=== PATIENT | female | born 1960 | race Caucasian/White ===

== ENCOUNTER 2024-10-13 09:24 | Outpatient (AMB) | payer MEDICAID, SELFPAY ==
[2024-10-13 09:36] VITALS: BP 125/84; PULSE 71; RESP 18; TEMP 36.4; O2SAT 99; BMI 23.5
--- NOTE | 2024-10-13 09:36 | PD.GSCLVISIT ---
[facility] - [facility] 10/13/24 09:36 Height 1.65 m Height Method Stated Weight 64.013 kg Weight Measurement Method Standing Scale BMI 23.5 BP 125/84 Blood Pressure Source Automatic Cuff Blood Pressure Location Right Upper Arm Position Sitting Respiration 18 Pulse 71 Pulse Source Monitor Temp 97.5 F Temp Source Temporal Artery Scan Pulse Oximetry (%) 99 Oxygen Delivery Method Room Air Med/Allergies Allergies & Medications Allergies Penicillins Allergy (Verified 10/13/24 09:38) Hives Medication Reconciliation polyethylene glycol 3350 17 gram oral powder packet (Miralax) 17 g PO QDAY constipation #30 ea 05/05/24 [Rx Confirmed 10/13/24] anastrozole 1 mg tablet 1 mg PO QDAY 06/16/24 [History Confirmed 10/13/24] trazodone 50 mg tablet 50 mg PO QHS PRN insomnia 30 days #30 tabs 09/19/24 [Rx Confirmed 10/13/24] gabapentin 100 mg capsule 200 mg (2 x 100 mg) PO BID nerve pain #30 caps 10/06/24 [Rx Confirmed 10/13/24] MA Intake Visit Data Collection New Patient or Established: Established [place] [facility] [place] Seen by Clinical Staff ONLY (RN/MA): No Reason for Visit:: REFERRAL CYST ON BACK Pain Present Currently: No Pain scale:: 0 Die Assembler Required: No PCP or OBGYN visit in last 3 months: Yes Hx Now: No Do You Feel Safe at Home: Yes Authorities Contacted: N/A Smoking Status Smoking Status: Former smoker Immunization / Flu Flu Vaccine in the Last 12 Months: Yes Flu Vaccine Exclusion Criteria: Already Received Past Medical History Past Medical History NEUROLOGIC: Negative Neurological Disorders or Seizures CARDIAC: Negative Cardiac Disorders or Congestive Heart Failure RESPIRATORY: Negative Chronic Obstructive Pulmonary Disease (COPD) GASTROINTESTINAL: Negative Gastrointestinal Disorders or Hepatitis GENITOURINARY: Negative Genitourinary Disorders or Renal Disease REPRODUCTIVE: Positive Breast Cancer and Previous Pregnancies ENDOCRINE: Negative Endocrine Disorders, Diabetes Mellitus Type 1 or Diabetes Mellitus Type 2 HEMATOLOGIC: Negative Blood Disorders or Anemia PSYCHO/SOCIAL: Positive Depression and Anxiety OTHER HISTORY: Positive Hospitalization, Anesthesia Reactions, Chicken Pox, Measles, Cancer and Breast Cancer; Negative Shingles, Blood Transfusions or Blood Transfusion Reaction Family History FAMILY HISTORY: Positive Family Cardiac Disorders and Family Surgery; Negative Family Psychiatric Problems, Family Respiratory Disorders, Family Gastrointestinal Problems, Family Cancer or Family Anesthesia Reaction Surgical History SURGICAL: Positive Mastectomy, Lumpectomy and Hysterectomy Social History SMOKING STATUS: Smoking status: Former smoker ALCOHOL: Alcohol Intake: Former ALCOHOL FREQUENCY: Alcohol Intake Frequency: holidays/special occasions only HOUSING: Housing: House LIVES WITH: Lives With: Spouse HPI HPI Narrative 64F with history of breast CA presenting with back lesion. Pt reports she has noticed it for the past year and it is painful, sometimes draining thick output. Denies history of similar lesions PMH: Left breast invasive ductal carcinoma PSHx: Left mastectomy, appendectomy Meds: Anastrazole, gabapentin, abemaciclib. No antiptl or anticoagulation Allergies: PCN ROS Review of Systems Systems Reviewed: All systems reviewed, normal except as documented Objective/Exam General General Appearance: alert, cooperative and well groomed Resp Respiratory exam: Absent respiratory distress Back Back exam: Present other (upper back cyst approx 1x1cm left paraspinal) Assessment & Plan Diagnosis / Problem List (1) Sebaceous cyst: Status: Acute Plan 64F with likely sebaceous cyst preferring excision due to pain. I explained risks of recurrence, bleeding and infection; pt expressed understanding and agrees to proceed Office Procedures GNS Level of Care Nursing/Assessment Patient Status: Established Patient Nursing Assessment/Reassesment: Medication Reconciliation, Update PMH in EMR and Vital Signs Coordination of Care: Complex Care and Chronic Disease 1-5, Education Complex Pt/Fam, Consent,records obtained, informed consent, 1 Ins Authorization, Lab and Imaging orders, Results/Orders obtained and Staff clarify orders Established Patient Charge Established Patient Point Assignment: 125 Established Patient Point Charge: EP Level 4 (120-155) Patient Portal Questionaires Social History Living Situation History Housing: House Tobacco History Smoking Status: Former smoker Alcohol History Alcohol Intake: Former Alcohol Intake Frequency: holidays/special occasions only Domestic Abuse History Do You Feel Safe at Home: Yes Review of Systems Report any current symptoms Only answer those that you have currently: Past Medical History Past Medical History Have you ever been diagnosed with any of the following: Neurological Problems Seizures: No Cardiology Problems Congestive Heart Failure: No Respiratory Problems Chronic Obstructive Pulmonary Disease (COPD): No Stomache/Intestinal Problems Hepatitis: No Genital/Urinary Problems Renal Disease: No Reproductive Problems Breast Cancer: Yes Previous Pregnancies: Yes Endocrine Problems Diabetes Mellitus Type 1: No Diabetes Mellitus Type 2: No Blood Problems Anemia: No Psychologic Problems Depression: Yes Anxiety: Yes Other Problems Hospitalization: Yes Shingles: No Blood Transfusions: No Blood Transfusion Reaction: No Anesthesia Reactions: Yes Chicken Pox: Yes Measles: Yes Cancer: Yes Surgical History Hysterectomy: Yes
== END 2024-10-13 09:44 | disposition home or self-care (01) ==
LOC: HODSRG 09:24
PROVIDERS: PCP Student in an Organized Health Care Education/Training Program; Referring Provider Student in an Organized Health Care Education/Training Program; Supervising Provider Surgery; Visit Provider Surgery
DX: L72.3 Sebaceous cyst (principal); C50.912 Malignant neoplasm of unspecified site of left female breast
CPT/HCPCS: 99214; G0463

== ENCOUNTER 2024-11-09 06:50 | Day surgery (SDC) | payer MEDICAID, SELFPAY ==
[2024-11-08 08:09] VITALS: BMI 23.6
[2024-11-08 08:43] LABS: Basophils # (Auto) 0.1 Thou/mm3 (0.0-0.2); Basophils % (Auto) 2 % (0-2.5); Eosinophils % (Auto) 1 % (0-10); Hematocrit 29.6 % (36.0-46.0); Hemoglobin 9.9 g/dL (12.0-16.0); Immature Granulocytes % (Auto) 0 % (0-0); Immature Granulocytes Auto 0.01 Thou/mm3 (0.00-0.00); Lymphocytes # (Auto) 0.7 Thou/mm3 (1.0-4.8); Lymphocytes % (Auto) 27 % (10-50); Mean Corpuscular HGB Conc 33.4 g/dl (31.0-37.0); Mean Corpuscular Volume 96 fL (80-100); Monocytes # (Auto) 0.2 Thou/mm3 (0.0-0.8); Monocytes % (Auto) 8 % (0-12); Neutrophils # (Auto) 1.7 Thou/mm3 (1.8-7.7); Neutrophils % (Auto) 63 % (37-80); Nucleated Red Blood Cell % 0 /100 WBC (0); Platelet Count 102 Thou/mm3 (140-440); RDW Standard Deviation 57.5 fL (36.4-46.3); Red Blood Count 3.09 Miln/mm3 (4.00-5.20)
[2024-11-08 08:58] LABS: Alanine Aminotransferase 11 U/L (10-49); Albumin, Serum 4.4 gm/dL (3.4-4.8); Albumin/Globulin Ratio 1.8 (1.2-2.2); Alkaline Phosphatase 60 U/L (46-116); Anion Gap 8 (7-16); Aspartate Amino Transferase 17 U/L (0-34); BUN/Creatinine Ratio 21 Ratio (12-20); Bilirubin,Total 0.5 mg/dL (0.3-1.2); Blood Urea Nitrogen 19 mg/dL (9-23); Calcium 10.1 mg/dL (8.3-10.6); Calcium (Corrected) 10.1 mg/dL (8.5-10.1); Carbon Dioxide 26.9 mMol/L (20.0-31.0); Chloride 108 mMol/L (98-107); Creatinine (Component) 0.9 mg/dL (0.6-1.3); Estimated Creatinine Clearance 57.6 mL/min (>60); Globulin 2.4 gm/dL (2.3-3.5); Glucose 89 mg/dL (74-106); Osmolality,Calculated 286 (275-295); Potassium 3.6 mMol/L (3.4-5.1); Sodium 143 mMol/L (136-145); Total Protein 6.8 gm/dL (5.7-8.2); eGFR > 60 See Note
[2024-11-08 09:00] LABS: White Blood Count 2.8 Thou/mm3 (3.6-11.0)
[2024-11-08 09:34] LABS: Partial Thromboplastin Time 22.8 Seconds (22.0-36.0); Prothrombin Time 10.9 Seconds (9.0-12.2)
--- NOTE | 2024-11-08 14:25 | SUR.PREOP ---
CBC reviewed with Dr Karen awad to proceed.
--- NOTE | 2024-11-09 07:18 | CHAP ---
Visited briefly with patient and had prayer.
[2024-11-09 07:26] VITALS: BP 115/66; PULSE 56; RESP 16; TEMP 36.2; O2SAT 100; BMI 23.4
[2024-11-09] MEDS: SCOPOLAMINE 1 MG TDSY TOP (07:39)
[2024-11-09] MEDS: RINGERS LACTATED 1000 ML 1,000 ML 20 ML IV (07:40)
[2024-11-09 10:05] VITALS: BP 134/73; PULSE 54; RESP 17; TEMP 36.7; O2SAT 100
--- NOTE | 2024-11-09 10:05 | SUR.PHASEII ---
1005 Patient arrived to recovery resting comfortably in [facility], awake and talking with staff, breathing unlabored, vital signs stable, denies pain, dressing intact to back; dissolvable sutures, gauze, tegaderm, no bleeding noted, lung sounds clear upon auscultation, bilateral radial pulses present when palpated, report received from Delon HURT and Deandra SOTO
[2024-11-09 10:10] VITALS: BP 135/69; PULSE 63; RESP 14; O2SAT 100
[2024-11-09 10:15] VITALS: BP 118/61; PULSE 53; RESP 18; O2SAT 99
[2024-11-09 10:20] VITALS: BP 118/65; PULSE 51; RESP 16; O2SAT 100
--- NOTE | 2024-11-09 10:20 | PD.SUROPNT ---
Date of Procedure 11/09/24 Pre Op Diagnosis Upper back sebaceous cyst Post Op Diagnosis Same Procedure Excision of sebaceous cyst Findings Small upper back cyst containing sebum Procedure Description After discussion of risk and benefits, patient was brought to the operating room, SCDs were placed and MAC anesthesia was induced. She was placed in a right lateral decubitus position with proper padding and was prepped and draped in the usual sterile fashion. She received preoperative antibiotics. After timeout an elliptical incision was made that was 3 cm transverse dimension and 1 cm in craniocaudal dimension. The skin was anesthetized with half percent Marcaine and anesthesia was confirmed before incision was made with a #15 blade. The tissues were dissected with electrocautery and there was some expression of sebum. Ultimately the cyst was removed and the wound bed was irrigated. Hemostasis was achieved with electrocautery. The skin was approximated with two 2-0 Vicryl interrupted sutures and then closed with interrupted 4-0 Monocryl sutures. The incision was covered with Steri-Strips, gauze and Tegaderm. Patient was returned to supine position and brought to PACU in stable condition Pathology / specimen Other (Upper back cyst) Estimated Blood Loss 5 Surgeon Patrizia Jones MD Surgical Staff Operation Date: 11/09/24 09:15 <No data on this case meets the specified criteria>
--- NOTE | 2024-11-09 10:22 | ESDS_ITS ---
Planned Discharge Date 11/09/24 DS: Providers Provider Primary care physician: Ashley Shane MD Attending Provider on Admission: Patrizia Jones MD Attending Provider on DC: Patrizia Jones MD Discharging Provider: Patrizia Jones MD Diagnosis Discharge Diagnosis (1) Sebaceous cyst: Status: Acute Problem List Completed Was Problem List Reviewed/Reconciled?: Yes Exam Vital Signs Temp Pulse Resp BP Pulse Ox 98.0 F 54 L 17 134/73 H 100 11/09/24 10:05 11/09/24 10:05 11/09/24 10:05 11/09/24 10:05 11/09/24 10:05 Constitutional Constitutional: no acute distress Routine Respiratory Exam Respiratory: Present no resp distress Discharge Plan Plan Patient Disposition: HOME (Self Care) Prescriptions/Referrals Prescriptions/Med Rec: No Action anastrozole 1 mg tablet 1 mg PO QDAY Qty: 30 0RF gabapentin 100 mg capsule 200 mg PO BID Qty: 120 3RF loperamide 2 mg capsule 2 mg PO Q6H PRN (Reason: loose stool) Qty: 30 0RF Verzenio 150 mg Tablet 150 mg PO BID Referrals: Ashley Shane MD [Primary Care Provider] - Patrizia Jones MD [Physician] - (You will receive a phone call to confirm a follow-up appointment with me on Wednesday 11/28) Patient/Caregiver Discharge Instructions Education Materials: Incision Care Print Language: Argentine Stand Alone Forms: Cielo Award Info., Patient Portal Info Letter Discharge Order Discharge Orders: Discharge (Routine); Ordered 11/09/24 Ordered By: Patrizia Jones Results Results: Laboratory Laboratory results: results reviewed Procedures Procedure Date 11/09/24 Procedures Excision of sebaceous cyst
[2024-11-09 10:35] VITALS: BP 118/65; PULSE 60; RESP 16; TEMP 36.8; O2SAT 100
--- NOTE | 2024-11-09 10:45 | SUR.PHASEII ---
1045 Patient meets discharge criteria from recovery, awake and alert, breathing unlabored, vital signs stable, denies pain, dressing intact; no bleeding noted, patient drinking water; tolerating well, denies nausea, patient able to dress herself into her clothing, discharge instructions given to patient and patients , signed discharge instructions. Patient given all her belongings prior to discharge, transported via wheelchair and left in a private vehicle.
== END 2024-11-09 10:45 | disposition home or self-care (01) ==
PROVIDERS: Anesthesiology; PCP Student in an Organized Health Care Education/Training Program; Referring Provider Surgery; Visit Provider Surgery
PROC: (CPT 21930; principal; 2024-11-09 09:00)
DX: L72.3 Sebaceous cyst (principal)
CPT/HCPCS: 21930; 36415; 80053; 85025; 85610; 85730; A4217; A4649; J0690; J0736; J2250; J2704; J3490; J7120; A9270

== ENCOUNTER 2024-11-16 13:24 | Outpatient (RCR) | payer MEDICAID, SELFPAY ==
[2024-11-07 11:11] LABS: Basophils # (Auto) 0.1 Thou/mm3 (0.0-0.2); Basophils % (Auto) 2 % (0-2.5); Eosinophils % (Auto) 1 % (0-10); Hematocrit 27.6 % (36.0-46.0); Hemoglobin 9.3 g/dL (12.0-16.0); Immature Granulocytes % (Auto) 1 % (0-0); Immature Granulocytes Auto 0.02 Thou/mm3 (0.00-0.00); Lymphocytes # (Auto) 0.7 Thou/mm3 (1.0-4.8); Lymphocytes % (Auto) 26 % (10-50); Mean Corpuscular HGB Conc 33.7 g/dl (31.0-37.0); Mean Corpuscular Hemoglobin 32.2 pg (25.0-35.0); Mean Corpuscular Volume 96 fL (80-100); Monocytes # (Auto) 0.2 Thou/mm3 (0.0-0.8); Monocytes % (Auto) 7 % (0-12); Neutrophils # (Auto) 1.7 Thou/mm3 (1.8-7.7); Neutrophils % (Auto) 63 % (37-80); Nucleated Red Blood Cell % 0 /100 WBC (0); Platelet Count 82 Thou/mm3 (140-440); RDW Standard Deviation 57.1 fL (36.4-46.3); Red Blood Count 2.89 Miln/mm3 (4.00-5.20)
[2024-11-07 11:19] LABS: Alanine Aminotransferase 11 U/L (10-49); Albumin, Serum 4.6 gm/dL (3.4-4.8); Albumin/Globulin Ratio 2.3 (1.2-2.2); Alkaline Phosphatase 57 U/L (46-116); Anion Gap 7 (7-16); BUN/Creatinine Ratio 20 Ratio (12-20); Bilirubin,Total 0.4 mg/dL (0.3-1.2); Blood Urea Nitrogen 18 mg/dL (9-23); Calcium 9.8 mg/dL (8.3-10.6); Calcium (Corrected) 9.8 mg/dL (8.5-10.1); Carbon Dioxide 25.9 mMol/L (20.0-31.0); Chloride 105 mMol/L (98-107); Creatinine (Component) 0.9 mg/dL (0.6-1.3); Glucose 88 mg/dL (74-106); Osmolality,Calculated 276 (275-295); Potassium 3.2 mMol/L (3.4-5.1); Sodium 138 mMol/L (136-145); Total Protein 6.6 gm/dL (5.7-8.2); White Blood Count 2.7 Thou/mm3 (3.6-11.0); eGFR > 60 See Note
[2024-11-07 11:28] LABS: Aspartate Amino Transferase 15 U/L (0-34)
--- NOTE | 2024-11-14 05:46 | CTCFLWUP_ITS ---
Patient: IRMA BRYAN : 1960 Page 2 of 2 FOLLOW UP NOTE DATE OF SERVICE: 11/08/2024 NAME: IRMA BRYAN ACCOUNT: [id number] : 1960 AGE: 64 REASON FOR VISIT: Follow-up on breast cancer Patient is on adjuvant abemaciclib along with anastrozole INTERVAL HISTORY: Irma Bryan is a 64-year-old ENG speaking female with history of anxiety had the followin g oncology history. Cannot have extensive history of cancer in her family as about 4 in her family i ncluding her maternal aunts and sisters. She was diagnosed with high risk stage III breast cancer an d and here for follow-up. At the time of diagnosis, she does not remember as to when she exactly had the previous mammograms. Ms. Bryan has strong family history of breast cancer. Her mother as wel l as 4 of her maternal aunts had breast cancers. Sister had multiple lumps in the breast. Patient with a strong history of breast cancer Ms. Bryan had bilateral diagnostic digital mammogram s and bilateral breast ultrasounds done to evaluate palpable breast lumps. 07/13/2023: Ms. Bryan had ultrasound-guided biopsy of the left breast 9:00 nodule and a left axillar y lymph node. 09/03/2023: Ms. Bryan had left breast lumpectomy and sentinel lymph node biopsy 10/27/2023: Ms. Bryan had modified radical left mastectomy 11/12/2023: Jame hereditary cancer test? 11/12/2023: BRCA1 and BRCA2 analysis 01/11/2024 - 04/19/2020: Ms. Bryan had 4 cycles of dose dense AC and 4 cycles of Taxol in the adjuvan t setting 05/10/2024: Ms. Bryan started adjuvant radiation therapy to the left chest. 05/17/2024. Ms. Bryan received first dose of adjuvant Zometa. 05/30/2024: Ms. Bryan started adjuvant anastrozole. 07/21/2024: Ms. Bryan also started abemaciclib. ONCOLOGY HISTORY: DIAGNOSIS: Stage IIIa (pT2, snN2A), ER positive, ND negative, HER2/sarai negative, poorly differentiated invasive ductal carcinoma of the left breast. A total of 5 lymph nodes positive for metastatic disease. Left breast modified radical mastectomy (10/27/2023) Left breast lumpectomy and sentinel lymph node biopsy (09/03/2023) Left breast ultrasound-guided biopsy as well as left axillary lymph node biopsy (07/13/2023) SUE heterozygous mutation positive, high risk for breast and pancreatic cancers. PET/CT scan (05/31/2024) negative study. S/p 4 cycle of dose dense AC chemotherapy and 4 cycles of dose dense Taxol chemotherapy in the adjuva nt setting (01/11/2024 - 04/19/2024). First dose of adjuvant Zometa received on 05/17/2020 Adjuvant anastrozole started on 05/30/2024. Abemaciclib started around July 21, 2024. Currently on adjuvant abemaciclib 150 mg p.o. twice daily. Unable to tolerate full dose of abemacicl ib which was causing significant diarrhea S/p adjuvant radiation therapy to the left chest (05/10/2024?07/08/2024). DATE OF DIAGNOSIS: 10/19/2023 STAGE/TNM: T2 N2 ER positive/ND negative HER2 negative SUE mutation positive TREATMENT HISTORY: Care?Plan Start?Date Cycle Day Intent AC-Taxol?Dose?Dense?q?2wks 12/21/2023 1 14 Curative?(adjuvant) Zoledronic?Acid?4?mg?adjuvant 05/17/2024 1 180 Curative?(adjuvant) OTHER MEDICAL HISTORY/CONDITIONS: ANXIETY/?DEPRESSION LEFT?BREAST?CANCER LEFT BREAST BIOPSY 08/2023 LEFT BREAST AND LYMPH NODES REMOVED 10/27/23 HYSTERECTOMY AT AGE 41 APPENDECTOMY AT AGE 18 RIGHT BREAST LUMP REMOVED 1982 BENIGN FAMILY HISTORY: Father:?DENIES Mother: MOTHER AND MATERNAL AUNTS BREAST CANCER Sibling:?SISTER?HX?BREAST?CANCER Children:?DENIES Cancer History:?LEFT BREAST CANCER DX 08/2023 SOCIAL HISTORY: Occupational?History:?DISABLED Education?Level:?6-Attended?Vocational?School,?did?not?graduate Marital?Status:? 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 abemaciclib - 150 mg 1 tab Twice a Day 2. anastrozole - 1 mg 1 tab Daily 3. docusate sodium - 100 mg 1 Capsule As needed 4. gabapentin - 100 mg 2 tab Twice a Day 5. traZODone - 50 mg 1 tab As needed Medications Last Reconciled by Deidre Hernandez MA on 11/08/2024 ALLERGIES: Penicillin V REVIEW OF SYSTEMS: A complete 14-point review of systems was performed and is negative except as noted in interval histo ry. PHYSICAL EXAMINATION: VITAL SIGNS: Temperature?65, B/P?113/75, Oxygen?Saturation?100% Weight?142.8?lbs (Change?since? 4:?0.2?lbs) PAIN: 5 - Between moderate and severe pain ECOG Performance Status: 0 - Asymptomatic and fully active EYE: Conjunctivae is white MOUTH: Oral cavity is dry. CHEST: Clear to auscultation. Clear to auscultation. No wheezes or rales audible. CARDIAC: Rhythm regular, no murmurs or gallops present. ABDOMEN: Soft. No hepatomegaly. No splenomegaly. EXTREMITIES: No pedal edema or cyanosis. LABORATORY DATA: I have personally reviewed and interpreted each of the patient?s relevant lab tests, abnormal finding s are below: Date 11/08/24 ??GLUCOSE,RANDOM?(mg/dL) 89 ??BLOOD?UREA?NITROGEN?(mg/dL) 19 ??CREATININE?(mg/dL) 0.90 ??SODIUM?(mmol/L) 143 ??POTASSIUM?(mmol/L) 3.6 ??CHLORIDE?(mmol/L) 108?H ??CrCl?(CandG)?(ml/min) 65.33 ??AST/SGOT?(Unit/L) 17 ??ALT/SGPT?(Unit/L) 11 ??ALKALINE?PHOSPHATASE?(Unit/L) 60 ??BILIRUBIN,?TOTAL?(mg/dL) 0.5 ??PROTEIN?TOTAL?(gm/dl) 6.8 ??ALBUMIN,?SERUM?(gm/dl) 4.4 ??GLOBULIN?(gm/dl) 2.4 ??ALBUMIN/GLOBULIN?RATIO 1.8 ??CALCIUM,?SERUM?(mg/dL) 10.1 ??CALCIUM?SERUM?(CORRECTED)?(mg/dL) 10.1 IMPRESSION/PLAN: #1 stage Illa (pTZ, snNZA), ER positive, ND negative, KARIN/sarai negative, Ki-67 20-30%, poorly differe ntiated invasive ductal carcinoma of the left breast. Left breast leticia?ed radical mastectomy (10/27/2023) Left breast lumpectomy and sentinel lymph node biopsy (09/03/2023) Left breast ultrasound-guided biops y as well as left axillary lymph node biopsy (07/13/2023) Status quo 4 cycles of AC and 4 cycles of Taxol chemotherapy in the adjuvant setting Status post adjuvant radiation therapy to the left chest wall completed on 07/08/2024. Patient is on anastrozole and abemaciclib Plan is to continue for 2 years Patient tolerating it well Advised to repeat labs every month Continue abemaciclib 150 mg p.o. twice daily Last PET scan in May 2024 was negative for any metastatic disease #2 osteopenia bone density test showed osteopenia. Currently Ms. Bryan is taking Citracal 2 tablets in the morning 2 in the evening. Started on adjuvant Zometa on 05/17/2024 #3 SUE mutation Strong family history of breast cancers. Mother as well as for maternal aunts had breast cancers. Ms. Bryan is positive for SUE heterozygous mutation, high risk for breast and pancreatic cancers. BRCA 1and2 negative. 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 Continue Neurontin 100 mg p.o. twice daily CBC CMP CA 15-3 RETURN TO CLINIC: I will see her back in the clinic in 2 months. BILLING AND COMPLIANCE: I reviewed external records from providers outside my specialty as summarized above. I spent a total of 50 minutes on this patient?s care on the day of their visit excluding time spent related to any bi lled procedures. This time includes time spent with the patient as well as time spent documenting in the medical record, reviewing patients records and tests, obtaining history, placing orders, communi cating with other healthcare professionals, counseling the patient, family or caregiver, and/or care coordination for the diagnoses above. Electronically Signed by: Sascha Nichole MD T: 5:44 AM CC: PCP: Ashley Shane Referring: Ashley Shane This document was completed utilizing speech recognition software. Grammatical errors, random word in sertions, pronoun errors, and incomplete sentences are an occasional consequence of this system due t o software limitations, ambient noise, and hardware issues. Any formal questions or concerns about th e content, text or information contained within the body of this dictation should be directly address ed to the provider for clarification.
[2024-11-15 16:21] LABS: Basophils % (Auto) 1 % (0-2.5); Eosinophils % (Auto) 1 % (0-10); Hematocrit 27.8 % (36.0-46.0); Hemoglobin 9.4 g/dL (12.0-16.0); Immature Granulocytes % (Auto) 1 % (0-0); Immature Granulocytes Auto 0.02 Thou/mm3 (0.00-0.00); Lymphocytes % (Auto) 30 % (10-50); Mean Corpuscular HGB Conc 33.8 g/dl (31.0-37.0); Mean Corpuscular Hemoglobin 32.4 pg (25.0-35.0); Mean Corpuscular Volume 96 fL (80-100); Monocytes # (Auto) 0.2 Thou/mm3 (0.0-0.8); Monocytes % (Auto) 5 % (0-12); Neutrophils # (Auto) 2.1 Thou/mm3 (1.8-7.7); Neutrophils % (Auto) 63 % (37-80); Nucleated Red Blood Cell % 0 /100 WBC (0); Platelet Count 94 Thou/mm3 (140-440); RDW Standard Deviation 52.8 fL (36.4-46.3); White Blood Count 3.3 Thou/mm3 (3.6-11.0)
[2024-11-15 16:55] LABS: Alanine Aminotransferase 8 U/L (10-49); Albumin, Serum 4.4 gm/dL (3.4-4.8); Albumin/Globulin Ratio 2.1 (1.2-2.2); Alkaline Phosphatase 62 U/L (46-116); Anion Gap 9 (7-16); Aspartate Amino Transferase 13 U/L (0-34); BUN/Creatinine Ratio 19 Ratio (12-20); Bilirubin,Total 0.3 mg/dL (0.3-1.2); Blood Urea Nitrogen 15 mg/dL (9-23); Calcium 9.8 mg/dL (8.3-10.6); Calcium (Corrected) 9.8 mg/dL (8.5-10.1); Carbon Dioxide 27.1 mMol/L (20.0-31.0); Chloride 106 mMol/L (98-107); Creatinine (Component) 0.8 mg/dL (0.6-1.3); Globulin 2.1 gm/dL (2.3-3.5); Glucose 107 mg/dL (74-106); Osmolality,Calculated 283 (275-295); Potassium 2.9 mMol/L (3.4-5.1); Sodium 142 mMol/L (136-145); Total Protein 6.5 gm/dL (5.7-8.2); eGFR > 60 See Note
[2024-11-15 17:32] LABS: CA 15-3 25.3 U/mL (<32.4)
== END 2024-11-29 23:59 | disposition home or self-care (01) ==
LOC: SCTC 13:24
PROVIDERS: PCP Student in an Organized Health Care Education/Training Program; Referring Provider Student in an Organized Health Care Education/Training Program; Visit Provider Internal Medicine Hematology & Oncology
DX: C50.812 Malignant neoplasm of overlapping sites of left female breast (principal); Z17.0 Estrogen receptor positive status [ER+]; Z17.22 Progesterone receptor negative status; Z17.32 Human epidermal growth factor receptor 2 negative status; Z90.12 Acquired absence of left breast and nipple; Z92.3 Personal history of irradiation; Z79.811 Long term (current) use of aromatase inhibitors; M85.80 Other specified disorders of bone density and structure, unspecified site; Z80.3 Family history of malignant neoplasm of breast; G62.9 Polyneuropathy, unspecified; Z15.01 Genetic susceptibility to malignant neoplasm of breast; Z15.09 Genetic susceptibility to other malignant neoplasm
CPT/HCPCS: 36591; 80053; 85025; 86300; 96365; 99212; A4216; J1642; J3489; G0463

== ENCOUNTER 2024-11-28 13:02 | Outpatient (AMB) | payer MEDICAID, SELFPAY ==
[2024-11-28 13:13] VITALS: BP 124/79; PULSE 65; RESP 18; TEMP 36.2; O2SAT 100; BMI 23.5
--- NOTE | 2024-11-28 13:13 | PD.GSCLVISIT ---
Vital Signs - [facility] 11/28/24 13:13 Height 1.65 m Height Method Stated Weight 64.07 kg Weight Measurement Method Standing Scale BMI 23.5 BP 124/79 Blood Pressure Source Automatic Cuff Blood Pressure Location Right Upper Arm Position Sitting Respiration 18 Pulse 65 Pulse Source Monitor Temp 97.1 F Temp Source Temporal Artery Scan Pulse Oximetry (%) 100 Oxygen Delivery Method Room Air Med/Allergies Allergies & Medications Allergies Penicillins Allergy (Verified 11/28/24 13:44) Hives Medication Reconciliation anastrozole 1 mg tablet 1 mg PO QDAY #30 tabs 10/13/24 [Rx Confirmed 11/28/24] gabapentin 100 mg capsule 200 mg (2 x 100 mg) PO BID nerve pain #120 caps 10/13/24 [Rx Confirmed 11/28/24] loperamide 2 mg capsule 2 mg PO Q6H PRN loose stool #30 caps 10/13/24 [Rx Confirmed 11/28/24] abemaciclib 150 mg tablet (Verzenio) 150 mg PO BID 11/08/24 [History Confirmed 11/28/24] MA Intake Visit Data Collection New Patient or Established: Established Patient (seen at [facility] within 3 years) Seen by Clinical Staff ONLY (RN/MA): No Reason for Visit:: F/U BACK INCISION Pain Present Currently: No Product Safety Technical Assistant Required: No PCP or OBGYN visit in last 3 months: Yes Smoking Status Smoking Status: Former smoker Immunization / Flu Flu Vaccine in the Last 12 Months: Yes Flu Vaccine Exclusion Criteria: Already Received Past Medical History Past Medical History NEUROLOGIC: Negative Neurological Disorders or Seizures CARDIAC: Negative Cardiac Disorders or Congestive Heart Failure RESPIRATORY: Negative Chronic Obstructive Pulmonary Disease (COPD) GASTROINTESTINAL: Positive Gastrointestinal Disorders and Hemorrhoids; Negative Hepatitis GENITOURINARY: Negative Genitourinary Disorders or Renal Disease REPRODUCTIVE: Positive Breast Cancer (Left) and Previous Pregnancies MUSCULOSKELETAL: Positive Degenerative Disk Disease ENDOCRINE: Negative Endocrine Disorders, Diabetes Mellitus Type 1 or Diabetes Mellitus Type 2 HEMATOLOGIC: Negative Blood Disorders or Anemia PSYCHO/SOCIAL: Negative Depression or Anxiety OTHER HISTORY: Positive Hospitalization (surgery), Chemotherapy (2022), Radiation Therapy (2022), Chicken Pox, Measles, Cancer and Breast Cancer (Left); Negative Shingles, Blood Transfusions, Blood Transfusion Reaction or Anesthesia Reactions Family History FAMILY HISTORY: Positive Family Cardiac Disorders and Family Surgery; Negative Family Psychiatric Problems, Family Respiratory Disorders, Family Gastrointestinal Problems, Family Cancer or Family Anesthesia Reaction Surgical History SURGICAL: Positive Abdominal Surgery, Mastectomy (left), Lumpectomy (right breast non cancerous) and Hysterectomy Social History SMOKING STATUS: Smoking status: Former smoker ALCOHOL: Alcohol Intake: Current ALCOHOL FREQUENCY: Alcohol Intake Frequency: holidays/special occasions only HOUSING: Housing: House LIVES WITH: Lives With: Spouse HPI HPI Narrative 64F s/p excision of sebaceous cyst of upper back 11/09 here for planned follow up. Pt reports feeling well overall with no pain to the area, no drainage or any other complaint ROS Review of Systems Systems Reviewed: All systems reviewed, normal except as documented Objective/Exam General General Appearance: alert, cooperative and well groomed Resp Respiratory exam: Absent respiratory distress Back Back exam: Present other (upper back incision with no erythema, no fluctuance or tenderness) Results Pathology: epidermal cyst Assessment & Plan Diagnosis / Problem List (1) Sebaceous cyst: Status: Acute Assessment & Plan: 64F s/p excision of upper back sebaceous cyst, recovering well Plan: Follow up as needed Office Procedures GNS Level of Care Nursing/Assessment Patient Status: Established Patient Nursing Assessment/Reassesment: Medication Reconciliation, Update PMH in EMR and Vital Signs Coordination of Care: Complex Care and Chronic Disease 1-5, Education Complex Pt/Fam, 1 Ins Authorization and Staff clarify orders Established Patient Charge Established Patient Point Assignment: 100 Established Patient Point Charge: EP Level 3 (80-115) Patient Portal Questionaires Social History Living Situation History Housing: House Tobacco History Smoking Status: Former smoker Alcohol History Alcohol Intake: Current Alcohol Intake Frequency: holidays/special occasions only Review of Systems Report any current symptoms Only answer those that you have currently: Past Medical History Past Medical History Have you ever been diagnosed with any of the following: Neurological Problems Seizures: No Cardiology Problems Congestive Heart Failure: No Respiratory Problems Chronic Obstructive Pulmonary Disease (COPD): No Stomache/Intestinal Problems Hepatitis: No Hemorrhoids: Yes Genital/Urinary Problems Renal Disease: No Reproductive Problems Breast Cancer: Yes (Left) Previous Pregnancies: Yes Musculoskeletal Problems Degenerative Disk Disease: Yes Endocrine Problems Diabetes Mellitus Type 1: No Diabetes Mellitus Type 2: No Blood Problems Anemia: No Psychologic Problems Depression: No Anxiety: No Other Problems Hospitalization: Yes (surgery) Shingles: No Blood Transfusions: No Blood Transfusion Reaction: No Anesthesia Reactions: No Chemotherapy: Yes (2022) Radiation Therapy: Yes (2022) Chicken Pox: Yes Measles: Yes Cancer: Yes Surgical History Hysterectomy: Yes
== END 2024-11-28 13:41 | disposition home or self-care (01) ==
LOC: HODSRG 13:02
PROVIDERS: PCP Student in an Organized Health Care Education/Training Program; Referring Provider Student in an Organized Health Care Education/Training Program; Supervising Provider Surgery; Visit Provider Surgery
DX: Z48.817 Encounter for surgical aftercare following surgery on the skin and subcutaneous tissue (principal)
CPT/HCPCS: 99213; G0463

== ENCOUNTER 2024-11-28 13:32 | Outpatient (AMB) | payer MEDICAID, SELFPAY ==
[2024-11-28 13:43] VITALS: BP 115/70; PULSE 63; RESP 18; TEMP 36.8; O2SAT 99; BMI 23.3
--- NOTE | 2024-11-28 13:43 | PD.RESCLINIC ---
Vital Signs 11/28/24 13:43 Height 1.65 m Height Method Stated Weight 63.616 kg Weight Measurement Method Standing Scale BMI 23.3 BP 115/70 Blood Pressure Source Automatic Cuff Blood Pressure Location Right Upper Arm Position Sitting Respiration 18 Pulse 63 Pulse Source Monitor Temp 98.3 F Temp Source Oral Pulse Oximetry (%) 99 Oxygen Delivery Method Room Air Allergies/Meds Allergies & Medications Allergies Penicillins Allergy (Verified 11/28/24 13:44) Hives Medication Reconciliation anastrozole 1 mg tablet 1 mg PO QDAY #30 tabs 10/13/24 [Rx Confirmed 11/28/24] gabapentin 100 mg capsule 200 mg (2 x 100 mg) PO BID nerve pain #120 caps 10/13/24 [Rx Confirmed 11/28/24] loperamide 2 mg capsule 2 mg PO Q6H PRN loose stool #30 caps 10/13/24 [Rx Confirmed 11/28/24] abemaciclib 150 mg tablet (Verzenio) 150 mg PO BID 11/08/24 [History Confirmed 11/28/24] albuterol sulfate 90 mcg/actuation breath activated powder inhaler 1 inh inhalation QID PRN shortness of breath or wheezing #1 ea 11/28/24 [Rx] loratadine 5 mg-pseudoephedrine ER 120 mg tablet,extended release,12hr (Loratadine-D) 1 tab PO Q12H 2 weeks #28 tabs 11/28/24 [Rx] MA Intake Visit Data Collection New Patient or Established: Established Patient (seen at [facility] within 3 years) Seen by Clinical Staff ONLY (RN/MA): No Pain Present Currently: No Pain scale:: 0 Pain Scale Used: Avina-Epps/Numerical Flagstone Layer Required: No PCP or OBGYN visit in last 3 months: Yes Do You Feel Safe at Home: Yes Authorities Contacted: N/A Smoking Status Smoking Status: Former smoker Immunization / Flu Flu Vaccine in the Last 12 Months: No Flu Vaccine Exclusion Criteria: No Exclusion Criteria Past Medical History Past Medical History NEUROLOGIC: Negative Neurological Disorders or Seizures CARDIAC: Negative Cardiac Disorders or Congestive Heart Failure RESPIRATORY: Negative Chronic Obstructive Pulmonary Disease (COPD) GASTROINTESTINAL: Positive Gastrointestinal Disorders and Hemorrhoids; Negative Hepatitis GENITOURINARY: Negative Genitourinary Disorders or Renal Disease REPRODUCTIVE: Positive Breast Cancer (Left) and Previous Pregnancies MUSCULOSKELETAL: Positive Degenerative Disk Disease ENDOCRINE: Negative Endocrine Disorders, Diabetes Mellitus Type 1 or Diabetes Mellitus Type 2 HEMATOLOGIC: Negative Blood Disorders or Anemia PSYCHO/SOCIAL: Negative Depression or Anxiety OTHER HISTORY: Positive Hospitalization (surgery), Chemotherapy (2022), Radiation Therapy (2022), Chicken Pox, Measles, Cancer and Breast Cancer (Left); Negative Shingles, Blood Transfusions, Blood Transfusion Reaction or Anesthesia Reactions Family History FAMILY HISTORY: Positive Family Cardiac Disorders and Family Surgery; Negative Family Psychiatric Problems, Family Respiratory Disorders, Family Gastrointestinal Problems, Family Cancer or Family Anesthesia Reaction Surgical History SURGICAL: Positive Abdominal Surgery, Mastectomy (left), Lumpectomy (right breast non cancerous) and Hysterectomy Social History SMOKING STATUS: Smoking status: Former smoker ALCOHOL: Alcohol Intake: Current ALCOHOL FREQUENCY: Alcohol Intake Frequency: holidays/special occasions only HOUSING: Housing: House LIVES WITH: Lives With: Spouse Patient Portal Questiondarline Social History Living Situation History Housing: House Tobacco History Smoking Status: Former smoker Alcohol History Alcohol Intake: Current Alcohol Intake Frequency: holidays/special occasions only Domestic Abuse History Do You Feel Safe at Home: Yes Review of Systems Report any current symptoms Only answer those that you have currently: Past Medical History Past Medical History Have you ever been diagnosed with any of the following: Neurological Problems Seizures: No Cardiology Problems Congestive Heart Failure: No Respiratory Problems Chronic Obstructive Pulmonary Disease (COPD): No Stomache/Intestinal Problems Hepatitis: No Hemorrhoids: Yes Genital/Urinary Problems Renal Disease: No Reproductive Problems Breast Cancer: Yes (Left) Previous Pregnancies: Yes Musculoskeletal Problems Degenerative Disk Disease: Yes Endocrine Problems Diabetes Mellitus Type 1: No Diabetes Mellitus Type 2: No Blood Problems Anemia: No Psychologic Problems Depression: No Anxiety: No Other Problems Hospitalization: Yes (surgery) Shingles: No Blood Transfusions: No Blood Transfusion Reaction: No Anesthesia Reactions: No Chemotherapy: Yes (2022) Radiation Therapy: Yes (2022) Chicken Pox: Yes Measles: Yes Cancer: Yes Surgical History Hysterectomy: Yes History of Present Illness HPI Narrative Ms. 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 with complaints of dizziness and ear crackling that has been going on for a few weeks, although the dizziness is new. Patient reports possible subjective fever but did not check her temperature. Patient is worried about passing out. Patient denies any chest pain, SOB, nausea, vomiting, abdominal pain, change in appetite, or symptoms. Patient states that she had her gabapentin decreased last visit and would like to decrease it again. Patient following at [facility] for new biopsy of right breast pending results. Next appointment with oncology in December. Objective/Exam Narrative Physical exam: General: Awake and in no acute distress. Conversational and non-toxic appearing. Heart: Regular rate and rhythm, no murmurs. Lungs: Clear to auscultation with no wheezing or crackles. Abdomen: Soft, nondistended, nontender, positive bowel sounds. ?No guarding or rebound tenderness. Neurologic: Alert and oriented x3, no gross neurological deficit, and patient able to move all 4 extremities. Musculoskeletal: Left shoulder pain on palpation. Extremities: No edema. Assessment & Plan Diagnosis / Problem List (1) Dizziness, nonspecific: Status: Acute Assessment & Plan: Patient complains of dizziness at times, denies any palpitations or association with sudden standing or movements. Plan: Will order carotid US and follow up on results. Advised patient to take a few seconds before ambulating after standing. (2) Congestion of right ear: Status: Acute Assessment & Plan: Patient complaining of right ear fullness and crackling, No eryhtema noted on exam, but patient does complain or recent cold. Plan: Will start patient on loratidine with pseudophed for 2 weeks with follow up. (3) Other forms of dyspnea: Status: Acute Assessment & Plan: Patient complaining of trouble breathing during dizzy spells. CCTB on auscultation, No neck mass appreciated on palpation. Plan: As needed albuterol for SOB. (4) Breast cancer: Status: Chronic Qualifiers: Breast location: unspecified site of breast Estrogen receptor status: positive Laterality: left Patient sex: female Qualified Code(s): C50.912 - Malignant neoplasm of unspecified site of left female breast; Z17.0 - Estrogen receptor positive status [ER+] Assessment & Plan: Followed at [facility] cancer center. Has follow up appointment in December regarding biopsy right breast. Plan: Follow up with oncology. Continue Verzenio and anastrozole. (5) Neuropathy: Status: Acute Assessment & Plan: Patient complaining of neuropathy after chemo and currently on gabapentin. Plan: will decrease gabapentin to 1 dose in the morning and 2 at night. Plan @ week follow up to assess fullness and dizziness. F/U carotid US. Decrease gabapentin to 1 capsule twice daily next visit. Patient will see if she has taken Shingles vaccine and pneumoccoccal vaccine. will remind to get vaccine at pharmacy at next visit. Orders: Orders US carotid duplex 11/28/24 R42 - Dizziness and giddiness Additional Assessment Attending note: I, Trevon Wilkes MD, attest that I was physically present for the lewis portions of the service and evaluated the patient with the resident and I reviewed and discussed the case with the resident and agree with the resident's findings and plans of care as documented above. Intermittent ear crackling along with intermittent dizziness. Symptom has been more lightheadedness. Ear exam fairly benign. May have some degree of eustachian tube dysfunction though no effusion today. We will try antihistamine along with decongestant to see if helps with symptoms. Given nonspecific dizziness/lightheadedness, we will check a carotid ultrasound to ensure no circulatory issue there. Weaning gabapentin. Trevon Wilkes MD Physician Billing Established Patient Established Patient: E/M Level 3-CPT 86950 Office Procedures [facility] Level of Care Nursing/Assessment Patient Status: Established Patient Nursing Assessment/Reassessment: Medication Reconciliation, Update PMH in EMR and Vital Signs Coordination of Care: Complex Care and Chronic Disease 1-5, Consent,records obtained, informed consent, Education Simp Pt/Fam, 1 Ins Authorization, Lab and Imaging orders and Staff clarify orders Established Patient Charge Established Patient Point Assignment: 115 Established Patient Point Charge: EP Level 3 (80-115)
== END 2024-11-28 14:35 | disposition home or self-care (01) ==
LOC: HODAHC 13:32
PROVIDERS: PCP Student in an Organized Health Care Education/Training Program; Referring Provider Student in an Organized Health Care Education/Training Program; Supervising Provider Internal Medicine; Visit Provider Student in an Organized Health Care Education/Training Program
DX: R42 Dizziness and giddiness (principal); H83.8X1 Other specified diseases of right inner ear; R06.09 Other forms of dyspnea; C50.912 Malignant neoplasm of unspecified site of left female breast; Z17.0 Estrogen receptor positive status [ER+]; Z17.22 Progesterone receptor negative status; Z17.32 Human epidermal growth factor receptor 2 negative status; Z90.12 Acquired absence of left breast and nipple; Z92.21 Personal history of antineoplastic chemotherapy; G62.9 Polyneuropathy, unspecified
CPT/HCPCS: 99213; G0463

== ENCOUNTER 2024-12-02 11:38 | Inpatient (IN) | payer SELFPAY ==
[2024-12-02 11:59] VITALS: BP 115/78; PULSE 107; RESP 15; TEMP 36.4; O2SAT 100; BMI 23.3
--- NOTE | 2024-12-02 12:03 | XR_ITS ---
Examination: CT brain head without contrast. 2-D sagittal coronal reconstructions Date and time of exam:December 02, 2024 1427 hours Comparison April 23, 2024 INDICATIONS: Patient fell last night, hit head followed by headache and dizziness lightheadedness CTDI: vol (mGy):50.4 DLP: (mGycm):1083 Technique: Multiple CT axial sections of the brain have been obtained, 5 mm slice thickness. Contrast has not been administered. 2-D sagittal, coronal reconstructions have been obtained Low dose protocols were performed. One or more of the following dose reduction techniques were used; automated exposure control, adjustment of the mA and/or KV according to patient size, use of iterative reconstruction technique. Findings: No significant ventricular enlargement. Axial image 33 demonstrates 12 mm low-density area in the left brainstem pontine level Intra-axial or extra-axial hemorrhage density is not seen. No mass effect or midline shift Basal cisterns are not remarkable. Fourth ventricle is midline. Cranial vault intact. Impression: Negative for acute hemorrhage, mass effect or midline shift 12 mm low density area in the left brainstem, pontine level, suspicious for age indeterminate infarct, clinical correlation advised Suggest follow-up brain MRI as clinically warranted
--- NOTE | 2024-12-02 12:03 | EKG_ITS ---
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
--- NOTE | 2024-12-02 12:03 | PD.EDRME ---
Rapid Medical Screening Exam RME Arrival date/time: 12/02/24 11:38 64-year-old female with a history of breast cancer presents to the emergency room with a chief complaint of generalized weakness, and a syncopal episode that occurred last night. I have greeted and performed a focused initial assessment of this patient. A comprehensive ED assessment and evaluation of the patient, analysis of all test results, and completion of the medical decision making process will be conducted by additional ED providers. Chief Complaint: Dizziness Vital signs: Vital Signs Temperature 97.5 F 12/02/24 11:59 Pulse Rate 107 H 12/02/24 11:59 Respiratory Rate 15 12/02/24 11:59 Blood Pressure 115/78 12/02/24 11:59 Pulse Oximetry (%) 100 12/02/24 11:59 Oxygen Delivery Method Room Air 12/02/24 11:59 Vital signs reviewed by provider: Yes
[2024-12-02 12:45] LABS: Collection Type, Urine Clean Catch
[2024-12-02 12:52] LABS: Basophils # (Auto) 0.1 Thou/mm3 (0.0-0.2); Basophils % (Auto) 2 % (0-2.5); Eosinophils % (Auto) 1 % (0-10); Hematocrit 31.8 % (36.0-46.0); Hemoglobin 10.8 g/dL (12.0-16.0); Immature Granulocytes % (Auto) 1 % (0-0); Immature Granulocytes Auto 0.02 Thou/mm3 (0.00-0.00); Lymphocytes # (Auto) 0.7 Thou/mm3 (1.0-4.8); Lymphocytes % (Auto) 24 % (10-50); Mean Corpuscular Hemoglobin 32.8 pg (25.0-35.0); Mean Corpuscular Volume 97 fL (80-100); Monocytes # (Auto) 0.2 Thou/mm3 (0.0-0.8); Monocytes % (Auto) 7 % (0-12); Neutrophils % (Auto) 66 % (37-80); Nucleated Red Blood Cell % 0 /100 WBC (0); Platelet Count 96 Thou/mm3 (140-440); Red Blood Count 3.29 Miln/mm3 (4.00-5.20)
[2024-12-02 12:55] LABS: Bilirubin,Urine Negative (Negative); Blood,Urine Negative (Negative); Clarity,Urine Clear (Clear/Hazy); Color,Urine Lt-Yellow (Lt Yel-Yel); Glucose, Urine Negative (Negative); Hyaline Casts,Urine < 1 /hpf (0-1); Ketones,Urine Negative (Negative); Leukocyte Esterase,Urine Negative (Negative); Nitrite,Urine Negative (Negative); Protein,Urine Trace (Neg - Trace); RBC,Urine 2 /hpf (0-3); Specific Gravity,Urine 1.012 (1.001-1.035); Squamous Epithelial Cell,Urine 1 /hpf (0-5); Urobilinogen,Urine Negative mg/dL (0.0-1.0); WBC,Urine 8 /hpf (0-5)
[2024-12-02 13:26] LABS: Alanine Aminotransferase 8 U/L (10-49); Albumin, Serum 4.9 gm/dL (3.4-4.8); Albumin/Globulin Ratio 2.1 (1.2-2.2); Alkaline Phosphatase 73 U/L (46-116); Anion Gap 9 (7-16); Aspartate Amino Transferase 13 U/L (0-34); BUN/Creatinine Ratio 13 Ratio (12-20); Bilirubin,Total 0.5 mg/dL (0.3-1.2); Blood Urea Nitrogen 14 mg/dL (9-23); Carbon Dioxide 26.2 mMol/L (20.0-31.0); Chloride 104 mMol/L (98-107); Creatinine (Component) 1.1 mg/dL (0.6-1.3); Estimated Creatinine Clearance 47.1 mL/min (>60); Globulin 2.3 gm/dL (2.3-3.5); Glucose 89 mg/dL (74-106); Osmolality,Calculated 277 (275-295); Sodium 139 mMol/L (136-145); Total Protein 7.2 gm/dL (5.7-8.2); Troponin I < 0.020 ng/mL (0.0-0.045); eGFR 56 See Note
[2024-12-02 16:51] VITALS: BP 128/85; PULSE 100; RESP 15; TEMP 36.5; O2SAT 100
[2024-12-02 20:12] VITALS: BP 133/70; PULSE 122; RESP 18; TEMP 36.2; O2SAT 100
--- NOTE | 2024-12-02 20:47 | PD.EDADULT ---
ED General RME/HPI General Chief complaint: Dizziness Stated complaint: DIZZINESS FOR 1 WEEK, FALL LAST NIGHT Time Seen by Provider: 12/02/24 20:38 Arrival date/time: 12/02/24 11:38 CC: Syncope HPI onset this afternoon patient states she had very minimal advanced sensation that this was going to happen, the patient states he got off the bed was going to go reach for a doorknob and then woke up on the floor. When asked in detail with no prior history of similar events. The patient states she has had 1 week of intermittent episodes of dizziness with mild blurred vision that was random, but no nighttime issues. Patient has a history of breast cancer is still getting chemotherapy denies fever chills shortness of breath difficulty breathing currently has no focal deficits. RME / HPI RME / HPI narrative: 12/02/24 11:38 64-year-old female with a history of breast cancer presents to the emergency room with a chief complaint of generalized weakness, and a syncopal episode that occurred last night. I have greeted and performed a focused initial assessment of this patient. A comprehensive ED assessment and evaluation of the patient, analysis of all test results, and completion of the medical decision making process will be conducted by additional ED providers. Related Data Home Medications ?Medication ?Instructions ?Recorded ?Confirmed abemaciclib 150 mg tablet 150 mg PO BID 11/08/24 11/28/24 (Verzenio) Previous Rx's ?Medication ?Instructions ?Recorded anastrozole 1 mg tablet 1 mg PO QDAY #30 tabs 10/13/24 gabapentin 100 mg capsule 200 mg (2 x 100 mg) PO BID nerve 10/13/24 pain #120 caps loperamide 2 mg capsule 2 mg PO Q6H PRN loose stool #30 10/13/24 caps albuterol sulfate 90 mcg/actuation 1 inh inhalation QID PRN shortness 11/28/24 breath activated powder inhaler of breath or wheezing #1 ea loratadine 5 mg-pseudoephedrine ER 1 tab PO Q12H 2 weeks #28 tabs 11/28/24 120 mg tablet,extended release,12hr (Loratadine-D) Allergies Allergy/AdvReac Type Severity Reaction Status Date / Time Penicillins Allergy Hives Verified 12/02/24 11:41 Review of Systems Review of Systems Narrative Review of Systems: GEN: No fever, no chills, no weight loss EYES: No discharge, no visual changes, no pain HEENT: No ear pain, no congestion, no sore throat PULM: No shortness of breath, no cough, no congestion CV: No chest pain, no dyspnea on exertion, no palpitations GI: No nausea, no vomiting, no diarrhea, no pain, no constipation : No frequency, no urgency, no dysuria MUSC/SKEL: No joint pain, no back pain SKIN: No rash PSYCH: No hallucinations, no depression HEME/LYMPH: No easy bleeding or bruising tendencies NEURO: No weakness, no headache Past Medical History Past Medical History NEUROLOGIC: Negative Neurological Disorders or Seizures CARDIAC: Negative Cardiac Disorders or Congestive Heart Failure RESPIRATORY: Negative Chronic Obstructive Pulmonary Disease (COPD) GASTROINTESTINAL: Positive Gastrointestinal Disorders and Hemorrhoids; Negative Hepatitis GENITOURINARY: Negative Genitourinary Disorders or Renal Disease REPRODUCTIVE: Positive Breast Cancer (Left) and Previous Pregnancies MUSCULOSKELETAL: Positive Musculoskeletal Disorders and Degenerative Disk Disease ENDOCRINE: Negative Endocrine Disorders, Diabetes Mellitus Type 1 or Diabetes Mellitus Type 2 HEMATOLOGIC: Negative Blood Disorders or Anemia PSYCHO/SOCIAL: Negative Depression or Anxiety OTHER HISTORY: Positive Hospitalization (surgery), Chemotherapy (2023), Radiation Therapy (2023), Chicken Pox, Measles, Cancer and Breast Cancer (Left); Negative Autoimmune Disease, Shingles, Blood Transfusions, Blood Transfusion Reaction or Anesthesia Reactions Family History FAMILY HISTORY: Positive Family Cardiac Disorders and Family Surgery; Negative Family Psychiatric Problems, Family Respiratory Disorders, Family Gastrointestinal Problems, Family Cancer or Family Anesthesia Reaction Surgical History SURGICAL: Positive Abdominal Surgery, Mastectomy, Lumpectomy and Hysterectomy Social History SMOKING STATUS: Never smoker ED Exam Narrative Physical exam: [General: Not in any acute distress Head normocephalic HEENT: Within acceptable limits Neck is supple nontender Chest equal chest rise nontender to palpation Respiratory: Clear to auscultation no wheezes crackles or rubs CV: Rate rhythm is regular no murmurs rubs or clicks Abdomen is soft nontender no masses positive bowel sounds all 4 quadrants Back: No CVA tenderness no spinous process tenderness from cervical spine thoracic and lumbar spine Skin: Intact no petechiae rash induration ulceration or crepitus Extremities: Moving all extremities against resistance cap refill less than 2 seconds neurosensory intact Neuro: Awake alert oriented x3 Glascow coma 15 no focal deficits] cranial nerves II through XII are grossly intact. Course Quality Measures none Orders Category Date Time Status EKG (ED ONLY) *Do not use* NOW Care 12/02/24 12:[address] head/brain wo con Stat Exams 12/02/24 12:03 Completed EKG (ED Only) Stat Exams 12/02/24 12:03 Draft CBC Stat Lab 12/02/24 12:37 Completed Comprehensive Metabolic Panel Stat Lab 12/02/24 12:37 Completed Troponin I Stat Lab 12/02/24 12:37 Completed Urinalysis Stat Lab 12/02/24 12:30 Completed Urine Culture Stat Lab 12/02/24 12:30 Received Aspirin [Ecotrin] Med 12/02/24 21:26 Once 81 mg PO X1 ONE Vital Signs Vital signs: Vital Signs Temperature 97.5 F 12/02/24 11:59 Pulse Rate 107 H 12/02/24 11:59 Respiratory Rate 15 12/02/24 11:59 Blood Pressure 115/78 12/02/24 11:59 Pulse Oximetry (%) 100 12/02/24 11:59 Oxygen Delivery Method Room Air 12/02/24 11:59 [facility] Patient data External records reviewed:: [facility] previous records Clinical information provided by:: patient Social determinants that could affect healthcare access:: none Patient has the following chronic illnesses:: Breast cancer How is presenting disease/condition affected by chronic disease/condition?: uneffected by Evaluation data The following diagnostics were reviewed and interpreted by me:: lab results, radiology exam(s) and EKG tracing(s) Lab and/or radiology exams considered but not ordered:: 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 EKG performed at 1209 shows a ventricular rate of 111 [place] interval of 138 QRS of 95 QTc is 398 this is sinus tachycardia nonspecific ST segment changes. Interpretation Summary: Patient's case and clinical presentation discussed with teleneurology, who feels that patient's symptoms in the prior week may be autonomic and not necessarily related however patient warrants a complete workup for stroke and needs to be admitted for MRI in the morning. Patient's case discussed with the resident for Dr. Gallegos agrees to accept the patient for admission Medications Medications considered but not ordered:: None Medication administrations:: None Consultations Consultation(s) initiated? (list below): Yes Diagnosis Differential Diagnosis ED Complaint MDM: Syncope CVA TIA Most likely diagnosis given after review of the tests above:: Syncope CVA Admission Indicated Admission indicated?: indicated Explain why admission is indicated or not indicated:: Quires further medical management Admission Request Was there a request for admission?: No Disposition Plan Disposition Plan: Admit Medical Decision Making Differential Diagnosis Differential Diagnosis: Syncope CVA TIA Lab Data 12/02/24 12:37 12/02/24 12:37 Labs: Lab Results 12/02/24 12/02/24 Range/Units 12:30 12:37 WBC 3.0 L (3.6-11.0) Thou/mm3 RBC 3.29 L (4.00-5.20) Miln/mm3 Hgb 10.8 L (12.0-16.0) g/dL Hct 31.8 L (36.0-46.0) % MCV 97 (80-100) fL MCH 32.8 (25.0-35.0) pg MCHC 34.0 (31.0-37.0) g/dl RDW Std Deviation 47.0 H (36.4-46.3) fL Plt Count 96 L (140-440) Thou/mm3 Neut % (Auto) 66 (37-80) % Lymph % (Auto) 24 (10-50) % Wilcox % (Auto) 7 (0-12) % Eos % (Auto) 1 (0-10) % Baso % (Auto) 2 (0-2.5) % Neut # (Auto) 2.0 (1.8-7.7) Thou/mm3 Lymph # (Auto) 0.7 L (1.0-4.8) Thou/mm3 Wilcox # (Auto) 0.2 (0.0-0.8) Thou/mm3 Eos # (Auto) 0.0 (0.0-0.5) Thou/mm3 Baso # (Auto) 0.1 (0.0-0.2) Thou/mm3 Immature Gran # (Auto) 0.02 H (0.00-0.00) Thou/mm3 Absolute Nucleated RBC 0.00 (0.00-0.00) Thou/mm3 Immature Gran % 1 H (0-0) % Nucleated RBC % 0 (0) /100 WBC Sodium 139 (136-145) mMol/L Potassium 4.0 (3.4-5.1) mMol/L Chloride 104 (98-107) mMol/L Carbon Dioxide 26.2 (20.0-31.0) mMol/L Anion Gap 9 (7-16) BUN 14 (9-23) mg/dL Creatinine 1.1 (0.6-1.3) mg/dL Estim Creat Clear Calc 47.1 L (>60) mL/min eGFR 56 L (60 - ) See Note BUN/Creatinine Ratio 13 (12-20) Ratio Glucose 89 (74-106) mg/dL Calculated Osmolality 277 (275-295) Calcium 10.0 (8.3-10.6) mg/dL Corrected Calcium 10.0 (8.5-10.1) mg/dL Total Bilirubin 0.5 (0.3-1.2) mg/dL AST 13 (0-34) U/L ALT 8 L (10-49) U/L Alkaline Phosphatase 73 (46-116) U/L Troponin I < 0.020 (0.0-0.045) ng/mL Total Protein 7.2 (5.7-8.2) gm/dL Albumin 4.9 H (3.4-4.8) gm/dL Globulin 2.3 (2.3-3.5) gm/dL Albumin/Globulin Ratio 2.1 (1.2-2.2) Ur Collection Type Clean Catch Urine Color Lt-Yellow (Lt Yel-Yel) Urine Clarity Clear (Clear/Hazy) Urine pH 6.0 (5.0-7.0) Ur Specific Adams 1.012 (1.001-1.035) Urine Protein Trace (Neg - Trace) Urine Glucose (UA) Negative (Negative) Urine Ketones Negative (Negative) Urine Blood Negative (Negative) Urine Nitrite Negative (Negative) Urine Bilirubin Negative (Negative) Urine Urobilinogen (Auto) Negative (0.0-1.0) mg/dL Ur Leukocyte Esterase Negative (Negative) Urine RBC 2 (0-3) /hpf Urine WBC 8 H (0-5) /hpf Ur Squamous Epith Cells 1 (0-5) /hpf Urine Bacteria None (None) Hyaline Casts < 1 (0-1) /hpf Discharge Plan Plan Patient Disposition: HOME (Self Care) Patient condition on transfer: Stable Prescriptions/Referrals Prescriptions/Med Rec: No Action Loratadine-D 5-120 mg tablet extended release 12 hr 1 tab PO Q12H 14 Days Qty: 28 0RF albuterol sulfate 90 mcg/actuation aerosol powdr breath activated 1 inh inhalation QID PRN (Reason: shortness of breath or wheezing) Qty: 1 0RF anastrozole 1 mg tablet 1 mg PO QDAY Qty: 30 0RF gabapentin 100 mg capsule 200 mg PO BID Qty: 120 3RF loperamide 2 mg capsule 2 mg PO Q6H PRN (Reason: loose stool) Qty: 30 0RF Verzenio 150 mg Tablet 150 mg PO BID Referrals: Jennifer Patricio MD [Primary Care Provider] - In 1 week Problem List Clinical Impression: Syncope, CVA (cerebral vascular accident) Patient/Caregiver Discharge Instructions Print Language: Afghan Stand Alone Forms: Cielo Award Info., Patient Portal Info Letter PA/SECURITY THREAT ANALYST Supervising Physician PA/SECURITY THREAT ANALYST Supervising Physician: Satish Boston ENP
--- NOTE | 2024-12-02 21:31 | ESCONSULT_ITS ---
Tele Neuro Consultation Consultation Date 12/02/24 Most Recent Vital Signs Last Vital Signs Temp 97.2 F 12/02/24 20:12 Pulse 122 H 12/02/24 20:12 Resp 18 12/02/24 20:12 BP 133/70 H 12/02/24 20:12 Pulse Ox 100 12/02/24 20:12 O2 Del Method Room Air 12/02/24 20:12 Consultation Narrative [facility] TeleNeurology Consult Services Stat Consult Patient Name:???collins herrera Date of :???1960 Identification Number:??? Date of Service:???12/02/2024 21:02:36 Diagnosis:?R42 - Dizziness/ Vertigo/ Giddiness ?I63.30 - Cerebrovascular accident (CVA) due to thrombosis of cerebral artery ([facility]) Impression 64F with PMHx breast cancer, neuropathy, presents with syncope. Patient tells me she passed out last night, and hit her head. She was sitting watching TV, then got up and passed out with little to no premonition. She has been feeling dizzy off and on for the past week. By dizzy she means lightheaded, vision goes dark, any time she stands up. She completed chemotherapy last April. She has been feeling generally weak for the last 2 weeks, especially when she stands up. No unilateral weakness or numbness. She has been having trouble swallowing the last 2 weeks, and her voice is more hoarse. She can walk independently. No diplopia. No headache. She feels pressure around her neck, and then extends up over her face, a heavy sensation. On exam I do not see any ptosis or ataxia. She is mildly dysphonic. CT scan concerning for L pontine infarct, wedge-shaped. I suspect her dysphagia may be 2/2 pontine infarct, and dizziness sounds consistent with likely autonomic dysfunction/orthostasis which likely due at least in part to her prior chemotherapy. ? Recommendations: Our recommendations are outlined below. Diagnostic Studies :MRI head with and without contrast CTA head and neck with contrast TTE; lipid panel, HA1c, TSH Orthostatic vital signs; consider using an abdominal binder while upright/awake and stress importance of hydration. Laboratory Studies :Lipid panelI orderedHemoglobin A1c Antithrombotic Medication :Aspirin 81 mg PO daily Statins for LDL goal less than 70 Nursing Recommendations :IV Fluids, avoid dextrose containing fluids, Maintain euglycemia Neuro checks q4 hrs x 24 hrs and then per shift Head of bed 30 degrees Continue with Telemetry NPO until passes bedside swallow Consultations :Physical therapy/Occupational therapy ST consultation DVT Prophylaxis :Lovenox or LMW Heparin Disposition :Neurology will follow Outpatient Neurology follow up in 3-6 weeks Metrics: Dispatch Time: 12/02/2024 21:02:36 Callback Response Time: 12/02/2024 21:03:21 Primary Provider Notified of Diagnostic Impression and Management Plan on: 12/02/2024 21:23:58 CT HEAD: CT head as per radiology: 12 mm low density in L brainstem, suspicious for age indeterminate infarct Chief Complaint: Pt had a fall after dizziness and hit her head, shoulder and leg. lkwt: 24 hrs History of Present Illness:Patient is a 64 year old Female. 64F with PMHx breast cancer, neuropathy, presents with syncope. Patient tells me she passed out last night, and hit her head. She was sitting watching TV, then got up and passed out with little to no premonition. She has been feeling dizzy off and on for the past week. By dizzy she means lightheaded, vision goes dark, any time she stands up. She completed chemotherapy last April. She has been feeling generally weak for the last 2 weeks, especially when she stands up. No unilateral weakness or numbness. She has been having trouble swallowing the last 2 weeks, and her voice is more hoarse. She can walk independently. No diplopia. No headache. She feels pressure around her neck, and then extends up over her face, a heavy sensation. ? Past Medical History: ?There is no history of Stroke ?There is no history of Seizures Medications: No Anticoagulant use? Antiplatelet use:?Yes?aspirin Reviewed EMR for current medications Allergies:? Reviewed Social History: Smoking: Former Family History: There is no family history of premature cerebrovascular disease pertinent to this consultation ROS : 14 Points Review of Systems was performed and was negative except mentioned in HPI. Past Surgical History: There Is No Surgical History Contributory To Today?s Visit ? Examination: BP(133/70),?Pulse(122), 1A: Level of Consciousness - Alert; keenly responsive?+ 0 1B: Ask Month and Age - Both Questions Right?+ 0 1C: Blink Eyes & Squeeze Hands - Performs Both Tasks?+ 0 2: Test Horizontal Extraocular Movements - Normal?+ 0 3: Test Visual [place] - No Visual Loss?+ 0 4: Test Facial Palsy (Use Grimace if Obtunded) - Normal symmetry?+ 0 5A: Test Left Arm Motor Drift - No Drift for 10 Seconds?+ 0 5B: Test Right Arm Motor Drift - No Drift for 10 Seconds?+ 0 6A: Test Left Leg Motor Drift - No Drift for 5 Seconds?+ 0 6B: Test Right Leg Motor Drift - No Drift for 5 Seconds?+ 0 7: Test Limb Ataxia (FNF/Heel-Moreira) - No Ataxia?+ 0 8: Test Sensation - Normal; No sensory loss?+ 0 9: Test Language/Aphasia - Normal; No aphasia?+ 0 10: Test Dysarthria - Normal?+ 0 11: Test Extinction/Inattention - No abnormality?+ 0 NIHSS Score:?0 Spoke with :?ED physician This consult was conducted in real time using interactive audio and video technology. Patient was informed of the technology being used for this visit and agreed to proceed. Patient located in hospital and provider located at home/office setting. Patient is being evaluated for possible acute neurologic impairment and high probability of imminent or life - threatening deterioration.I spent total of 35 minutes providing care to this patient, including time for face to face visit via telemedicine, review of medical records, imaging studies and discussion of findings with providers, the patient and / or family. Dr Neha Lou [facility] For Inpatient follow-up with [facility] physician please call [facility] at . As we are not an outpatient service for any post hospital discharge needs please contact the hospital for assistance. If you have any questions for the [facility] physicians or need to reconsult for clinical or diagnostic changes please contact us via [facility] at .
[2024-12-02 21:42] VITALS: BP 102/69; BP 115/76; BP 121/75; PULSE 101; PULSE 115; PULSE 84
[2024-12-02] MEDS: ASPIRIN EC 81 MG TABEC PO (22:10)
[2024-12-02 22:50] VITALS: BMI 23.3
--- NOTE | 2024-12-02 23:00 | ECHO_ITS ---
Transthoracic Echo Report Ht (in): 65 Wt (lb): 140 Exam Location: Portable Status: Emergency Tube Station Attendant: Raven Real Indications: Procedure Performed: BP: 118 / 74 HR: 67 Rhythm: Sinus Technical Quality: Fair Contrast: Agitated Saline Total Dose (mL): MEASUREMENTS (Male / Female) Normal Values 2D ECHO LV Diastolic Diameter PLAX 4.3 cm 4.2 - 5.9 / 3.9 - 5.3 cm LV Systolic Diameter PLAX 2.8 cm IVS Diastolic Thickness 0.7 cm 0.6 - 1.0 / 0.6 - 0.9 cm LVPW Diastolic Thickness 1.0 cm 0.6 - 1.0 / 0.6 - 0.9 cm LV Relative Wall Thickness 0.4 LVOT Diameter 1.7 cm LA Volume Index 22.7 cm?/m? 16 - 28 cm?/m? Ascending Aorta Diameter 3.1 cm M-MODE Aortic Root Diameter MM 3.2 cm LA Systolic Diameter MM 3.1 cm LA Ao Ratio MM 1.0 AV Cusp Separation MM 1.9 cm DOPPLER AV Peak Velocity 132.0 cm/s AV Peak Gradient 7.0 mmHg AV Mean Gradient 3.0 mmHg AV Velocity Time Integral 22.4 cm LVOT Peak Velocity 110.0 cm/s LVOT Peak Gradient 4.8 mmHg LVOT Velocity Time Integral 22.0 cm LVOT Cardiac Index 1953.7 cm?/min?m? AV Area Cont Eq vti 2.2 cm? AV Area Cont Eq pk 1.9 cm? MV Peak Velocity 84.1 cm/s MV Peak Gradient 2.8 mmHg MV Mean Velocity 48.3 cm/s MV Mean Gradient 1.0 mmHg MV Area PHT 3.1 cm? Mitral E Point Velocity 66.0 cm/s Mitral A Point Velocity 65.0 cm/s Mitral E to A Ratio 1.0 LV E' Lateral Velocity 11.7 cm/s Mitral E to LV E' Lateral Ratio 5.6 LV E' Septal Velocity 10.0 cm/s Mitral E to LV E' Septal Ratio 6.6 TR Peak Velocity 217.7 cm/s TR Peak Gradient 19.0 mmHg FINDINGS Left Ventricle Normal left ventricular size, wall thickness, systolic function with no obvious regional wall motion abnormalities. The ejection fraction is visually estimated at 60-65%. Right Ventricle The right ventricle is normal in size and systolic function. The estimated right ventricular systoli c pressure, 26 mmHg. RAP 5. Left Atrium The left atrium is normal by two-dimensional, color flow and Doppler imaging with no structural abnormalities, no thrombus formation present. Right Atrium The right atrium is normal by two-dimensional imaging, color flow and Doppler imaging with no struct ural abnormalities, no thrombus formation present. Atrial Septum An intravenous agitated saline injection indicated no evidenc of PFO Aorta The aorta is normal by two-dimensional, color flow and Doppler interrogation. Mitral Valve The mitral valve is normal by two-dimensional, color flow and Doppler interrogation. There is trace mitral valve regurgitation. Aortic Valve The aortic valve is trileaflet and normal by two-dimensional, color flow and Doppler interrogation. There is no significant aortic valve regurgitation. Tricuspid Valve The tricuspid valve is normal by two-dimensional, color flow and Doppler interrogation. There is mil d tricuspid valve regurgitation. Pulmonic Valve There is no significant pulmonic valve regurgitation. Vessels The pulmonary artery appears normal. The inferior vena cava pulmonary and hepatic veins appear eagle l. Pericardium The pericardium is normal by two-dimensional imaging. There is small anterior pericardial effusion. No evidence of cardiac tamponade. CONCLUSIONS Positive bubble study. An intravenous agitated saline injection indicated no evidence of PFO Normal LV size and function. Estimated EF 60-65% Normal RV size and function Trace mitral and trace tricuspid regurgitation Patricia Han (Electronically Signed) Final Date: 05 December 2024 13:38
--- NOTE | 2024-12-02 23:13 | ESHP_ITS ---
Documentation for date of: 12/02/24 HPI History of Present Illness History of present illness: Irma is a 64 y/o female with PMHx of Breast cancer (s/p L partial mastectomy, currently undergoing chemo and radiation), and neuropathy who arrives to [facility] on 12/02/2024 for an evaluation of unwitnessed syncopal episode that had occurred yesterday without remembrance, landing on patient's head and elbow, with prodromal symptoms of dizziness and weakness. Patient reports that he has been feeling weak, fatigued, and has had some blurry vision that has been progressively worsening. Patient reports that she was at her house with her , but was alone and just remembers waking up on the floor. She reports that she has never had symptoms like this before or had a syncopal episode before. She notices that she begins to feel more dizzy upon getting up, but says that she gets up slowly. Says that she has been feeling weaker and weaker as she has been undergoing chemotherapy and radiation. She was diagnosed with breast cancer in September 2023, and has been seeing Dr. Mcdaniel. Denies having any headache, trouble speaking, chest pain, shortness of breath, nausea, vomiting, diarrhea, tingling. Says that she has trouble swallowing at times when she takes her pills. States that she has lost over 50 pounds since being diagnosed with breast cancer. Says that her breast cancer is genetic but is not BRCA positive. She wears glasses for sight and for reading. ED course: Patient arrived to the ED with unremarkable vitals. She was worked up was found to have BUN/creatinine of 14 and 1.1 respectively, sodium of 139, white cell count of 3, hemoglobin of 11, platelets of 96. Head CT was done which showed a 12 mm low-density area in the left brainstem, pontine level suspicious for age- indeterminate infarct. Teleneuro was consulted for patient in which evaluated with NIHSS score of 0. Patient was recommended to be admitted to floors for further evaluation of possible infarct that was age-indeterminate. Patient was given ASA 81 x 1. Medicine was consulted and patient was admitted to the floors Past medical history: As above Surgeries: Left partial mastectomy, hysterectomy, appendectomy Allergies: Penicillin Meds: Gabapentin 100 mg twice daily, Verzenio 150 mg BID, anastrozole 1 mg qday, albuterol as needed, calcium vitamin D3 Family history: Significant for breast cancer and diabetes Social history: Born and raised in [place], does not drink, smoke or use drugs. Review of Systems Review of Systems Narrative Review of Systems: Constitutional: No fever, chills, fatigue, weakness, + weight loss HEENT: No eye pain, vision loss, ear pain, hearing loss, + dysphagia, Cardiovascular: No chest pain, palpitations, edema, pain with walking Respiratory: No cough, shortness of breath, wheezing GI: No NVD, abdominal pain, constipation, blood in stool, loss of appetite, heartburn Extremities: No presence of pitting edema MSK: No back pain, joint pain, joint swelling Neuro: + dizziness, + numbness, +weakness, no headaches, seizures, tremors Psych: No anxiety, depression Exam Vital Signs Temp Pulse Resp BP Pulse Ox O2 Del Method 97.2 F 84 18 121/75 100 Room Air 12/02/24 20:12 12/02/24 21:42 12/02/24 20:12 12/02/24 21:42 12/02/24 20:12 12/02/24 20:12 Narrative Exam General: AAOx3, NAD, pleasant woman HEENT: Moist mucous membranes, conjunctiva clear, EOMI, PERRLA, Cardiovascular: S1, S2, radial pulses +2 bilat, RRR, R sided cath port Pulmonary: CTAB bilat no cough, no wheezing GI: No tenderness to light or deep palpitation, no guarding, rigidity, rebound tenderness or distension Extremities: No presence of trace or pitting edema in lower extremities bilaterally, dorsalis pedis pulses +2 bilaterally Neuro: AAOx3, no focal motor or sensory deficits in the UE or LE bilat, no nystagmus, Psych: Good judgement, thought and behavior. Cooperative Results: Labs 12/02/24 12:37 12/02/24 12:37 Labs: Short CBC 12/02/24 Range/Units 12:37 WBC 3.0 L (3.6-11.0) Thou/mm3 Hgb 10.8 L (12.0-16.0) g/dL Hct 31.8 L (36.0-46.0) % Plt Count 96 L (140-440) Thou/mm3 BMP 12/02/24 12:37 Sodium 139 Potassium 4.0 Chloride 104 Carbon Dioxide 26.2 BUN 14 Creatinine 1.1 Glucose 89 Calcium 10.0 Cardiac Enzymes 12/02/24 Range/Units 12:37 Troponin I < 0.020 (0.0-0.045) ng/mL Liver Function 12/02/24 Range/Units 12:37 Total Bilirubin 0.5 (0.3-1.2) mg/dL AST 13 (0-34) U/L ALT 8 L (10-49) U/L Alkaline Phosphatase 73 (46-116) U/L Albumin 4.9 H (3.4-4.8) gm/dL Urine 12/02/24 Range/Units 12:30 Urine Color Lt-Yellow (Lt Yel-Yel) Urine Clarity Clear (Clear/Hazy) Urine pH 6.0 (5.0-7.0) Ur Specific [place] 1.012 (1.001-1.035) Urine Protein Trace (Neg - Trace) Urine Glucose (UA) Negative (Negative) Quality Measures Quality Measures none Medications Home Medications and Allergies Home Medications ?Medication ?Instructions ?Recorded ?Confirmed ?Type abemaciclib 150 mg tablet 150 mg PO BID 11/08/24 11/28/24 History (Verzenio) Allergies Allergy/AdvReac Type Severity Reaction Status Date / Time Penicillins Allergy Hives Verified 12/02/24 11:41 Visit Medications Discontinued Medications Aspirin (Aspirin Ec 81 Mg Tabec) 81 mg PO X1 ONE Stop: 12/02/24 21:27 Last Admin: 12/02/24 22:10 Dose: 81 mg Assessment & Plan Plan Assessment Irma is a 61-year-old female with past medical of breast cancer (status post left-sided partial mastectomy, currently undergoing chemo and radiation), neuropathy who is currently admitted for evaluation of syncope and stroke rule out. #Syncope #Stroke rule out #? 12 mm age indeterminant infarct, L brainstem pontine level NIHSS score in ER evaluated to be 0 Teleneuro recommends for further workup of possible infarct that is age- indeterminate 12 mm Patient clinically does not look like she is having active stroke Patient could have possibly had TIA Patient could have also had syncope secondary to orthostatic hypotension or autonomic cause, will further workup EKG shows sinus tach Plan: ? MR stroke protocol ? CTA head neck ? Head of bed 30 degrees ? ASA 81 every day ? Neuro checks every 4 hours ? Speech referral ? PT referral ? Ortho vitals ? Echo ? Seizure precautions ? N.p.o., until passes swallow eval ? TSH, lipid panel, A1c #History of breast cancer, status post left mastectomy, currently undergoing chemo and radiation #Failure to thrive Sees Dr. Mendoza and Dr. Duarte Reports over 50 pound weight loss Plan: ? Resumed home meds of anastrozole and Verzenio ?Speech referral ?Consider dietary referral #Dysphagia #Neuropathy May be related to radiation treatment Plan: ? Speech eval ? Resumed home gabapentin 100 twice daily #Health Maintenance Disposition: Telemetry DVT prophylaxis: Lovenox GI prophylaxis: None at this time Diet: N.p.o. CODE STATUS: Full Patient seen and care discussed with my attending physician, Dr. El Ponce, PGY-1 Attending Provider Attestation/Addendum I have examined the patient, reviewed labs and imaging findings, discussed the case with the resident(s), and reviewed entered orders. I agree with the plan of care as outlined in this note, with these additional summaries/recommendations: 64-year-old female with past medical history of breast cancer s/p radiation and currently on chemotherapy presented to the ED with chief complaint of syncopal episode that occurred yesterday prior to admission. She has no recollection of the issue and syncope was unwitnessed. She reports feeling worsening fatigue, dizziness, unsteadiness and dysphagia for the last 2 weeks, unclear etiology. Teleneurology was consulted and CT head was completed which showed left pontine infarct. Patient did have CT scan of the head done March 2024 which did not show any signs of acute infarct. NIHSS score was 0 at the time of my evaluation. Patient will be admitted for further stroke workup and management per neurology recommendations. Miguel Gallegos MD
--- NOTE | 2024-12-02 23:32 | XR_ITS ---
Examination: CTA carotids with intravenous contrast CTA brain, head with intravenous contrast. 2-D sagittal, coronal reconstructions. 3-D reconstructions. Exam date and time: December 03, 2024 0322 hrs. Indications: Stroke alert, onset dizziness beginning one week ago, patient fell last night CTDI: vol (mGy) 10.4 DLP: (mGycm) 407 Technique: Multiple CTA axial brain, head carotid images post intravenous contrast injection 75 cc, [id number]. 2-D sagittal, coronal reconstructions. 3-D reconstructions, 3-D post processing including vascular maximum intensity projection images. Low dose protocols were performed. One or more of the following dose reduction techniques were used; automated exposure control, adjustment of the mA and/or KV according to patient size, use of iterative reconstruction technique. Findings: No significant stenoses common carotid arteries carotid bifurcations or internal carotid arteries Codominant vertebral arteries with no critical stenoses No cerebral large vessel arterial occlusions, thrombus, dissection or cerebral aneurysm Impression: No significant neck arterial stenoses No cerebral large vessel arterial occlusions, thrombus, dissection or cerebral aneurysm
[2024-12-03] VITALS (14 sets, daily range): BP systolic 99–121; BP diastolic 61–76; PULSE 65–93; RESP 13–100; TEMP 36.3–36.7; O2SAT 97–100; BMI 24.0
--- NOTE | 2024-12-03 | XR_ITS ---
Examinations: MRI Brain without intravenous contrast. MRA brain without intravenous contrast. MRA carotids without intravenous contrast 3-D vascular reconstructions Date and time of exam: December 03, 2024 0827 hrs. Indications: Stroke alert yesterday, onset focal neurologic deficit dizziness headaches weakness Technique: Multiple axial and sagittal images of the brain have been obtained MRA brain carotid images without contrast obtained, including 3-D postprocessing, vascular maximum intensity projection images Findings: [place]ell[place] is not enlarged. The optic chiasm and infundibular stalk are not remarkable. Prepontine and interpeduncular cisterns are not enlarged. No localized enlargement of the medulla or klarissa. Fourth ventricle and cerebellar tonsils normal in position. Subacute hemorrhage is not seen. Fourth ventricle is midline. Mass in the cerebellopontine angle region is not evident. 7th and 8th nerve complexes exhibits symmetry. Globes are symmetrical with no retro-orbital mass. Increased white matter signal mild Diffusion-weighted images demonstrate small linear foci restricted diffusion right temporal lobe, diffusion image 8 Mass-effect upon the ventricular system is not identified. MRA carotid images no significant carotid stenoses. MRA brain images no large vessel occlusions Impression: Diffusion-weighted images demonstrate small linear areas of restricted diffusion in the right temporal lobe, which may be artifactual, recommend neurology consultation and correlation with clinical findings as to small infarcts in the right temporal lobe
[2024-12-03] MEDS: SODIUM CHLORIDE RT SOL 0.9% 3 ML NEBU INH ×3 (00:19→13:23)
[2024-12-03] MEDS: ALBUTEROL RT 2.5 MG/0.5 ML NEBU INH ×3 (00:19→13:23)
[2024-12-03 00:27] LABS: Cardiac Risk Estimate 2.5 RATIO (3.7-5.6); Cholesterol 249 mg/dL (132-200); HDL Cholesterol 98 mg/dL (40-60); LDL Cholesterol,Calculated 127 mg/dL (0-130); Triglycerides 121 mg/dL (30-150)
[2024-12-03] MEDS: SODIUM CHLORIDE 0.9% 1000 ML 1,000 ML 100 ML IV (02:35)
--- NOTE | 2024-12-03 04:23 | PRELIM_ITS ---
CT angiogram of the head and neck with intravenous contrast (axial sections with sagittal and coronal reformats) December 03, 2024 at 0322 hours Clinical History: Stroke rule out.Comparison: No prior herrera dy is available for comparison. Findings:Head: The internal carotid, middle and anterior cerebral art eries are patent bilaterally. The intracranial vertebral arteries are patent. The vertebrobasilar jhonny ction, basilar and posterior cerebral arteries are patent. No evidence of large vessel occlusion, cri tical stenosis or aneurysm.Neck: The aortic arch to the extent visualized as well as the origins of t he right brachiocephalic, left common carotid, and left subclavian arteries are patent. The common ca rotid arteries, carotid bulbs, and internal and external carotid arteries are patent. The origins of the vertebral arteries are unremarkable. The vertebral artery is codominant. No evidence of vascular occlusion, critical stenosis, dissection or aneurysm. The soft tissues of the neck are unremarkable. Mild degenerative changes are identified in the spine. Impression: Head: No evidence of large vessel occlusion, critical stenosis or aneurysm.Neck: No evidence of vascular occlusion, critical stenosis, dissection or aneurysm. Report Electronically Signed By: Iva Peña 12/03/2024 4:22:27 AM [EST]
[2024-12-03 05:21] LABS: Basophils # (Auto) 0.1 Thou/mm3 (0.0-0.2); Basophils % (Auto) 1 % (0-2.5); Eosinophils % (Auto) 1 % (0-10); Hematocrit 28.5 % (36.0-46.0); Hemoglobin 9.6 g/dL (12.0-16.0); Immature Granulocytes % (Auto) 1 % (0-0); Immature Granulocytes Auto 0.02 Thou/mm3 (0.00-0.00); Lymphocytes # (Auto) 0.9 Thou/mm3 (1.0-4.8); Lymphocytes % (Auto) 24 % (10-50); Mean Corpuscular HGB Conc 33.7 g/dl (31.0-37.0); Mean Corpuscular Hemoglobin 32.7 pg (25.0-35.0); Mean Corpuscular Volume 97 fL (80-100); Monocytes # (Auto) 0.2 Thou/mm3 (0.0-0.8); Monocytes % (Auto) 5 % (0-12); Neutrophils # (Auto) 2.5 Thou/mm3 (1.8-7.7); Neutrophils % (Auto) 69 % (37-80); Nucleated Red Blood Cell % 0 /100 WBC (0); Platelet Count 89 Thou/mm3 (140-440); RDW Standard Deviation 47.2 fL (36.4-46.3); Red Blood Count 2.94 Miln/mm3 (4.00-5.20); White Blood Count 3.6 Thou/mm3 (3.6-11.0)
[2024-12-03 05:43] LABS: Partial Thromboplastin Time 23.2 Seconds (22.0-36.0)
[2024-12-03 05:55] LABS: Glucose Estimated Average 88 mg/dL (80-131); Hemoglobin A1C 4.7 % Hgb (4.8-6.0)
[2024-12-03 06:13] LABS: Alanine Aminotransferase < 7 U/L (10-49); Albumin, Serum 4.4 gm/dL (3.4-4.8); Alkaline Phosphatase 66 U/L (46-116); Anion Gap 12 (7-16); Aspartate Amino Transferase 12 U/L (0-34); BUN/Creatinine Ratio 17 Ratio (12-20); Bilirubin,Total 0.4 mg/dL (0.3-1.2); Blood Urea Nitrogen 17 mg/dL (9-23); Calcium 9.4 mg/dL (8.3-10.6); Calcium (Corrected) 9.4 mg/dL (8.5-10.1); Carbon Dioxide 24.4 mMol/L (20.0-31.0); Chloride 104 mMol/L (98-107); Estimated Creatinine Clearance 51.8 mL/min (>60); Globulin 2.2 gm/dL (2.3-3.5); Glucose 82 mg/dL (74-106); Magnesium 1.9 mg/dL (1.6-2.6); Osmolality,Calculated 279 (275-295); Phosphorous 3.7 mg/dL (2.4-5.1); Potassium 3.3 mMol/L (3.4-5.1); Sodium 140 mMol/L (136-145); Thyroid Stimulating Hormone 8.49 uIU/mL (0.55-4.78); Total Protein 6.6 gm/dL (5.7-8.2); eGFR > 60 See Note
--- NOTE | 2024-12-03 06:32 | PC.NURSE ---
surveillance monitor notified that patient HR up to 140s not sustaining, patient was up on bedside commode with SALVAGE GRINDER, no respiratory distress, no complaints of pain, once pt laying down HR decreased to 90s.
[2024-12-03] MEDS: GABAPENTIN 100 MG CAPSULE PO ×2 (09:41→20:07)
[2024-12-03] MEDS: POTASSIUM CHLORIDE 20 mEq TABCR 40 MEQ PO (09:41)
[2024-12-03] MEDS: ASPIRIN EC 81 MG TABEC PO (09:41)
[2024-12-03] MEDS: Magnesium Sulfate 2 GM Ivpb 2 GM/50 ML BAG IV (10:14)
[2024-12-03] MEDS: SODIUM CHLORIDE 0.9% 1000 ML 1,000 ML 70 ML IV ×2 (10:29→19:31)
--- NOTE | 2024-12-03 12:20 | ESPR_ITS ---
<Statement entered by Dheeraj Olmedo MD - 12/03/24 16:59> Patient was seen and examined at the bedside. Patient is admitted overnight for stroke workup.MR Brain showed small infarcts in right temporal lobe. Head and neck CTA was negative. EKG showed sinus tachycardia. Head CT was significant for 12 mm low-density area in the left brainstem pontine level indeterminate EF. Echocardiogram from 08/31/2024 showed EF 60% with trace MR and TR. NIHS score was 0. Vitals were stable. Patient does have a history of breast cancer and currently being managed on chemotherapy. Labs revealed pancytopenia most likely due to chemotherapy with WBC 3.6 hemoglobin 9.6 and platelets 89. Chemistry panel showed mild hypokalemia with potassium 3.3. Blood glucose 82. LDL 127. Orthostatic vitals were significant. Currently we are continuing IV fluids at 70 cc/h, continuing aspirin and follow-up on echocardiogram and neurology was consulted for tomorrow morning. TSH 8.49. FT4 pending. Will likely resume patient's home medication and follow-up with neurology further recommendations. All labs and orders were reviewed. I saw and examined the patient, and I agree with current management stated by Dr Rich MD ,PGY1. Plan of care was discussed with the attending physician and resident physician. Disclaimer: Despite multiple revisions, due to the dictation software being used, the document bellow may not be free of grammatical errors including phonetic/typographic errors. However, this does not deter from our commitment to providing health care in the patient's best interest in mind. Dr. Shara MD, PGY 2 Documentation for date of: 12/03/24 Subjective Subjective Interval history: Patient is a 64-year-old female with a past medical history of breast cancer diagnosed August 2023 status post left-sided mastectomy Stage IIIa (pT2, snN2A), ER positive, [place] negative, HER2/sarai negative who follows Dr. Mendoza and Dr. Nichole and recently noted to have a breast lump on right side w/ scheduled ultrasound and biopsy as outpatient. 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 Next oncology appoitment in December. Patient follows with [facility] as their primary care, Dr. Duran-was penidng US carotid. Patinet on Verzenio and anastrozole. No overnight events reported for patient. Patient examined at bedside this morning. Patient stated that she has been having increasing episodes of blacking out . Patient describes these episodes as loss of consciousness. Patient denied seizure-like activity, negative urinary incontinence, negative for tinnitus. Patient describes having a pretty prolonged sensation of loss of consciousness usually accompanied with feeling of heaviness around her neck and swelling with right ear fullness. Patient states these episodes happen regardless of when she is sitting up or standing. She usually feels her heart racing. And since 2022 when breast cancer initially diagnosed she has lost a total of 54 pounds. Patient stated she follows Dr. Mendoza and Dr. Nichole. Denied tinnitus. Patient stated she is still receiving chemotherapy every 6 months, cannot recall medication. Per chart review, Status quo 4 cycles of AC and 4 cycles of Taxol chemotherapy in the adjuvant setting 04/19/2024. Last PET scan in May 2024 was negative for any metastatic disease. Patient is currently being worked up for stroke. Pending Neuro recommendations, will return 12/04/2024. Currently on Aspirin and Atorvastatin, pending MRI. Exam Vital Signs Temp Pulse Resp BP Pulse Ox O2 Del Method 97.7 F 85 17 107/61 97 Room Air 12/03/24 08:00 12/03/24 08:00 12/03/24 08:00 12/03/24 08:00 12/03/24 08:00 12/03/24 08:00 Narrative Exam General Appearance: Alert & Oriented X3, well-nourished female who is lying in bed in no acute distress HEENT: Skull symmetrical and atraumatic. Conjunctivae pale pink and moist. Pupils equal, round, reactive to light and accommodation (PERRL). External ear without lesion or discharge. Straight, nares patient, mucosa pink, no discharge. Cardio: Normal Rate and Rhythm with S1 and S2 heart sounds. No murmurs or extra heart sounds auscultated. No bruits on carotid auscultation. No peripheral edema or cyanosis. Lungs: Symmetric with good expansion. Chest and back non-tender. Breath sounds vesicular without crackles, wheezing or rhonchi Abdomen: Non-tender, Non-distended, Normal Reactive Bowel Sounds Neuro: Alert, cooperative, oriented to person, place, and time. Speech clear. CN grossly intact. Upper motor strength 5/5 and Lower motor strength 5/5. Sensation intact. Objective Labs 12/03/24 04:45 12/03/24 04:45 Labs: Laboratory Results - last 24 hr 12/02/24 12/02/24 12/03/24 12:30 12:37 04:45 WBC 3.0 L 3.6 RBC 3.29 L 2.94 L Hgb 10.8 L 9.6 L Hct 31.8 L 28.5 L MCV 97 97 MCH 32.8 32.7 MCHC 34.0 33.7 RDW Std Deviation 47.0 H 47.2 H Plt Count 96 L 89 L Neut % (Auto) 66 69 Lymph % (Auto) 24 24 [place] % (Auto) 7 5 Eos % (Auto) 1 1 Baso % (Auto) 2 1 Neut # (Auto) 2.0 2.5 Lymph # (Auto) 0.7 L 0.9 L [place] # (Auto) 0.2 0.2 Eos # (Auto) 0.0 0.0 Baso # (Auto) 0.1 0.1 Immature Gran # (Auto) 0.02 H 0.02 H Absolute Nucleated RBC 0.00 0.00 Immature Gran % 1 H 1 H Nucleated RBC % 0 0 PT 11.0 INR 1.0 APTT 23.2 Sodium 139 140 Potassium 4.0 3.3 L D Chloride 104 104 Carbon Dioxide 26.2 24.4 Anion Gap 9 12 BUN 14 17 Creatinine 1.1 1.0 Estim Creat Clear Calc 47.1 L 51.8 L eGFR 56 L > 60 BUN/Creatinine Ratio 13 17 Glucose [address] Glu mg/dL 88 Hemoglobin A1c 4.7 L Calculated Osmolality 277 279 Calcium 10.0 9.4 Corrected Calcium 10.0 9.4 Phosphorus 3.7 Magnesium 1.9 Total Bilirubin 0.5 0.4 AST 13 12 ALT 8 L < 7 L Alkaline Phosphatase 73 66 Troponin I < 0.020 Total Protein 7.2 6.6 Albumin 4.9 H 4.4 D Globulin 2.3 2.2 L Albumin/Globulin Ratio 2.1 2.0 Triglycerides 121 Cholesterol 249 H LDL Cholesterol, Calc 127 HDL Cholesterol 98 H Cholesterol/HDL Ratio 2.5 L TSH 8.49 H Ur Collection Type Clean Catch Urine Color Lt-Yellow Urine Clarity Clear Urine pH 6.0 Ur Specific [place] 1.012 Urine Protein Trace Urine Glucose (UA) Negative Urine Ketones Negative Urine Blood Negative Urine Nitrite Negative Urine Bilirubin Negative Urine Urobilinogen (Auto) Negative Ur Leukocyte Esterase Negative Urine RBC 2 Urine WBC 8 H Ur Squamous Epith Cells 1 Urine Bacteria None Hyaline Casts < 1 Quality Measures Quality Measures none Assessment & Plan Assessment Current Active Medications: Generic Name Dose Route Start Last Admin Trade Name Freq PRN Reason Stop Dose Admin Acetaminophen 650 mg 12/02/24 22:50 Acetaminophen 325 Mg Tablet PO 01/01/25 22:49 Q6H PRN Fever >101.5 or pain 1-3 Albuterol 2.5 mg 12/03/24 01:00 12/03/24 06:03 Albuterol Rt 2.5 Mg/0.5 Ml Nebu INH 01/02/25 00:59 2.5 mg Q6HRRT LENIN Administration Anastrozole 1 mg 12/03/24 09:00 Anastrozole 1 Mg Tablet PO 01/02/25 08:59 QDAY LENIN Aspirin 81 mg 12/03/24 09:00 12/03/24 09:41 Aspirin Ec 81 Mg Tabec PO 01/02/25 08:59 81 mg QDAY LENIN Administration Atorvastatin Calcium 40 mg 12/03/24 21:00 Atorvastatin Calcium 20 Mg Tablet PO 01/02/25 20:59 HS LENIN Verzenio Tablet 150 0 ea 12/03/24 10:00 Mg Tablet PO 01/02/25 09:59 BID LENIN Dextrose 25 ml 12/03/24 08:02 Dextrose 50%-Water Inj 50 Ml Syringe IV 01/02/25 08:01 Q15MIN PRN BG 50-70 responsive npo pt Dextrose 50 ml 12/03/24 08:02 Dextrose 50%-Water Inj 50 Ml Syringe IV 01/02/25 08:01 Q15MIN PRN BG <50 OR BG <70 & pt unresponsive Gabapentin 100 mg 12/03/24 09:00 12/03/24 09:41 Gabapentin 100 Mg Capsule PO 01/02/25 08:59 100 mg BID LENIN Administration Glucagon 1 mg 12/03/24 08:02 Glucagon Inj 1 Mg Vial IM Q15MIN PRN BG <70, and no IV access Sodium Chloride 1,000 mls @ 70 mls/hr 12/03/24 10:13 12/03/24 10:29 Ns IV 01/02/25 10:12 70 mls/hr .[id number] LENIN Administration Ondansetron HCl 4 mg 12/02/24 22:50 Ondansetron Inj 2 Mg/Ml Inj 2 Ml IV 01/01/25 22:49 Q6H PRN NAUSEA OR VOMITING Protocol Sennosides 1 tab 12/02/24 22:50 Senna Tablet PO 01/01/25 22:49 QDAY PRN constipation Protocol Sodium Chloride 3 ml 12/02/24 23:05 12/03/24 06:03 Sodium Chloride Rt Eileen 0.9% 3 Ml Nebu INH 01/01/25 23:04 3 ml PRN PRN Administration SOLN Plan Patient is a 64-year-old female with a past medical history of breast cancer diagnosed August 2023 status post left-sided mastectomy Stage IIIa (pT2, snN2A), ER positive, NJ negative, HER2/sarai negative, osteopenia, SUE mutation, and new lump on right breast who was admitted for CVA work up. #CVA #Ischemic Stroke (indeterminate infarct) Etiology: Likely patient experience a syncopal event and was found to have an old left brainstem stroke, likely ischemic. NIHSS score during AM 0. Likely TIA. Pending neuro recommendation for possible plavix, will follow up. Diagnostics: MRI brain (12/03/2023): Diffusion-weighted images demonstrate small linear areas of restricted diffusion in the right temporal lobe, which may be artifactual, recommend neurology consultation and correlation with clinical findings as to small infarcts in the right temporal lobe Head Neck CTA: Negative Head CT; Negative for acute hemorrhage, mass effect or midline shift 12 mm low density area in the left brainstem, pontine level, suspicious for age indeterminate infarct, clinical correlation advised Suggest follow-up brain MRI as clinically warranted Lipid Panel: Triglycerides 121, Cholesterol 248 LDL 127, HDL 98 10 year risk: 3.3% No statin recommended Plan: -Atorvastatin 40 mg HS and Aspirin 81 mg -Neuro Checks -Aspiration Precautions, Head of bed 30 degrees -Euglycemia and avoid Hyperthermia -Acetaminophen PRN -Pending free T4 -pending echo -Allow for permissive HTN, NO TPA given, Systolic <220 or Diastolic <110 or suspected end organ failure -Labetalol PRN, give if SBP >220 or DBP >110 -Pending Neuro recommendations #Syncope #Orthostatic Hypotension Patient described several syncopal event events occurring over the past couple of days where patient experienced blackout. Family at bedside stated patient has been having decreased oral intake. Patient denied seizure-like activity. Given history of stroke as noted on CT, this cannot be ruled out as a possible source. DDx: Patient had a positive orthostatic vitals on admission likely secodnary to medication as patient is on Gabpatentin and Taxol is also known to cause syncope vs Stroke Plan -We will start patient on gentle IV hydration and encourage increased oral intake #Dysphagia Patinet stated dysphagia worse occurs prior to sycopal event. Evaluation showed functional swallow mechanism, recommended Dysphagia 3 diet. Likely secondary to stroke. DDx: Obstruction less likely given no evidence on CT vs Mobility dysfucntion from medication. Plan -D3 Diet -Consider outpatinet w/ GI for EGD #Neuropathy A past medical history of neuropathy likely secodndary to Taxol which patient completed 4 courses on 04/18/2024. Patient was started on gabapentin as a home medication and recently decreased by primary care provider because of history of syncopal episodes and dizziness. Plan -Home medication, gabapentin 200 twice daily -Further reduced gabapentin to 100 mg BID #History of breast cancer of left breast s/p mastesctomy Please continue h ome medication of anastrozole and Verzenio Plan -No acute intervention, continue Anastrozole and Verzenio. #Pancytopenia Likely secondary to immunosuppresent medication such as Taxol versus Verzenio as it can also cause neutropneia. Less likely to malignancy Plan -Contiue to follow oncology and radiation oncology Health Maintenance: Disp: Pt is currently admitted to floors for further management of stroke , awaiting echo and neuro recommendations FEN: Dysphagia 3 DVT: Enoxaparin Code: Full code - The patient's plan was discussed with attending Dr Perera and senior residents Dr. Shara Villanueva MD PGY1 Internal Medicine Attending Provider Attestation/Addendum Patient is a 64 years old female with past medical history of breast cancer status post left mastectomy on chemotherapy, neuropathy who was admitted overnight for management of syncope and CVA workup. She was found to have orthostatic hypotension, we will encourage patient to have increased fluid intake and we will start her on gentle IV hydration. MRI brain showed small linear areas of restricted diffusion in the right temporal lobe, which may be artifactual, recommend neurology consultation and correlation with clinical findings as to small infarcts in the right temporal lobe. We will wait for in- house neurology consultation available tomorrow. I attest that I was physically present for the evaluation, physical examination, lab and imaging review of the patient with the residents. I discussed the case with the residents and agree with the findings and plans of care as documented above. Remigio Perera MD
--- NOTE | 2024-12-03 12:48 | PC.CC ---
Pt Irma Fine is a 64 yr old female admitted to hospitalist services for SNCOPE, Stroke r/o. ASW met with pt at bedside to complete initial assessment. At time of encounter pt note to have several family members at bedside, ASW attained verbal consent to proceed with assessment at this time. At time of encounter pt noted to be alert and oriented to person, place and situation. Pt able to confirm all demographic information. Pt is from home [facility]. Pt lives in the home with her . Pt identifies her son Ramo Fine [phone] and daughter Adriane Stephen [phone] as surrogate DMs. Pt reports at baseline she is independent with ambulation and with most of her ADLs, requiring minimal assist. Pt reports she does have and utilizes a shower chair. Pt is not diabetic and is not on dialysis. At baseline pt does not require supplemental O2 in the home. Pt will D/c home with family providing transport. ASW noted that pts face sheet reflects self pay under health coverage. With information in pts chart ASW ran [employer] eligibility, that reflected non-existent account. ASW confirmed pts demographic with SS number noted to be incorrect. ASW provided correct SS number to pt registration to update. Pt instructed to follow up with her [employer] worker to confirm if health plan is active.
--- NOTE | 2024-12-03 13:35 | PC.PT ---
PT eval only. Patient is I with transfers and ambulation without AD x short distance only due to dizziness.
[2024-12-03] MEDS: VERZENIO 150 MG PO ×2 (13:50→20:08)
[2024-12-03] MEDS: ANASTROZOLE 1 MG TABLET PO (13:50)
[2024-12-03] MEDS: ATORVASTATIN CALCIUM 20 MG TABLET 40 MG PO (20:08)
[2024-12-04] VITALS (8 sets, daily range): BP systolic 103–125; BP diastolic 55–81; PULSE 58–104; RESP 6–100; TEMP 36.1–36.6; O2SAT 97–100; BMI 24.0
--- NOTE | 2024-12-04 05:19 | PC.NURSE ---
ASSESSMENT NURSE NOTIFED THAT PT HEART RATE DOWN TO 49, UPON ENTERING ROOM PATIENT WAS ASLEEP AND IN NO RESPIRATORY DISTRESS, ASYMPTOMATIC, WHEN WOKEN UP PATIENT HEART RATE UP TO 80'S. PROVIDER CHRISTINE NOTIFIED.
[2024-12-04 06:34] LABS: Basophils % (Auto) 1 % (0-2.5); Eosinophils % (Auto) 1 % (0-10); Hematocrit 28.1 % (36.0-46.0); Hemoglobin 9.3 g/dL (12.0-16.0); Immature Granulocytes % (Auto) 0 % (0-0); Immature Granulocytes Auto 0.01 Thou/mm3 (0.00-0.00); Lymphocytes # (Auto) 0.8 Thou/mm3 (1.0-4.8); Lymphocytes % (Auto) 25 % (10-50); Mean Corpuscular HGB Conc 33.1 g/dl (31.0-37.0); Mean Corpuscular Hemoglobin 32.7 pg (25.0-35.0); Mean Corpuscular Volume 99 fL (80-100); Monocytes # (Auto) 0.2 Thou/mm3 (0.0-0.8); Monocytes % (Auto) 6 % (0-12); Neutrophils % (Auto) 66 % (37-80); Nucleated Red Blood Cell % 0 /100 WBC (0); Platelet Count 85 Thou/mm3 (140-440); RDW Standard Deviation 47.5 fL (36.4-46.3); Red Blood Count 2.84 Miln/mm3 (4.00-5.20)
[2024-12-04 07:00] LABS: Alanine Aminotransferase < 7 U/L (10-49); Albumin, Serum 4.2 gm/dL (3.4-4.8); Alkaline Phosphatase 66 U/L (46-116); Anion Gap 9 (7-16); Aspartate Amino Transferase 14 U/L (0-34); BUN/Creatinine Ratio 11 Ratio (12-20); Bilirubin,Total 0.7 mg/dL (0.3-1.2); Blood Urea Nitrogen 9 mg/dL (9-23); Calcium 8.6 mg/dL (8.3-10.6); Calcium (Corrected) 8.6 mg/dL (8.5-10.1); Carbon Dioxide 24.4 mMol/L (20.0-31.0); Chloride 106 mMol/L (98-107); Creatinine (Component) 0.8 mg/dL (0.6-1.3); Estimated Creatinine Clearance 62.2 mL/min (>60); Free T4 (Free Thyroxine) 0.98 ng/dL (0.89-1.76); Globulin 2.1 gm/dL (2.3-3.5); Glucose 86 mg/dL (74-106); Magnesium 2.3 mg/dL (1.6-2.6); Osmolality,Calculated 275 (275-295); Phosphorous 2.2 mg/dL (2.4-5.1); Potassium 4.2 mMol/L (3.4-5.1); Sodium 139 mMol/L (136-145); Total Protein 6.3 gm/dL (5.7-8.2); eGFR > 60 See Note
--- NOTE | 2024-12-04 07:25 | PC.CC ---
Late Entry 12/03/24: Rounding note: Stroke work up, pt will remain.
[2024-12-04] MEDS: ANASTROZOLE 1 MG TABLET PO (08:10)
[2024-12-04] MEDS: VERZENIO 150 MG PO ×2 (08:10→20:16)
[2024-12-04] MEDS: ASPIRIN EC 81 MG TABEC PO (08:10)
[2024-12-04] MEDS: GABAPENTIN 100 MG CAPSULE PO ×2 (08:10→20:15)
[2024-12-04] MEDS: NAPH,KPH MBDB 1 PACKET (1.5 GM) PO (08:10)
--- NOTE | 2024-12-04 09:02 | XR_ITS ---
Examination: Venous duplex upper extremity sonogram, bilateral. Date and time of exam: December 04, 2024 1045 hrs. Indications: Bilateral arm swelling this week worse today Technique: Multiple sonographic images of the deep venous system have been obtained. B-mode/2-D grayscale imaging of vascular structures and Doppler spectral analysis (waveforms) and color performed Both legs are examined. Findings: Positive for acute occlusive thrombus left axillary vein Right arm deep venous system unremarkable Impression: Positive for acute occlusive thrombus left axillary vein
[2024-12-04] MEDS: SODIUM CHLORIDE 0.9% 1000 ML 1,000 ML 70 ML IV (10:15)
--- NOTE | 2024-12-04 13:17 | PD.VPROG1 ---
Telemedicine visit statement This visit was conducted with the use of phone was obtained on 12/04/24 at 1317. Documentation for date of: 12/04/24 Subjective Subjective Interval history: Patient was seen in Telemetry with virtual visit, no complaints today, reported frequent episodes of fainting. No witnessed convulsions or post episodic confusion. Virtual exam Vital Signs Temp Pulse Resp BP Pulse Ox O2 Del Method 97.9 F 88 6 L 118/81 97 Room Air 12/04/24 08:00 12/04/24 11:21 12/04/24 11:21 12/04/24 08:00 12/04/24 11:21 12/04/24 08:00 Objective Labs 12/04/24 05:20 12/04/24 05:20 Labs: Laboratory Results - last 24 hr 12/04/24 05:20 WBC 3.0 L RBC 2.84 L Hgb 9.3 L Hct 28.1 L MCV 99 MCH 32.7 MCHC 33.1 RDW Std Deviation 47.5 H Plt Count 85 L Neut % (Auto) 66 Lymph % (Auto) 25 [place] % (Auto) 6 Eos % (Auto) 1 Baso % (Auto) 1 Neut # (Auto) 2.0 Lymph # (Auto) 0.8 L [place] # (Auto) 0.2 Eos # (Auto) 0.0 Baso # (Auto) 0.0 Immature Gran # (Auto) 0.01 H Absolute Nucleated RBC 0.00 Immature Gran % 0 Nucleated RBC % 0 PT 11.0 INR 1.0 Sodium 139 Potassium 4.2 D Chloride 106 Carbon Dioxide 24.4 Anion Gap 9 BUN 9 Creatinine 0.8 Estim Creat Clear Calc 62.2 eGFR > 60 BUN/Creatinine Ratio 11 L Glucose 86 Calculated Osmolality 275 Calcium 8.6 Corrected Calcium 8.6 Phosphorus 2.2 L Magnesium 2.3 Total Bilirubin 0.7 AST 14 ALT < 7 L Alkaline Phosphatase 66 Total Protein 6.3 Albumin 4.2 Globulin 2.1 L Albumin/Globulin Ratio 2.0 Free T4 0.98 Assessment & Plan Problem List (1) Syncope: Status: Acute Assessment and plan: reassured the patient that the MRI brain showed artifact in the right temporal lobe, nothing consistent with infarction. FU with EEG to r/o sz. 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
[2024-12-04] MEDS: ENOXAPARIN SOD INJ 60 MG/0.6 ML SYRINGE SC ×2 (13:38→20:15)
--- NOTE | 2024-12-04 13:42 | PD.RESPRO ---
Documentation for date of: 12/04/24 Subjective Subjective Interval history: Patient is a 64-year-old female with a past medical history of breast cancer diagnosed August 2023 status post left-sided mastectomy Stage IIIa (pT2, snN2A), ER positive, CO negative, HER2/sarai negative who follows Dr. Mendoza and Dr. Nichole and recently noted to have a breast lump on right side w/ scheduled ultrasound and biopsy as outpatient. 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 Next oncology appoitment in December. Patient follows with [facility] as their primary care, Dr. Duran-was penidng US carotid. Patinet on Verzenio and anastrozole. No overnight events reported per patient. Patient examined at bedside. Today patient was worried about increasing facial swelling and left upper extremity swelling, same side as breast mastectomy. Patient denied any tenderness. Patient stated this was the same side as lymph node removal and and during her syncopal event she fell on that side as well. Venous ultrasound obtained to rule out DVT. Pending Dr. Turner's final recommendations, will likely DC aspirin and Plavix as MRI findings are likely artificial for stroke. Exam Vital Signs Temp Pulse Resp BP Pulse Ox O2 Del Method 97.9 F 88 6 L 118/81 97 Room Air 12/04/24 08:00 12/04/24 11:21 12/04/24 11:21 12/04/24 08:00 12/04/24 11:21 12/04/24 08:00 Narrative Exam General Appearance: Alert & Oriented X3, well-nourished female who is lying in bed in no acute distress. Mild swelling of left upper extremity. Mild facial swelling. HEENT: Skull symmetrical and atraumatic. Conjunctivae pin and moist. Pupils equal, round, reactive to light and accommodation (PERRL). External ear without lesion or discharge. Straight, nares patient, mucosa pink, no discharge. Cardio: Normal Rate and Rhythm with S1 and S2 heart sounds. No murmurs or extra heart sounds auscultated. No bruits on carotid auscultation. No peripheral edema. Lungs: Symmetric with good expansion. Chest and back non-tender. Breath sounds vesicular without crackles, wheezing or rhonchi Abdomen: Non-tender, Non-distended, Normal Reactive Bowel Sounds Neuro: Alert, cooperative, oriented to person, place, and time. Speech clear. CN grossly intact. Upper motor strength 5/5 and Lower motor strength 5/5. Sensation intact. Objective Labs 12/04/24 05:20 12/04/24 05:20 Labs: Laboratory Results - last 24 hr 12/04/24 05:20 WBC 3.0 L RBC 2.84 L Hgb 9.3 L Hct 28.1 L MCV 99 MCH 32.7 MCHC 33.1 RDW Std Deviation 47.5 H Plt Count 85 L Neut % (Auto) 66 Lymph % (Auto) 25 [place] % (Auto) 6 Eos % (Auto) 1 Baso % (Auto) 1 Neut # (Auto) 2.0 Lymph # (Auto) 0.8 L [place] # (Auto) 0.2 Eos # (Auto) 0.0 Baso # (Auto) 0.0 Immature Gran # (Auto) 0.01 H Absolute Nucleated RBC 0.00 Immature Gran % 0 Nucleated RBC % 0 PT 11.0 INR 1.0 Sodium 139 Potassium 4.2 D Chloride 106 Carbon Dioxide 24.4 Anion Gap 9 BUN 9 Creatinine 0.8 Estim Creat Clear Calc 62.2 eGFR > 60 BUN/Creatinine Ratio 11 L Glucose 86 Calculated Osmolality 275 Calcium 8.6 Corrected Calcium 8.6 Phosphorus 2.2 L Magnesium 2.3 Total Bilirubin 0.7 AST 14 ALT < 7 L Alkaline Phosphatase 66 Total Protein 6.3 Albumin 4.2 Globulin 2.1 L Albumin/Globulin Ratio 2.0 Free T4 0.98 Quality Measures Quality Measures none Assessment & Plan Assessment Current Active Medications: Generic Name Dose Route Start Last Admin Trade Name Bel PRN Reason Stop Dose Admin Acetaminophen 650 mg 12/02/24 22:50 Acetaminophen 325 Mg Tablet PO 01/01/25 22:49 Q6H PRN Fever >101.5 or pain 1-3 Albuterol 2.5 mg 12/03/24 13:38 Albuterol Rt 2.5 Mg/0.5 Ml Nebu INH 01/02/25 00:59 Q6HRRT PRN SHORTNESS OF BREATH OR WHEEZE Anastrozole 1 mg 12/03/24 09:00 12/04/24 08:10 Anastrozole 1 Mg Tablet PO 01/02/25 08:59 1 mg QDAY LENIN Administration Atorvastatin Calcium 40 mg 12/03/24 21:00 12/03/24 20:08 Atorvastatin Calcium 20 Mg Tablet PO 01/02/25 20:59 40 mg HS LENIN Administration Verzenio Tablet 150 0 ea 12/03/24 10:00 12/04/24 08:10 Mg Tablet PO 01/02/25 09:59 1 tablet BID LENIN Administration Dextrose 25 ml 12/03/24 08:02 Dextrose 50%-Water Inj 50 Ml Syringe IV 01/02/25 08:01 Q15MIN PRN BG 50-70 responsive npo pt Dextrose 50 ml 12/03/24 08:02 Dextrose 50%-Water Inj 50 Ml Syringe IV 01/02/25 08:01 Q15MIN PRN BG <50 OR BG <70 & pt unresponsive Enoxaparin Sodium 60 mg 12/04/24 13:30 12/04/24 13:38 Enoxaparin Sod Inj 60 Mg/0.6 Ml Syringe SC 12/18/24 13:29 60 mg BID LENIN Administration Gabapentin 100 mg 12/03/24 09:00 12/04/24 08:10 Gabapentin 100 Mg Capsule PO 01/02/25 08:59 100 mg BID LENIN Administration Glucagon 1 mg 12/03/24 08:02 Glucagon Inj 1 Mg Vial IM Q15MIN PRN BG <70, and no IV access Sodium Chloride 1,000 mls @ 70 mls/hr 12/03/24 10:13 12/04/24 10:15 Ns IV 01/02/25 10:12 70 mls/hr .[id number] LENIN Administration Ondansetron HCl 4 mg 12/02/24 22:50 Ondansetron Inj 2 Mg/Ml Inj 2 Ml IV 01/01/25 22:49 Q6H PRN NAUSEA OR VOMITING Protocol Sennosides 1 tab 12/02/24 22:50 Senna Tablet PO 01/01/25 22:49 QDAY PRN constipation Protocol Sodium Chloride 3 ml 12/02/24 23:05 12/03/24 13:23 Sodium Chloride Rt Eileen 0.9% 3 Ml Nebu INH 01/01/25 23:04 3 ml PRN PRN Administration SOLN Plan Patient is a 64-year-old female with a past medical history of breast cancer diagnosed August 2023 status post left-sided mastectomy Stage IIIa (pT2, snN2A), ER positive, CO negative, HER2/sarai negative, osteopenia, SUE mutation, and new lump on right breast who was admitted for CVA work up. #Provoked DVT Patient examined at bedside this morning and noted to have increasing swelling the left side of her upper extremities and face. Ultrasound ordered and showed to have edema occlusive left axillary vein thrombus. Patient has several risk factors including past medical history of's axillary nodule removal secondary to malignancy and recent fall on same side of arm. Patient's deep vein thrombosis likely combination of provoked and underlying malignancy. Enoxaparin started on patient given pancytopenia. Wells Score: 1.0 low risk Diagnostics: Venous Doppler Study (12/04/2023): Positive for acute occlusive thrombus left axillary vein Plan: -Enoxaparin 60 mg SC BID #Syncope #Orthostatic Hypotension Patient described several syncopal event events occurring over the past couple of days where patient experienced blackout. Family at bedside stated patient has been having decreased oral intake. Given stroke less likely syncope likely a combination of orthostatic vitals and history of Gabpatentin and Taxol use. EEG placed to rule out Seizure likely activity. Counseled patient on getting up slowly from a sitting to standing position and importance of staying hydrated. Plan -EEG -We will start patient on gentle IV hydration and encourage increased oral intake #CVA, ruled out. Etiology: CVA stroke ruled out. Neurology consulted, Dr. Turner, and determined stroke likley ruled given brain MRI noted artifacts. NIHSS 0. EEG ordered to rule out seizures. Pending echo, followed up with residential appliance repair technician and left a message. Diagnostics: MRI brain (12/03/2023): Diffusion-weighted images demonstrate small linear areas of restricted diffusion in the right temporal lobe, which may be artifactual, recommend neurology consultation and correlation with clinical findings as to small infarcts in the right temporal lobe Head Neck CTA: Negative Head CT; Negative for acute hemorrhage, mass effect or midline shift 12 mm low density area in the left brainstem, pontine level, suspicious for age indeterminate infarct, clinical correlation advised Suggest follow-up brain MRI as clinically warranted Lipid Panel: Triglycerides 121, Cholesterol 248 LDL 127, HDL 98 10 year risk: 3.3% No statin recommended Plan: -Atorvastatin 40 mg HS -Aspirin 81 mg D/C'd on 12/04/2023 based on neurology recommendations. -Aspiration Precautions, Head of bed 30 degrees -Euglycemia and avoid Hyperthermia -Acetaminophen PRN -pending echo -Pending EEG -Neurology Consulted, appreciate recommendations, Dr. Turner #Dysphagia Patinet stated dysphagia worse occurs prior to sycopal event. Evaluation showed functional swallow mechanism, recommended Dysphagia 3 diet. Likely secondary to stroke. DDx: Obstruction less likely given no evidence on CT vs Mobility dysfucntion from medication. Plan -D3 Diet -Consider outpatinet w/ GI for EGD #Neuropathy A past medical history of neuropathy likely secodndary to Taxol which patient completed 4 courses on 04/18/2024. Patient was started on gabapentin as a home medication and recently decreased by primary care provider because of history of syncopal episodes and dizziness. Plan -Home medication, gabapentin 200 twice daily -Further reduced gabapentin to 100 mg BID #History of breast cancer of left breast s/p mastesctomy Please continue h ome medication of anastrozole and Verzenio Plan -No acute intervention, continue Anastrozole and Verzenio. #Pancytopenia Likely secondary to immunosuppresent medication such as Taxol versus Verzenio as it can also cause neutropneia. Less likely to malignancy Plan -Continue to follow oncology and radiation oncology Health Maintenance: Disp: Pt is currently admitted to floors for further management of stroke , awaiting echo and EEG FEN: Dysphagia 3 DVT: Enoxaparin DVT dose Code: Full code - The patient's plan was discussed with attending Dr Perera and senior residents Dr. Mary Villanueva MD PGY1 Internal Medicine I discussed with and supervised the customer marketing intern physician involved in the care of this patient. I personally saw and examined the patient and discussed the assessment and plan with the entire medicine team, including my attending. I agree with the assessment and plan as documented above. At bedside, patient is AOx3. Complains of L arm swelling and discomfort. Venous doppler was ordered. Results showed DVT in the L axillary vein. We will start theraputic lovenox. Per neuro, on MR brain it is likely artifact rather than a true stroke. No ASA or plavix. - Patient's care was discussed with my attending physician. Nino Hernandez MD Internal Medicine PGY-3 Attending Provider Attestation/Addendum I attest that I was physically present for the evaluation, physical examination, lab and imaging review of the patient with the residents. I discussed the case with the residents and agree with the findings and plans of care as documented above. At bedside today, patient was complaining of swelling on her left arm but denied any pain. Ultrasound of the left arm was obtained which showed axillary vein DVT, we will start her on Lovenox 1 mg/kg twice daily. Discussed with neurology, suggested less likely to be CVA, recommended EEG. Awaiting EEG and echocardiography to complete syncope workup. We will continue with gentle IV hydration and encourage patient to have increased oral intake for orthostatic hypotension. Remigio Perera MD
--- NOTE | 2024-12-04 15:06 | PC.CC ---
Rounding note: DVT in upper arm, pending neuro consult. Possible D/c on 12/05/23.
[2024-12-04] MEDS: ATORVASTATIN CALCIUM 20 MG TABLET 40 MG PO (20:15)
[2024-12-05] VITALS (10 sets, daily range): BP systolic 114–127; BP diastolic 64–76; PULSE 55–86; RESP 12–99; TEMP 36.1–36.6; O2SAT 96–100
[2024-12-05] MEDS: SODIUM CHLORIDE 0.9% 1000 ML 1,000 ML 70 ML IV ×2 (04:08→19:28)
[2024-12-05 06:39] LABS: Basophils # (Auto) 0.1 Thou/mm3 (0.0-0.2); Basophils % (Auto) 2 % (0-2.5); Eosinophils % (Auto) 1 % (0-10); Hematocrit 26.3 % (36.0-46.0); Immature Granulocytes % (Auto) 0 % (0-0); Immature Granulocytes Auto 0.01 Thou/mm3 (0.00-0.00); Lymphocytes # (Auto) 0.6 Thou/mm3 (1.0-4.8); Lymphocytes % (Auto) 22 % (10-50); Mean Corpuscular HGB Conc 34.2 g/dl (31.0-37.0); Mean Corpuscular Hemoglobin 33.2 pg (25.0-35.0); Mean Corpuscular Volume 97 fL (80-100); Monocytes # (Auto) 0.2 Thou/mm3 (0.0-0.8); Monocytes % (Auto) 8 % (0-12); Neutrophils # (Auto) 1.8 Thou/mm3 (1.8-7.7); Neutrophils % (Auto) 67 % (37-80); Nucleated Red Blood Cell % 0 /100 WBC (0); Platelet Count 84 Thou/mm3 (140-440); RDW Standard Deviation 45.8 fL (36.4-46.3); Red Blood Count 2.71 Miln/mm3 (4.00-5.20)
[2024-12-05 06:44] LABS: White Blood Count 2.6 Thou/mm3 (3.6-11.0)
[2024-12-05 06:56] LABS: Prothrombin Time 11.4 Seconds (9.0-12.2)
[2024-12-05 07:17] LABS: Alanine Aminotransferase 7 U/L (10-49); Albumin, Serum 3.9 gm/dL (3.4-4.8); Albumin/Globulin Ratio 2.1 (1.2-2.2); Alkaline Phosphatase 66 U/L (46-116); Anion Gap 9 (7-16); Aspartate Amino Transferase 13 U/L (0-34); BUN/Creatinine Ratio 14 Ratio (12-20); Bilirubin,Total 0.6 mg/dL (0.3-1.2); Blood Urea Nitrogen 11 mg/dL (9-23); Calcium 8.6 mg/dL (8.3-10.6); Calcium (Corrected) 8.7 mg/dL (8.5-10.1); Carbon Dioxide 22.1 mMol/L (20.0-31.0); Chloride 108 mMol/L (98-107); Creatinine (Component) 0.8 mg/dL (0.6-1.3); Estimated Creatinine Clearance 68.3 mL/min (>60); Globulin 1.9 gm/dL (2.3-3.5); Glucose 86 mg/dL (74-106); Osmolality,Calculated 275 (275-295); Phosphorous 2.3 mg/dL (2.4-5.1); Potassium 3.7 mMol/L (3.4-5.1); Sodium 139 mMol/L (136-145); Total Protein 5.8 gm/dL (5.7-8.2); eGFR > 60 See Note
[2024-12-05] MEDS: ENOXAPARIN SOD INJ 60 MG/0.6 ML SYRINGE SC ×2 (09:41→20:35)
[2024-12-05] MEDS: GABAPENTIN 100 MG CAPSULE PO ×2 (09:42→20:35)
[2024-12-05] MEDS: ANASTROZOLE 1 MG TABLET PO (09:42)
[2024-12-05] MEDS: NAPH,KPH MBDB 1 PACKET (1.5 GM) PO (09:42)
--- NOTE | 2024-12-05 10:00 | PC.SS ---
Rounding: Penidng EEG and ECHO
--- NOTE | 2024-12-05 14:33 | ESPR_ITS ---
<Statement entered by Dheeraj Olmedo MD - 12/05/24 16:24> Patient was seen and examined at the bedside. Patient reportedly had mild soreness in her left upper extremity. Patient was found to have a DVT of left upper extremity and was started on Lovenox therapeutic dose. Stroke has been ruled out. Vitals showed stable blood pressure. Labs revealed WBC 2.6 and hemoglobin stable at 9. Chemistry panel was unremarkable. Phosphorus 2.3 which was repleted. Currently we are waiting on EEG and echocardiogram and neurology recommendation. Will likely discharge the patient on Xarelto given the patient history of breast cancer she might need continuation of anticoagulation for more than 6 months. No acute overnight events were reported. All labs and orders were reviewed. I saw and examined the patient, and I agree with current management stated by Dr Anibal DO,PGY1. Plan of care was discussed with the attending physician and resident physician. Disclaimer: Despite multiple revisions, due to the dictation software being used, the document bellow may not be free of grammatical errors including phonetic/typographic errors. However, this does not deter from our commitment to providing health care in the patient's best interest in mind. Dr. Shara MD, PGY 2 Documentation for date of: 12/05/24 Subjective Subjective Interval history: Patient is a 64-year-old female with a past medical history of breast cancer diagnosed August 2023 status post left-sided mastectomy Stage IIIa (pT2, snN2A), ER positive, KS negative, HER2/sarai negative who follows Dr. Mendoza and Dr. Nichole and recently noted to have a breast lump on right side w/ scheduled ultrasound and biopsy as outpatient. 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 Next oncology appoitment in December. Patient follows with [facility] as their primary care, Dr. Duran-was penidng US cem. Patinet on Verzenio and anastrozole. 12/04: No overnight events reported per patient. Patient examined at bedside. Today patient was worried about increasing facial swelling and left upper extremity swelling, same side as breast mastectomy. Patient denied any tenderness. Patient stated this was the same side as lymph node removal and and during her syncopal event she fell on that side as well. Venous ultrasound obtained to rule out DVT. Pending Dr. Turner's final recommendations, will likely DC aspirin and Plavix as MRI findings are likely artificial for stroke. 12/05: No acute overnight events. Vital signs stable this a.m., CBC stable, CMP normal. Patient currently getting ECHO in the room upon exam. Patient states that she feels much better, denies any weakness or focal neurological deficits. Currently pending echocardiogram read and EEG interpretation for seizure rule out. Exam Vital Signs Temp Pulse Resp BP Pulse Ox O2 Del Method 97.6 F 85 14 118/64 98 Room Air 12/05/24 12:00 12/05/24 12:00 12/05/24 12:12/05/24 12:12/05/24 12:12/05/24 12:00 Narrative Exam General Appearance: Alert & Oriented X3, well-nourished female who is lying in bed in no acute distress. Mild swelling of left upper extremity. Mild facial swelling. HEENT: Skull symmetrical and atraumatic. Conjunctivae pin and moist. Pupils equal, round, reactive to light and accommodation (PERRL). External ear without lesion or discharge. Straight, nares patient, mucosa pink, no discharge. Cardio: Normal Rate and Rhythm with S1 and S2 heart sounds. No murmurs or extra heart sounds auscultated. No bruits on carotid auscultation. No peripheral edema. Lungs: Symmetric with good expansion. Chest and back non-tender. Breath sounds vesicular without crackles, wheezing or rhonchi Abdomen: Non-tender, Non-distended, Normal Reactive Bowel Sounds Neuro: Alert, cooperative, oriented to person, place, and time. Speech clear. CN grossly intact. Upper motor strength 5/5 and Lower motor strength 5/5. Sensation intact. Objective Labs 12/05/24 06:18 12/05/24 06:18 Labs: Laboratory Results - last 24 hr 12/05/24 06:18 WBC 2.6 L RBC 2.71 L Hgb 9.0 L Hct 26.3 L MCV 97 MCH 33.2 MCHC 34.2 RDW Std Deviation 45.8 Plt Count 84 L Neut % (Auto) 67 Lymph % (Auto) 22 [place] % (Auto) 8 Eos % (Auto) 1 Baso % (Auto) 2 Neut # (Auto) 1.8 Lymph # (Auto) 0.6 L [place] # (Auto) 0.2 Eos # (Auto) 0.0 Baso # (Auto) 0.1 Immature Gran # (Auto) 0.01 H Absolute Nucleated RBC 0.00 Immature Gran % 0 Nucleated RBC % 0 PT 11.4 INR 1.0 Sodium 139 Potassium 3.7 D Chloride 108 H Carbon Dioxide 22.1 Anion Gap 9 BUN 11 Creatinine 0.8 Estim Creat Clear Calc 68.3 eGFR > 60 BUN/Creatinine Ratio 14 Glucose 86 Calculated Osmolality 275 Calcium 8.6 Corrected Calcium 8.7 Phosphorus 2.3 L Magnesium 2.0 Total Bilirubin 0.6 AST 13 ALT 7 L Alkaline Phosphatase 66 Total Protein 5.8 Albumin 3.9 Globulin 1.9 L Albumin/Globulin Ratio 2.1 Quality Measures Quality Measures none Assessment & Plan Assessment Current Active Medications: Generic Name Dose Route Start Last Admin Trade Name Freq PRN Reason Stop Dose Admin Acetaminophen 650 mg 12/02/24 22:50 Acetaminophen 325 Mg Tablet PO 01/01/25 22:49 Q6H PRN Fever >101.5 or pain 1-3 Albuterol 2.5 mg 12/03/24 13:38 Albuterol Rt 2.5 Mg/0.5 Ml Nebu INH 01/02/25 00:59 Q6HRRT PRN SHORTNESS OF BREATH OR WHEEZE Anastrozole 1 mg 12/03/24 09:00 12/05/24 09:42 Anastrozole 1 Mg Tablet PO 01/02/25 08:59 1 mg QDAY LENIN Administration Atorvastatin Calcium 40 mg 12/03/24 21:00 12/04/24 20:15 Atorvastatin Calcium 20 Mg Tablet PO 01/02/25 20:59 40 mg HS LENIN Administration Verzenio Tablet 150 0 ea 12/03/24 10:00 12/05/24 10:10 Mg Tablet PO 01/02/25 09:59 Not Given BID LENIN Dextrose 25 ml 12/03/24 08:02 Dextrose 50%-Water Inj 50 Ml Syringe IV 01/02/25 08:01 Q15MIN PRN BG 50-70 responsive npo pt Dextrose 50 ml 12/03/24 08:02 Dextrose 50%-Water Inj 50 Ml Syringe IV 01/02/25 08:01 Q15MIN PRN BG <50 OR BG <70 & pt unresponsive Enoxaparin Sodium 60 mg 12/04/24 13:30 12/05/24 09:41 Enoxaparin Sod Inj 60 Mg/0.6 Ml Syringe SC 12/18/24 13:29 60 mg BID LENIN Administration Gabapentin 100 mg 12/03/24 09:00 12/05/24 09:42 Gabapentin 100 Mg Capsule PO 01/02/25 08:59 100 mg BID LENIN Administration Glucagon 1 mg 12/03/24 08:02 Glucagon Inj 1 Mg Vial IM Q15MIN PRN BG <70, and no IV access Sodium Chloride 1,000 mls @ 70 mls/hr 12/03/24 10:13 12/05/24 04:08 Ns IV 01/02/25 10:12 70 mls/hr .[id number] LENIN Administration Ondansetron HCl 4 mg 12/02/24 22:50 Ondansetron Inj 2 Mg/Ml Inj 2 Ml IV 01/01/25 22:49 Q6H PRN NAUSEA OR VOMITING Protocol Sennosides 1 tab 12/02/24 22:50 Senna Tablet PO 01/01/25 22:49 QDAY PRN constipation Protocol Sodium Chloride 3 ml 12/02/24 23:05 12/03/24 13:23 Sodium Chloride Rt Eileen 0.9% 3 Ml Nebu INH 01/01/25 23:04 3 ml PRN PRN Administration SOLN Plan Patient is a 64-year-old female with a past medical history of breast cancer diagnosed August 2023 status post left-sided mastectomy Stage IIIa (pT2, snN2A), ER positive, KS negative, HER2/sarai negative, osteopenia, SUE mutation, and new lump on right breast who was admitted for CVA work up. #Provoked DVT Patient examined at bedside this morning and noted to have increasing swelling the left side of her upper extremities and face. Ultrasound ordered and showed to have edema occlusive left axillary vein thrombus. Patient has several risk factors including past medical history of's axillary nodule removal secondary to malignancy and recent fall on same side of arm. Patient's deep vein thrombosis likely combination of provoked and underlying malignancy. Enoxaparin started on patient given pancytopenia. Wells Score: 1.0 low risk Diagnostics: Venous Doppler Study (12/04/2023): Positive for acute occlusive thrombus left axillary vein Plan: -Enoxaparin 60 mg SC BID. #Syncope #Orthostatic Hypotension Patient described several syncopal event events occurring over the past couple of days where patient experienced blackout. Family at bedside stated patient has been having decreased oral intake. Given stroke less likely syncope likely a combination of orthostatic vitals and history of Gabpatentin and Taxol use. EEG placed to rule out Seizure likely activity. Counseled patient on getting up slowly from a sitting to standing position and importance of staying hydrated. Plan -EEG -We will start patient on gentle IV hydration and encourage increased oral intake #CVA, ruled out. Etiology: CVA stroke ruled out. Neurology consulted, Dr. Turner, and determined stroke likley ruled given brain MRI noted artifacts. NIHSS 0. EEG ordered to rule out seizures. Pending echo, followed up with coding technician and left a message. Diagnostics: MRI brain (12/03/2023): Diffusion-weighted images demonstrate small linear areas of restricted diffusion in the right temporal lobe, which may be artifactual, recommend neurology consultation and correlation with clinical findings as to small infarcts in the right temporal lobe Head Neck CTA: Negative Head CT; Negative for acute hemorrhage, mass effect or midline shift 12 mm low density area in the left brainstem, pontine level, suspicious for age indeterminate infarct, clinical correlation advised Suggest follow-up brain MRI as clinically warranted Lipid Panel: Triglycerides 121, Cholesterol 248 LDL 127, HDL 98 10 year risk: 3.3% No statin recommended Plan: -Atorvastatin 40 mg HS -Aspirin 81 mg D/C'd on 12/04/2023 based on neurology recommendations. -Aspiration Precautions, Head of bed 30 degrees -Euglycemia and avoid Hyperthermia -Acetaminophen PRN -pending ECHO read -Pending EEG interpretation -Neurology Consulted, appreciate recommendations, Dr. Turner #Dysphagia Patinet stated dysphagia worse occurs prior to sycopal event. Evaluation showed functional swallow mechanism, recommended Dysphagia 3 diet. Likely secondary to stroke. DDx: Obstruction less likely given no evidence on CT vs Mobility dysfucntion from medication. Plan -D3 Diet -Consider outpatinet w/ GI for EGD #Neuropathy A past medical history of neuropathy likely secodndary to Taxol which patient completed 4 courses on 04/18/2024. Patient was started on gabapentin as a home medication and recently decreased by primary care provider because of history of syncopal episodes and dizziness. Plan -Home medication, gabapentin 200 twice daily -Further reduced gabapentin to 100 mg BID #History of breast cancer of left breast s/p mastesctomy Please continue h ome medication of anastrozole and Verzenio Plan -No acute intervention, continue Anastrozole and Verzenio. #Pancytopenia Likely secondary to immunosuppresent medication such as Taxol versus Verzenio as it can also cause neutropneia. Less likely to malignancy Plan -Continue to follow oncology and radiation oncology Health Maintenance: Disp: Pt is currently admitted to floors for further management of stroke , awaiting echo and EEG reads FEN: Dysphagia 3 DVT: Enoxaparin DVT dose Code: Full code - The patient's plan was reviewed and discussed with my attending, Dr. Dilma Valentino D.O. PGY1 Anesthesiology Attending Provider Attestation/Addendum I attest that I was physically present for the evaluation, physical examination, lab and imaging review of the patient with the residents. I discussed the case with the residents and agree with the findings and plans of care as documented above. At bedside, patient states she is feeling well and does not have any complaints. Continues to be on Lovenox, aspirin, statin. Neurology following, CVA ruled out, imaging finding thought to be artifacts. Awaiting echocardiography and EEG reading. Remigio Perera MD
[2024-12-05] MEDS: ATORVASTATIN CALCIUM 20 MG TABLET 40 MG PO (20:35)
[2024-12-05] MEDS: VERZENIO 150 MG PO (20:36)
--- NOTE | 2024-12-05 21:55 | PC.NURSE ---
CALLED REPORT TO [facility] FOR TRANSFER TO [phone]
--- NOTE | 2024-12-05 23:23 | PD.NEUROCONS ---
History of Present Illness Data of Consult Requesting Physician: Miguel Gallegos MD Primary Care Provider: Jennifer Patricio MD Consult Narrative cc:: cc: Miguel Gallegos MD Meds Home Medications and Allergies Home Medications ?Medication ?Instructions ?Recorded ?Confirmed ?Type abemaciclib 150 mg tablet 150 mg PO BID 11/08/24 12/03/24 History (Verzenio) Allergies Allergy/AdvReac Type Severity Reaction Status Date / Time Penicillins Allergy Hives Verified 12/02/24 11:41 Exam - Neurology Vital Signs Temp Pulse Resp BP Pulse Ox O2 Del Method 97.9 F 73 18 122/65 100 Room Air 12/05/24 19:52 12/05/24 21:28 12/05/24 21:28 12/05/24 19:52 12/05/24 21:28 12/05/24 19:52 Results Labs 12/05/24 06:18 12/05/24 06:18 Labs: Short CBC 12/05/24 Range/Units 06:18 WBC 2.6 L (3.6-11.0) Thou/mm3 Hgb 9.0 L (12.0-16.0) g/dL Hct 26.3 L (36.0-46.0) % Plt Count 84 L (140-440) Thou/mm3 BMP 12/05/24 06:18 Sodium 139 Potassium 3.7 D Chloride 108 H Carbon Dioxide 22.1 BUN 11 Creatinine 0.8 Glucose 86 Calcium 8.6 Liver Function 12/05/24 Range/Units 06:18 Total Bilirubin 0.6 (0.3-1.2) mg/dL AST 13 (0-34) U/L ALT 7 L (10-49) U/L Alkaline Phosphatase 66 (46-116) U/L Albumin 3.9 (3.4-4.8) gm/dL Assessment & Plan Assessment and plan (1) Syncope: Status: Acute (2) 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
[2024-12-06] VITALS (7 sets, daily range): BP systolic 117–134; BP diastolic 55–63; PULSE 59–90; RESP 17–98; TEMP 36.2–36.8; O2SAT 94–98
[2024-12-06 06:31] LABS: Basophils # (Auto) 0.1 Thou/mm3 (0.0-0.2); Basophils % (Auto) 2 % (0-2.5); Eosinophils % (Auto) 1 % (0-10); Hematocrit 24.7 % (36.0-46.0); Immature Granulocytes % (Auto) 0 % (0-0); Immature Granulocytes Auto 0.01 Thou/mm3 (0.00-0.00); Lymphocytes # (Auto) 0.6 Thou/mm3 (1.0-4.8); Lymphocytes % (Auto) 24 % (10-50); Mean Corpuscular HGB Conc 33.6 g/dl (31.0-37.0); Mean Corpuscular Hemoglobin 32.7 pg (25.0-35.0); Mean Corpuscular Volume 97 fL (80-100); Monocytes # (Auto) 0.2 Thou/mm3 (0.0-0.8); Monocytes % (Auto) 8 % (0-12); Neutrophils # (Auto) 1.6 Thou/mm3 (1.8-7.7); Neutrophils % (Auto) 64 % (37-80); Nucleated Red Blood Cell % 0 /100 WBC (0); Platelet Count 109 Thou/mm3 (140-440); RDW Standard Deviation 45.9 fL (36.4-46.3); Red Blood Count 2.54 Miln/mm3 (4.00-5.20)
--- NOTE | 2024-12-06 06:37 | PD.NEUROPROG ---
Documentation for date of: 12/06/24 Subjective Subjective Interval history: Patient was seen in telemetry today. No new symptoms reported. She has not felt any dizziness or fainting spells after admission. Exam - Neurology Vital Signs Temp Pulse Resp BP Pulse Ox O2 Del Method 97.5 F 59 L 17 117/60 98 Room Air 12/06/24 04:00 12/06/24 05:00 12/06/24 04:00 12/06/24 04:00 12/06/24 04:00 12/06/24 04:00 Narrative Exam GENERAL APPEARANCE: Well hydrated, well-nourished in no acute distress. HEENT: Normocephalic, atraumatic, extraocular movements intact. Pupils: Equal reacting to light and accommodation NECK: Supple, no JVD or bruits. CARDIOVASULAR: Heart: S1, S2 heard, regular without S3-S4 or murmur no rubs or gallops. LUNGS/CHEST: Clear to auscultation bilaterally. No rails, rhonchi, or wheezing. Normal inspection. ABDOMEN: Soft, nontender, with normal bowel sounds. No pulsatile masses. No rebound, rigidity, or guarding. Normal inspection and palpation. EXTREMITIES: Normal inspection and palpation. No edema, clubbing or cyanosis. SKIN: Warm and dry without rashes. Normal inspection. MUSCULOSKELETAL: No cervical, thoracic, lumbar or midline bony tenderness. Normal inspection. NEURO: Alert, awake and oriented x3. Cranial nerves: II through XII grossly intact. Speech and language: Normal with no dysarthria or dysphasia. Motor system: Tone and bulk: Normal: Strength: 5 out of 5 in all 4 extremities; No pronator drift noted. Deep tendon reflexes: 2+ bilaterally symmetrical. Plantar reflex: Downgoing bilaterally. Sensory system: Intact to all modalities of sensation bilaterally. Coordination: Intact to [id number] and pvup-vfva-ptyx test bilaterally. No ataxia, no dysmetria, or dysdiadochokinesia noted. No intention tremors noted. Gait: Normal. Toe, heel, tandem walk all are normal. Romberg: Negative. No signs of meningeal irritation noted. PSYCHIATRIC: Normal mood and affect. Objective Labs 12/05/24 06:18 12/05/24 06:18 Labs: Laboratory Results - last 24 hr 12/05/24 06:18 WBC 2.6 L RBC 2.71 L Hgb 9.0 L Hct 26.3 L MCV 97 MCH 33.2 MCHC 34.2 RDW Std Deviation 45.8 Plt Count 84 L Neut % (Auto) 67 Lymph % (Auto) 22 Andrew % (Auto) 8 Eos % (Auto) 1 Baso % (Auto) 2 Neut # (Auto) 1.8 Lymph # (Auto) 0.6 L Andrew # (Auto) 0.2 Eos # (Auto) 0.0 Baso # (Auto) 0.1 Immature Gran # (Auto) 0.01 H Absolute Nucleated RBC 0.00 Immature Gran % 0 Nucleated RBC % 0 PT 11.4 INR 1.0 Sodium 139 Potassium 3.7 D Chloride 108 H Carbon Dioxide 22.1 Anion Gap 9 BUN 11 Creatinine 0.8 Estim Creat Clear Calc 68.3 eGFR > 60 BUN/Creatinine Ratio 14 Glucose 86 Calculated Osmolality 275 Calcium 8.6 Corrected Calcium 8.7 Phosphorus 2.3 L Magnesium 2.0 Total Bilirubin 0.6 AST 13 ALT 7 L Alkaline Phosphatase 66 Total Protein 5.8 Albumin 3.9 Globulin 1.9 L Albumin/Globulin Ratio 2.1 Assessment & Plan Assessment and plan (1) Syncope: Status: Acute Assessment and plan: No recurrence reported after admission. MRI brain showed artifact in the right temporal area, not infarction Given reassurance EEG showed normal study with the exception of artifact in the T4 area, would to repeat EEG in my office as an outpatient to evaluate further. No driving advised, stable for discharge home. 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
[2024-12-06 06:44] LABS: Hemoglobin 8.3 g/dL (12.0-16.0); White Blood Count 2.5 Thou/mm3 (3.6-11.0)
[2024-12-06 07:26] LABS: Alanine Aminotransferase < 7 U/L (10-49); Albumin, Serum 3.8 gm/dL (3.4-4.8); Alkaline Phosphatase 63 U/L (46-116); Anion Gap 10 (7-16); Aspartate Amino Transferase 11 U/L (0-34); BUN/Creatinine Ratio 13 Ratio (12-20); Bilirubin,Total 0.5 mg/dL (0.3-1.2); Blood Urea Nitrogen 10 mg/dL (9-23); Calcium 8.6 mg/dL (8.3-10.6); Calcium (Corrected) 8.8 mg/dL (8.5-10.1); Chloride 109 mMol/L (98-107); Creatinine (Component) 0.8 mg/dL (0.6-1.3); Estimated Creatinine Clearance 68.1 mL/min (>60); Globulin 1.9 gm/dL (2.3-3.5); Glucose 84 mg/dL (74-106); Magnesium 1.8 mg/dL (1.6-2.6); Osmolality,Calculated 277 (275-295); Phosphorous 2.4 mg/dL (2.4-5.1); Potassium 3.4 mMol/L (3.4-5.1); Sodium 140 mMol/L (136-145); Total Protein 5.7 gm/dL (5.7-8.2); eGFR > 60 See Note
[2024-12-06] MEDS: GABAPENTIN 100 MG CAPSULE PO (08:27)
[2024-12-06] MEDS: ENOXAPARIN SOD INJ 60 MG/0.6 ML SYRINGE SC (08:27)
[2024-12-06] MEDS: VERZENIO 150 MG PO (08:27)
[2024-12-06] MEDS: ANASTROZOLE 1 MG TABLET PO (08:27)
[2024-12-06] MEDS: POTASSIUM CHLORIDE 10% 20 MEQ/15 ML UDC 40 MEQ PO (08:44)
[2024-12-06] MEDS: SODIUM CHLORIDE 0.9% 1000 ML 1,000 ML 70 ML IV (08:48)
[2024-12-06] MEDS: Magnesium Sulfate 2 GM Ivpb 2 GM/50 ML BAG IV (09:50)
--- NOTE | 2024-12-06 13:26 | PC.CC ---
S/W patient at bedside. She has not yet resolved her eligibility with [employer]. Provided Xarelto free trial card to cover the cost of her Rx.
--- NOTE | 2024-12-06 13:31 | PC.NURSE ---
spoke to manager social work patient wondering if she qualifies for a shower chair or walker. Patient has no insurance wondering if any programs are available.
--- NOTE | 2024-12-06 13:36 | PC.NURSE ---
[facility] social media content manager will come talk to patient. Will continue to monitor patient.
--- NOTE | 2024-12-06 14:20 | ESDS_ITS ---
<Statement entered by Remigio Perera MD - 12/06/24 17:51> I attest that I was physically present for the evaluation, physical examination, lab and imaging review of the patient with the residents. I discussed the case with the residents and agree with the findings and plans of care as documented above. At bedside today, patient states he is feeling well and does not have any new complaints. Has been able to tolerate diet. EEG was positive for possible artifact versus seizure episode. Cleared with cardiology about echocardiography, bubble study was negative. Patient deemed stable for discharge on anticoagulation for at least 3 months for DVT. Stated that her mother also had DVT and is receiving anticoagulation, advised her to discuss with her radiologic therapist regarding hypercoagulable study. Patient is to follow-up with Dr. Turner for repeat EEG. Patient advised not to drive until she is cleared by neurology. Remigio Perera MD <Statement entered by Dheeraj Olmedo MD - 12/06/24 15:57> I saw and examined the patient, and I agree with current management stated by Dr Rich MD,PGY1. Plan of care was discussed with the attending physician and resident physician. Disclaimer: Despite multiple revisions, due to the dictation software being used, the document bellow may not be free of grammatical errors including phonetic/typographic errors. However, this does not deter from our commitment to providing health care in the patient's best interest in mind. Dr. Shara MD, PGY 2 Planned Discharge Date 12/06/24 DS: Providers Provider Date of admission: 12/02/24 22:50 Primary care physician: Jennifer Patricio MD Admitting Provider: Miguel Gallegos MD Attending Provider on Admission: Remigio Perera MD Consults: 12/02/24 23:02 Referral Physical Therapy Routine Comment: Physician Instructions: 12/02/24 23:10 Referral Speech Therapy Routine Comment: 12/03/24 01:03 Consult to Neurology / Tele-Neurology Stat Comment: Consulting Provider: Magdaleno Turner 12/03/24 05:37 Referral Registered Dietitian Routine Comment: 12/04/24 09:40 Referral Physical Therapy Routine Comment: Physician Instructions: Attending Provider on DC: Remigio Perera MD Discharging Provider: Reimgio Perera MD DS: Diagnosis Problem List Completed Was Problem List Reviewed/Reconciled?: Yes Hospital Course Hospital Course Hospital course: Summary: Patient is a 64-year-old female with a past medical history of breast cancer diagnosed August 2023 status post left-sided mastectomy Stage IIIa (pT2, snN2A), ER positive, VT negative, HER2/sarai negative who follows Dr. Mendoza and Dr. Nichole and recently noted to have a breast lump on right side w/ scheduled ultrasound and biopsy as outpatient. 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 Tested positive for othrostatic hypotension likely multifactorial given history of chemo therapy and gabapentin use. Found to have a DVT. ER Course: Patient arrived to the ED with unremarkable vitals. She was worked up was found to have BUN/creatinine of 14 and 1.1 respectively, sodium of 139, white cell count of 3, hemoglobin of 11, platelets of 96. Head CT was done which showed a 12 mm low-density area in the left brainstem, pontine level suspicious for age- indeterminate infarct. Teleneuro was consulted for patient in which evaluated with NIHSS score of 0. Patient was recommended to be admitted to floors for further evaluation of possible infarct that was age-indeterminate. Patient was given ASA 81 x 1. Medicine was consulted and patient was admitted to the floors Hospital Course: On hospitalist floors, patient's MRI found to diffuse weighted images demonstrating small linear areas of restricted diffusion in the right temporal lobe which may be artifacts. Followed up with neurology, Dr. Turner, who also confirmed findings likely artifacts and less likely a stroke. No Plavix or aspirin recommended at this time for patient. EEG obtained to rule out seizures, noted to have some artifacts but overall negative. Recommended to follow-up outpatient with Dr. Turner for repeat EEG as outpatient. Stressed importance of this to patient, patient agreeable to follow up. Patient was found to have a DVT of the left axillary vein, given patient's pancytopenia was started on Lovenox in hospital and transition to Xarelto. Recommended patient to take Xarelto dose 2 hours before 9 PM. Patient tested positive for orthostatic vitals, given patient's past medical history of Taxol and gabapentin use likely local type factorial given patient's age and polypharmacy. Discussed at length recommendations for orthostatic vitals, recommended patient get a facility from a sitting to standing position and continue to drink plenty of fluids. Patient aware of stopping Xarelto if bleeding develops and follow-up with PCP or nearest emergency room. Advised not to drive until follow-up with Dr. Turner. Instructions: -Xarelto 15 mg PO twice a day for 21 days for DVT (blood clot) then 20 mg tablet once daily for 3 months. If you notice bleeding please stop medication and follow up with primary care provider. Please follow up with primary care provider if you need to continue medication. -Please do NOT DRIVE until you see Dr. Turner, to officialy rule out Seizures activity. -Please wear compression sock for orthostatic hypotension. -Encouraged on oral hydration and patient needs compression socks as she had significant drop of blood pressure on standing and sitting position [orthostatic vitals significant on admission] -Continue Atorvastatin 40 mg PO HS for stroke prevention -Gabapentin 100 mg tiwce a day for neuropathy (decreased because of orthostatic vitals) -Continue your home medication of Verzenio & Anastrozole -Continue home medication as prescribed -Follow up with Dr. Turner, neurology, as outpatient within 1 week of discharge. Repeat EEG as outpatient IN 6 WEEKS as outpt with Dr. Turner -Please follow up with your primary care provider within one week of discharge. --If your symptoms worsen,please seek immediate medical attention and return to your nearest emergency room -If you do not have a primary care provider, you may follow up at the [facility] at [address] [place] [address] [address], [place] [address] Disposition: home #Provoked DVT #Syncope #Orthostatic Hypotension #CVA, ruled out. #Dysphagia #Neuropathy #History of breast cancer of left breast s/p mastesctomy #Pancytopenia - The patient's plan was discussed with attending Dr. Perera and senior residents Dr Shara Villanueva MD PGY1 Internal Medicine Time Spent with Patient Time attestation: Total time spent providing and/or coordinating discharge services: at least 35 minutes of care/corrdination Exam Vital Signs Temp Pulse Resp BP Pulse Ox O2 Del Method 98.3 F 64 17 117/55 L 97 Room Air 12/06/24 12:12/06/24 12:12/06/24 12:12/06/24 12:12/06/24 12:12/06/24 12:00 Narrative Exam General Appearance: Alert & Oriented X3, well-nourished [sex] who is lying in bed in no acute distress HEENT: Skull symmetrical and atraumatic. Conjunctivae pale pink and moist. Pupils equal, round, reactive to light and accommodation (PERRL). External ear without lesion or discharge. Straight, nares patient, mucosa pink, no discharge. No thyroid nodule appreciated. No cervical lymphadenopathy. Cardio: Normal Rate and Rhythm with S1 and S2 heart sounds. No murmurs or extra heart sounds auscultated. No bruits on carotid auscultation. No peripheral edema or cyanosis. Lungs: Symmetric with good expansion. Chest and back non-tender. Breath sounds vesicular without crackles, wheezing or rhonchi Abdomen: Non-tender, Non-distended, Normal Reactive Bowel Sounds Neuro: Alert, cooperative, oriented to person, place, and time. Speech clear. CN grossly intact. Upper motor strength 5/5 and Lower motor strength 5/5. Sensation intact. Discharge Plan Plan Patient Disposition: HOME (Self Care) Patient condition on transfer: Stable Care Plan Goals: Instructions: -Xarelto 15 mg PO twice a day for 21 days for DVT (blood clot) then 20 mg tablet once daily for 3 months. If you notice bleeding please stop medication and follow up with primary care provider. Please follow up with primary care provider if you need to continue medication. -Please do NOT DRIVE until you see Dr. Turner, to officialy rule out Seizures activity. -Please wear compression sock for orthostatic hypotension. -Encouraged on oral hydration and patient needs compression socks as she had significant drop of blood pressure on standing and sitting position [orthostatic vitals significant on admission] -Continue Atorvastatin 40 mg PO HS for stroke prevention -Gabapentin 100 mg tiwce a day for neuropathy (decreased because of orthostatic vitals) -Continue your home medication of Verzenio & Anastrozole -Continue home medication as prescribed -Follow up with Dr. Turner, neurology, as outpatient within 1 week of discharge. Repeat EEG as outpatient IN 6 WEEKS as outpt with Dr. Turner -Please follow up with your primary care provider within one week of discharge. --If your symptoms worsen,please seek immediate medical attention and return to your nearest emergency room -If you do not have a primary care provider, you may follow up at the [facility] at [facility] [address], [place] [address] Prescriptions/Referrals Prescriptions/Med Rec: New atorvastatin 40 mg tablet 40 mg PO HS Qty: 30 0RF Xarelto DVT-PE Treat 30d Start 15 mg (42)- 20 mg (9) tablets,dose pack See Rx Instructions .ROUTE .COMPLEX Qty: 51 0RF Rx Instructions: take one-15 mg tablet twice daily for 21 days, then one-20 mg tablet once daily; must take with meal/food (DME) compression socks, medium Misc See Rx Instructions .Route Qty: 1 0RF Rx Instructions: As directed Continued Loratadine-D 5-120 mg tablet extended release 12 hr 1 tab PO Q12H 14 Days Qty: 28 0RF albuterol sulfate 90 mcg/actuation aerosol powdr breath activated 1 inh inhalation QID PRN (Reason: shortness of breath or wheezing) Qty: 1 0RF anastrozole 1 mg tablet 1 mg PO QDAY Qty: 30 0RF loperamide 2 mg capsule 2 mg PO Q6H PRN (Reason: loose stool) Qty: 30 0RF Verzenio 150 mg Tablet 150 mg PO BID Changed gabapentin 100 mg capsule 100 mg PO BID Qty: 120 3RF Referrals: Jennifer Patricio MD [Primary Care Provider] - Magdaleno Turner MD [Physician] - Patient/Caregiver Discharge Instructions Education Materials: DVT Complications, Putting on Compression Stockings, Preventing Deep Vein Thrombosis, Compression Stockings Steps Print Language: Grenadian Stand Alone Forms: [facility] Award Info., Patient Portal Info Letter Discharge Order Discharge Orders: Discharge (Routine); Ordered 12/06/24 Ordered By: Queta Villanueva Quality Discharge Quality Measures VTE prophylaxis
--- NOTE | 2024-12-06 14:28 | PC.SS ---
SS follow up note; SS was contacted by patient's nurseSindhu that patient was needing DME. SS contacted Registration in regards to patient's SP and not having Insurance. Carleen from Registration informed SS that financial counselor notified her that patient did not qualify for medical due to income. SS me with patient at bedside and informed her she was not able to get any DME due to not having Insurance. Patient verbalized understanding.
--- NOTE | 2024-12-06 15:20 | PC.NURSE ---
I found patients home medication in pharmacy and gave medications from [facility]
--- NOTE | 2024-12-06 22:25 | PD.VPROG1 ---
Telemedicine visit statement This visit was conducted with the use of phone visit was obtained on 12/06/24. Documentation for date of: 12/06/24 Subjective Subjective Interval history: Patient is in Telemetry, no complaints today. No witnessed convulsions or post episodic confusion. Virtual exam Vital Signs Temp Pulse Resp BP Pulse Ox O2 Del Method 98.3 F 64 17 117/55 L 97 Room Air 12/06/24 12:00 12/06/24 12:00 12/06/24 12:00 12/06/24 12:00 12/06/24 12:00 12/06/24 12:00 Objective Labs 12/06/24 05:00 12/06/24 05:20 Labs: Laboratory Results - last 24 hr 12/06/24 12/06/24 05:00 05:20 WBC 2.5 L RBC 2.54 L Hgb 8.3 L Hct 24.7 L MCV 97 MCH 32.7 MCHC 33.6 RDW Std Deviation 45.9 Plt Count 109 L D Neut % (Auto) 64 Lymph % (Auto) 24 [place] % (Auto) 8 Eos % (Auto) 1 Baso % (Auto) 2 Neut # (Auto) 1.6 L Lymph # (Auto) 0.6 L [place] # (Auto) 0.2 Eos # (Auto) 0.0 Baso # (Auto) 0.1 Immature Gran # (Auto) 0.01 H Absolute Nucleated RBC 0.00 Immature Gran % 0 Nucleated RBC % 0 Sodium 140 Potassium 3.4 Chloride 109 H Carbon Dioxide 21.0 Anion Gap 10 BUN 10 Creatinine 0.8 Estim Creat Clear Calc 68.1 eGFR > 60 BUN/Creatinine Ratio 13 Glucose 84 Calculated Osmolality 277 Calcium 8.6 Corrected Calcium 8.8 Phosphorus 2.4 Magnesium 1.8 Total Bilirubin 0.5 AST 11 ALT < 7 L Alkaline Phosphatase 63 Total Protein 5.7 Albumin 3.8 Globulin 1.9 L Albumin/Globulin Ratio 2.0 Assessment & Plan Problem List (1) Syncope: Status: Acute Assessment and plan: reassured the patient that the MRI brain showed artifact in the right temporal lobe, nothing consistent with infarction. EEG showed artifact in T4 , will do repeat study as an outpatient, stable for dc home. 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
== END 2024-12-06 15:21 | disposition home or self-care (01) | DRG 312 ==
LOC: SERX 21:35 → SERHOLD 23:59 → S2NX 12-03 05:22 → S3NX 12-05 22:47
PROVIDERS: Nurse Practitioner Family; Admitting Provider Student in an Organized Health Care Education/Training Program; Emergency Provider Emergency Medicine; PCP Pediatrics Pediatric Nephrology; Visit Provider Student in an Organized Health Care Education/Training Program
DX: I95.1 Orthostatic hypotension (principal); D61.810 Antineoplastic chemotherapy induced pancytopenia; I82.A12 Acute embolism and thrombosis of left axillary vein; R13.10 Dysphagia, unspecified; T45.1X5A Adverse effect of antineoplastic and immunosuppressive drugs, initial encounter; R00.0 Tachycardia, unspecified; Z92.3 Personal history of irradiation; Z90.12 Acquired absence of left breast and nipple; Z85.3 Personal history of malignant neoplasm of breast; R62.7 Adult failure to thrive; G62.0 Drug-induced polyneuropathy
CPT/HCPCS: 36415; 70450; 70496; 70498; 70544; 80053; 80061; 81001; 83036; 83735; 84100; 84439; 84443; 84484; 85025; 85610; 85730; 87086; 92610; 93005; 93306; 93970; 94640; 95816; 97162; 99285; A4649; J1650; J3475; J7030; Q9967; A9270

== ENCOUNTER 2024-12-12 09:47 | Outpatient (AMB) | payer SELFPAY ==
[2024-12-12 09:35] VITALS: BP 125/71; PULSE 82; RESP 18; TEMP 36.3; O2SAT 99
--- NOTE | 2024-12-12 09:35 | PD.RESCLINIC ---
Vital Signs 12/12/24 09:35 Weight 64.864 kg Weight Measurement Method Standing Scale BP 125/71 Blood Pressure Source Automatic Cuff Blood Pressure Location Right Upper Arm Position Sitting Respiration 18 Pulse 82 Pulse Source Monitor Temp 97.3 F Temp Source Oral Pulse Oximetry (%) 99 Oxygen Delivery Method Room Air Allergies/Meds Allergies & Medications Allergies Penicillins Allergy (Verified 12/12/24 09:36) Hives Medication Reconciliation anastrozole 1 mg tablet 1 mg PO QDAY #30 tabs 10/13/24 [Rx Confirmed 12/12/24] abemaciclib 150 mg tablet (Verzenio) 150 mg PO BID 11/08/24 [History Confirmed 12/12/24] albuterol sulfate 90 mcg/actuation breath activated powder inhaler 1 inh inhalation QID PRN shortness of breath or wheezing #1 ea 11/28/24 [Rx Confirmed 12/12/24] rivaroxaban 15 mg (42)-20 mg (9) tablets in a starter pack (Xarelto DVT-PE Treatment 30-Day Starter) See Rx Instructions PO .COMPLEX #51 tabs 12/05/24 [Rx Confirmed 12/12/24] compression socks, medium #1 ea 12/06/24 [Rx Confirmed 12/12/24] gabapentin 100 mg capsule 100 mg PO BID nerve pain #120 caps 12/06/24 [Rx Confirmed 12/12/24] atorvastatin 40 mg tablet 40 mg PO HS #30 tabs 12/12/24 [Rx] loperamide 2 mg capsule 2 mg PO Q6H PRN loose stool #30 caps 12/12/24 [Rx] rivaroxaban 20 mg tablet 20 mg PO QPM 2 months #60 tabs 12/12/24 [Rx] MA Intake Visit Data Collection New Patient or Established: Established Patient (seen at [facility] within 3 years) Seen by Clinical Staff ONLY (RN/MA): No Pain Present Currently: No Pain Scale Used: Avina-Epps/Numerical [employer] Tester Required: No PCP or OBGYN visit in last 3 months: Yes Hx Now: No Do You Feel Safe at Home: Yes Authorities Contacted: N/A Smoking Status Smoking Status: Former smoker Immunization / Flu Flu Vaccine in the Last 12 Months: No Flu Vaccine Exclusion Criteria: No Exclusion Criteria Past Medical History Past Medical History NEUROLOGIC: Negative Neurological Disorders or Seizures CARDIAC: Negative Cardiac Disorders or Congestive Heart Failure RESPIRATORY: Negative Chronic Obstructive Pulmonary Disease (COPD) or Asthma GASTROINTESTINAL: Positive Gastrointestinal Disorders and Hemorrhoids; Negative Hepatitis GENITOURINARY: Negative Genitourinary Disorders or Renal Disease REPRODUCTIVE: Positive Breast Cancer and Previous Pregnancies MUSCULOSKELETAL: Positive Degenerative Disk Disease ENDOCRINE: Negative Endocrine Disorders, Diabetes Mellitus Type 1 or Diabetes Mellitus Type 2 HEMATOLOGIC: Negative Blood Disorders, Anemia or Sickle Cell Disease PSYCHO/SOCIAL: Negative Depression or Anxiety OTHER HISTORY: Positive Hospitalization, Chemotherapy, Radiation Therapy, Chicken Pox, Measles, Cancer and Breast Cancer; Negative Shingles, Blood Transfusions, Blood Transfusion Reaction or Anesthesia Reactions Family History FAMILY HISTORY: Positive Family Cardiac Disorders and Family Surgery; Negative Family Psychiatric Problems, Family Respiratory Disorders, Family Gastrointestinal Problems, Family Cancer or Family Anesthesia Reaction Surgical History SURGICAL: Positive Abdominal Surgery, Mastectomy, Lumpectomy and Hysterectomy Social History SMOKING STATUS: Smoking status: Former smoker ALCOHOL: Alcohol Intake: Former ALCOHOL FREQUENCY: Alcohol Intake Frequency: holidays/special occasions only HOUSING: Housing: House LIVES WITH: Lives With: Spouse Patient Portal Questiondarline Social History Living Situation History Housing: House Housing Other:: Pt from home Tobacco History Smoking Status: Former smoker Alcohol History Alcohol Intake: Former Alcohol Intake Frequency: holidays/special occasions only Domestic Abuse History Do You Feel Safe at Home: Yes Review of Systems Report any current symptoms Only answer those that you have currently: Past Medical History Past Medical History Have you ever been diagnosed with any of the following: Neurological Problems Seizures: No Cardiology Problems Congestive Heart Failure: No Respiratory Problems Chronic Obstructive Pulmonary Disease (COPD): No Asthma: No Stomache/Intestinal Problems Hepatitis: No Hemorrhoids: Yes Genital/Urinary Problems Renal Disease: No Reproductive Problems Breast Cancer: Yes Previous Pregnancies: Yes Musculoskeletal Problems Degenerative Disk Disease: Yes Endocrine Problems Diabetes Mellitus Type 1: No Diabetes Mellitus Type 2: No Blood Problems Anemia: No Sickle Cell Disease: No Psychologic Problems Depression: No Anxiety: No Other Problems Hospitalization: Yes Shingles: No Blood Transfusions: No Blood Transfusion Reaction: No Anesthesia Reactions: No Chemotherapy: Yes Radiation Therapy: Yes Chicken Pox: Yes Measles: Yes Cancer: Yes Surgical History Hysterectomy: Yes History of Present Illness HPI Narrative Ms. 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 Patient reports possible subjective fever but did not check her temperature. Patient is worried about passing out. Patient denies any chest pain, SOB, nausea, vomiting, abdominal pain, change in appetite, or symptoms. Patient states that she had her gabapentin decreased last visit and would like to decrease it again. Patient following at [facility] for new biopsy of right breast pending results. Next appointment with oncology in December. 12/12/2024: 62-year-old female with past medical history of left breast poorly differentiated invasive ductal carcinoma diagnosed in August 2023, ER positive, DC negative, HER2/sarai negative, s/p left-sided modified mastectomy and chemotherapy for Stage IIIa (pT2, snN2A) for follow-up after being discharged from the hospital for CVA workup. During hospital stay patient was seen by neurologist and CVA was rule out, patient's MRI found to diffuse weighted images demonstrating small linear areas of restricted diffusion in the right temporal lobe which may be artifacts, neurology confirmed findings likely artifacts and less likely a stroke, No Plavix or aspirin was recommended, EEG obtained to rule out seizures, noted to have some artifacts but overall negative no seizure activity was found for which neurology recommended to repeat EEG in 6 weeks as an outpatient, also Mrs. Fine orthostatic vitals were positive for othrostatic hypotension likely multifactorial given history of chemo therapy and gabapentin. During hospital stay patient was found to have a left axillary DVT and was started on Xarelto starter pack for 1 month and to continue for 2 more months for total of 3 months treatment for DVT. Today patient stated that she is feeling well denied any acute complaints at the moment only endorsed that continued to present swelling on the left upper extremity but denied any pain, tingling sensation, paresthesias or dysesthesias. She stated that the pain has been well-controlled and she is tolerating well that decreased out of gabapentin. Patient stated that she will have follow-up appointment with oncology in December otherwise she is confused about her right breast ultrasound-guided biopsy for which we recommended to call to the cancer center for clarification regarding the order and in case patient needed we can give the order again. All questions were answered recommendation were given if patient present gum bleeding, epistaxis, hematuria, hematochezia or melena to stop immediately the Xarelto and go to the ER, Xarelto for 2 months months was prescribed and patient will need to continue atorvastatin, decrease dose of gabapentin 100 bid prn and continue compresion stockings for orthostatic hypotension. pending follow up with neurology as well for EEG in 6 weeks. Review of Systems Review of Systems Systems Reviewed: All systems reviewed, normal except as documented Objective/Exam Narrative Physical exam: General: No acute distress, well appearing, alert, interactive in company of her son HEENT: NC/AT, PERRL, EOMI, Good conjugate gaze, moist mucous membranes, oropharynx clear. Neck: Supple, No masses, No adenopathy, carotid pulse 2+ bilaterally without bruits, No JVD, normal range of motion. Chest: Symmetrical, atraumatic, and with equal expansion , Nontender on palpation no deformity and no crepitus. CVS: S1 and S2 present, Regular rate and rhythm, No murmurs, rubs or gallops perceived during auscultation. Lungs: Normal respiratory effort, CTAB, no wheezing, rhonchi or rales perceived during auscultation, No intercostal or subcostal retraction. Abdomen : Soft, no tenderness to palpation, no guarding ,no rebound, +BS Extremities: Left upper extremity swelling, warm well perfused, normal tone and ROM, strength and sensation intact, cap refill less than 2, +2 dp equal bilaterally, able to move all 4 extremities spontaneously. Skin: Multiple bilateral upper extremities excoriations and bruises, no erythema or jaundice noted Neuro: AOx3, no focal neurologic deficits noted, GCS 15 Psych: Appropriate mood and affect. Assessment & Plan Diagnosis / Problem List (1) TIA (transient ischemic attack): Status: Acute Assessment & Plan: Patient was recently admitted on 12/02/2024 for CVA workup during hospital stay patient was seen by neurologist and CVA was rule out, MRI found to diffuse weighted images demonstrating small linear areas of restricted diffusion in the right temporal lobe which may be artifacts, neurology confirmed findings likely artifacts and less likely a stroke, No Plavix or aspirin was recommended, EEG obtained to rule out seizures, noted to have some artifacts but overall negative no seizure activity was found for which neurology recommended to repeat EEG in 6 weeks as an outpatient. Plan: Continue atorvastatin 40 mg every every night Follow-up with neurology to repeat EEG (2) DVT of left axillary vein, acute: Status: Acute Assessment & Plan: During hospital stay patient was found to have a left axillary DVT and was started lovenox and upon discharge on Xarelto starter pack for 1 month and to continue for 2 more months for total of 3 months treatment for DVT. Plan: Continue Xarelto 1 month starter pack 15 mg po BID for 21 days and then 20 mg daily for a total of 3 months Xarelto 20 mg for 2 months was prescribed Continue Xarelto for total of 3 months (since the medication was started on 12/07/2024 until 03/07/2025) Monitor for signs of bleeding, epistaxis, dark tarry stools or red bright blood per rectum or any urine in case that might happen stop Xarelto and go to ER immediately. (3) Orthostatic hypotension: Status: Acute Assessment & Plan: during hospital stay orthostatic vitals were positive for othrostatic hypotension likely multifactorial given history of chemo therapy and gabapentin. Plan: Continue gabapentin 100 mg p.o. twice daily as needed Continue compression stockings and good fluid hydration (4) Neuropathy: Status: Acute Assessment & Plan: Patient complaining of neuropathy after chemo and currently on gabapentin. Plan: Continue gabapentin 100 mg p.o. twice daily as needed (5) Breast cancer: Status: Chronic Qualifiers: Breast location: unspecified site of breast Estrogen receptor status: positive Patient sex: female Laterality: left Qualified Code(s): C50.912 - Malignant neoplasm of unspecified site of left female breast; Z17.0 - Estrogen receptor positive status [ER+] Assessment & Plan: Followed at [facility] cancer center. Has follow up appointment in December regarding biopsy right breast. Plan: Follow up with oncology. Continue Verzenio and anastrozole Additional Assessment Patient discussed with my attending Dr Chung Hogan MD PGY-[address] [facility] Level of Care Nursing/Assessment Patient Status: Established Patient Nursing Assessment/Reassessment: Medication Reconciliation, Update PMH in EMR and Vital Signs Coordination of Care: Complex Care and Chronic Disease 1-5, Consent,records obtained, informed consent, Education Simp Pt/Fam and Staff clarify orders Established Patient Charge Established Patient Point Assignment: 85 Established Patient Point Charge: Level 3 (80-115)
== END 2024-12-12 10:10 | disposition home or self-care (01) ==
LOC: HODAHC 09:47
PROVIDERS: PCP Student in an Organized Health Care Education/Training Program; Referring Provider Student in an Organized Health Care Education/Training Program; Supervising Provider Internal Medicine; Visit Provider Student in an Organized Health Care Education/Training Program
DX: G45.9 Transient cerebral ischemic attack, unspecified (principal); I82.A12 Acute embolism and thrombosis of left axillary vein; I95.1 Orthostatic hypotension; G62.9 Polyneuropathy, unspecified; C50.912 Malignant neoplasm of unspecified site of left female breast; Z17.0 Estrogen receptor positive status [ER+]; Z17.22 Progesterone receptor negative status; Z17.32 Human epidermal growth factor receptor 2 negative status; Z79.811 Long term (current) use of aromatase inhibitors
CPT/HCPCS: 99213; G0463

== ENCOUNTER 2025-01-02 08:58 | Outpatient (AMB) | payer SELFPAY ==
[2025-01-02 09:08] VITALS: BP 104/70; PULSE 80; RESP 18; TEMP 36.5; O2SAT 99; BMI 24.5
--- NOTE | 2025-01-02 09:08 | PD.RESCLINIC ---
Vital Signs 01/02/25 09:08 Height 1.57 m Height Method Stated Weight 61.008 kg Weight Measurement Method Standing Scale BMI 24.5 BP 104/70 Blood Pressure Source Automatic Cuff Blood Pressure Location Right Upper Arm Position Sitting Respiration 18 Pulse 80 Pulse Source Monitor Temp 97.7 F Temp Source Oral Pulse Oximetry (%) 99 Oxygen Delivery Method Room Air Allergies/Meds Allergies & Medications Allergies Penicillins Allergy (Verified 01/02/25 09:31) Hives Medication Reconciliation abemaciclib 150 mg tablet (Verzenio) 150 mg PO BID 11/08/24 [History Confirmed 01/02/25] albuterol sulfate 90 mcg/actuation breath activated powder inhaler 1 inh inhalation QID PRN shortness of breath or wheezing #1 ea 11/28/24 [Rx Confirmed 01/02/25] rivaroxaban 15 mg (42)-20 mg (9) tablets in a starter pack (Xarelto DVT-PE Treatment 30-Day Starter) See Rx Instructions PO .COMPLEX #51 tabs 12/05/24 [Rx Confirmed 01/02/25] compression socks, medium #1 ea 12/06/24 [Rx Confirmed 01/02/25] gabapentin 100 mg capsule 100 mg PO BID nerve pain #120 caps 12/06/24 [Rx Confirmed 01/02/25] atorvastatin 40 mg tablet 40 mg PO HS #30 tabs 12/12/24 [Rx Confirmed 01/02/25] loperamide 2 mg capsule 2 mg PO Q6H PRN loose stool #30 caps 12/12/24 [Rx Confirmed 01/02/25] rivaroxaban 20 mg tablet 20 mg PO QPM 2 months #60 tabs 12/12/24 [Rx Confirmed 01/02/25] anastrozole 1 mg tablet 1 mg PO QDAY #30 tabs 01/02/25 [Rx] docusate calcium 240 mg capsule 240 mg PO QDAY PRN constipation #30 caps 01/02/25 [Rx] trazodone 50 mg tablet 50 mg PO QHS PRN insomnia 1 month #30 tabs 01/02/25 [Rx] ELDA Intake Visit Data Collection New Patient or Established: Established Patient (seen at [facility] within 3 years) Seen by Clinical Staff ONLY (RN/MA): No Pain Present Currently: No Pain Scale Used: Avina-Epps/Numerical Director Of Human Resources Required: No PCP or OBGYN visit in last 3 months: Yes Hx Now: No Do You Feel Safe at Home: Yes Authorities Contacted: N/A Smoking Status Smoking Status: Former smoker Immunization / Flu Flu Vaccine in the Last 12 Months: No Flu Vaccine Exclusion Criteria: No Exclusion Criteria Past Medical History Past Medical History NEUROLOGIC: Negative Neurological Disorders or Seizures CARDIAC: Negative Cardiac Disorders or Congestive Heart Failure RESPIRATORY: Negative Chronic Obstructive Pulmonary Disease (COPD) or Asthma GASTROINTESTINAL: Positive Gastrointestinal Disorders and Hemorrhoids; Negative Hepatitis GENITOURINARY: Negative Genitourinary Disorders or Renal Disease REPRODUCTIVE: Positive Breast Cancer and Previous Pregnancies MUSCULOSKELETAL: Positive Degenerative Disk Disease ENDOCRINE: Negative Endocrine Disorders, Diabetes Mellitus Type 1 or Diabetes Mellitus Type 2 HEMATOLOGIC: Negative Blood Disorders, Anemia or Sickle Cell Disease PSYCHO/SOCIAL: Negative Depression or Anxiety OTHER HISTORY: Positive Hospitalization, Chemotherapy, Radiation Therapy, Chicken Pox, Measles, Cancer and Breast Cancer; Negative Shingles, Blood Transfusions, Blood Transfusion Reaction or Anesthesia Reactions Family History FAMILY HISTORY: Positive Family Cardiac Disorders and Family Surgery; Negative Family Psychiatric Problems, Family Respiratory Disorders, Family Gastrointestinal Problems, Family Cancer or Family Anesthesia Reaction Surgical History SURGICAL: Positive Abdominal Surgery, Mastectomy, Lumpectomy and Hysterectomy Social History SMOKING STATUS: Smoking status: Former smoker ALCOHOL: Alcohol Intake: Former ALCOHOL FREQUENCY: Alcohol Intake Frequency: holidays/special occasions only HOUSING: Housing: House LIVES WITH: Lives With: Spouse Patient Portal Questionaires Social History Living Situation History Housing: House Housing Other:: Pt from home Tobacco History Smoking Status: Former smoker Alcohol History Alcohol Intake: Former Alcohol Intake Frequency: holidays/special occasions only Domestic Abuse History Do You Feel Safe at Home: Yes Review of Systems Report any current symptoms Only answer those that you have currently: Past Medical History Past Medical History Have you ever been diagnosed with any of the following: Neurological Problems Seizures: No Cardiology Problems Congestive Heart Failure: No Respiratory Problems Chronic Obstructive Pulmonary Disease (COPD): No Asthma: No Stomache/Intestinal Problems Hepatitis: No Hemorrhoids: Yes Genital/Urinary Problems Renal Disease: No Reproductive Problems Breast Cancer: Yes Previous Pregnancies: Yes Musculoskeletal Problems Degenerative Disk Disease: Yes Endocrine Problems Diabetes Mellitus Type 1: No Diabetes Mellitus Type 2: No Blood Problems Anemia: No Sickle Cell Disease: No Psychologic Problems Depression: No Anxiety: No Other Problems Hospitalization: Yes Shingles: No Blood Transfusions: No Blood Transfusion Reaction: No Anesthesia Reactions: No Chemotherapy: Yes Radiation Therapy: Yes Chicken Pox: Yes Measles: Yes Cancer: Yes Surgical History Hysterectomy: Yes History of Present Illness HPI Narrative Irma Fine is 64 yr female with PMH of left breast poorly differentiated invasive ductal carcinoma diagnosed in August 2023, ER positive, [place] negative, HER2/sarai negative, s/p left-sided modified mastectomy and chemotherapy for Stage IIIa (pT2, snN2A) is presenting to clinic today for follow up. Patient has almost completed Xarelto starter pack for treatment of LUE DVT. Today there is still mild swelling in L arm > right with some pain to squeezing. Skin Temperature changes are equal on both sides. Patient states that the swelling has not worsened. She denies any SOB, chest pain, or fever. She was reminded of high bleeding risks and should check for any blood in stool. She also complains of pressure in neck when leaning forward. It resolves when returns to sitting/laying down. Maybe due to underlying lymph/venous drainage in setting of breast cancer s/p mastectomy. MRA head neck done during admission was negative for any pathology. Patient has apt to see oncologist Dr. Nichole in ~1week. Repeat imaging will be done then. Posterior cyst in mid back was drained few weeks ago and healing properly. New refills were sent for docusate, loperamide and trazodone. Xarelto, anastrozole, atorvastatin, and gabapentin have refills ordered. Patient was instructed to return if any worsening sypmtoms. Patient will follow up with neurology Dr. Turner for another EEG. Referall was sent at [facility] appt. Review of Systems Constitutional Constitutional: Reports system reviewed and no additional complaints, except as documented Objective/Exam Narrative Physical exam: General: Alert and oriented x3. No acute distress, cooperative, slow responses Eyes: Pupils are equal and reactive to light bilaterally HENT: Atraumatic, normocephalic. No JVD noted. Mucosa moist. Cardiovascular: Normal S1 and S2. Regular rate and rhythm. Respiratory: Lungs are clear to auscultation bilaterally. No wheezing or crackles heard. Abdomen: Soft, nontender, not distended, normal bowel sounds. Skin: Warm to touch, dry, no rashes noted, scar on left chest from mastectomy, well healing scar in midback s/p cyst drain Musculoskeletal: No gross injuries. Able to move all 4 extremities. No pitting edema. Neuro: Alert and oriented x3. No focal neuro deficits. Psych: Normal affect and mood, slow to respond Assessment & Plan Diagnosis / Problem List (1) DVT of left axillary vein, acute: Status: Acute Assessment & Plan: Patient has no new symptoms of SOB, chest pain, or fever. No LE edema or leg pain. Monitor for any worse swelling of pain of LUE. Repeat imaging not indicated at this time. She has almost completed start pack of Xarelto. Plan: -continue Xarelto 20 mg daily x2 more months -continue atorvastatin 40 mg daily -patient was reminded to watch for any acute bleeding, cautious of falls -return to clinic if worsened symptoms -continue wearing compression socks (2) Neuropathy: Status: Acute Assessment & Plan: Patient has LE pain wich is well controlled with gabapentin. No new complaints. Plan: -continue gabapentin 100 mg BID (3) Difficulty sleeping: Status: Chronic Assessment & Plan: Insomina resolved with trazodone. However, it was held in hospital due to orthostatic hypotension. Vitals are now stable. Plan: -re start trazodone 50 mg at night for insomnia -stop taking if feeling weak or dizzy -encouraged to check BP daily (4) Constipation: Status: Acute Assessment & Plan: Occasionally has episodes of constipation. Has been having normal BM recently, but requesting medication for PRN. Plan: -docuscate 250 mg daily PRN (5) Breast cancer: Status: Chronic Qualifiers: Breast location: unspecified site of breast Estrogen receptor status: positive Laterality: left Patient sex: female Qualified Code(s): C50.912 - Malignant neoplasm of unspecified site of left female breast; Z17.0 - Estrogen receptor positive status [ER+] Assessment & Plan: Left mastectomy done in 2023. Patient has not been able to follw up with oncologist Dr. Nichole since Oct 2024 due to insurance issues. Stated she will now be able to see her ~1week. Right breast nodule has now resolved. Plan: -follow up with Dr. Nichole -maybe need to undergo ultrasound/mamogram per oncology recs. -continue anastrozole 1 mg daily Orders: Referrals Neurology Bea Santizo MD Additional Assessment Internal Medicine Attending Note: Case discussed with and agree with note and management plan of Resident Physician as per Resident's Note above. Issues of concern for present visit are as follows: Follow-up visit. Patient remains on Xarelto for left upper extremity DVT (history of left modified mastectomy and chemotherapy for stage IIIa (pT2, snN2A) poorly differentiated invasive ductal carcinoma). No worsening of swelling. No indication at this time for repeat ultrasound. Needs follow-up with neurology, recommendation in hospital was follow-up EEG at 6 weeks. We will make a new referral today. Patient has not noted any orthostasis or orthostatic symptoms, though blood pressure is lower today at 104/70. Previously was taking trazodone for insomnia, we will restart this but advised patient to discontinue if feels weak or dizzy. Remains on gabapentin for lower extremity neuropathy symptoms. Patient to follow-up with oncology. Apparently, follow-up ultrasound/mammogram versus ultrasound guided biopsy of right breast was to be ordered. Patient reports resolution of right breast nodule. We will defer on repeat imaging to oncology to ensure that what they want is ordered. Patient does have insurance authorization for oncology appointment. Trevon Wilkes MD Physician Billing Established Patient Established Patient: E/M Level 3-CPT 77726 Office Procedures [facility] Level of Care Nursing/Assessment Patient Status: Established Patient Nursing Assessment/Reassessment: Medication Reconciliation, Update PMH in EMR and Vital Signs Coordination of Care: Complex Care and Chronic Disease 1-5, Consent,records obtained, informed consent, Education Simp Pt/Fam and Staff clarify orders Established Patient Charge Established Patient Point Assignment: 85 Established Patient Point Charge: EP Level 3 (80-115)
== END 2025-01-02 09:55 | disposition home or self-care (01) ==
LOC: HODAHC 08:58
PROVIDERS: PCP Internal Medicine; Referring Provider Internal Medicine; Supervising Provider Internal Medicine
DX: I82.A12 Acute embolism and thrombosis of left axillary vein (principal); C50.912 Malignant neoplasm of unspecified site of left female breast; Z17.0 Estrogen receptor positive status [ER+]; Z17.22 Progesterone receptor negative status; Z17.32 Human epidermal growth factor receptor 2 negative status; G62.9 Polyneuropathy, unspecified; K59.00 Constipation, unspecified; Z79.811 Long term (current) use of aromatase inhibitors; Z90.12 Acquired absence of left breast and nipple
CPT/HCPCS: 99213; G0463

== ENCOUNTER 2025-01-10 18:24 | Inpatient (IN) | payer BC, SELFPAY ==
--- NOTE | 2025-01-10 18:57 | PD.EDRECHK ---
ED Recheck Abnl Lab Rx-RME/HPI General Chief Complaint: Recheck/Abnormal Lab/Rx Stated Complaint: [facility] SENT FOR LOW POTASSIUM; NEUTROPENIC Time Seen by Provider: 01/10/25 18:40 Arrival date/time: 01/10/25 18:24 RME / HPI RME / HPI narrative: This section includes all my notes and documentations, including HPI, PE, and ED course. Michael Mendoza MD HPI: 64yo female with a history of breast cancer (in remission) accompanied by her son presents to the ED for a chief complaint of abnormal labs. Patient states she had routine labs done yesterday and today, reporting she received a call today stating her Potassium was low and was told to come in for evaluation. She also complains of mid-back pain. Denies any fever, chills, dysuria or any other associated symptoms. No other complaints reported. ROS: All negative except as documented in HPI. Physical Exam: General: Alert and oriented. No acute distress when remaining still. Eyes: Conjunctivae and lids clear. ENT: No nasal congestion. Neck: Supple. Heart: RRR. Lungs: No respiratory distress. Good air movement. No rhonchi, wheezing, rales. Chest: No tenderness with palpation anteriorly. Abdomen: Soft and nontender. Back: Can't reproduce her pain with palpation or movements. Legs: No clubbing, cyanosis, edema. Skin: Warm and dry. Neuro: Alert and oriented X 3. I reviewed all diagnostic test results. My interpretation of the EKG is sinus rhythm with no acute ST?T changes. Blood tests and urine tests remarkable for elevated troponin and UTI. At this point, diagnoses include elevated troponin, hypokalemia, UTI, and back pain. Treatment here included oral KCl and Rocephin 1 g IV. She remained stable. I discussed the case with our hospitalist. About the presentation and exam and diagnostics and treatments here. And need of further care in the hospital. Will accept the patient. Michael Mendoza MD Related Data Home Medications ?Medication ?Instructions ?Recorded ?Confirmed abemaciclib 150 mg tablet 150 mg PO BID 11/08/24 01/02/25 (Verzenio) Previous Rx's ?Medication ?Instructions ?Recorded albuterol sulfate 90 mcg/actuation 1 inh inhalation QID PRN shortness 11/28/24 breath activated powder inhaler of breath or wheezing #1 ea rivaroxaban 15 mg (42)-20 mg (9) See Rx Instructions PO .COMPLEX 12/05/24 tablets in a starter pack (Xarelto #51 tabs DVT-PE Treatment 30-Day Starter) compression socks, medium #1 ea 12/06/24 gabapentin 100 mg capsule 100 mg PO BID nerve pain #120 caps 12/06/24 atorvastatin 40 mg tablet 40 mg PO HS #30 tabs 12/12/24 loperamide 2 mg capsule 2 mg PO Q6H PRN loose stool #30 12/12/24 caps rivaroxaban 20 mg tablet 20 mg PO QPM 2 months #60 tabs 12/12/24 anastrozole 1 mg tablet 1 mg PO QDAY #30 tabs 01/02/25 docusate calcium 240 mg capsule 240 mg PO QDAY PRN constipation 01/02/25 #30 caps trazodone 50 mg tablet 50 mg PO QHS PRN insomnia 1 month 01/02/25 #30 tabs Allergies Allergy/AdvReac Type Severity Reaction Status Date / Time Penicillins Allergy Hives Verified 01/10/25 18:28 Review of Systems Review of Systems Systems Reviewed: All systems reviewed, normal except as documented Past Medical History Past Medical History NEUROLOGIC: Negative Neurological Disorders or Seizures CARDIAC: Negative Cardiac Disorders or Congestive Heart Failure RESPIRATORY: Negative Chronic Obstructive Pulmonary Disease (COPD) or Asthma GASTROINTESTINAL: Positive Gastrointestinal Disorders and Hemorrhoids; Negative Hepatitis GENITOURINARY: Negative Genitourinary Disorders or Renal Disease REPRODUCTIVE: Positive Breast Cancer and Previous Pregnancies MUSCULOSKELETAL: Positive Musculoskeletal Disorders and Degenerative Disk Disease ENDOCRINE: Negative Endocrine Disorders, Diabetes Mellitus Type 1 or Diabetes Mellitus Type 2 HEMATOLOGIC: Negative Blood Disorders, Anemia or Sickle Cell Disease PSYCHO/SOCIAL: Negative Depression or Anxiety OTHER HISTORY: Positive Hospitalization, Chemotherapy, Radiation Therapy, Chicken Pox, Measles, Cancer and Breast Cancer; Negative Autoimmune Disease, Shingles, Blood Transfusions, Blood Transfusion Reaction or Anesthesia Reactions Family History FAMILY HISTORY: Positive Family Cardiac Disorders and Family Surgery; Negative Family Psychiatric Problems, Family Respiratory Disorders, Family Gastrointestinal Problems, Family Cancer or Family Anesthesia Reaction Surgical History SURGICAL: Positive Abdominal Surgery, Mastectomy, Lumpectomy and Hysterectomy Social History SMOKING STATUS: Never smoker ED Exam Narrative Physical exam: As noted in HPI. Course Quality Measures none Orders Category Date Time Status COVID-19 Screening Questionnaire NOW Care 01/10/25 22:[address] Screening NOW Care 01/10/25 19:[address] Screening NOW Care 01/10/25 21:44 Active Decision to Admit X1 Care 01/10/25 22:08 Active EKG (ED ONLY) *Do not use* NOW Care 01/10/25 19:05 Completed Saline [Insert IV] NOW Care 01/10/25 19:05 Active Straight [In and Out Catheter] X1 Care 01/10/25 19:05 Active Consult to Cardiology Stat Cons 01/10/25 22:08 Ordered EKG (ED Only) Stat Exams 01/10/25 19:05 Draft BNP [B-Type Natriuretic Peptide] Stat Lab 01/10/25 20:27 Completed CBC Stat Lab 01/10/25 20:27 Completed CMP [Comprehensive Metabolic Panel] Stat Lab 01/10/25 20:27 Completed D-Dimer Stat Lab 01/10/25 20:27 Completed Magnesium Stat Lab 01/10/25 20:27 Completed TSH [Thyroid Stimulating Hormone] Stat Lab 01/10/25 20:27 Completed Troponin I Stat Lab 01/10/25 20:27 Completed UA, C/S IF [Urinalysis, C/S if Indicated] Stat Lab 01/10/25 19:51 Completed Urine Culture Stat Lab 01/10/25 19:51 Received 1 gm IV x1 (mini bag) ED Med 01/10/25 22:13 Ordered cefTRIAXone [Rocephin] 1,000 mg Sodium Chloride 0.9% (P) [Ns 0.9% (P)] 50 ml IV X1 KCL 10% Liq UDC 15 ML Med 01/10/25 21:31 Discontinued 40 meq PO X1 ONE Vital Signs Vital signs: Vital Signs Temperature 97.8 F 01/10/25 18:59 Pulse Rate 76 01/10/25 18:59 Respiratory Rate 16 01/10/25 18:59 Blood Pressure 116/76 01/10/25 18:59 Pulse Oximetry (%) 99 01/10/25 18:59 Oxygen Delivery Method Room Air 01/10/25 18:59 Recheck / Abnormal Lab / Rx MDM Narrative MDM Narrative:: Scribe Attestation: 01/10/25 - Lisa Castillo am scribing for and in the presence of Dr. Mendoza. Patient data External records reviewed:: [facility] previous records (Per chart review, patient was admitted here on 12/02/24 for CVA.) Clinical information provided by:: patient Social determinants that could affect healthcare access:: none Patient has the following chronic illnesses:: breast cancer s/p left mastectomy, in remission How is presenting disease/condition affected by chronic disease/condition?: uneffected by Evaluation data The following diagnostics were reviewed and interpreted by me:: lab results, radiology exam(s) and EKG tracing(s) (My interpretation of the EKG is: Sinus rhythm (70 bpm) with nonspecific ST-T changes. Michael Mendoza MD) Lab and/or radiology exams considered but not ordered:: none Interpretation Summary: Hypokalemia and elevated troponin and UTI Medications / Prescriptions Medications or Prescriptions considered but not ordered:: none Medication administrations:: Medication Administration History Discontinued Medications Potassium Chloride (Potassium Chloride 10% 20 Meq/15 Ml Udc) 40 meq PO X1 ONE Stop: 01/10/25 21:32 Last Admin: 01/10/25 21:47 Dose: 40 meq Documented By: Potassium and Rocephin Consultations Consultation(s) initiated? (list below): No Diagnosis Recheck Differential Diagnosis: other (Electrolyte abnormalities, GA, UTI) Most likely diagnosis given after review of the tests above:: Elevated troponin, Hypokalemia, Back pain, UTI Admission Indicated Admission indicated?: indicated Explain why admission is indicated or not indicated:: Elevated troponin, Hypokalemia, Back pain, UTI Admission Request Was there a request for admission?: Yes Admission Attestation Admission request attestation: Discussed case with Hospitalist service regarding admission. Discussed patients ED course, exam findings, labs, and radiology results. The Hospitalist [agrees] to accept the patient for admission. Disposition Plan Disposition Plan: Admit Discharge Plan Plan Patient Disposition: Admit Acute Care w/in Hospital Prescriptions/Referrals Prescriptions/Med Rec: No Action atorvastatin 40 mg tablet 40 mg PO HS Qty: 30 3RF rivaroxaban 20 mg tablet 20 mg PO QPM 60 Days Qty: 60 0RF Rx Instructions: must administer with evening meal loperamide 2 mg capsule 2 mg PO Q6H PRN (Reason: loose stool) Qty: 30 3RF anastrozole 1 mg tablet 1 mg PO QDAY Qty: 30 0RF docusate calcium 240 mg capsule 240 mg PO QDAY PRN (Reason: constipation) Qty: 30 1RF trazodone 50 mg tablet 50 mg PO QHS PRN (Reason: insomnia) 30 Days Qty: 30 0RF albuterol sulfate 90 mcg/actuation aerosol powdr breath activated 1 inh inhalation QID PRN (Reason: shortness of breath or wheezing) Qty: 1 0RF Xarelto DVT-PE Treat 30d Start 15 mg (42)- 20 mg (9) tablets,dose pack See Rx Instructions .ROUTE .COMPLEX Qty: 51 0RF Rx Instructions: take one-15 mg tablet twice daily for 21 days, then one-20 mg tablet once daily; must take with meal/food (DME) compression socks, medium Misc See Rx Instructions .Route Qty: 1 0RF Rx Instructions: As directed gabapentin 100 mg capsule 100 mg PO BID Qty: 120 3RF Verzenio 150 mg Tablet 150 mg PO BID Referrals: No Primary/Family,Physician [Primary Care Provider] - In 1 week Problem List Clinical Impression: Elevated troponin, Hypokalemia, Back pain, UTI (urinary tract infection) Patient/Caregiver Discharge Instructions Print Language: Indian Stand Alone Forms: [employer] Award Info., Patient Portal Info Letter
[2025-01-10 18:59] VITALS: BP 116/76; PULSE 76; RESP 16; TEMP 36.6; O2SAT 99; BMI 21.9
--- NOTE | 2025-01-10 19:05 | EKG_ITS ---
[facility] Test Date: 2025-01-10 Pat Name: ANTWON BRYAN Department: Room: - Gender: Female Compliance Monitor: : 1960 Requested By: Michael Bui Order Number: [id number] Reading MD: Michael Bui Measurements Intervals [place] Rate: 70 P: 52 CT: 100 QRS: 62 QRSD: 126 T: 55 QT: 415 QTc: 448 Interpretive Statements SINUS RHYTHM WITH SHORT CT INTERVAL MODERATE INTRAVENTRICULAR CONDUCTION DELAY [110+ ms QRS DURATION] Compared to ECG 12/02/2024 12:09:[address] interval now present Intraventricular conduction delay now present Sinus tachycardia no longer present T-wave abnormality no longer present /store/S0/[id number]/[id number].pdf
[2025-01-10 19:56] LABS: Collection Type, Urine Clean Catch
[2025-01-10 20:21] LABS: Bacteria,Urine Rare; Bilirubin,Urine Negative (Negative); Blood,Urine 2+ (Negative); Clarity,Urine Turbid (Clear/Hazy); Color,Urine Yellow (Lt Yel-Yel); Glucose, Urine Negative (Negative); Ketones,Urine Negative (Negative); Leukocyte Esterase,Urine Positive (Negative); Nitrite,Urine Negative (Negative); Protein,Urine 1+ (Neg - Trace); RBC,Urine 23 /hpf (0-3); Specific Gravity,Urine 1.021 (1.001-1.035); Squamous Epithelial Cell,Urine 1 /hpf (0-5); Urobilinogen,Urine Negative mg/dL (0.0-1.0); WBC,Urine 137 /hpf (0-5)
[2025-01-10 20:25] LABS: Culture Indicated,Urine Yes
[2025-01-10 20:59] LABS: Basophils % (Auto) 2 % (0-2.5); Eosinophils % (Auto) 1 % (0-10); Hematocrit 25.9 % (36.0-46.0); Immature Granulocytes % (Auto) 0 % (0-0); Immature Granulocytes Auto 0.01 Thou/mm3 (0.00-0.00); Lymphocytes # (Auto) 0.8 Thou/mm3 (1.0-4.8); Lymphocytes % (Auto) 29 % (10-50); Mean Corpuscular HGB Conc 33.2 g/dl (31.0-37.0); Mean Corpuscular Hemoglobin 32.7 pg (25.0-35.0); Mean Corpuscular Volume 99 fL (80-100); Monocytes # (Auto) 0.1 Thou/mm3 (0.0-0.8); Monocytes % (Auto) 5 % (0-12); Neutrophils # (Auto) 1.8 Thou/mm3 (1.8-7.7); Neutrophils % (Auto) 64 % (37-80); Nucleated Red Blood Cell % 0 /100 WBC (0); Platelet Count 108 Thou/mm3 (140-440); RDW Standard Deviation 50.7 fL (36.4-46.3); Red Blood Count 2.63 Miln/mm3 (4.00-5.20)
[2025-01-10 21:00] LABS: Hemoglobin 8.6 g/dL (12.0-16.0); White Blood Count 2.7 Thou/mm3 (3.6-11.0)
[2025-01-10 21:12] VITALS: BP 130/64; PULSE 65; RESP 15; TEMP 36.6; O2SAT 100
[2025-01-10 21:13] LABS: D-Dimer < 250 ng/mL (<600)
[2025-01-10 21:18] LABS: B-Type Natriuretic Peptide 47 pg/mL (0-100)
[2025-01-10 21:26] LABS: Alanine Aminotransferase 8 U/L (10-49); Albumin, Serum 4.2 gm/dL (3.4-4.8); Albumin/Globulin Ratio 1.8 (1.2-2.2); Alkaline Phosphatase 63 U/L (46-116); Anion Gap 8 (7-16); Aspartate Amino Transferase 20 U/L (0-34); BUN/Creatinine Ratio 12 Ratio (12-20); Bilirubin,Total 0.9 mg/dL (0.3-1.2); Blood Urea Nitrogen 11 mg/dL (9-23); Calcium 9.6 mg/dL (8.3-10.6); Calcium (Corrected) 9.6 mg/dL (8.5-10.1); Carbon Dioxide 29.1 mMol/L (20.0-31.0); Chloride 110 mMol/L (98-107); Creatinine (Component) 0.9 mg/dL (0.6-1.3); Estimated Creatinine Clearance 57.6 mL/min (>60); Globulin 2.3 gm/dL (2.3-3.5); Glucose 90 mg/dL (74-106); Magnesium 1.8 mg/dL (1.6-2.6); Osmolality,Calculated 291 (275-295); Potassium 3.1 mMol/L (3.4-5.1); Sodium 147 mMol/L (136-145); Total Protein 6.5 gm/dL (5.7-8.2); eGFR > 60 See Note
[2025-01-10 21:27] LABS: Thyroid Stimulating Hormone 4.64 uIU/mL (0.55-4.78)
[2025-01-10 21:28] LABS: Troponin I 0.046 ng/mL (0.0-0.045)
[2025-01-10] MEDS: POTASSIUM CHLORIDE 10% 20 MEQ/15 ML UDC 40 MEQ PO ×2 (21:47→23:53)
[2025-01-10 23:14] VITALS: PULSE 58; RESP 100
[2025-01-10] MEDS: cefTRIAXone 1,000 MG in SODIUM CHLORIDE 0.9% (P) 50 ML 100 MG IV (23:23)
--- NOTE | 2025-01-10 23:25 | PC.NURSE ---
Per ED provider, Penicillin allergy reviewed and proceed with ceftriaxone
--- NOTE | 2025-01-10 23:27 | ESHP_ITS ---
Documentation for date of: 01/10/25 HPI History of Present Illness Chief complaint: Low potassium History of present illness: Ms. 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 Patient reported that she had blood work done for her cancer treatment center labs on Thursday and she received a call earlier today that her potassium was low and she decided to come to the ED, otherwise patient complains of chest pain, substernal, aching on and off not relieved with rest. Patient denies any chest pain on examination currently, did endorse chest pain earlier in the ED. ED labs potassium 2.3 on presentation, was given 40 mEq in ED, troponin elevation of 0.046 noted, EKG changes negative for any ST elevation or depression. Patient complains of generalized weakness and tiredness and heaviness in the lower jaw. Patient reported that her chest pain and the other symptoms have gotten worse since her surgery. ED Course: ED Vitals: On presentation in ED BP 1 [birth year]/1975, P76, respiratory rate 16, temp 97.8, O2 sat 99 on room air ED Labs:ED labs on presentation significant for WBC 3.0, RBC 2.73, hemoglobin 8.9, hematocrit 26.6, platelet count 213. PT 21.6, INR 2.1, APTT 61.7, potassium 2.3. UA significant for protein 1+, blood 2+, positive for leukocyte Estrace, RBC 23, WBC 137, rare bacteria ED Imaging: EKG in ED significant for sinus rhythm, no ST elevation or depression noted ED Treatment:Patient was given 40 mEq of potassium and ceftriaxone in ED Review of Systems Review of Systems Narrative Review of Systems: ROS: -CONSTITUTIONAL: Denies weight loss, fever and chills. Positive for generalized weakness. -HEENT: Denies changes in vision and hearing. -RESPIRATORY: Denies SOB and cough. -CV: Denies palpitations and positive for Chest Pain. -GI: Denies abdominal pain, nausea, vomiting,constipation and diarrhea. -: Denies dysuria and urinary frequency. -MSK: Denies myalgia and joint pain. -SKIN: Denies rash and pruritus. -NEUROLOGICAL: Denies headache and syncope. -PSYCHIATRIC: Denies recent changes in mood. Denies anxiety and depression. Past Medical History Past Medical History Comments PMH COMMENT: PMH: Positive for left breast poorly differentiated invasive ductal carcinoma diagnosed in August 2023, ER positive, WI negative, HER2/sarai negative, s/p left-sided modified mastectomy and chemotherapy for Stage IIIa (pT2, snN2A) and DVT PSHx: Left-sided modified mastectomy Allergies: Penicillin Social history: -Smoking: Denies -Alcohol Use: Denies -Illicit Drug Use: Denies -Occupation: Retired Family History: Positive for BRCA2 gene positive daughter, breast cancer in first-degree relatives. Exam Vital Signs Temp Pulse Resp BP Pulse Ox O2 Del Method 97.9 F 65 15 130/64 100 Room Air 01/10/25 21:12 01/10/25 21:12 01/10/25 21:12 01/10/25 21:12 01/10/25 21:12 01/10/25 21:12 Narrative Exam Physical Exam General: Awake and in no acute distress. Conversational and non-toxic appearing. HEENT: Normocephalic, atraumatic, mucous membranes moist. Heart: Regular rate and rhythm, no murmurs. Lungs: Clear to auscultation with no wheezing or crackles. Abdomen: Soft, nondistended, nontender, positive bowel sounds. ?No guarding or rebound tenderness. Neurologic: Alert and oriented x3, no gross neurological deficit, and patient able to move all 4 extremities. Extremities: No edema. Skin: No rash or ecchymoses. Results: Labs 01/10/25 20:27 01/10/25 20:27 Labs: Short CBC 01/10/25 Range/Units 20:27 WBC 2.7 L (3.6-11.0) Thou/mm3 Hgb 8.6 L (12.0-16.0) g/dL Hct 25.9 L (36.0-46.0) % Plt Count 108 L (140-440) Thou/mm3 BMP 01/10/25 20:27 Sodium 147 H Potassium 3.1 L D Chloride 110 H Carbon Dioxide 29.1 BUN 11 Creatinine 0.9 Glucose 90 Calcium 9.6 Cardiac Enzymes 01/10/25 Range/Units 20:27 Troponin I 0.046 H* (0.0-0.045) ng/mL Liver Function 01/10/25 Range/Units 20:27 Total Bilirubin 0.9 (0.3-1.2) mg/dL AST 20 (0-34) U/L ALT 8 L (10-49) U/L Alkaline Phosphatase 63 (46-116) U/L Albumin 4.2 (3.4-4.8) gm/dL Urine 01/10/25 Range/Units 19:51 Urine Color Yellow (Lt Yel-Yel) Urine Clarity Turbid A (Clear/Hazy) Urine pH 6.0 (5.0-7.0) Ur Specific [place] 1.021 (1.001-1.035) Urine Protein 1+ A (Neg - Trace) Urine Glucose (UA) Negative (Negative) Quality Measures Quality Measures none Medications Home Medications and Allergies Home Medications ?Medication ?Instructions ?Recorded ?Confirmed ?Type abemaciclib 150 mg tablet 150 mg PO BID 11/08/2401/02 History (Farooq) Allergies Allergy/AdvReac Type Severity Reaction Status Date / Time Penicillins Allergy Hives Verified 01/10/25 18:28 Visit Medications Acetaminophen (Acetaminophen 325 Mg Tablet) 650 mg PO Q6H PRN PRN Reason: Fever >101.5 Stop: 02/09/25 23:13 Acetaminophen (Acetaminophen 325 Mg Tablet) 650 mg PO Q6H PRN PRN Reason: PAIN SCALE 1-3 (mild Stop: 02/09/25 23:13 Atorvastatin Calcium (Atorvastatin Calcium 20 Mg Tablet) 40 mg PO HS LENIN Stop: 02/10/25 20:59 Magnesium Sulfate (Magnesium Sulfate Ivpb) 2 gm in 50 mls @ 25 mls/hr IV X1 ONE Stop: 01/11/25 01:22 Ondansetron HCl (Ondansetron Inj 2 Mg/Ml Inj 2 Ml) 4 mg IV Q6H PRN; Protocol PRN Reason: NAUSEA OR VOMITING Stop: 02/09/25 23:13 Rivaroxaban (Rivaroxaban 10 Mg Tablet) 20 mg PO QDAY LENIN Stop: 02/01/25 08:59 Sennosides (Senna Tablet) 1 tab PO QDAY PRN; Protocol PRN Reason: constipation Stop: 02/09/25 23:13 Discontinued Medications Heparin Sodium (Porcine) (Heparin Sod Inj 5000 Unit/Ml Vial) 5,000 unit SC Q12H LENIN Stop: 01/25/25 08:59 Ceftriaxone Sodium 1,000 mg/ (Sodium Chloride) 50 mls @ 100 mls/hr IV X1 ONE Stop: 01/10/25 22:42 Last Admin: 01/10/25 23:23 Dose: 100 mls/hr Potassium Chloride (Potassium Chloride 10% 20 Meq/15 Ml Udc) 40 meq PO X1 ONE Stop: 01/10/25 21:32 Last Admin: 01/10/25 21:47 Dose: 40 meq Potassium Chloride (Potassium Chloride 10% 20 Meq/15 Ml Udc) 40 meq PO X1 ONE Stop: 01/10/25 23:22 Assessment & Plan Plan Assessment and Plan: Summary: Ms. 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 Patient endorses chest pain, had elevated troponins, patient admitted for observation, anticipate discharge in a.m. if troponin trend down and potassium levels improve along with symptom improvement. #Chest pain #Elevated troponin Endorses on and off substernal chest pain, sharp with jaw heaviness. EKG negative for ST elevation depression, troponin 0.046 on admission. Plan: -Observe overnight -Consulted cardiology, appreciate recommendations -Trend troponin -Monitor for chest pain #Hypokalemia Patient follows with cancer treatment center, per CTC labs patient had hypokalemia patient's potassium 2.3 on presentation, was given 40 mEq in ED. Patient endorsed bilateral lower extremity weakness, has neuropathy otherwise. Patient also complains of generalized weakness. Plan: -40 mEq potassium times -IV magnesium 2 g x 1 -Follow potassium in a.m. #DVT During hospital stay in November patient was found to have a left axillary DVT and was started on lovenox and upon discharge on Xarelto starter pack for 1 month and to continue for 2 more months for total of 3 months treatment for DVT. Plan: -Continue Xarelto 20 mg, home medications until 03/07/2025) #Pancytopenia #Neutropenia #Anemia, normocytic normochromic #Thrombocytopenia -Patient on chemotherapy -Monitor CBC in a.m. #Asymptomatic bacteriuria UA significant for protein 1+, blood 2+, positive for leukocyte Estrace, RBC 23, WBC 137, rare bacteria. Patient denies symptoms. #Left breast poorly differentiated invasive ductal carcinoma diagnosed in August 2023 ER positive, WI negative, HER2/sarai negative, s/p left-sided modified mastectomy and chemotherapy for Stage IIIa (pT2, snN2A) Plan: Pending med reconciliation, continue home meds once reconciled DVT prophylaxis: Xarelto GI prophylaxis: PO Protonix Diet:Cardiac Lines: Peripheral IV Code status: Full Code Case discussed with Attending Dr. Fowler. Liu Hernandez PGY1 Disclaimer: This note was dictated by speech recognition. Minor errors in agricultural engineering technician may be present due to voice recognition software. Attending Provider Attestation/Addendum 64-year-old female with breast cancer was sent to the ER by her cancer doctor because of hypokalemia. At the same time she was experiencing chest pain in the midsternum. Has been having on and off chest pain possibly related to her breast surgery. Patient denies shortness of breath. She is not dizzy or lightheaded. She has no muscle cramps. Patient has elevated troponin levels. Troponins will be trended. She will receive potassium supplementation.
[2025-01-10 23:51] VITALS: BP 131/70; PULSE 74; RESP 16; TEMP 36.6; O2SAT 96
[2025-01-10] MEDS: Magnesium Sulfate 2 GM Ivpb 2 GM/50 ML BAG IV (23:53)
[2025-01-11] VITALS (9 sets, daily range): BP systolic 96–132; BP diastolic 45–65; PULSE 56–95; RESP 12–98; TEMP 36.8–37.4; O2SAT 96–99
[2025-01-11 03:10] LABS: Troponin I 0.041 ng/mL (0.0-0.045)
[2025-01-11 04:54] LABS: Basophils % (Auto) 1 % (0-2.5); Eosinophils % (Auto) 1 % (0-10); Immature Granulocytes % (Auto) 1 % (0-0); Immature Granulocytes Auto 0.01 Thou/mm3 (0.00-0.00); Lymphocytes # (Auto) 0.7 Thou/mm3 (1.0-4.8); Lymphocytes % (Auto) 33 % (10-50); Mean Corpuscular HGB Conc 33.3 g/dl (31.0-37.0); Mean Corpuscular Hemoglobin 32.7 pg (25.0-35.0); Mean Corpuscular Volume 98 fL (80-100); Monocytes # (Auto) 0.1 Thou/mm3 (0.0-0.8); Monocytes % (Auto) 6 % (0-12); Neutrophils # (Auto) 1.2 Thou/mm3 (1.8-7.7); Neutrophils % (Auto) 58 % (37-80); Nucleated Red Blood Cell % 0 /100 WBC (0); Platelet Count 82 Thou/mm3 (140-440); RDW Standard Deviation 51.8 fL (36.4-46.3); Red Blood Count 2.45 Miln/mm3 (4.00-5.20)
[2025-01-11 04:58] LABS: White Blood Count 2.1 Thou/mm3 (3.6-11.0)
[2025-01-11 05:24] LABS: Alanine Aminotransferase < 7 U/L (10-49); Albumin, Serum 3.7 gm/dL (3.4-4.8); Albumin/Globulin Ratio 1.9 (1.2-2.2); Alkaline Phosphatase 60 U/L (46-116); Anion Gap 4 (7-16); Aspartate Amino Transferase 17 U/L (0-34); BUN/Creatinine Ratio 9 Ratio (12-20); Bilirubin,Total 0.5 mg/dL (0.3-1.2); Blood Urea Nitrogen 9 mg/dL (9-23); Calcium 9.1 mg/dL (8.3-10.6); Calcium (Corrected) 9.3 mg/dL (8.5-10.1); Carbon Dioxide 26.3 mMol/L (20.0-31.0); Chloride 115 mMol/L (98-107); Estimated Creatinine Clearance 51.8 mL/min (>60); Globulin 1.9 gm/dL (2.3-3.5); Glucose 95 mg/dL (74-106); Magnesium 2.1 mg/dL (1.6-2.6); Osmolality,Calculated 287 (275-295); Phosphorous 1.3 mg/dL (2.4-5.1); Potassium 3.9 mMol/L (3.4-5.1); Sodium 145 mMol/L (136-145); Total Protein 5.6 gm/dL (5.7-8.2); eGFR > 60 See Note
[2025-01-11 06:02] LABS: INR 1.5 (0.9-1.3); Partial Thromboplastin Time 29.6 Seconds (22.0-36.0)
[2025-01-11 08:39] LABS: Path Review Blood Smear Sent to Pathologist
[2025-01-11] MEDS: RIVAROXABAN 10 MG TABLET 20 MG PO (08:49)
[2025-01-11] MEDS: PANTOPRAZOLE 40 MG TABLET PO (08:49)
[2025-01-11] MEDS: NAPH,KPH MBDB 1 PACKET (1.5 GM) 2 PACKET PO (08:49)
[2025-01-11] MEDS: GABAPENTIN 100 MG CAPSULE PO ×2 (08:49→20:09)
--- NOTE | 2025-01-11 10:06 | PD.RESCONSUL ---
HPI Data of Consult Requesting Physician: Gopi Salinas MD Admitting Provider: Rodney Fowler MD Attending Provider: Gopi Salinas MD Primary Care Provider: Physician No Primary/Family Consult Narrative History of present illness: Ms. Fine is a 64 y/o female with past medical history significant of Breast cancer (s/p L mastectomy) and s/p completion of chemotherapy and radiation at [facility] (Pt's last treatment was 2 months ago), peripheral neuropathy, hyperlipidemia and Hx of DVT presented with chief complain of Hypokalemia found on routine labs ordered by her doctor at the cancer center and patient was asked to go to the ED for IV repletion. Patient states that once in a while she has been having sharp chest pain lasting approximately 15 seconds for the last couple months which goes away on its own. The pain is in mid sternum does not radiate anywhere and pressing on the area alleviates the pain. Patient also states she has been experiencing shortness of breath especially when she bends down to pick something off the floor and she has also lately been feeling dizziness with chest heaviness . Patient states she underwent left breast mastectomy and initially thought the pain was related to the surgery but was not sure. Patient has completed chemo and radiation at the [facility] cancer center, her last treatment was 2 months ago. Patient is now on oral medications for continued treatment for her breast cancer she is currently taking Verzenio and and anstrozole. Patient denies any chest pressure, orthopnea or PND. ED course In the ED patient is initial blood pressure was 116/76, heart rate 76 respiration 16. CBC is unremarkable, hold for pancytopenia with WBC of 2.1 RBC 2.4 by hemoglobin 8.0 hematocrit 24.0 platelet 82. Coagulation studies PT, INR 1.5. In the ED initial troponins are 0.046 -> 0.041 -> 0.030 EKG findings include normal sinus rhythm with without acute ST or T wave changes .heart rate of 70. QRS 126 Echocardiogram completed on 12/02/2024 Positive bubble study. An intravenous agitated saline injection indicated no evidence of PFO Normal LV size and function. Estimated EF 60-65% Normal RV size and function Trace mitral and trace tricuspid regurgitation PMH: Breast cancer (poorly differentiated invasive ductal adenocarcinoma-diagnosed August 2023), PSH:Left breast modified radical mastectomy (10/27/2023) SH: Patient endorses to smoking half a pack of cigarettes daily from teens to early 20s and quit when she was with her first child approximately 40 years ago and since then has never smoked a cigarette. Patient denies drug use, denies regular alcohol use (once in a [place] drinks a glass of wine) Family history: Dad? (quadruple CABG) Mom?hypertension, CKD, breast cancer (all of mother's sisters had breast cancer) Sister?hypertension, multiple breast lumps Brother?cerebral palsy Patient has 2 children that are healthy and living Allergies: Penicillin Home Meds: Xarelto, atorvastatin, gabapentin, loperamide as needed, Verzenio, anstrozole cc:: cc: Gopi Salinas MD Review of Systems Review of Systems Systems Reviewed: All systems reviewed, normal except as documented Exam Vital Signs Temp Pulse Resp BP Pulse Ox O2 Del Method 98.5 F 95 12 110/65 97 Room Air 01/11/25 06:49 01/11/25 07:09 01/11/25 07:09 01/11/25 06:49 01/11/25 06:49 01/11/25 06:49 Narrative Exam GENERAL: A&Ox3 . Awake, Not in acute distress NEURO: no focal neurological deficits HEENT: Atraumatic, Normocephalic. mucous membranes moist. Eyes open, symmetrical, & clear HEART: Normal Heart Sounds LUNGS: Clear to auscultation with no wheezing or crackles. ABDOMEN: soft, non-distended, non-tender, bowel sounds heard, no guarding or rebound tenderness SKIN: No Rash or ecchymoses, s/p left mastectomy surgical scar EXTREMITIES: No edema, tenderness, able to move all 4 extremities, pedal pulses palpated Results Labs 01/12/25 04:45 01/12/25 04:45 Labs: Short CBC 01/10/25 01/11/25 Range/Units 20:27 04:30 WBC 2.7 L 2.1 L (3.6-11.0) Thou/mm3 Hgb 8.6 L 8.0 L (12.0-16.0) g/dL Hct 25.9 L 24.0 L (36.0-46.0) % Plt Count 108 L 82 L D (140-440) Thou/mm3 BMP 01/10/25 01/11/25 20:27 04:30 Sodium 147 H 145 Potassium 3.1 L D 3.9 D Chloride 110 H 115 H Carbon Dioxide 29.1 26.3 BUN 11 9 Creatinine 0.9 1.0 Glucose 90 95 Calcium 9.6 9.1 Cardiac Enzymes 01/10/25 01/11/25 01/11/25 Range/Units 20:27 02:39 09:32 Troponin I 0.046 H* 0.041 0.030 (0.0-0.045) ng/mL Liver Function 01/10/25 01/11/25 Range/Units 20:27 04:30 Total Bilirubin 0.9 0.5 (0.3-1.2) mg/dL AST 20 17 (0-34) U/L ALT 8 L < 7 L (10-49) U/L Alkaline Phosphatase 63 60 (46-116) U/L Albumin 4.2 3.7 D (3.4-4.8) gm/dL Urine 01/10/25 Range/Units 19:51 Urine Color Yellow (Lt Yel-Yel) Urine Clarity Turbid A (Clear/Hazy) Urine pH 6.0 (5.0-7.0) Ur Specific [place] 1.021 (1.001-1.035) Urine Protein 1+ A (Neg - Trace) Urine Glucose (UA) Negative (Negative) Quality Measures Quality Measures none Medications Home Medications and Allergies Home Medications ?Medication ?Instructions ?Recorded ?Confirmed ?Type abemaciclib 150 mg tablet 150 mg PO BID 11/08/24 01/11/25 History (Verzenio) gabapentin 100 mg capsule 200 mg PO BID nerve pain 01/11/25 01/11/25 History Allergies Allergy/AdvReac Type Severity Reaction Status Date / Time Penicillins Allergy Hives Verified 01/10/25 18:28 Visit Medications Acetaminophen (Acetaminophen 325 Mg Tablet) 650 mg PO Q6H PRN PRN Reason: Fever >101.5 Stop: 02/09/25 23:13 Acetaminophen (Acetaminophen 325 Mg Tablet) 650 mg PO Q6H PRN PRN Reason: PAIN SCALE 1-3 (mild Stop: 02/09/25 23:13 Atorvastatin Calcium (Atorvastatin Calcium 20 Mg Tablet) 40 mg PO HS LENIN Stop: 02/10/25 20:59 Gabapentin (Gabapentin 100 Mg Capsule) 100 mg PO BID LENIN Stop: 02/10/25 08:59 Last Admin: 01/11/25 08:49 Dose: 100 mg Ondansetron HCl (Ondansetron Inj 2 Mg/Ml Inj 2 Ml) 4 mg IV Q6H PRN; Protocol PRN Reason: NAUSEA OR VOMITING Stop: 02/09/25 23:13 Pantoprazole Sodium (Pantoprazole 40 Mg Tablet) 40 mg PO QDAY [facility] Stop: 02/10/25 08:59 Last Admin: 01/11/25 08:49 Dose: 40 mg Rivaroxaban (Rivaroxaban 10 Mg Tablet) 20 mg PO QDAY [facility] Stop: 02/01/25 08:59 Last Admin: 01/11/25 08:49 Dose: 20 mg Sennosides (Senna Tablet) 1 tab PO QDAY PRN; Protocol PRN Reason: constipation Stop: 02/09/25 23:13 Discontinued Medications Heparin Sodium (Porcine) (Heparin Sod Inj 5000 Unit/Ml Vial) 5,000 unit SC Q12H [facility] Stop: 01/25/25 08:59 Ceftriaxone Sodium 1,000 mg/ (Sodium Chloride) 50 mls @ 100 mls/hr IV X1 ONE Stop: 01/10/25 22:42 Last Infusion: 01/10/25 23:53 Dose: Infused Magnesium Sulfate (Magnesium Sulfate Ivpb) 2 gm in 50 mls @ 25 mls/hr IV X1 ONE Stop: 01/11/25 01:22 Last Infusion: 01/11/25 02:00 Dose: Infused Potassium Chloride (Potassium Chloride 10% 20 Meq/15 Ml Udc) 40 meq PO X1 ONE Stop: 01/10/25 21:32 Last Admin: 01/10/25 21:47 Dose: 40 meq Potassium Chloride (Potassium Chloride 10% 20 Meq/15 Ml Udc) 40 meq PO X1 ONE Stop: 01/10/25 23:22 Last Admin: 01/10/25 23:53 Dose: 40 meq Potassium Phos/Sodium Phos (Naph,[facility] 1 Packet (1.5 Gm)) 2 packet PO X1 ONE Stop: 01/11/25 08:00 Last Admin: 01/11/25 08:49 Dose: 2 packet Assessment & Plan Plan Ms. Fine is a 64 y/o female with past medical history significant of Breast cancer (s/p L mastectomy) and s/p completion of chemotherapy and radiation at [facility] (Pt's last treatment was 2 months ago), peripheral neuropathy, hyperlipidemia and Hx of DVT presented with chief complain of Hypokalemia found on routine labs ordered by her doctor at the cancer center and patient was asked to go to the ED for IV repletion. Cardiology was consulted due to elevated troponins and atypical chest pain #Hypokalemia -On admission Pts potassium was 2.3 -Pt is given total 80 mEq of #Atypical chest pain #Elevated troponins -Patient endorses to sharp midsternal chest pains lasting 15 seconds which alleviated by pressing on the location of the pain -Troponins 0.046 -> 0.041 -> 0.030 -EKG findings do not show any ST or T wave changes. No further troponins trend is needed patient does not have ischemic heart disease. #Shortness of breath echo completed on 12/02/24: Positive bubble study. An intravenous agitated saline injection indicated no evidence of PFO Normal LV size and function. Estimated EF 60-65% Normal RV size and function Trace mitral and trace tricuspid regurgitation. There is small anterior pericardial effusion. -PFO is an incidental finding patient has no history of stroke no further workup is needed #History of DVT -During her last hospitalization in November patient was found to have a left axillary DVT and was started on Xarelto for 3 months -Patient is to continue Xarelto until 03/07/25, patient will need outpatient coagulability workup to assess if she needs to continue anticoagulation to prevent further DVTs as patient is a high risk due to her history of breast cancer undergoing treatment. #Pancytopenia #Neutropenia #Anemia, normocytic normochromic #Thrombocytopenia -Patient is status post chemo and radiation therapy currently she is taking immunosuppressants for history of breast cancer -Patient may follow outpatient with oncology to monitor CBC #History of invasive ductal carcinoma -Patient was diagnosed with poorly differentiated invasive ductal carcinoma of the left breast in August 2023. She is ER positive, LA negative, HER2/sarai negative -Patient is status post left modified mastectomy -Patient is status post chemo and radiation completed approximately 2 months ago (October 2025) -Patient is to continue her home Verzenio, anstrozole Assessment and plan discussed with my attending physician Dr. Jimi Esparza (PGY-1)- Internal medicine resident Attending Provider Attestation/Addendum I have personally seen and examined the patient separately on the above date of service and discussed the plan of care with the resident. I reviewed the resident Dr. Nhan Esparza consultation progress note and agree with the resident findings and plan in the note above and have also edited the documentation to reflect my findings and plan. A 64-year-old female with a past medical history of breast cancer s/p mastectomy, chemo and radiation therapy completed 2 months ago, recent diagnosis of DVT in November 2024 Eliquis, hyperlipidemia, peripheral neuropathy presented to the hospital for hypokalemia found on routine labs ordered by her oncologist and was sent to the ED for IV repletion. In the emergency department patient complained of no significant complaints and did tell the ED doctor she has occasional chest pains at with 15 seconds in duration. Unrelated to any activity. Describes it as sharp stabbing pain in the center of the chest and it is happening mostly since her surgery and she is unsure if it is related to the same. Sometimes pressing the chest actually helps the pain as per patient. Patient does complain of some occasional dizziness but denies any indicated complain complaints including any syncope or fall. Denies any kind of or leg swelling or palpitations or orthopnea or PND. Denies any kind of fever or chills. Assessment and plan: 1. Atypical chest pain 2. Troponin elevation-NSTEMI type II 3. Recurrent hypokalemia 4. DVT 5. History of breast cancer status post radiotherapy and chemotherapy on Eliquis 6. Hyperlipidemia 7. Peripheral neuropathy. 8. Incidental PFO on echo but no history of TIA and stroke Patient symptoms are completely atypical and troponin elevation was very minimal at 0.046 and downtrended to normal. EKG showed normal sinus rhythm without any acute ST-T changes suggestive of ischemia. Risk factors for heart disease only include self-reported hyperlipidemia for which she is not on medication. Patient does not have a history of hypertension, diabetes, family history of heart disease except that mother had a pacemaker in her 80s, no history of smoking, alcohol or drug abuse. She also had an echo on 12/02/2024 which showed normal LV, RV size and function and EF was normal with trace MR and TR. Small anterior pericardial effusion. Incidental finding of small PFO was noted the patient denies any kind of stroke. Check TSH A1c, lipid profile for further cardiac risk stratification. Patient recommended to follow-up with cardiology as outpatient if she continues to have any cardiac symptoms. No further inpatient workup needed at the present point of time. Patient was found to have a PFO as per the echo report from November 2024 and patient never had a history of any TIA or stroke. PFO finding incidental and would not require further workup at the present point of time and patient educated that she needs to follow-up with cardiology if she ever has a TIA or stroke. Management of rest of the medical conditions as per primary team and other consultants. Thank you for the consult and allowing me to participate in the care of the patient. Cardiology will continue to follow. Diallo Krause M.D. Interventional Cardiology
[2025-01-11] MEDS: LACTOBACILLUS RHAMNOSUS 1 CAP PO ×2 (11:08→20:09)
[2025-01-11] MEDS: ANASTROZOLE 1 MG TABLET PO (12:57)
[2025-01-11] MEDS: SODIUM CHLORIDE 0.9% 1000 ML 1,000 ML 60 ML IV (12:57)
--- NOTE | 2025-01-11 14:03 | ESPR_ITS ---
Documentation for date of: 01/11/25 Subjective Subjective Interval history: Patient seen at bedside. No acute overnight events. She is a 64-year-old female with a past medical history of differentiated invasive ductal carcinoma status post left-sided mastectomy and chemotherapy, currently on immunotherapy who presented to the ED on 01/10/2025 with abnormal labs-hypokalemia and also endorsed chest pain. Patient this morning has no complaint of chest pain and potassium has been repleted, today is 3.9. Cardiology was consulted due to elevated troponins, no further recommendations as troponins are now downtrending. Patient did report multiple episodes of diarrhea, ordered C. difficile test. Exam Vital Signs Temp Pulse Resp BP Pulse Ox O2 Del Method 98.3 F 62 17 110/65 96 Room Air 01/11/25 12:00 01/11/25 12:00 01/11/25 12:00 01/11/25 12:00 01/11/25 12:01/11/25 12:00 Narrative Exam GENERAL: AAOX3 NEURO: LEAD AUDITOR grossly intact, moves extremities x4 HEENT: Moist mucosa. Eyes open, symmetrical, & clear CARDIO: No chest pain on palpation. Heart RRR, no obvious murmurs PULM: No noted coughing/dyspnea. Lungs CTA B/L GI: Abdomen soft, nondistended, no pain on palpation. BSx4 URO/WARRANTY COORDINATOR:: No further abnormalities noted. SKIN/MSK/EXT: No wounds/rashes/edema/amputations, no pain on palpation. Pedal pulses present B/L Objective Labs 01/11/25 04:30 01/11/25 04:30 Labs: Laboratory Results - last 24 hr 01/10/25 01/10/25 01/11/25 19:51 20:27 02:39 WBC 2.7 L RBC 2.63 L Hgb 8.6 L Hct 25.9 L MCV 99 MCH 32.7 MCHC 33.2 RDW Std Deviation 50.7 H Plt Count 108 L Neut % (Auto) 64 Lymph % (Auto) 29 Dickinson % (Auto) 5 Eos % (Auto) 1 Baso % (Auto) 2 Neut # (Auto) 1.8 Lymph # (Auto) 0.8 L Dickinson # (Auto) 0.1 Eos # (Auto) 0.0 Baso # (Auto) 0.0 Immature Gran # (Auto) 0.01 H Absolute Nucleated RBC 0.00 Immature Gran % 0 Nucleated RBC % 0 Smear Path Review PT INR APTT D-Dimer < 250 Sodium 147 H Potassium 3.1 L D Chloride 110 H Carbon Dioxide 29.1 Anion Gap 8 BUN 11 Creatinine 0.9 Estim Creat Clear Calc 57.6 L eGFR > 60 BUN/Creatinine Ratio 12 Glucose 90 Calculated Osmolality 291 Calcium 9.6 Corrected Calcium 9.6 Phosphorus Magnesium 1.8 Total Bilirubin 0.9 AST 20 ALT 8 L Alkaline Phosphatase 63 Troponin I 0.046 H* 0.041 B-Natriuretic Peptide 47 Total Protein 6.5 Albumin 4.2 Globulin 2.3 Albumin/Globulin Ratio 1.8 TSH 4.64 D Ur Collection Type Clean Catch Urine Color Yellow Urine Clarity Turbid A Urine pH 6.0 Ur Specific [place] 1.021 Urine Protein 1+ A Urine Glucose (UA) Negative Urine Ketones Negative Urine Blood 2+ A Urine Nitrite Negative Urine Bilirubin Negative Urine Urobilinogen (Auto) Negative Ur Leukocyte Esterase Positive Urine RBC 23 H Urine WBC 137 H Ur Squamous Epith Cells 1 Urine Bacteria Rare Ur Culture Indicated? Yes 01/11/25 01/11/25 04:30 09:32 WBC 2.1 L RBC 2.45 L Hgb 8.0 L Hct 24.0 L MCV 98 MCH 32.7 MCHC 33.3 RDW Std Deviation 51.8 H Plt Count 82 L D Neut % (Auto) 58 Lymph % (Auto) 33 Dickinson % (Auto) 6 Eos % (Auto) 1 Baso % (Auto) 1 Neut # (Auto) 1.2 L Lymph # (Auto) 0.7 L Dickinson # (Auto) 0.1 Eos # (Auto) 0.0 Baso # (Auto) 0.0 Immature Gran # (Auto) 0.01 H Absolute Nucleated RBC 0.00 Immature Gran % 1 H Nucleated RBC % 0 Smear Path Review Sent to Pathologist PT 16.0 H D INR 1.5 H APTT 29.6 D D-Dimer Sodium 145 Potassium 3.9 D Chloride 115 H Carbon Dioxide 26.3 Anion Gap 4 L BUN 9 Creatinine 1.0 Estim Creat Clear Calc 51.8 L eGFR > 60 BUN/Creatinine Ratio 9 L Glucose 95 Calculated Osmolality 287 Calcium 9.1 Corrected Calcium 9.3 Phosphorus 1.3 L Magnesium 2.1 Total Bilirubin 0.5 AST 17 ALT < 7 L Alkaline Phosphatase 60 Troponin I 0.030 B-Natriuretic Peptide Total Protein 5.6 L Albumin 3.7 D Globulin 1.9 L Albumin/Globulin Ratio 1.9 TSH Ur Collection Type Urine Color Urine Clarity Urine pH Ur Specific [place] Urine Protein Urine Glucose (UA) Urine Ketones Urine Blood Urine Nitrite Urine Bilirubin Urine Urobilinogen (Auto) Ur Leukocyte Esterase Urine RBC Urine WBC Ur Squamous Epith Cells Urine Bacteria Ur Culture Indicated? Quality Measures Quality Measures none Assessment & Plan Assessment Current Active Medications: Generic Name Dose Route Start Last Admin Trade Name Freq PRN Reason Stop Dose Admin Acetaminophen 650 mg 01/10/25 23:14 Acetaminophen 325 Mg Tablet PO 02/09/25 23:13 Q6H PRN Fever >101.5 Acetaminophen 650 mg 01/10/25 23:14 Acetaminophen 325 Mg Tablet PO 02/09/25 23:13 Q6H PRN PAIN SCALE 1-3 (mild Anastrozole 1 mg 01/11/25 11:30 01/11/25 12:57 Anastrozole 1 Mg Tablet PO 02/10/25 11:29 1 mg QDAY LENIN Administration Atorvastatin Calcium 40 mg 01/11/25 21:00 Atorvastatin Calcium 20 Mg Tablet PO 02/10/25 20:59 HS LENIN Famotidine 20 mg 01/11/25 11:10 Famotidine 20 Mg Tablet PO 02/10/25 11:09 BID PRN acid reflux Gabapentin 100 mg 01/11/25 09:00 01/11/25 08:49 Gabapentin 100 Mg Capsule PO 02/10/25 08:59 100 mg BID LENIN Administration Sodium Chloride 1,000 mls @ 60 mls/hr 01/11/25 11:33 01/11/25 12:57 Ns IV 01/12/25 04:12 60 mls/hr .[id number] ONE Administration Lactobacillus Rhamnosus 1 cap 01/11/25 10:35 01/11/25 11:08 Lactobacillus Rhamnosus 1 Cap PO 02/10/25 10:34 1 cap BID LENIN Administration Loperamide HCl 2 mg 01/11/25 11:09 Loperamide 2 Mg Capsule PO 01/18/25 11:08 Q6HR PRN DIARRHEA Home Medication- 150 mg 01/11/25 11:30 Please Speak With PO 02/10/25 11:29 Patient Caregiver To BID LENIN Have Rx Brought To [facility] Ondansetron HCl 4 mg 01/10/25 23:14 Ondansetron Inj 2 Mg/Ml Inj 2 Ml IV 02/09/25 23:13 Q6H PRN NAUSEA OR VOMITING Protocol Rivaroxaban 20 mg 01/11/25 09:00 01/11/25 08:49 Rivaroxaban 10 Mg Tablet PO 02/01/25 08:59 20 mg QDAY LENIN Administration Sennosides 1 tab 01/10/25 23:14 Senna Tablet PO 02/09/25 23:13 QDAY PRN constipation Protocol Trazodone HCl 50 mg 01/11/25 11:27 Trazodone Hcl 50 Mg Tablet PO 02/10/25 11:26 HS PRN INSOMNIA Plan Summary: The patient is a 64-year-old female with past medical history of left breast poorly differentiated invasive ductal carcinoma diagnosed in August 2023, ER positive, ND negative, HER2/sarai negative, s/p left-sided modified mastectomy and chemotherapy for Stage IIIa (pT2, snN2A) and DVT who presented to [facility] [place] emergency department from home on 01/10/25 with chief complaint of low potassium. Patient endorses chest pain, had elevated troponins, patient admitted for observation. #Chest pain #Likely phantom neuropathic pain She presented with substernal chest pain, intermittent over the past couple months. She reports they last about 15 seconds, does not radiate to the jaw to the left arm. Palpation alleviates the pain and he has no association with exertion. Patient did have a mastectomy done for invasive ductal carcinoma and prior to this, had no similar complaints. Although troponin levels are mildly elevated on admission, they have now returned to normal, EKG is unremarkable Plan: -Continue to monitor #Electrolyte imbalance #Hypokalemia-resolved #Hypophosphatemia Patient follows with cancer treatment center, per CTC labs patient had hypokalemia patient's potassium 2.3 on presentation, was given 40 mEq in ED. Patient endorsed bilateral lower extremity weakness, has neuropathy otherwise. Patient also complains of generalized weakness. On admission, she received potassium and magnesium. Potassium today is 3.9 and magnesium 2.1. Phosphorus-1.3 Plan: - Neutra-Phos x 2 -Continue to replete electrolytes accordingly #Diarrhea The patient does report multiple episodes of watery diarrhea, that has been going on for about a week. She reports no blood in stool, no nausea no vomiting. Although this is likely a side effect of immunotherapy, will order C. difficile to rule out Plan: -C. difficile PCR #Elevated troponin Endorses intermittent substernal chest pain, no radiation. EKG negative for ST elevation depression, troponin 0.046 on admission. Troponins peaked and now normal. Plan: -Stop trending troponin -Consulted cardiology, appreciate recommendations #DVT During hospital stay in November patient was found to have a left axillary DVT and was started on lovenox and upon discharge on Xarelto starter pack for 1 month and to continue for 2 more months for total of 3 months treatment for DVT. Plan: -Continue Xarelto 20 mg, home medications until 03/07/2025) #Pancytopenia #Neutropenia #Anemia, normocytic normochromic #Thrombocytopenia -Patient on chemotherapy -Monitor CBC in a.m. #Asymptomatic bacteriuria UA significant for protein 1+, blood 2+, positive for leukocyte Estrace, RBC 23, WBC 137, rare bacteria. Patient denies symptoms. #Left breast poorly differentiated invasive ductal carcinoma diagnosed in August 2023 ER positive, ND negative, HER2/sarai negative, s/p left-sided modified mastectomy and chemotherapy for Stage IIIa (pT2, snN2A) Plan: Home meds resumed DVT prophylaxis: Xarelto GI prophylaxis: PO Protonix Diet:Cardiac Lines: Peripheral IV Code status: Full Code Case was discussed with Dr Mg PGY-2 and attending physician, Dr Rita Jules MD PGY-1 Disclaimer: This note was dictated by speech recognition. Minor errors in hostess may be present due to voice recognition software. Attending Provider Attestation/Addendum I reviewed labs, imaging, EKG, home medications and prior available records. Face to face evaluation was performed by me. I have personally examined the patient and discussed assessment and plan with the IM team. I reviewed the resident note and agree with the plan with exceptions as below. Acute hypotension, possibly related to severe dehydration Acute diarrhea, possibly related to chemotherapy versus failure Hypokalemia, likely due to diarrhea Hypophosphatemia Leukopenia, likely related to chemotherapy Thrombocytopenia, likely related to chemotherapy and chronic illness Non-STEMI, likely demand ischemia Breast cancer on chemotherapy Started IV fluids. Monitor BP closely Ordered C. difficile Repleted potassium. Follow-up BMP Repleted phosphorous. Follow-up phosphorus level Monitor WBC Monitor platelet level. Monitor for bleeding Troponin peaked. Cardiology consulted Continue chemotherapy. Follow-up with oncology
[2025-01-11] MEDS: VERZENIO 150 MG PO ×2 (14:47→20:10)
[2025-01-11 16:00] LABS: Troponin I 0.027 ng/mL (0.0-0.045)
[2025-01-11] MEDS: ATORVASTATIN CALCIUM 20 MG TABLET 40 MG PO (20:09)
[2025-01-11 21:06] LABS: Troponin I 0.029 ng/mL (0.0-0.045)
[2025-01-12] VITALS (8 sets, daily range): BP systolic 98–136; BP diastolic 53–73; PULSE 61–96; RESP 12–99; TEMP 36.1–36.6; O2SAT 96–99
[2025-01-12 06:15] LABS: Basophils % (Auto) 1 % (0-2.5); Eosinophils % (Auto) 1 % (0-10); Hematocrit 23.3 % (36.0-46.0); Immature Granulocytes % (Auto) 0 % (0-0); Immature Granulocytes Auto 0.01 Thou/mm3 (0.00-0.00); Lymphocytes # (Auto) 0.7 Thou/mm3 (1.0-4.8); Lymphocytes % (Auto) 29 % (10-50); Mean Corpuscular HGB Conc 33.5 g/dl (31.0-37.0); Mean Corpuscular Hemoglobin 33.1 pg (25.0-35.0); Mean Corpuscular Volume 99 fL (80-100); Monocytes # (Auto) 0.1 Thou/mm3 (0.0-0.8); Monocytes % (Auto) 5 % (0-12); Neutrophils # (Auto) 1.5 Thou/mm3 (1.8-7.7); Neutrophils % (Auto) 63 % (37-80); Nucleated Red Blood Cell % 0 /100 WBC (0); Platelet Count 81 Thou/mm3 (140-440); RDW Standard Deviation 52.2 fL (36.4-46.3); Red Blood Count 2.36 Miln/mm3 (4.00-5.20)
[2025-01-12 06:20] LABS: Hemoglobin 7.8 g/dL (12.0-16.0); White Blood Count 2.4 Thou/mm3 (3.6-11.0)
[2025-01-12 06:48] LABS: Alanine Aminotransferase 8 U/L (10-49); Albumin, Serum 3.4 gm/dL (3.4-4.8); Albumin/Globulin Ratio 1.8 (1.2-2.2); Alkaline Phosphatase 58 U/L (46-116); Anion Gap 8 (7-16); Aspartate Amino Transferase 16 U/L (0-34); BUN/Creatinine Ratio 10 Ratio (12-20); Bilirubin,Total 0.8 mg/dL (0.3-1.2); Blood Urea Nitrogen 7 mg/dL (9-23); Calcium 8.8 mg/dL (8.3-10.6); Calcium (Corrected) 9.3 mg/dL (8.5-10.1); Carbon Dioxide 25.2 mMol/L (20.0-31.0); Chloride 110 mMol/L (98-107); Creatinine (Component) 0.7 mg/dL (0.6-1.3); Globulin 1.9 gm/dL (2.3-3.5); Glucose 85 mg/dL (74-106); Magnesium 1.8 mg/dL (1.6-2.6); Osmolality,Calculated 281 (275-295); Potassium 3.3 mMol/L (3.4-5.1); Sodium 143 mMol/L (136-145); Total Protein 5.3 gm/dL (5.7-8.2); eGFR > 60 See Note
--- NOTE | 2025-01-12 07:08 | PD.IMPROG ---
Documentation for date of: 01/12/25 Subjective Subjective Interval history: Patient seen and examined at the bedside. No new cardiac complaints. Telemetry reviewed and patient appears to be normal sinus rhythm. No new chest pain and as described below patient has atypical chest pain. Troponins were only minimally elevated at 0.046 and EKG without any acute ischemic changes. Echo also showed normal LV function RV function and no regional wall motion abnormalities. Patient recommended to follow-up with cardiology as outpatient and if she continues to have chest pain for further ischemic workup. Exam Vital Signs Temp Pulse Resp BP Pulse Ox O2 Del Method 97.1 F 63 16 102/54 L 96 Room Air 01/12/25 04:00 01/12/25 04:00 01/12/25 04:00 01/12/25 04:00 01/12/25 04:00 01/12/25 04:00 Narrative Exam General: Alert and oriented x3. In no acute distress. Eyes: Pupils are equal and reactive to light bilaterally. HEENT: Atraumatic, normocephalic. No JVD noted. Mucosa moist. Cardiovascular: Normal S1 and S2. Normal rate and regular rhythm. No murmurs appreciated. No peripheral pitting edema noted. Respiratory: No respiratory distress. Lungs are clear to auscultation bilaterally. No wheezing or crackles heard. Abdomen: Soft, nontender, nondistended. Skin: No rash. Warm to touch. Musculoskeletal: No gross injuries. Able to move all 4 extremities. Neuro: Alert and oriented x3. No focal neuro deficits. Psych: Normal affect and mood Objective Objective Narrative Objective Narrative: General: Alert and oriented x3. In no acute distress. Eyes: Pupils are equal and reactive to light bilaterally. HEENT: Atraumatic, normocephalic. No JVD noted. Mucosa moist. Cardiovascular: Normal S1 and S2. Normal rate and regular rhythm. No murmurs appreciated. No peripheral pitting edema noted. Respiratory: No respiratory distress. Lungs are clear to auscultation bilaterally. No wheezing or crackles heard. Abdomen: Soft, nontender, nondistended. Skin: No rash. Warm to touch. Musculoskeletal: No gross injuries. Able to move all 4 extremities. Neuro: Alert and oriented x3. No focal neuro deficits. Psych: Normal affect and mood Labs 01/12/25 04:45 01/12/25 04:45 Labs: Laboratory Results - last 24 hr 01/11/25 01/11/25 01/11/25 04:30 09:32 15:08 WBC RBC Hgb Hct MCV MCH MCHC RDW Std Deviation Plt Count Neut % (Auto) Lymph % (Auto) [place] % (Auto) Eos % (Auto) Baso % (Auto) Neut # (Auto) Lymph # (Auto) [place] # (Auto) Eos # (Auto) Baso # (Auto) Immature Gran # (Auto) Absolute Nucleated RBC Immature Gran % Nucleated RBC % Smear Path Review Sent to Pathologist Sodium Potassium Chloride Carbon Dioxide Anion Gap BUN Creatinine Estim Creat Clear Calc eGFR BUN/Creatinine Ratio Glucose Calculated Osmolality Calcium Corrected Calcium Magnesium Total Bilirubin AST ALT Alkaline Phosphatase Troponin I 0.030 0.027 Total Protein Albumin Globulin Albumin/Globulin Ratio 01/11/25 01/12/25 20:28 04:45 WBC 2.4 L RBC 2.36 L Hgb 7.8 L Hct 23.3 L MCV 99 MCH 33.1 MCHC 33.5 RDW Std Deviation 52.2 H Plt Count 81 L Neut % (Auto) 63 Lymph % (Auto) 29 [place] % (Auto) 5 Eos % (Auto) 1 Baso % (Auto) 1 Neut # (Auto) 1.5 L Lymph # (Auto) 0.7 L [place] # (Auto) 0.1 Eos # (Auto) 0.0 Baso # (Auto) 0.0 Immature Gran # (Auto) 0.01 H Absolute Nucleated RBC 0.00 Immature Gran % 0 Nucleated RBC % 0 Smear Path Review Sodium 143 Potassium 3.3 L D Chloride 110 H Carbon Dioxide 25.2 Anion Gap 8 BUN 7 L Creatinine 0.7 Estim Creat Clear Calc 81.0 eGFR > 60 BUN/Creatinine Ratio 10 L Glucose 85 Calculated Osmolality 281 Calcium 8.8 Corrected Calcium 9.3 Magnesium 1.8 Total Bilirubin 0.8 AST 16 ALT 8 L Alkaline Phosphatase 58 Troponin I 0.029 Total Protein 5.3 L Albumin 3.4 Globulin 1.9 L Albumin/Globulin Ratio 1.8 Assessment & Plan A&P Narrative A 64-year-old female with a past medical history of breast cancer s/p mastectomy, chemo and radiation therapy completed 2 months ago, recent diagnosis of DVT in November 2024 Eliquis, hyperlipidemia, peripheral neuropathy presented to the hospital for hypokalemia found on routine labs ordered by her oncologist and was sent to the ED for IV repletion. In the emergency department patient complained of no significant complaints and did tell the ED doctor she has occasional chest pains at with 15 seconds in duration. Unrelated to any activity. Describes it as sharp stabbing pain in the center of the chest and it is happening mostly since her surgery and she is unsure if it is related to the same. Sometimes pressing the chest actually helps the pain as per patient. Patient does complain of some occasional dizziness but denies any indicated complain complaints including any syncope or fall. Denies any kind of or leg swelling or palpitations or orthopnea or PND. Denies any kind of fever or chills. Assessment and plan: 1. Atypical chest pain 2. Troponin elevation-NSTEMI type II 3. Recurrent hypokalemia 4. DVT 5. History of breast cancer status post radiotherapy and chemotherapy on Eliquis 6. Hyperlipidemia 7. Peripheral neuropathy. 8. Incidental PFO on echo but no history of TIA and stroke Patient symptoms are completely atypical and troponin elevation was very minimal at 0.046 and downtrended to normal. EKG showed normal sinus rhythm without any acute ST-T changes suggestive of ischemia. Risk factors for heart disease only include self-reported hyperlipidemia for which she is not on medication. Patient does not have a history of hypertension, diabetes, family history of heart disease except that mother had a pacemaker in her 80s, no history of smoking, alcohol or drug abuse. She also had an echo on 12/02/2024 which showed normal LV, RV size and function and EF was normal with trace MR and TR. Small anterior pericardial effusion. Incidental finding of small PFO was noted the patient denies any kind of stroke. Check TSH A1c, lipid profile for further cardiac risk stratification. Patient recommended to follow-up with cardiology as outpatient if she continues to have any cardiac symptoms. No further inpatient workup needed at the present point of time. Patient was found to have a PFO as per the echo report from November 2024 and patient never had a history of any TIA or stroke. PFO finding incidental and would not require further workup at the present point of time and patient educated that she needs to follow-up with cardiology if she ever has a TIA or stroke. Management of rest of the medical conditions as per primary team and other consultants. Thank you for the consult and allowing me to participate in the care of the patient. Cardiology will sign off for now and please call us with any questions or concerns. Diallo Krause M.D. Interventional Cardiology Time Spent With Patient Time: Total time spent is greater than 50% in coordination of care (as documented) at patient's floor/unit and/or counseling patient:
[2025-01-12] MEDS: RIVAROXABAN 10 MG TABLET 20 MG PO (08:49)
[2025-01-12] MEDS: GABAPENTIN 100 MG CAPSULE PO ×2 (08:49→20:24)
[2025-01-12] MEDS: LACTOBACILLUS RHAMNOSUS 1 CAP PO ×2 (08:49→20:24)
[2025-01-12] MEDS: VERZENIO 150 MG PO ×2 (08:51→20:24)
[2025-01-12 12:46] LABS: Path Review Blood Smear Sent to Pathologist
--- NOTE | 2025-01-12 12:51 | ESCONSULT_ITS ---
HPI Data of Consult Requesting Physician: Gopi Salinas MD Primary Care Provider: Physician No Primary/Family Consult Narrative Reason for consult: Breast cancer patient admitted with History of present illness: Patient is a 64-year-old lady well-known to us at cancer treatment center with history of stage IIIa ([id number]) left breast CA with 5 lymph nodes positive for met disease. Underwent left modified mastectomy 10/27/2023. Underwent 4 cycles of AC chemotherapy and 4 cycles of dose dense Taxol in adjuvant setting completed 04/19/2024. Completed XRT to the left chest wall and regional nodes 07/08/2024. Currently has been on abemaciclib Zometa and anastrozole. Noted to recently be profoundly hypokalemia 2.3 Patient was prescribed extra p.o. KCl. Patient came in to the ER with complaints of chest pain and concerned about her potassium level and was evaluated. Noted to have elevated troponin and received potassium supplements. Reviewed by cardiology Dr. Carpenter who noted that the troponin elevation was very minimal and down trended toward normal. With EKG normal sinus rhythm without any acute ST-T changes suggestive ischemia. 01/11/2025 potassium 3.9. Patient now referred for oncological consultation. cc:: cc: Gopi Salinas MD Past Medical History Family History OTHER FAMILY HX: Positive BRCA gene positive daughter breast cancer in first- degree relatives. Social History SOCIAL: Denies smoking drinking retired Past Medical History Comments PMH COMMENT: Locally advanced left breast CA stage IIIa status post modified mastectomy postop chemoradiation Meds Home Medications and Allergies Home Medications ?Medication ?Instructions ?Recorded ?Confirmed ?Type abemaciclib 150 mg tablet 150 mg PO BID 11/08/2401/11 History (Verzenio) gabapentin 100 mg capsule 200 mg PO BID nerve pain 11/2301/11/25 History Allergies Allergy/AdvReac Type Severity Reaction Status Date / Time Penicillins Allergy Hives Verified 01/10/25 18:28 Exam Vital Signs Temp Pulse Resp BP Pulse Ox O2 Del Method 97.1 F 66 18 98/61 99 Room Air 01/12/25 12:00 01/12/25 12:00 01/12/25 12:00 01/12/25 12:00 01/12/25 12:00 01/12/25 08:00 Narrative Exam Appearing comfortable and answering questions appropriately. Results Labs 01/12/25 04:45 01/12/25 04:45 Labs: Short CBC 01/12/25 Range/Units 04:45 WBC 2.4 L (3.6-11.0) Thou/mm3 Hgb 7.8 L (12.0-16.0) g/dL Hct 23.3 L (36.0-46.0) % Plt Count 81 L (140-440) Thou/mm3 BMP 01/12/25 04:45 Sodium 143 Potassium 3.3 L D Chloride 110 H Carbon Dioxide 25.2 BUN 7 L Creatinine 0.7 Glucose 85 Calcium 8.8 Cardiac Enzymes 01/11/25 01/11/25 Range/Units 15:08 20:28 Troponin I 0.027 0.029 (0.0-0.045) ng/mL Liver Function 01/12/25 Range/Units 04:45 Total Bilirubin 0.8 (0.3-1.2) mg/dL AST 16 (0-34) U/L ALT 8 L (10-49) U/L Alkaline Phosphatase 58 (46-116) U/L Albumin 3.4 (3.4-4.8) gm/dL Assessment and Plan Additional Assessment & Plan Additional Plan: 1. History of stage IIIa left breast CA s/p modified mastectomy postop chemoradiation currently receiving abemaciclib Zometa anastrozole 2. Admitted with hypokalemia chest pain symptoms. Hypokalemia now corrected and cardiac condition cleared by Dr. Carpenter of need for acute intervention. 3. Appears to be improving clinically. Will be happy to see patient following discharge at [facility].
--- NOTE | 2025-01-12 13:38 | PC.SS ---
Patient is alert/oriented. Patient was admitted for chest pain. Patient states she resides with her and friend. Prior to hospitalization patient was independent with ADL's. Patient states she was not seeing a [facility] for o/p services. PCP is Dr. Santizo at the [facility]. Last appt was 2 weeks ago. Patient states her son, Ramo, is the alt medical decision maker. Patient plans on returning back home. Pharmacy: [facility]. Family will provide transportation assistance.
--- NOTE | 2025-01-12 14:34 | PD.ADDPROG ---
Addendum Progress Note Addendum Date of report being addended: 01/12/25 Narrative: I reviewed labs, imaging, EKG, home medications and prior available records. Face to face evaluation was performed by me. I have personally examined the patient and discussed assessment and plan with the IM team. I reviewed the resident note and agree with the plan with exceptions as below. Acute hypotension, possibly related to severe dehydration, improved Acute diarrhea, possibly related to chemotherapy Hypokalemia, likely due to diarrhea Hypophosphatemia Leukopenia, likely related to chemotherapy, improved Thrombocytopenia, likely related to chemotherapy and chronic illness Non-STEMI, likely demand ischemia, troponin peaked Breast cancer on chemotherapy, followed by Dr. Mendoza Started IV fluids. Monitor BP closely Ordered C. difficile: Pending Repleted potassium. Continue to replete as needed and follow-up BMP Repleted phosphorous. Follow-up phosphorus level Monitor WBC: Slightly improved Monitor platelet level. Stable. Monitor for bleeding Troponin peaked. Cardiology consulted: No further need for cardiology workup Continue chemotherapy. Consulted oncology Dr. Mendoza given the possible side effect from her medication Verzinio Likely discharge in 24 hours if electrolytes are stable. Outpatient follow-up with oncology.
[2025-01-12] MEDS: Magnesium Sulfate 2 GM Ivpb 2 GM/50 ML BAG IV (15:00)
--- NOTE | 2025-01-12 15:03 | PD.RESPRO ---
Documentation for date of: 01/12/25 Subjective Subjective Interval history: Patient seen at bedside. No acute overnight events. She has no new complaints today, chest pain has resolved and only had one bowel movement overnight. Labs reviewed, potassium level low today-3.[address] On[address] Mendoza consulted to review medications, does not think medications are the cause of diarrhea, recommends to continue and follow upon discharge. Anticipate discharge in the next 24 hours if patient remains stable. 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 Eyes open, symmetrical, & clear CARDIO: No chest pain on palpation. Heart RRR, no obvious murmurs PULM: No noted coughing/dyspnea. Lungs CTA B/L GI: Abdomen soft, nondistended, no pain on palpation. BSx4 URO/HONING MACHINE SET UP OPERATOR:: No further abnormalities noted. SKIN/MSK/EXT: No wounds/rashes/edema/amputations, no pain on palpation. Pedal pulses present B/L Objective Labs 01/13/25 04:39 01/13/25 04:39 Labs: Laboratory Results - last 24 hr 01/11/25 01/11/25 01/12/25 15:08 20:28 04:45 WBC 2.4 L RBC 2.36 L Hgb 7.8 L Hct 23.3 L MCV 99 MCH 33.1 MCHC 33.5 RDW Std Deviation 52.2 H Plt Count 81 L Neut % (Auto) 63 Lymph % (Auto) 29 [place] % (Auto) 5 Eos % (Auto) 1 Baso % (Auto) 1 Neut # (Auto) 1.5 L Lymph # (Auto) 0.7 L [place] # (Auto) 0.1 Eos # (Auto) 0.0 Baso # (Auto) 0.0 Immature Gran # (Auto) 0.01 H Absolute Nucleated RBC 0.00 Immature Gran % 0 Nucleated RBC % 0 Smear Path Review Sent to Pathologist Sodium 143 Potassium 3.3 L D Chloride 110 H Carbon Dioxide 25.2 Anion Gap 8 BUN 7 L Creatinine 0.7 Estim Creat Clear Calc 81.0 eGFR > 60 BUN/Creatinine Ratio 10 L Glucose 85 Calculated Osmolality 281 Calcium 8.8 Corrected Calcium 9.3 Magnesium 1.8 Total Bilirubin 0.8 AST 16 ALT 8 L Alkaline Phosphatase 58 Troponin I 0.027 0.029 Total Protein 5.3 L Albumin 3.4 Globulin 1.9 L Albumin/Globulin Ratio 1.8 Quality Measures Quality Measures none Assessment & Plan Assessment Current Active Medications: Generic Name Dose Route Start Last Admin Trade Name Freq PRN Reason Stop Dose Admin Acetaminophen 650 mg 01/10/25 23:14 Acetaminophen 325 Mg Tablet PO 02/09/25 23:13 Q6H PRN Fever >101.5 Acetaminophen 650 mg 01/10/25 23:14 Acetaminophen 325 Mg Tablet PO 02/09/25 23:13 Q6H PRN PAIN SCALE 1-3 (mild Anastrozole 1 mg 01/11/25 11:30 01/11/25 12:57 Anastrozole 1 Mg Tablet PO 02/10/25 11:29 1 mg QDAY LENIN Administration Atorvastatin Calcium 40 mg 01/11/25 21:00 01/11/25 20:09 Atorvastatin Calcium 20 Mg Tablet PO 02/10/25 20:59 40 mg HS LENIN Administration Verzenio(Abemaciclib 0 ea 01/11/25 14:45 01/12/25 08:51 ) 150 Mg Tablet PO 02/10/25 14:44 1 tablet BID LENIN Administration Famotidine 20 mg 01/11/25 11:10 Famotidine 20 Mg Tablet PO 02/10/25 11:09 BID PRN acid reflux Gabapentin 100 mg 01/11/25 09:00 01/12/25 08:49 Gabapentin 100 Mg Capsule PO 02/10/25 08:59 100 mg BID LENIN Administration Lactobacillus Rhamnosus 1 cap 01/11/25 10:35 01/12/25 08:49 Lactobacillus Rhamnosus 1 Cap PO 02/10/25 10:34 1 cap BID LENIN Administration Loperamide HCl 2 mg 01/11/25 11:09 Loperamide 2 Mg Capsule PO 01/18/25 11:08 Q6HR PRN DIARRHEA Ondansetron HCl 4 mg 01/10/25 23:14 Ondansetron Inj 2 Mg/Ml Inj 2 Ml IV 02/09/25 23:13 Q6H PRN NAUSEA OR VOMITING Protocol Rivaroxaban 20 mg 01/12/25 08:00 01/12/25 08:49 Rivaroxaban 10 Mg Tablet PO 02/01/25 08:59 20 mg WBR LENIN Administration Sennosides 1 tab 01/10/25 23:14 Senna Tablet PO 02/09/25 23:13 QDAY PRN constipation Protocol Trazodone HCl 50 mg 01/11/25 11:27 Trazodone Hcl 50 Mg Tablet PO 02/10/25 11:26 HS PRN INSOMNIA Plan Summary: The patient is a 64-year-old female with past medical history of left breast poorly differentiated invasive ductal carcinoma diagnosed in August 2023, ER positive, MD negative, HER2/sarai negative, s/p left-sided modified mastectomy and chemotherapy for Stage IIIa (pT2, snN2A) and DVT who presented to [facility] emergency department from home on 01/10/25 with chief complaint of low potassium. Patient endorses chest pain, had elevated troponins, patient admitted for observation. #Chest pain #Likely phantom neuropathic pain She presented with substernal chest pain, intermittent over the past couple months. She reports they last about 15 seconds, does not radiate to the jaw to the left arm. Palpation alleviates the pain and he has no association with exertion. Patient did have a mastectomy done for invasive ductal carcinoma and prior to this, had no similar complaints. Although troponin levels are mildly elevated on admission, they have now returned to normal, EKG is unremarkable Plan: -Continue to monitor #Electrolyte imbalance #Hypokalemia-resolved #Hypophosphatemia Patient follows with cancer treatment center, per [facility] labs patient had hypokalemia patient's potassium 2.3 on presentation, was given 40 mEq in ED. Patient endorsed bilateral lower extremity weakness, has neuropathy otherwise. Patient also complains of generalized weakness. On admission, she received potassium and magnesium. Potassium today is 3.3 and magnesium 1.8. Plan: -Continue to replete electrolytes accordingly #Diarrhea The patient does report multiple episodes of watery diarrhea, that has been going on for about a week. She reports no blood in stool, no nausea no vomiting. Although this is likely a side effect of immunotherapy, will order C. difficile to rule out Had one bowel movement overnight Plan: -Continue to monitor #Elevated troponin Endorses intermittent substernal chest pain, no radiation. EKG negative for ST elevation depression, troponin 0.046 on admission. Troponins peaked and now normal. Cardiology evaluated, cleared patient for discharge. To follow up with cardio outpatient if symptoms persist Plan: -Stable, cleared for discharge by cardiology #DVT During hospital stay in November patient was found to have a left axillary DVT and was started on lovenox and upon discharge on Xarelto starter pack for 1 month and to continue for 2 more months for total of 3 months treatment for DVT. Plan: -Continue Xarelto 20 mg, home medications until 03/07/2025) #Pancytopenia #Neutropenia #Anemia, normocytic normochromic #Thrombocytopenia -Patient on chemotherapy -Monitor CBC in a.m. #Asymptomatic bacteriuria UA significant for protein 1+, blood 2+, positive for leukocyte Estrace, RBC 23, WBC 137, rare bacteria. Patient denies symptoms. #Left breast poorly differentiated invasive ductal carcinoma diagnosed in August 2023 ER positive, MD negative, HER2/sarai negative, s/p left-sided modified mastectomy and chemotherapy for Stage IIIa (pT2, snN2A) Plan: Home meds resumed DVT prophylaxis: Xarelto GI prophylaxis: PO Protonix Diet:Cardiac Lines: Peripheral IV Code status: Full Code Case was discussed with Dr Sexton PGY-2 and attending physician, Dr Rita Jules MD PGY-1 Disclaimer: This note was dictated by speech recognition. Minor errors in sales associate fishing may be present due to voice recognition software. Attending Provider Attestation/Addendum I reviewed labs, imaging, EKG, home medications and prior available records. Face to face evaluation was performed by me. I have personally examined the patient and discussed assessment and plan with the IM team. I reviewed the resident note and agree with the plan with exceptions as below. See my addendum in a separate addendum note
[2025-01-12] MEDS: POTASSIUM CHLORIDE 20 mEq TABCR 40 MEQ PO ×2 (16:07→18:06)
[2025-01-12] MEDS: ATORVASTATIN CALCIUM 20 MG TABLET 40 MG PO (20:24)
[2025-01-13] VITALS: BP 99/55; PULSE 64; PULSE 65; RESP 16; TEMP 36.3; O2SAT 96
[2025-01-13 04:00] VITALS: BP 115/68; PULSE 62; PULSE 68; RESP 16; TEMP 36.1; O2SAT 98
[2025-01-13 05:45] LABS: Basophils % (Auto) 2 % (0-2.5); Eosinophils % (Auto) 1 % (0-10); Hematocrit 23.7 % (36.0-46.0); Immature Granulocytes % (Auto) 0 % (0-0); Immature Granulocytes Auto 0.01 Thou/mm3 (0.00-0.00); Lymphocytes # (Auto) 0.7 Thou/mm3 (1.0-4.8); Lymphocytes % (Auto) 28 % (10-50); Mean Corpuscular HGB Conc 34.2 g/dl (31.0-37.0); Mean Corpuscular Hemoglobin 33.2 pg (25.0-35.0); Mean Corpuscular Volume 97 fL (80-100); Monocytes # (Auto) 0.1 Thou/mm3 (0.0-0.8); Monocytes % (Auto) 5 % (0-12); Neutrophils # (Auto) 1.6 Thou/mm3 (1.8-7.7); Neutrophils % (Auto) 64 % (37-80); Nucleated Red Blood Cell % 0 /100 WBC (0); Platelet Count 104 Thou/mm3 (140-440); RDW Standard Deviation 50.2 fL (36.4-46.3); Red Blood Count 2.44 Miln/mm3 (4.00-5.20)
[2025-01-13 06:00] VITALS: BMI 25.8
[2025-01-13 06:01] LABS: Hemoglobin 8.1 g/dL (12.0-16.0); White Blood Count 2.6 Thou/mm3 (3.6-11.0)
[2025-01-13 06:28] LABS: Alanine Aminotransferase < 7 U/L (10-49); Albumin, Serum 3.4 gm/dL (3.4-4.8); Albumin/Globulin Ratio 1.8 (1.2-2.2); Alkaline Phosphatase 59 U/L (46-116); Anion Gap 5 (7-16); Aspartate Amino Transferase 14 U/L (0-34); BUN/Creatinine Ratio 13 Ratio (12-20); Bilirubin,Total 0.7 mg/dL (0.3-1.2); Blood Urea Nitrogen 9 mg/dL (9-23); Calcium 9.2 mg/dL (8.3-10.6); Calcium (Corrected) 9.7 mg/dL (8.5-10.1); Carbon Dioxide 25.6 mMol/L (20.0-31.0); Chloride 111 mMol/L (98-107); Creatinine (Component) 0.7 mg/dL (0.6-1.3); Globulin 1.9 gm/dL (2.3-3.5); Glucose 85 mg/dL (74-106); Osmolality,Calculated 280 (275-295); Potassium 4.1 mMol/L (3.4-5.1); Sodium 142 mMol/L (136-145); Total Protein 5.3 gm/dL (5.7-8.2); eGFR > 60 See Note
[2025-01-13 06:52] VITALS: PULSE 93; RESP 16; RESP 98
[2025-01-13 08:00] VITALS: BP 129/88; PULSE 72; PULSE 93; RESP 17; TEMP 36.3; O2SAT 97
[2025-01-13] MEDS: RIVAROXABAN 10 MG TABLET 20 MG PO (09:13)
[2025-01-13] MEDS: GABAPENTIN 100 MG CAPSULE PO (09:13)
[2025-01-13] MEDS: LACTOBACILLUS RHAMNOSUS 1 CAP PO (09:13)
[2025-01-13] MEDS: VERZENIO 150 MG PO (09:15)
[2025-01-13] MEDS: ANASTROZOLE 1 MG TABLET PO (09:17)
--- NOTE | 2025-01-13 10:59 | PC.SS ---
Follow up note: SS met with patient to discuss final d/c plans. Patient states she's fine and independent with ADL's. She will be following up with [facility] on Thursday. Patient drives herself to appointments.
[2025-01-13 11:35] VITALS: BP 103/60; PULSE 67; RESP 18; TEMP 36.3; O2SAT 98
[2025-01-13 12:00] VITALS: PULSE 66
--- NOTE | 2025-01-13 12:14 | PD.RESDS ---
Planned Discharge Date 01/13/25 DS: Providers Provider Date of admission: 01/12/25 14:50 Primary care physician: Physician No Primary/Family Admitting Provider: Rodney Fowler MD Attending Provider on Admission: Gopi Salinas MD Consults: 01/10/25 22:08 Consult to Cardiology Stat Comment: Elevated troponin Consulting Provider: JimiDiallo 01/12/25 09:28 Consult to Oncology Routine Comment: Consulting Provider: Martin Mendoza Attending Provider on DC: Massiel Smith MD Discharging Provider: Martin Jules MD DS: Diagnosis Problem List Completed Was Problem List Reviewed/Reconciled?: Yes Hospital Course Hospital Course Hospital course: The patient is a 64-year-old female with a past medical history of differentiated invasive ductal carcinoma status post left-sided mastectomy and chemotherapy, currently on home immunotherapy presents to the ED on 01/10/2025 with abnormal labs-hypokalemia with associated symptoms of diarrhea and chest pain. In the ED, troponins were mildly elevated, patient was hypokalemic repleted with potassium. Evaluated the patient, chest pain is atypical, substernal relieved by pressure, nonradiating, likely phanthom neuropathic pain. Cardiology was consulted, had no further recommendations or evaluations and cleared the patient for discharge. While on admission, the patient had only 2 bowel movements and diarrhea resolved. Oncologist Dr. Kelly vogel was consulted to evaluate whether or not diarrhea could have been as a result of immunotherapy medications. He recommended to continue medications and follow-up as an outpatient upon discharge. Today, the patient is clinically and hemodynamically stable, potassium is within normal limits, she no longer has diarrhea or chest pain. She is medically cleared for discharge. She is recommended to follow-up with her PCP within 1 week of discharge with repeat renal panel. She will continue potassium tablets 20 mEq daily. She also follow-up with oncologist Dr. Mendoza in the cancer center within 2 weeks of discharge. 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 Minor errors in health and wellness coach may be present due to voice recognition software. Time Spent with Patient Time attestation: Total time spent providing and/or coordinating discharge services: Exam Vital Signs Temp Pulse Resp BP Pulse Ox O2 Del Method 97.3 F 66 18 103/60 98 Room Air 01/13/25 11:35 01/13/25 12:00 01/13/25 11:35 01/13/25 11:35 01/13/25 11:35 01/13/25 08:00 Narrative Exam GENERAL: AAOX3 NEURO: FISH AND GAME WARDEN grossly intact, moves extremities x4 HEENT: Moist mucosa. Eyes open, symmetrical, & clear CARDIO: No chest pain on palpation. Heart RRR, no obvious murmurs PULM: No noted coughing/dyspnea. Lungs CTA B/L GI: Abdomen soft, nondistended, no pain on palpation. BSx4 URO/TRAIN DIRECTOR:: No further abnormalities noted. SKIN/MSK/EXT: No wounds/rashes/edema/amputations, no pain on palpation. Pedal pulses present B/L Discharge Plan Plan Patient Disposition: HOME (Self Care) Care Plan Goals: Follow up with your PCP within one week of discharge Repeat a renal panel in a week prior to appointment Follow up with Oncologist Dr Mendoza in the cancer center within two weeks of discharge Take potassium tablets 20meq daily Continue other medications as prescribed Return to the ED if your symptoms worsen Prescriptions/Referrals Prescriptions/Med Rec: New potassium chloride 20 mEq tablet extended release 20 meq PO QDAY 14 Days Qty: 14 0RF Continued atorvastatin 40 mg tablet 40 mg PO HS Qty: 30 3RF rivaroxaban 20 mg tablet 20 mg PO QPM 60 Days Qty: 60 0RF Rx Instructions: must administer with evening meal anastrozole 1 mg tablet 1 mg PO QDAY Qty: 30 0RF docusate calcium 240 mg capsule 240 mg PO QDAY PRN (Reason: constipation) Qty: 30 1RF trazodone 50 mg tablet 50 mg PO QHS PRN (Reason: insomnia) 30 Days Qty: 30 0RF (DME) compression socks, medium Misc See Rx Instructions .Route Qty: 1 0RF Rx Instructions: As directed gabapentin 100 mg capsule 200 mg PO BID Verzenio 150 mg Tablet 150 mg PO BID Discontinued loperamide 2 mg capsule 2 mg PO Q6H PRN (Reason: loose stool) Qty: 30 3RF Referrals: Martin Mendoza MD [Physician] - No Primary/Family,Physician [Primary Care Provider] - Patient/Caregiver Discharge Instructions Other Discharge Activity Instructions:: Follow up with your PCP within one week of discharge Repeat a renal panel in a week prior to appointment Follow up with Oncologist Dr Mendoza in the cancer center within two weeks of discharge Take potassium tablets 20meq daily Continue other medications as prescribed Return to the ED if your symptoms worsen Education Materials: Anxiety Disorders Tx Therapy, Discharge Instructions for ..., ED Hypokalemia Print Language: Greenlandic Discharge Order Discharge Orders: Discharge (Routine); Ordered 01/13/25 Ordered By: Martin Jules Quality Discharge Quality Measures VTE prophylaxis
== END 2025-01-13 13:16 | disposition home or self-care (01) | DRG 641 ==
LOC: SERX 22:09 → SERHOLD 23:39 → S3NX 01-11 11:45
PROVIDERS: Admitting Provider Internal Medicine; Emergency Provider Emergency Medicine; Visit Provider Student in an Organized Health Care Education/Training Program
DX: E87.6 Hypokalemia (principal); D61.818 Other pancytopenia; R07.89 Other chest pain; R19.7 Diarrhea, unspecified; R79.89 Other specified abnormal findings of blood chemistry; G62.9 Polyneuropathy, unspecified; C50.912 Malignant neoplasm of unspecified site of left female breast; I95.9 Hypotension, unspecified; E83.39 Other disorders of phosphorus metabolism; E78.5 Hyperlipidemia, unspecified; D69.59 Other secondary thrombocytopenia; R53.1 Weakness; Z17.0 Estrogen receptor positive status [ER+]; Z86.718 Personal history of other venous thrombosis and embolism; Z17.22 Progesterone receptor negative status; R82.71 Bacteriuria; Z92.21 Personal history of antineoplastic chemotherapy; Z90.12 Acquired absence of left breast and nipple; Z88.0 Allergy status to penicillin; Z17.32 Human epidermal growth factor receptor 2 negative status; Z87.891 Personal history of nicotine dependence; Z79.899 Other long term (current) drug therapy; Z79.01 Long term (current) use of anticoagulants; Z92.3 Personal history of irradiation
CPT/HCPCS: 36415; 80053; 81001; 83735; 83880; 84100; 84443; 84484; 85025; 85379; 85610; 85730; 87086; 87493; 93005; 93225; 96365; 96366; 96368; 99285; G0378; J0696; J3475; J7030; J7050; A9270

== ENCOUNTER 2025-01-23 09:05 | Outpatient (AMB) | payer BC, SELFPAY ==
[2025-01-23 09:16] VITALS: BP 120/78; PULSE 94; RESP 16; TEMP 36.2; O2SAT 99
--- NOTE | 2025-01-23 09:16 | ACNOTE_ITS ---
Vital Signs 01/23/25 09:16 Weight 58.23 kg Weight Measurement Method Standing Scale BP 120/78 Blood Pressure Source Automatic Cuff Blood Pressure Location Left Upper Arm Position Sitting Respiration 16 Pulse 94 Pulse Source Monitor Temp 97.2 F Temp Source Oral Pulse Oximetry (%) 99 Oxygen Delivery Method Room Air Allergies/Meds Allergies & Medications Allergies Penicillins Allergy (Verified 01/23/25 09:17) Hives Medication Reconciliation abemaciclib 150 mg tablet (Verzenio) 150 mg PO BID 11/08/24 [History Confirmed 01/23/25] compression socks, medium #1 ea 12/06/24 [Rx Confirmed 01/23/25] atorvastatin 40 mg tablet 40 mg PO HS #30 tabs 12/12/24 [Rx Confirmed 01/23/25] rivaroxaban 20 mg tablet 20 mg PO QPM 2 months #60 tabs 12/12/24 [Rx Confirmed 01/23/25] anastrozole 1 mg tablet 1 mg PO QDAY #30 tabs 01/02/25 [Rx Confirmed 01/23/25] docusate calcium 240 mg capsule 240 mg PO QDAY PRN constipation #30 caps 01/02/25 [Rx Confirmed 01/23/25] trazodone 50 mg tablet 50 mg PO QHS PRN insomnia 1 month #30 tabs 01/02/25 [Rx Confirmed 01/23/25] gabapentin 100 mg capsule 200 mg PO BID nerve pain 01/11/25 [History Confirmed 01/23/25] potassium chloride 20 mEq tablet,extended release 20 meq PO QDAY 14 days #14 tabs 01/13/25 [Rx Confirmed 01/23/25] MA Intake Visit Data Collection New Patient or Established: Established Patient (seen at [facility] within 3 years) Seen by Clinical Staff ONLY (RN/MA): No Pain Present Currently: No Pain scale:: 0 Pain Scale Used: [employer] Sales Representative Required: No PCP or OBGYN visit in last 3 months: Yes Date of Last PCP or OBGYN visit: 01/02/25 Hx Now: No Do You Feel Safe at Home: Yes Authorities Contacted: N/A Smoking Status Smoking Status: Former smoker Immunization / Flu Flu Vaccine in the Last 12 Months: Yes Flu Vaccine Exclusion Criteria: No Exclusion Criteria Past Medical History Past Medical History NEUROLOGIC: Negative Neurological Disorders or Seizures CARDIAC: Negative Cardiac Disorders or Congestive Heart Failure RESPIRATORY: Negative Chronic Obstructive Pulmonary Disease (COPD) or Asthma GASTROINTESTINAL: Positive Gastrointestinal Disorders and Hemorrhoids; Negative Hepatitis GENITOURINARY: Negative Genitourinary Disorders or Renal Disease REPRODUCTIVE: Positive Breast Cancer and Previous Pregnancies MUSCULOSKELETAL: Positive Degenerative Disk Disease ENDOCRINE: Negative Endocrine Disorders, Diabetes Mellitus Type 1 or Diabetes Mellitus Type 2 HEMATOLOGIC: Negative Blood Disorders, Anemia or Sickle Cell Disease PSYCHO/SOCIAL: Negative Depression or Anxiety OTHER HISTORY: Positive Hospitalization, Chemotherapy, Radiation Therapy, Chicken Pox, Measles, Cancer and Breast Cancer; Negative Shingles, Blood Transfusions, Blood Transfusion Reaction or Anesthesia Reactions Family History FAMILY HISTORY: Positive Family Cardiac Disorders and Family Surgery; Negative Family Psychiatric Problems, Family Respiratory Disorders, Family Gastrointestinal Problems, Family Cancer or Family Anesthesia Reaction Surgical History SURGICAL: Positive Abdominal Surgery, Mastectomy, Lumpectomy and Hysterectomy Social History SMOKING STATUS: Smoking status: Former smoker ALCOHOL: Alcohol Intake: Current ALCOHOL FREQUENCY: Alcohol Intake Frequency: holidays/special occasions only HOUSING: Housing: House LIVES WITH: Lives With: Family Patient Portal Questionaires PHQ-9 PHQ-2 Over the last 2 weeks, how often have you been bothered by any of the following problems? 1. Little interest or pleasure in doing things: not at all 2. Feeling down, depressed, or hopeless: not at all Total score: 0 Depression screen completed yes Social History Living Situation History Housing: House Housing Other:: Pt from home Tobacco History Smoking Status: Former smoker Alcohol History Alcohol Intake: Current Alcohol Intake Frequency: holidays/special occasions only Domestic Abuse History Do You Feel Safe at Home: Yes Review of Systems Report any current symptoms Only answer those that you have currently: Past Medical History Past Medical History Have you ever been diagnosed with any of the following: Neurological Problems Seizures: No Cardiology Problems Congestive Heart Failure: No Respiratory Problems Chronic Obstructive Pulmonary Disease (COPD): No Asthma: No Stomache/Intestinal Problems Hepatitis: No Hemorrhoids: Yes Genital/Urinary Problems Renal Disease: No Reproductive Problems Breast Cancer: Yes Previous Pregnancies: Yes Musculoskeletal Problems Degenerative Disk Disease: Yes Endocrine Problems Diabetes Mellitus Type 1: No Diabetes Mellitus Type 2: No Blood Problems Anemia: No Sickle Cell Disease: No Psychologic Problems Depression: No Anxiety: No Other Problems Hospitalization: Yes Shingles: No Blood Transfusions: No Blood Transfusion Reaction: No Anesthesia Reactions: No Chemotherapy: Yes Radiation Therapy: Yes Chicken Pox: Yes Measles: Yes Cancer: Yes Surgical History Hysterectomy: Yes History of Present Illness HPI Narrative Irma Fine is 64 yr female with PMH of left breast poorly differentiated invasive ductal carcinoma diagnosed in August 2023, ER positive, AR negative, HER2/sarai negative, s/p left-sided modified mastectomy and chemotherapy for Stage IIIa (pT2, snN2A) is presenting to clinic today for follow up. Patient has almost completed Xarelto starter pack for treatment of LUE DVT. Today there is still mild swelling in L arm > right with some pain to squeezing. Skin Temperature changes are equal on both sides. Patient states that the swelling has not worsened. She denies any SOB, chest pain, or fever. She was reminded of high bleeding risks and should check for any blood in stool. She also complains of pressure in neck when leaning forward. It resolves when returns to sitting/laying down. Maybe due to underlying lymph/venous drainage in setting of breast cancer s/p mastectomy. MRA head neck done during admission was negative for any pathology. Patient has apt to see oncologist Dr. Nichole in ~1week. Repeat imaging will be done then. Posterior cyst in mid back was drained few weeks ago and healing properly. New refills were sent for docusate, loperamide and trazodone. Xarelto, anastrozole, atorvastatin, and gabapentin have refills ordered. Patient was instructed to return if any worsening sypmtoms. Patient will follow up with neurology Dr. Turner for another EEG. Referall was sent at [facility] appt. 01/23/25: Patient presents to clinic today for a follow up. She was discharged from [facility] on 01/13/25 after being managed for hypokalemia. Currently on 20mEq potassium tabs daily. Patient has started seeing Dr. Mendoza as well with continuation of care with Dr. Nichole. Today she denies any chest pain, SOB, or palpitations. Dose endorse some dizziness which improves with slow movement. Has been getting better past few days. Still having loose stool 2-3 movements/day, no blood in the stool. Her arm pain has resolved and is compliant with her Xarelto. Today patient will get renal panel and order mammogram/US. Review of Systems Constitutional Constitutional: Reports system reviewed and no additional complaints, except as documented Objective/Exam Narrative Physical exam: General: Alert and oriented x3. No acute distress, cooperative, slow responses Eyes: Pupils are equal and reactive to light bilaterally HENT: Atraumatic, normocephalic. No JVD noted. Mucosa moist. Cardiovascular: Normal S1 and S2. Regular rate and rhythm. Respiratory: Lungs are clear to auscultation bilaterally. No wheezing or crackles heard. Abdomen: Soft, nontender, not distended, normal bowel sounds. Skin: Warm to touch, dry, no rashes noted, scar on left chest from mastectomy, well healing scar in midback s/p cyst drain Musculoskeletal: No gross injuries. Able to move all 4 extremities. No pitting edema. Neuro: Alert and oriented x3. No focal neuro deficits. Psych: Normal affect and mood, slow to respond, forgetful Assessment & Plan Diagnosis / Problem List (1) Breast cancer: Status: Chronic Qualifiers: Breast location: unspecified site of breast Estrogen receptor status: positive Patient sex: female Laterality: left Qualified Code(s): C50.912 - Malignant neoplasm of unspecified site of left female breast; Z17.0 - Estrogen receptor positive status [ER+] Assessment & Plan: Patient to continue follow up with Dr. Nichole and Dr. Mendoza. No concerns or complaints at this time. Plan: Complete mammogram and breast US. (2) Hypokalemia: Status: Acute Assessment & Plan: Denies any chest pain or palpitations. Still has some loose BM 2-3 times/day. Endorses some dizziness. Plan: -follow up with renal panel -will adjust potassium as needed -continue 20mEq oral potassium daily -follow up scheduled in a week Orders: Orders GISELLA CAD diagnostic UNI Today C50.912 - Malignant neoplasm of unspecified site of left female breast, Z17.0 - Estrogen receptor positive status [ER+] US breast BI complete Today C50.912 - Malignant neoplasm of unspecified site of left female breast, Z17.0 - Estrogen receptor positive status [ER+] Office Procedures [facility] Level of Care Nursing/Assessment Patient Status: Established Patient Nursing Assessment/Reassessment: BP Monitoring, Medication Reconciliation, Up date PMH in EMR and Vital Signs Coordination of Care: Complex Care and Chronic Disease 1-5, Consent,records obtained, informed consent, Education Simp Pt/Fam and Staff clarify orders Established Patient Charge Established Patient Point Assignment: 100 Established Patient Point Charge: EP Level 3 (80-115)
== END 2025-01-23 09:41 | disposition home or self-care (01) ==
LOC: HODAHC 09:05
PROVIDERS: Supervising Provider Internal Medicine
DX: E87.6 Hypokalemia (principal); C50.812 Malignant neoplasm of overlapping sites of left female breast; Z17.0 Estrogen receptor positive status [ER+]
CPT/HCPCS: 99213; G0463

== ENCOUNTER → 2025-01-25 | Outpatient (CLI) | payer BC, SELFPAY ==
--- NOTE | 2025-01-25 10:47 | EKG_ITS ---
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
== END | disposition home or self-care (01) ==
LOC: SEKG 10:37
PROVIDERS: PCP Internal Medicine; Referring Provider Internal Medicine Hematology & Oncology; Visit Provider Internal Medicine Hematology & Oncology
DX: C50.912 Malignant neoplasm of unspecified site of left female breast (principal)
CPT/HCPCS: 93005

== ENCOUNTER 2025-01-26 14:08 | Outpatient (RCR) | payer BC, SELFPAY ==
[2025-01-09 15:54] LABS: Basophils % (Auto) 1 % (0-2.5); Eosinophils % (Auto) 1 % (0-10); Hematocrit 26.6 % (36.0-46.0); Hemoglobin 8.9 g/dL (12.0-16.0); Immature Granulocytes % (Auto) 0 % (0-0); Immature Granulocytes Auto 0.01 Thou/mm3 (0.00-0.00); Lymphocytes # (Auto) 0.9 Thou/mm3 (1.0-4.8); Lymphocytes % (Auto) 30 % (10-50); Mean Corpuscular HGB Conc 33.5 g/dl (31.0-37.0); Mean Corpuscular Hemoglobin 32.6 pg (25.0-35.0); Mean Corpuscular Volume 97 fL (80-100); Monocytes # (Auto) 0.1 Thou/mm3 (0.0-0.8); Monocytes % (Auto) 5 % (0-12); Neutrophils # (Auto) 1.9 Thou/mm3 (1.8-7.7); Neutrophils % (Auto) 63 % (37-80); Nucleated Red Blood Cell % 0 /100 WBC (0); Platelet Count 113 Thou/mm3 (140-440); RDW Standard Deviation 49.8 fL (36.4-46.3); Red Blood Count 2.73 Miln/mm3 (4.00-5.20)
[2025-01-09 16:23] LABS: INR 2.1 (0.9-1.3); Partial Thromboplastin Time 61.7 Seconds (22.0-36.0); Prothrombin Time 21.6 Seconds (9.0-12.2)
[2025-01-09 17:01] LABS: Alanine Aminotransferase 9 U/L (10-49); Albumin, Serum 4.1 gm/dL (3.4-4.8); Alkaline Phosphatase 68 U/L (46-116); Anion Gap 9 (7-16); Aspartate Amino Transferase 17 U/L (0-34); BUN/Creatinine Ratio 18 Ratio (12-20); Bilirubin,Total 0.9 mg/dL (0.3-1.2); Blood Urea Nitrogen 14 mg/dL (9-23); Calcium 9.3 mg/dL (8.3-10.6); Calcium (Corrected) 9.3 mg/dL (8.5-10.1); Carbon Dioxide 30.1 mMol/L (20.0-31.0); Chloride 102 mMol/L (98-107); Creatinine (Component) 0.8 mg/dL (0.6-1.3); Globulin 2.1 gm/dL (2.3-3.5); Glucose 92 mg/dL (74-106); Osmolality,Calculated 281 (275-295); Sodium 141 mMol/L (136-145); Total Protein 6.2 gm/dL (5.7-8.2); eGFR > 60 See Note
[2025-01-09 17:07] LABS: Potassium 2.3 mMol/L (3.4-5.1)
[2025-01-09 21:14] LABS: CA 15-3 21.4 U/mL (<32.4)
[2025-01-10 14:57] LABS: Alanine Aminotransferase < 7 U/L (10-49); Albumin, Serum 4.1 gm/dL (3.4-4.8); Albumin/Globulin Ratio 1.8 (1.2-2.2); Alkaline Phosphatase 66 U/L (46-116); Anion Gap 4 (7-16); Aspartate Amino Transferase 18 U/L (0-34); BUN/Creatinine Ratio 13 Ratio (12-20); Blood Urea Nitrogen 12 mg/dL (9-23); Calcium 9.6 mg/dL (8.3-10.6); Calcium (Corrected) 9.6 mg/dL (8.5-10.1); Carbon Dioxide 30.4 mMol/L (20.0-31.0); Chloride 106 mMol/L (98-107); Creatinine (Component) 0.9 mg/dL (0.6-1.3); Globulin 2.3 gm/dL (2.3-3.5); Glucose 89 mg/dL (74-106); Osmolality,Calculated 278 (275-295); Sodium 140 mMol/L (136-145); Total Protein 6.4 gm/dL (5.7-8.2); eGFR > 60 See Note
[2025-01-10 14:58] LABS: Potassium 2.4 mMol/L (3.4-5.1)
[2025-01-10 17:20] LABS: Albumin, Serum 3.8 gm/dL (3.4-4.8); Albumin/Globulin Ratio 1.9 (1.2-2.2); Alkaline Phosphatase 64 U/L (46-116); Anion Gap 7 (7-16); Aspartate Amino Transferase 15 U/L (0-34); BUN/Creatinine Ratio 14 Ratio (12-20); Bilirubin,Total 0.8 mg/dL (0.3-1.2); Blood Urea Nitrogen 11 mg/dL (9-23); Calcium 8.8 mg/dL (8.3-10.6); Carbon Dioxide 28.8 mMol/L (20.0-31.0); Chloride 107 mMol/L (98-107); Creatinine (Component) 0.8 mg/dL (0.6-1.3); Glucose 102 mg/dL (74-106); Osmolality,Calculated 284 (275-295); Sodium 143 mMol/L (136-145); Total Protein 5.8 gm/dL (5.7-8.2); eGFR > 60 See Note
[2025-01-10 17:26] LABS: Alanine Aminotransferase 7 U/L (10-49)
[2025-01-10 17:28] LABS: Potassium 2.6 mMol/L (3.4-5.1)
[2025-01-18 14:11] LABS: Basophils % (Auto) 2 % (0-2.5); Eosinophils % (Auto) 1 % (0-10); Hematocrit 26.6 % (36.0-46.0); Immature Granulocytes % (Auto) 1 % (0-0); Immature Granulocytes Auto 0.03 Thou/mm3 (0.00-0.00); Lymphocytes # (Auto) 0.7 Thou/mm3 (1.0-4.8); Lymphocytes % (Auto) 30 % (10-50); Mean Corpuscular HGB Conc 33.8 g/dl (31.0-37.0); Mean Corpuscular Volume 97 fL (80-100); Monocytes # (Auto) 0.2 Thou/mm3 (0.0-0.8); Monocytes % (Auto) 7 % (0-12); Neutrophils # (Auto) 1.4 Thou/mm3 (1.8-7.7); Neutrophils % (Auto) 59 % (37-80); Nucleated Red Blood Cell % 0 /100 WBC (0); Platelet Count 113 Thou/mm3 (140-440); RDW Standard Deviation 50.5 fL (36.4-46.3); Red Blood Count 2.73 Miln/mm3 (4.00-5.20)
[2025-01-18 14:15] LABS: White Blood Count 2.3 Thou/mm3 (3.6-11.0)
[2025-01-18 14:43] LABS: Alanine Aminotransferase 10 U/L (10-49); Albumin, Serum 4.2 gm/dL (3.4-4.8); Albumin/Globulin Ratio 1.8 (1.2-2.2); Alkaline Phosphatase 67 U/L (46-116); Anion Gap 9 (7-16); Aspartate Amino Transferase 16 U/L (0-34); BUN/Creatinine Ratio 18 Ratio (12-20); Bilirubin,Total 0.7 mg/dL (0.3-1.2); Blood Urea Nitrogen 16 mg/dL (9-23); Calcium 9.8 mg/dL (8.3-10.6); Calcium (Corrected) 9.8 mg/dL (8.5-10.1); Carbon Dioxide 23.6 mMol/L (20.0-31.0); Chloride 106 mMol/L (98-107); Creatinine (Component) 0.9 mg/dL (0.6-1.3); Globulin 2.4 gm/dL (2.3-3.5); Glucose 91 mg/dL (74-106); Osmolality,Calculated 278 (275-295); Potassium 3.7 mMol/L (3.4-5.1); Sodium 139 mMol/L (136-145); Total Protein 6.6 gm/dL (5.7-8.2); eGFR > 60 See Note
[2025-01-23 13:31] LABS: Basophils % (Auto) 2 % (0-2.5); Eosinophils % (Auto) 1 % (0-10); Hematocrit 25.9 % (36.0-46.0); Immature Granulocytes % (Auto) 0 % (0-0); Immature Granulocytes Auto 0.01 Thou/mm3 (0.00-0.00); Lymphocytes # (Auto) 0.6 Thou/mm3 (1.0-4.8); Lymphocytes % (Auto) 27 % (10-50); Mean Corpuscular Hemoglobin 33.7 pg (25.0-35.0); Mean Corpuscular Volume 99 fL (80-100); Monocytes # (Auto) 0.2 Thou/mm3 (0.0-0.8); Monocytes % (Auto) 7 % (0-12); Neutrophils # (Auto) 1.5 Thou/mm3 (1.8-7.7); Neutrophils % (Auto) 63 % (37-80); Nucleated Red Blood Cell % 0 /100 WBC (0); Platelet Count 112 Thou/mm3 (140-440); RDW Standard Deviation 53.9 fL (36.4-46.3); Red Blood Count 2.61 Miln/mm3 (4.00-5.20)
[2025-01-23 13:43] LABS: White Blood Count 2.4 Thou/mm3 (3.6-11.0)
[2025-01-23 13:49] LABS: Alanine Aminotransferase 16 U/L (10-49); Albumin, Serum 4.4 gm/dL (3.4-4.8); Albumin/Globulin Ratio 1.8 (1.2-2.2); Alkaline Phosphatase 79 U/L (46-116); Anion Gap 9 (7-16); Aspartate Amino Transferase 18 U/L (0-34); BUN/Creatinine Ratio 20 Ratio (12-20); Bilirubin,Total 0.7 mg/dL (0.3-1.2); Blood Urea Nitrogen 18 mg/dL (9-23); Calcium 10.2 mg/dL (8.3-10.6); Calcium (Corrected) 10.2 mg/dL (8.5-10.1); Carbon Dioxide 22.9 mMol/L (20.0-31.0); Chloride 107 mMol/L (98-107); Creatinine (Component) 0.9 mg/dL (0.6-1.3); Globulin 2.5 gm/dL (2.3-3.5); Glucose 91 mg/dL (74-106); Osmolality,Calculated 279 (275-295); Potassium 3.7 mMol/L (3.4-5.1); Sodium 139 mMol/L (136-145); Total Protein 6.9 gm/dL (5.7-8.2); eGFR > 60 See Note
[2025-01-23 14:04] LABS: Hemoglobin 8.8 g/dL (12.0-16.0)
[2025-01-26 14:53] LABS: Basophils % (Auto) 2 % (0-2.5); Eosinophils % (Auto) 1 % (0-10); Hematocrit 25.1 % (36.0-46.0); Immature Granulocytes % (Auto) 1 % (0-0); Immature Granulocytes Auto 0.03 Thou/mm3 (0.00-0.00); Lymphocytes # (Auto) 0.7 Thou/mm3 (1.0-4.8); Lymphocytes % (Auto) 28 % (10-50); Mean Corpuscular HGB Conc 33.5 g/dl (31.0-37.0); Mean Corpuscular Hemoglobin 33.2 pg (25.0-35.0); Mean Corpuscular Volume 99 fL (80-100); Monocytes # (Auto) 0.2 Thou/mm3 (0.0-0.8); Monocytes % (Auto) 7 % (0-12); Neutrophils # (Auto) 1.4 Thou/mm3 (1.8-7.7); Neutrophils % (Auto) 60 % (37-80); Nucleated Red Blood Cell % 0 /100 WBC (0); Platelet Count 118 Thou/mm3 (140-440); RDW Standard Deviation 55.4 fL (36.4-46.3); Red Blood Count 2.53 Miln/mm3 (4.00-5.20)
[2025-01-26 15:07] LABS: Hemoglobin 8.4 g/dL (12.0-16.0); White Blood Count 2.4 Thou/mm3 (3.6-11.0)
[2025-01-26 15:19] LABS: Alanine Aminotransferase 15 U/L (10-49); Albumin, Serum 4.3 gm/dL (3.4-4.8); Albumin/Globulin Ratio 1.9 (1.2-2.2); Alkaline Phosphatase 81 U/L (46-116); Anion Gap 9 (7-16); Aspartate Amino Transferase 21 U/L (0-34); BUN/Creatinine Ratio 17 Ratio (12-20); Bilirubin,Total 0.6 mg/dL (0.3-1.2); Blood Urea Nitrogen 15 mg/dL (9-23); Calcium 10.1 mg/dL (8.3-10.6); Calcium (Corrected) 10.1 mg/dL (8.5-10.1); Carbon Dioxide 24.3 mMol/L (20.0-31.0); Chloride 106 mMol/L (98-107); Creatinine (Component) 0.9 mg/dL (0.6-1.3); Globulin 2.3 gm/dL (2.3-3.5); Glucose 92 mg/dL (74-106); Osmolality,Calculated 278 (275-295); Potassium 3.8 mMol/L (3.4-5.1); Sodium 139 mMol/L (136-145); Total Protein 6.6 gm/dL (5.7-8.2); eGFR > 60 See Note
--- NOTE | 2025-01-29 23:34 | CTCFLWUP_ITS ---
Patient: IRMA BRYAN : 1960 Page 2 of 2 FOLLOW UP NOTE DATE OF SERVICE: 01/29/2025 NAME: IRMA BRYAN ACCOUNT: [id number] : 1960 AGE: 64 INTERVAL HISTORY: No new complaints ONCOLOGY HISTORY:?[facility] Oncology Hx? DIAGNOSIS: Stage IIIa (pT2, snN2A), ER positive, ND negative, HER2/sarai negative, poorly differentiated invasive ductal carcinoma of the left breast. A total of 5 lymph nodes positive for metastatic disease. Left breast modified radical mastectomy (10/27/2023) Left breast lumpectomy and sentinel lymph node biopsy (09/03/2023) Left breast ultrasound-guided biopsy as well as left axillary lymph node biopsy (07/13/2023) SUE heterozygous mutation positive, high risk for breast and pancreatic cancers. PET/CT scan (05/31/2024) negative study. S/p 4 cycle of dose dense AC chemotherapy and 4 cycles of dose dense Taxol chemotherapy in the adjuvant setting (01/11/2024 - 04/19/2024). First dose of adjuvant Zometa received on 05/17/2020 Adjuvant anastrozole started on 05/30/2024. Abemaciclib started around July 21, 2024. Currently on adjuvant abemaciclib 150 mg p.o. twice daily. Unable to tolerate full dose of abemaciclib which was causing significant diarrhea S/p adjuvant radiation therapy to the left chest (05/10/2024?07/08/2024). DATE OF DIAGNOSIS: 10/19/2023 STAGE/TNM: T2 N2 ER positive/ND negative HER2 negative SUE mutation positive TREATMENT HISTORY: Care?Plan Start?Date Cycle Day Intent AC-Taxol?Dose?Dense?q?2wks 12/21/2023 1 14 Curative?(adjuvant) Zoledronic?Acid?4?mg?adjuvant 05/17/2024 1 180 Curative?(adjuvant) HISTORY OF PRESENT ILLNESS: Irma Bryan is a 64-year-old ENG speaking female with history of anxiety had the following oncology history. Cannot have extensive history of cancer in her family as about 4 in her family including her maternal aunts and sisters. She was diagnosed with high risk stage III breast cancer and and here for follow-up. At the time of diagnosis, she does not remember as to when she exactly had the previous mammograms. Ms. Bryan has strong family history of breast cancer. Her mother as well as 4 of her maternal aunts had breast cancers. Sister had multiple lumps in the breast. Patient with a strong history of breast cancer Ms. Bryan had bilateral diagnostic digital mammograms and bilateral breast ultrasounds done to evaluate palpable breast lumps. 07/13/2023: Ms. Bryan had ultrasound-guided biopsy of the left breast 9:00 nodule and a left axillary lymph node. 09/03/2023: Ms. Bryan had left breast lumpectomy and sentinel lymph node biopsy 10/27/2023: Ms. Bryan had modified radical left mastectomy 11/12/2023: Jame hereditary cancer test? 11/12/2023: BRCA1 and BRCA2 analysis 01/11/2024 - 04/19/2020: Ms. Bryan had 4 cycles of dose dense AC and 4 cycles of Taxol in the adjuvant setting 05/10/2024: Ms. Bryan started adjuvant radiation therapy to the left chest. 05/17/2024. Ms. Bryan received first dose of adjuvant Zometa. 05/30/2024: Ms. Bryan started adjuvant anastrozole. 07/21/2024: Ms. Bryan also started abemaciclib. OTHER MEDICAL HISTORY/CONDITIONS: ANXIETY/?DEPRESSION LEFT?BREAST?CANCER LEFT BREAST BIOPSY 08/2023 LEFT BREAST AND LYMPH NODES REMOVED 10/27/23 HYSTERECTOMY AT AGE 41 APPENDECTOMY AT AGE 18 RIGHT BREAST LUMP REMOVED 1982 BENIGN FAMILY HISTORY: Father:?DENIES Mother: MOTHER AND MATERNAL AUNTS BREAST CANCER Sibling:?SISTER?HX?BREAST?CANCER Children:?DENIES Cancer History:?LEFT BREAST CANCER DX 08/2023 SOCIAL HISTORY: Occupational?History:?DISABLED Education?Level:?6-Attended?Vocational?School,?did?not?graduate Marital?Status:? 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 abemaciclib - 150 mg 1 tab Twice a Day 2. anastrozole - 1 mg 1 tab Daily 3. docusate sodium - 100 mg 1 Capsule As needed 4. gabapentin - 100 mg 2 tab Twice a Day 5. potassium chloride - 8 mEq 1 Capsule Daily 6. traZODone - 50 mg 1 tab As needed 7. Xarelto - 20 mg 1 tab Daily?Palabra Meds? Medications Last Reconciled by Deidre Hernandez MA on 01/17/2025 (Reconcile on Approval: ?) ALLERGIES: Penicillin V REVIEW OF SYSTEMS: A complete 14-point review of systems was performed and is negative except as noted in interval history. PHYSICAL EXAMINATION:?Anselmo PE? VITAL SIGNS: PAIN: None ECOG Performance Status: None EYE: Conjunctivae is white MOUTH: Oral cavity is dry. CHEST: Clear to auscultation. Clear to auscultation. No wheezes or rales audible. CARDIAC: Rhythm regular, no murmurs or gallops present. ABDOMEN: Soft. No hepatomegaly. No splenomegaly. EXTREMITIES: No pedal edema or cyanosis. LABORATORY DATA: I have personally reviewed and interpreted each of the patient?s relevant lab tests, abnormal findings are below: Date 01/26/25 ??WHITE?BLOOD?COUNT?(Thou/mm3) 2.4?L ??RED?BLOOD?COUNT?(Miln/mm3) 2.53?L ??HEMOGLOBIN?(gm/dl) 8.4?L ??HEMATOCRIT?(%) 25.1?L ??PLATELET?COUNT?(Thou/mm3) 118?L ??NEUTROPHILS?%,?AUTO?(%) 60 ??LYMPH?%,?AUTO?(%) 28 ??NEUTROPHILS,?AUTO?(Thou/mm3) 1.4?L ASSESSMENT/PLAN:?Anselmo Nichole Assessment/Plan? #1 stage Illa (pTZ, snNZA), ER positive, ND negative, KARIN/sarai negative, Ki-67 20-30%, poorly differentiated invasive ductal carcinoma of the left breast. Left breast leticia?ed radical mastectomy (10/27/2023) Left breast lumpectomy and sentinel lymph node biopsy (09/03/2023) Left breast ultrasound-guided biopsy as well as left axillary lymph node biopsy (07/13/2023) Status quo 4 cycles of AC and 4 cycles of Taxol chemotherapy in the adjuvant setting Status post adjuvant radiation therapy to the left chest wall completed on 07/08/2024. Patient is on anastrozole and abemaciclib Plan is to continue for 2 years Patient tolerating it well Advised to repeat labs every month Continue abemaciclib 150 mg p.o. twice daily Last PET scan in May 2024 was negative for any metastatic disease PET CT scan ordered to reevaluate for recurrence EKG Normal saline and 1-2 times in a week as needed for hydration CBC CMP #2 osteopenia bone density test showed osteopenia. Currently Ms. Bryan is taking Citracal 2 tablets in the morning 2 in the evening. Started on adjuvant Zometa on 05/17/2024 #3 SUE mutation Strong family history of breast cancers. Mother as well as for maternal aunts had breast cancers. Ms. Bryan is positive for SUE heterozygous mutation, high risk for breast and pancreatic cancers. BRCA 1and2 negative. 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 Continue Neurontin 100 mg p.o. twice daily CBC CMP CA 15-3 ORDERS: CBC CMP PET CT scan EKG normal saline hydration RETURN TO CLINIC: 4 weeks BILLING AND COMPLIANCE: I reviewed external records from providers outside my specialty as summarized above. I spent a total of 50 minutes on this patient?s care on the day of their visit excluding time spent related to any billed procedures. This time includes time spent with the patient as well as time spent documenting in the medical record, reviewing patients records and tests, obtaining history, placing orders, communicating with other healthcare professionals, counseling the patient, family or caregiver, and/or care coordination for the diagnoses above. Electronically Signed by: Sascha Nichole MD T: 11:32 PM CC: PCP: Jennifer Patricio Referring: Jennifer Patricio This document was completed utilizing speech recognition software. Grammatical errors, random word insertions, pronoun errors, and incomplete sentences are an occasional consequence of this system due to software limitations, ambient noise, and hardware issues. Any formal questions or concerns about the content, text or information contained within the body of this dictation should be directly addressed to the provider for clarification.
== END 2025-01-27 23:59 | disposition home or self-care (01) ==
LOC: SCTC 14:08
PROVIDERS: PCP Pediatrics Pediatric Nephrology; Referring Provider Pediatrics Pediatric Nephrology; Visit Provider Internal Medicine Hematology & Oncology
DX: C50.812 Malignant neoplasm of overlapping sites of left female breast (principal); Z17.0 Estrogen receptor positive status [ER+]; Z17.22 Progesterone receptor negative status; Z17.32 Human epidermal growth factor receptor 2 negative status; Z90.12 Acquired absence of left breast and nipple; Z92.21 Personal history of antineoplastic chemotherapy; Z92.3 Personal history of irradiation; M85.80 Other specified disorders of bone density and structure, unspecified site; Z80.3 Family history of malignant neoplasm of breast; Z15.01 Genetic susceptibility to malignant neoplasm of breast; Z15.09 Genetic susceptibility to other malignant neoplasm; G62.9 Polyneuropathy, unspecified
CPT/HCPCS: 36591; 80053; 85025; 85610; 85730; 86300; 96360; 99212; A4216; J1642; J7030; G0463

== ENCOUNTER 2025-01-30 08:46 | Outpatient (AMB) | payer BC, SELFPAY ==
[2025-01-30 08:47] VITALS: BP 105/68; PULSE 96; RESP 16; TEMP 36.6; O2SAT 99
--- NOTE | 2025-01-30 08:47 | ACNOTE_ITS ---
Vital Signs 01/30/25 08:47 Weight 58.627 kg Weight Measurement Method Standing Scale BP 105/68 Blood Pressure Source Automatic Cuff Blood Pressure Location Left Upper Arm Position Sitting Respiration 16 Pulse 96 Pulse Source Monitor Temp 97.8 F Temp Source Temporal Artery Scan Pulse Oximetry (%) 99 Oxygen Delivery Method Room Air Allergies/Meds Allergies & Medications Allergies Penicillins Allergy (Verified 01/30/25 17:01) Hives Medication Reconciliation abemaciclib 150 mg tablet (Verzenio) 150 mg PO BID 11/08/24 [History Confirmed 01/30/25] compression socks, medium #1 ea 12/06/24 [Rx Confirmed 01/30/25] atorvastatin 40 mg tablet 40 mg PO HS #30 tabs 12/12/24 [Rx Confirmed 01/30/25] rivaroxaban 20 mg tablet 20 mg PO QPM 2 months #60 tabs 12/12/24 [Rx Confirmed 01/30/25] anastrozole 1 mg tablet 1 mg PO QDAY #30 tabs 01/02/25 [Rx Confirmed 01/30/25] docusate calcium 240 mg capsule 240 mg PO QDAY PRN constipation #30 caps 01/02/25 [Rx Confirmed 01/30/25] trazodone 50 mg tablet 50 mg PO QHS PRN insomnia 1 month #30 tabs 01/02/25 [Rx Confirmed 01/30/25] gabapentin 100 mg capsule 200 mg PO BID nerve pain 01/11/25 [History Confirmed 01/30/25] MA Intake Visit Data Collection New Patient or Established: Established Patient (seen at [facility] within 3 years) Seen by Clinical Staff ONLY (RN/MA): No Pain Present Currently: No Pain scale:: 0 Pain Scale Used: [employer]-Epps/Numerical 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 PCP or OBGYN visit in last 3 months: Yes Hx Now: No Do You Feel Safe at Home: Yes Authorities Contacted: N/A Smoking Status Smoking Status: Former smoker Immunization / Flu Flu Vaccine in the Last 12 Months: No Flu Vaccine Exclusion Criteria: No Exclusion Criteria Past Medical History Past Medical History NEUROLOGIC: Negative Neurological Disorders or Seizures CARDIAC: Negative Cardiac Disorders or Congestive Heart Failure RESPIRATORY: Negative Chronic Obstructive Pulmonary Disease (COPD) or Asthma GASTROINTESTINAL: Positive Gastrointestinal Disorders and Hemorrhoids; Negative Hepatitis GENITOURINARY: Negative Genitourinary Disorders or Renal Disease REPRODUCTIVE: Positive Breast Cancer and Previous Pregnancies MUSCULOSKELETAL: Positive Degenerative Disk Disease ENDOCRINE: Negative Endocrine Disorders, Diabetes Mellitus Type 1 or Diabetes Mellitus Type 2 HEMATOLOGIC: Negative Blood Disorders, Anemia or Sickle Cell Disease PSYCHO/SOCIAL: Negative Depression or Anxiety OTHER HISTORY: Positive Hospitalization, Chemotherapy, Radiation Therapy, Chicken Pox, Measles, Cancer and Breast Cancer; Negative Shingles, Blood Transfusions, Blood Transfusion Reaction or Anesthesia Reactions Family History FAMILY HISTORY: Positive Family Cardiac Disorders and Family Surgery; Negative Family Psychiatric Problems, Family Respiratory Disorders, Family Gastr ointestinal Problems, Family Cancer or Family Anesthesia Reaction Surgical History SURGICAL: Positive Abdominal Surgery, Mastectomy, Lumpectomy and Hysterectomy Social History SMOKING STATUS: Smoking status: Former smoker ALCOHOL: Alcohol Intake: Current ALCOHOL FREQUENCY: Alcohol Intake Frequency: holidays/special occasions only HOUSING: Housing: House LIVES WITH: Lives With: Family Patient Portal Questionaires PHQ-9 PHQ-2 Over the last 2 weeks, how often have you been bothered by any of the following problems? 1. Little interest or pleasure in doing things: not at all Social History Living Situation History Housing: House Housing Other:: Pt from home Tobacco History Smoking Status: Former smoker Alcohol History Alcohol Intake: Current Alcohol Intake Frequency: holidays/special occasions only Domestic Abuse History Do You Feel Safe at Home: Yes Review of Systems Report any current symptoms Only answer those that you have currently: Past Medical History Past Medical History Have you ever been diagnosed with any of the following: Neurological Problems Seizures: No Cardiology Problems Congestive Heart Failure: No Respiratory Problems Chronic Obstructive Pulmonary Disease (COPD): No Asthma: No Stomache/Intestinal Problems Hepatitis: No Hemorrhoids: Yes Genital/Urinary Problems Renal Disease: No Reproductive Problems Breast Cancer: Yes Previous Pregnancies: Yes Musculoskeletal Problems Degenerative Disk Disease: Yes Endocrine Problems Diabetes Mellitus Type 1: No Diabetes Mellitus Type 2: No Blood Problems Anemia: No Sickle Cell Disease: No Psychologic Problems Depression: No Anxiety: No Other Problems Hospitalization: Yes Shingles: No Blood Transfusions: No Blood Transfusion Reaction: No Anesthesia Reactions: No Chemotherapy: Yes Radiation Therapy: Yes Chicken Pox: Yes Measles: Yes Cancer: Yes Surgical History Hysterectomy: Yes History of Present Illness HPI Narrative PET scan 02/16, mammo, breast US Assessment & Plan Diagnosis / Problem List Orders: Orders Basic Metabolic Panel 2 Weeks Office Procedures [facility] Level of Care Nursing/Assessment Patient Status: Established Patient Nursing Assessment/Reassessment: Medication Reconciliation, Update PMH in EMR and Vital Signs Coordination of Care: Complex Care and Chronic Disease 1-5, Consent,records obtained, informed consent, Education Simp Pt/Fam, Ref for ancillary service, Re sults/Orders obtained and Staff clarify orders Established Patient Charge Established Patient Point Assignment: 110 Established Patient Point Charge: EP Level 3 (80-115)
== END 2025-01-30 10:20 | disposition home or self-care (01) ==
LOC: HODAHC 08:46
PROVIDERS: Supervising Provider Internal Medicine; Visit Provider Student in an Organized Health Care Education/Training Program
CPT/HCPCS: 99213; G0463

== ENCOUNTER 2025-02-09 17:03 | Emergency (ER) | payer BC, SELFPAY ==
[2025-02-09 18:17] VITALS: BP 119/77; PULSE 87; RESP 16; TEMP 36.4; O2SAT 99; BMI 20.9
--- NOTE | 2025-02-09 18:37 | XR_ITS ---
Examination: Duplex scan of the upper extremity, unilateral left Date and time of exam: February 09, 2025 1938 hrs. Indications: History deep vein thrombosis left arm December 04, 2024, patient is anticoagulated Technique: Duplex scan of the extremity veins using B-mode/grayscale imaging and Doppler spectral analysis and color flow Attention is directed to internal echogenicity, compression and augmentation involving these veins, color flow assessment, spectral analysis Findings: Major deep venous structures in the extremity demonstrate normal course and caliber. There is no evidence of deep vein thrombosis. Normal color flow and spectral analysis Impression: Negative for DVT..
--- NOTE | 2025-02-09 18:37 | PD.EDRME ---
Rapid Medical Screening Exam E Arrival date/time: 02/09/25 17:03 64F with history of breast cancer presents to ED with nosebleed last night and some facial swelling that has improved today. Patient states last time this happened, she had a DVT in E. Patient is currently on Xarelto. Patient was sent by cancer center for repeat US. However, this time patient states this feels a bit different than when she had her DVT. Patient had labs drawn today. Chief Complaint: General Adult/Misc Complain Vital signs: Vital Signs Temperature 97.6 F 02/09/25 18:17 Pulse Rate 87 02/09/25 18:17 Respiratory Rate 16 02/09/25 18:17 Blood Pressure 119/77 02/09/25 18:17 Pulse Oximetry (%) 99 02/09/25 18:17 Oxygen Delivery Method Room Air 02/09/25 18:17
--- NOTE | 2025-02-09 21:23 | PD.EDADULT ---
ED General RME/HPI General Chief complaint: General Adult/Misc Complain Stated complaint: US FOR DVT PER [facility] Time Seen by Provider: 02/09/25 21:20 Source: patient Arrival date/time: 02/09/25 17:03 Mode of arrival: ambulatory Limitations: no limitations RME / HPI RME / HPI narrative: Dr. Johnson?s Main ED Evaluation: 64-year-old female with a history of breast cancer, currently on Xarelto, presents to the ED sent by her cancer center for a repeat ultrasound to evaluate for potential thrombosis due to prior history of deep vein thrombosis (DVT) in the left upper extremity (LUE). The patient subjectively feels that this episode is different from her prior DVT event, though she is unable to clearly articulate the distinction. She denies any significant arm swelling, redness, or tenderness at this time. She had labs drawn earlier today. Related Data Home Medications ?Medication ?Instructions ?Recorded ?Confirmed abemaciclib 150 mg tablet 150 mg PO BID 11/08/24 01/30/25 (Verzenio) gabapentin 100 mg capsule 200 mg PO BID nerve pain 01/11/25 01/30/25 Previous Rx's ?Medication ?Instructions ?Recorded compression socks, medium #1 ea 12/06/24 atorvastatin 40 mg tablet 40 mg PO HS #30 tabs 12/12/24 rivaroxaban 20 mg tablet 20 mg PO QPM 2 months #60 tabs 12/12/24 anastrozole 1 mg tablet 1 mg PO QDAY #30 tabs 01/02/25 docusate calcium 240 mg capsule 240 mg PO QDAY PRN constipation 01/02/25 #30 caps Allergies Allergy/AdvReac Type Severity Reaction Status Date / Time Penicillins Allergy Hives Verified 02/09/25 17:06 Past Medical History Past Medical History NEUROLOGIC: Negative Neurological Disorders or Seizures CARDIAC: Negative Cardiac Disorders or Congestive Heart Failure RESPIRATORY: Negative Chronic Obstructive Pulmonary Disease (COPD) or Asthma GASTROINTESTINAL: Positive Gastrointestinal Disorders and Hemorrhoids; Negative Hepatitis GENITOURINARY: Negative Genitourinary Disorders or Renal Disease REPRODUCTIVE: Positive Breast Cancer and Previous Pregnancies MUSCULOSKELETAL: Positive Musculoskeletal Disorders and Degenerative Disk Disease ENDOCRINE: Negative Endocrine Disorders, Diabetes Mellitus Type 1 or Diabetes Mellitus Type 2 HEMATOLOGIC: Negative Blood Disorders, Anemia or Sickle Cell Disease PSYCHO/SOCIAL: Negative Depression or Anxiety OTHER HISTORY: Positive Hospitalization, Chemotherapy, Radiation Therapy, Chicken Pox, Measles, Cancer and Breast Cancer; Negative Autoimmune Disease, Shingles, Blood Transfusions, Blood Transfusion Reaction or Anesthesia Reactions Family History FAMILY HISTORY: Positive Family Cardiac Disorders and Family Surgery; Negative Family Psychiatric Problems, Family Respiratory Disorders, Family Gastrointestinal Problems, Family Cancer or Family Anesthesia Reaction Surgical History SURGICAL: Positive Abdominal Surgery, Mastectomy, Lumpectomy and Hysterectomy Social History SMOKING STATUS: Former smoker ED Exam Narrative Physical exam: Left upper extremity: No erythema, redness, or swelling noted. Pulses are intact. No tenderness to palpation. General Limitations: Present no limitations General appearance: Present alert and in no apparent distress Head Head exam: Present atraumatic Eye Eye exam: Present normal appearance, PERRL and EOMI ENT ENT exam: Present normal exam, normal oropharynx and mucous membranes moist Neck Neck exam: Present normal inspection, full ROM and trachea midline Chest Chest inspection: Present normal inspection and symmetric chest wall rise Respiratory Respiratory exam: Present normal lung sounds bilaterally Cardiovascular Cardiovascular exam: Present regular rate, normal rhythm and normal heart sounds Abdominal Exam Abdominal exam: Present soft and normal bowel sounds Extremities Exam Extremities exam: Present normal inspection and full ROM Back Exam Back exam: Present normal inspection and full ROM Neurological Exam Neurological exam: Present alert, oriented X3 and CN II-XII intact Psychiatric Psychiatric exam: Present normal affect and normal mood Skin Skin exam: Present warm, dry, intact and normal color Course Quality Measures none Orders Category Date Time Status US venous doppler UE LT Stat Exams 02/09/25 18:37 Taken Vital Signs Vital signs: Vital Signs Temperature 97.6 F 02/09/25 18:17 Pulse Rate 87 02/09/25 18:17 Respiratory Rate 16 02/09/25 18:17 Blood Pressure 119/77 02/09/25 18:17 Pulse Oximetry (%) 99 02/09/25 18:17 Oxygen Delivery Method Room Air 02/09/25 18:17 [facility] Patient data External records reviewed:: [facility] previous records Clinical information provided by:: patient Social determinants that could affect healthcare access:: none Patient has the following chronic illnesses:: see PMH How is presenting disease/condition affected by chronic disease/condition?: uneffected by Evaluation data The following diagnostics were reviewed and interpreted by me:: lab results and radiology exam(s) Lab and/or radiology exams considered but not ordered:: na Interpretation Summary: Prelim reading negative for DVT Medications Medications considered but not ordered:: na Medication administrations:: na Consultations Consultation(s) initiated? (list below): No Diagnosis Differential Diagnosis ED Complaint MDM: Chronic anemia, DVT, dehydration Most likely diagnosis given after review of the tests above:: see clinical impression below Admission Indicated Admission indicated?: not indicated Explain why admission is indicated or not indicated:: Stable Admission Request Was there a request for admission?: No Disposition Plan Disposition Plan: Discharge Discharge Attestation Discharge Attestation: The patient and all family members were given an opportunity to ask questions and understood the discharge instructions. Discharge instructions specifically effects, indications for sooner follow up or return to the emergency department, and the expected course of current diagnosis. Patient condition: Stable Medical Decision Making MDM Narrative MDM Narrative: Scribe Attestation: IAngeline, am scribing for and in the presence of Dr. Johnson. Provider Notation: Although this document has been carefully reviewed, there may still be some phonetic and other typographical errors. These errors are purely grammatical due to imperfections in the software program and should not be construed in any way to compromise the substance of the patient's medical care during this visit. Differential Diagnosis Differential Diagnosis: Chronic anemia, DVT, dehydration Medical Records Medical records reviewed: Yes I reviewed the patient's medical records. Lab Data Lab results reviewed: Yes I reviewed the patient's lab results. Radiology Data Radiology results reviewed: Yes I reviewed the patient's radiology results. Discharge Plan Plan Patient Disposition: HOME (Self Care) Patient condition on transfer: Stable Prescriptions/Referrals Prescriptions/Med Rec: No Action atorvastatin 40 mg tablet 40 mg PO HS Qty: 30 3RF rivaroxaban 20 mg tablet 20 mg PO QPM 60 Days Qty: 60 0RF Rx Instructions: must administer with evening meal anastrozole 1 mg tablet 1 mg PO QDAY Qty: 30 0RF docusate calcium 240 mg capsule 240 mg PO QDAY PRN (Reason: constipation) Qty: 30 1RF (DME) compression socks, medium Misc See Rx Instructions .Route Qty: 1 0RF Rx Instructions: As directed gabapentin 100 mg capsule 200 mg PO BID Verzenio 150 mg Tablet 150 mg PO BID Referrals: No Primary/Family,Physician [Primary Care Provider] - In 1 week Problem List Clinical Impression: Arm pain, left, Chronic anemia Patient/Caregiver Discharge Instructions Education Materials: Anemia Additional Instructions: It was a pleasure meeting you today. Please follow-up with your primary care physician or cancer doctor next week. Please let him know that your DVT study was negative for a clot. Return to the emergency department if you having worsening symptoms or any other concerns. Print Language: Armenian Stand Alone Forms: [employer] Award Info., Patient Portal Info Letter
== END 2025-02-09 22:33 | disposition home or self-care (01) ==
PROVIDERS: Emergency Provider Emergency Medicine
DX: M79.602 Pain in left arm (principal); D64.9 Anemia, unspecified; Z86.718 Personal history of other venous thrombosis and embolism
CPT/HCPCS: 93971; 99284

== ENCOUNTER 2025-02-13 08:31 | Outpatient (AMB) | payer BC, SELFPAY ==
--- NOTE | 2025-02-13 08:41 | ACNOTE_ITS ---
Vital Signs 02/13/25 08:42 Height 1.65 m Height Method Stated Weight 58.23 kg Weight Measurement Method Standing Scale BMI 21.4 BP 103/66 Blood Pressure Source Automatic Cuff Blood Pressure Location Left Upper Arm Position Sitting Respiration 18 Pulse 100 Pulse Source Monitor Temp 97.5 F Temp Source Temporal Artery Scan Pulse Oximetry (%) 98 Oxygen Delivery Method Room Air Allergies/Meds Allergies & Medications Allergies Penicillins Allergy (Verified 02/13/25 08:42) Hives Medication Reconciliation abemaciclib 150 mg tablet (Verzenio) 150 mg PO BID 11/08/24 [History Confirmed 02/13/25] compression socks, medium #1 ea 12/06/24 [Rx Confirmed 02/13/25] atorvastatin 40 mg tablet 40 mg PO HS #30 tabs 12/12/24 [Rx Confirmed 02/13/25] anastrozole 1 mg tablet 1 mg PO QDAY #30 tabs 01/02/25 [Rx Confirmed 02/13/25] docusate calcium 240 mg capsule 240 mg PO QDAY PRN constipation #30 caps 01/02/25 [Rx Confirmed 02/13/25] gabapentin 100 mg capsule 200 mg PO BID nerve pain 01/11/25 [History Confirmed 02/13/25] MA Intake Visit Data Collection New Patient or Established: Established Patient (seen at [facility] within 3 years) Seen by Clinical Staff ONLY (RN/MA): No Reason for Visit:: Follow-up 2 weeks labs Pain Present Currently: No Pain scale:: 0 Pain Scale Used: [employer]-Epps/Numerical Java 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 Required: No PCP or OBGYN visit in last 3 months: No Hx Now: No Do You Feel Safe at Home: Yes Authorities Contacted: N/A Smoking Status Smoking Status: Former smoker Immunization / Flu Flu Vaccine in the Last 12 Months: No Flu Vaccine Exclusion Criteria: No Exclusion Criteria Past Medical History Past Medical History NEUROLOGIC: Negative Neurological Disorders or Seizures CARDIAC: Negative Cardiac Disorders or Congestive Heart Failure RESPIRATORY: Negative Chronic Obstructive Pulmonary Disease (COPD) or Asthma GASTROINTESTINAL: Positive Gastrointestinal Disorders and Hemorrhoids; Negative Hepatitis GENITOURINARY: Negative Genitourinary Disorders or Renal Disease REPRODUCTIVE: Positive Breast Cancer and Previous Pregnancies MUSCULOSKELETAL: Positive Degenerative Disk Disease ENDOCRINE: Negative Endocrine Disorders, Diabetes Mellitus Type 1 or Diabetes Mellitus Type 2 HEMATOLOGIC: Negative Blood Disorders, Anemia or Sickle Cell Disease PSYCHO/SOCIAL: Negative Depression or Anxiety OTHER HISTORY: Positive Hospitalization, Chemotherapy, Radiation Therapy, Chicken Pox, Measles, Cancer and Breast Cancer; Negative Shingles, Blood Transfusions, Blood Transfusion Reaction or Anesthesia Reactions Family History FAMILY HISTORY: Positive Family Cardiac Disorders and Family Surgery; Negative Family Psychiatric Problems, Family Respiratory Disorders, Family Gastrointestinal Problems, Family Cancer or Family Anesthesia Reaction Surgical History SURGICAL: Positive Abdominal Surgery, Mastectomy, Lumpectomy and Hysterectomy Social History SMOKING STATUS: Smoking status: Former smoker ALCOHOL: Alcohol Intake: Current ALCOHOL FREQUENCY: Alcohol Intake Frequency: holidays/special occasions only HOUSING: Housing: House LIVES WITH: Lives With: Family Patient Portal Questionaires PHQ-9 PHQ-2 Over the last 2 weeks, how often have you been bothered by any of the following problems? 1. Little interest or pleasure in doing things: not at all Social History Living Situation History Housing: House Housing Other:: Pt from home Tobacco History Smoking Status: Former smoker Alcohol History Alcohol Intake: Current Alcohol Intake Frequency: holidays/special occasions only Domestic Abuse History Do You Feel Safe at Home: Yes Review of Systems Report any current symptoms Only answer those that you have currently: Past Medical History Past Medical History Have you ever been diagnosed with any of the following: Neurological Problems Seizures: No Cardiology Problems Congestive Heart Failure: No Respiratory Problems Chronic Obstructive Pulmonary Disease (COPD): No Asthma: No Stomache/Intestinal Problems Hepatitis: No Hemorrhoids: Yes Genital/Urinary Problems Renal Disease: No Reproductive Problems Breast Cancer: Yes Previous Pregnancies: Yes Musculoskeletal Problems Degenerative Disk Disease: Yes Endocrine Problems Diabetes Mellitus Type 1: No Diabetes Mellitus Type 2: No Blood Problems Anemia: No Sickle Cell Disease: No Psychologic Problems Depression: No Anxiety: No Other Problems Hospitalization: Yes Shingles: No Blood Transfusions: No Blood Transfusion Reaction: No Anesthesia Reactions: No Chemotherapy: Yes Radiation Therapy: Yes Chicken Pox: Yes Measles: Yes Cancer: Yes Surgical History Hysterectomy: Yes History of Present Illness HPI Narrative Ms. 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 Labs taken with [facility] cancer marenisco show potassium 3.6 on 02/09/2025. Previous potassium 3.8 on 02/06/2025 and 01/31/2025. Patient otherwise reports feeling well, denies any other complaints today. She notices bilateral lower face puffiness after waking up today and another time a few days ago but denies any numbness, tingling, pain, and discomfort. She denies any changes to medications recently or swelling in other places. Patient states that the puffiness had self-resolved the other day. Patient is planned for PET scan tomorrow, 02/14/2025. Patient has not gotten mammogram or breast US yet due to being in the hospital the previous times they were scheduled, provided patient with radiology scheduling phone number to be able to reschedule. Will follow up in 1 month for another check in. Objective/Exam Narrative Physical exam: Physical Exam General: Awake and in no acute distress. Conversational and non-toxic appearing. HEENT: Normocephalic, atraumatic, mucous membranes moist. Slight bilateral lower face puffiness, symmetric, no tenderness, fluctuance, firmness, or erythema. Heart: Regular rate and rhythm, no murmurs. Lungs: Clear to auscultation with no wheezing or crackles. Abdomen: Soft, nondistended, nontender, positive bowel sounds. ?No guarding or rebound tenderness. Neurologic: Alert and oriented x3, no gross neurological deficit, and patient able to move all 4 extremities. Extremities: No edema in the upper or lower bilateral extremities. Skin: No rash or ecchymoses. Assessment & Plan Diagnosis / Problem List (1) Hypokalemia: Status: Acute Assessment & Plan: Denies any chest pain or palpitations. Still has some loose BM 2-3 times/day. Endorses some dizziness. Plan: -Continue with follow up labs monthly for potassium check -Continue 20 mEq oral potassium daily (2) Breast cancer: Status: Chronic Qualifiers: Breast location: unspecified site of breast Estrogen receptor status: positive Patient sex: female Laterality: left Qualified Code(s): C50.912 - Malignant neoplasm of unspecified site of left female breast; Z17.0 - Estrogen receptor positive status [ER+] Assessment & Plan: Patient to continue follow up with Dr. Nichole and Dr. Mendoza. No concerns or complaints at this time. 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
[2025-02-13 08:42] VITALS: BP 103/66; PULSE 100; RESP 18; TEMP 36.4; O2SAT 98; BMI 21.4
== END 2025-02-13 09:33 | disposition home or self-care (01) ==
LOC: HODAHC 08:31
PROVIDERS: PCP Specialist; Referring Provider Specialist; Supervising Provider Internal Medicine; Visit Provider Student in an Organized Health Care Education/Training Program
DX: E87.6 Hypokalemia (principal); C50.912 Malignant neoplasm of unspecified site of left female breast; Z17.0 Estrogen receptor positive status [ER+]; Z17.22 Progesterone receptor negative status; Z17.32 Human epidermal growth factor receptor 2 negative status; Z90.12 Acquired absence of left breast and nipple; Z92.21 Personal history of antineoplastic chemotherapy; Z92.3 Personal history of irradiation; G62.0 Drug-induced polyneuropathy; T45.1X5D Adverse effect of antineoplastic and immunosuppressive drugs, subsequent encounter; Z86.718 Personal history of other venous thrombosis and embolism; D64.9 Anemia, unspecified
CPT/HCPCS: 99213; G0463

== ENCOUNTER → 2025-02-14 | Outpatient (CLI) | payer BC, SELFPAY ==
--- NOTE | 2025-02-14 08:00 | XR_ITS ---
EXAMINATION: PET/CT FUSION SKULL TO THIGH EXAM DATE AND TIME: February 14, 2025 at 0900 hours COMPARISON: PET CT scan May 31, 2024 INDICATIONS: Diagnosis breast cancer restaging post treatment CTDI:vol (mGy) 3.42 DLP: (mGycm) 312 PROCEDURE: 15.5 mCi FDG was administered intravenously To allow for distribution and uptake of radiotracer, the patient was allowed to rest quietly in a shielded room. Imaging was performed on an integrated 16-slice PET/CT scanner, with scanning from the skull base to the mid thigh. Serum blood glucose at the time of the injection was measured 71 mg/dL. CT scanning was performed without oral or intravenous contrast material. FINDINGS: Head and Neck: Probable hypermetabolic muscle activity in the posterior neck bilaterally but clinical correlation advised Hypermetabolic 14 mm lymph node left lateral posterior neck, internal to the left sternocleidomastoid muscle, axial image 51 Weakly hypermetabolic supraclavicular lymph nodes bilaterally, 8 mm on the left 6 mm on the right 14 mm right paratracheal hypermetabolic lymph node Chest: Hypermetabolic right axillary lymph nodes, 28 mm axial image 67, 8 mm axial image 74, 8 mm axial image 62 6 mm hypermetabolic lymph node medial right apex image 60 14 mm, 12 mm hypermetabolic high periaortic lymph nodes Multiple hypermetabolic left axillary lymph nodes, the largest 14 mm axial image 78 Abdomen and Pelvis: There is no erika hypermetabolism in retroperitoneal or pelvic chains. The spleen is normal in size and FDG avidity. Musculoskeletal: Marrow uptake is within normal range. IMPRESSION: Multiple interval hypermetabolic cervical, supraclavicular , retroclavicular, bilateral axillary and mediastinal lymph nodes as above Recommend high-resolution CT soft tissue neck chest post intravenous contrast follow-up
== END | disposition home or self-care (01) ==
LOC: CDIM 07:42
PROVIDERS: PCP Student in an Organized Health Care Education/Training Program; Referring Provider Internal Medicine Hematology & Oncology; Visit Provider Internal Medicine Hematology & Oncology
DX: C50.912 Malignant neoplasm of unspecified site of left female breast (principal)
CPT/HCPCS: 78815; A9552

== ENCOUNTER 2025-02-27 13:59 | Outpatient (RCR) | payer BC, SELFPAY ==
[2025-01-31 15:10] LABS: Basophils # (Auto) 0.1 Thou/mm3 (0.0-0.2); Basophils % (Auto) 2 % (0-2.5); Eosinophils % (Auto) 1 % (0-10); Hematocrit 26.9 % (36.0-46.0); Hemoglobin 8.7 g/dL (12.0-16.0); Immature Granulocytes % (Auto) 0 % (0-0); Immature Granulocytes Auto 0.01 Thou/mm3 (0.00-0.00); Lymphocytes # (Auto) 0.6 Thou/mm3 (1.0-4.8); Lymphocytes % (Auto) 20 % (10-50); Mean Corpuscular HGB Conc 32.3 g/dl (31.0-37.0); Mean Corpuscular Volume 102 fL (80-100); Monocytes # (Auto) 0.2 Thou/mm3 (0.0-0.8); Monocytes % (Auto) 5 % (0-12); Neutrophils # (Auto) 2.2 Thou/mm3 (1.8-7.7); Neutrophils % (Auto) 71 % (37-80); Nucleated Red Blood Cell % 0 /100 WBC (0); Platelet Count 127 Thou/mm3 (140-440); RDW Standard Deviation 57.5 fL (36.4-46.3); Red Blood Count 2.64 Miln/mm3 (4.00-5.20)
[2025-01-31 15:30] LABS: Alanine Aminotransferase 11 U/L (10-49); Albumin, Serum 4.4 gm/dL (3.4-4.8); Albumin/Globulin Ratio 1.9 (1.2-2.2); Alkaline Phosphatase 86 U/L (46-116); Anion Gap 10 (7-16); Aspartate Amino Transferase 16 U/L (0-34); BUN/Creatinine Ratio 20 Ratio (12-20); Bilirubin,Total 0.7 mg/dL (0.3-1.2); Blood Urea Nitrogen 18 mg/dL (9-23); Calcium 10.5 mg/dL (8.3-10.6); Calcium (Corrected) 10.5 mg/dL (8.5-10.1); Carbon Dioxide 24.2 mMol/L (20.0-31.0); Chloride 107 mMol/L (98-107); Creatinine (Component) 0.9 mg/dL (0.6-1.3); Globulin 2.3 gm/dL (2.3-3.5); Glucose 104 mg/dL (74-106); Osmolality,Calculated 283 (275-295); Potassium 3.8 mMol/L (3.4-5.1); Sodium 141 mMol/L (136-145); Total Protein 6.7 gm/dL (5.7-8.2); eGFR > 60 See Note
[2025-02-06 15:17] LABS: Basophils # (Auto) 0.1 Thou/mm3 (0.0-0.2); Basophils % (Auto) 2 % (0-2.5); Eosinophils # (Auto) 0.1 Thou/mm3 (0.0-0.5); Eosinophils % (Auto) 2 % (0-10); Hematocrit 25.6 % (36.0-46.0); Immature Granulocytes % (Auto) 0 % (0-0); Immature Granulocytes Auto 0.01 Thou/mm3 (0.00-0.00); Lymphocytes # (Auto) 0.7 Thou/mm3 (1.0-4.8); Lymphocytes % (Auto) 26 % (10-50); Mean Corpuscular HGB Conc 33.6 g/dl (31.0-37.0); Mean Corpuscular Hemoglobin 33.3 pg (25.0-35.0); Mean Corpuscular Volume 99 fL (80-100); Monocytes # (Auto) 0.2 Thou/mm3 (0.0-0.8); Monocytes % (Auto) 7 % (0-12); Neutrophils # (Auto) 1.6 Thou/mm3 (1.8-7.7); Neutrophils % (Auto) 63 % (37-80); Nucleated Red Blood Cell % 0 /100 WBC (0); Platelet Count 125 Thou/mm3 (140-440); RDW Standard Deviation 54.3 fL (36.4-46.3); Red Blood Count 2.58 Miln/mm3 (4.00-5.20)
[2025-02-06 15:43] LABS: Alanine Aminotransferase 12 U/L (10-49); Albumin, Serum 4.2 gm/dL (3.4-4.8); Albumin/Globulin Ratio 1.8 (1.2-2.2); Alkaline Phosphatase 85 U/L (46-116); Anion Gap 8 (7-16); Aspartate Amino Transferase 13 U/L (0-34); BUN/Creatinine Ratio 21 Ratio (12-20); Bilirubin,Total 0.5 mg/dL (0.3-1.2); Blood Urea Nitrogen 19 mg/dL (9-23); Calcium 10.2 mg/dL (8.3-10.6); Calcium (Corrected) 10.2 mg/dL (8.5-10.1); Carbon Dioxide 24.6 mMol/L (20.0-31.0); Chloride 106 mMol/L (98-107); Creatinine (Component) 0.9 mg/dL (0.6-1.3); Globulin 2.4 gm/dL (2.3-3.5); Glucose 84 mg/dL (74-106); Osmolality,Calculated 278 (275-295); Potassium 3.8 mMol/L (3.4-5.1); Sodium 139 mMol/L (136-145); Total Protein 6.6 gm/dL (5.7-8.2); eGFR > 60 See Note
[2025-02-06 16:16] LABS: Hemoglobin 8.6 g/dL (12.0-16.0); White Blood Count 2.6 Thou/mm3 (3.6-11.0)
[2025-02-09 15:16] LABS: Basophils % (Auto) 1 % (0-2.5); Eosinophils # (Auto) 0.1 Thou/mm3 (0.0-0.5); Eosinophils % (Auto) 3 % (0-10); Hematocrit 23.9 % (36.0-46.0); Immature Granulocytes % (Auto) 0 % (0-0); Immature Granulocytes Auto 0.01 Thou/mm3 (0.00-0.00); Lymphocytes # (Auto) 0.5 Thou/mm3 (1.0-4.8); Lymphocytes % (Auto) 17 % (10-50); Mean Corpuscular HGB Conc 33.1 g/dl (31.0-37.0); Mean Corpuscular Hemoglobin 33.9 pg (25.0-35.0); Mean Corpuscular Volume 103 fL (80-100); Monocytes # (Auto) 0.2 Thou/mm3 (0.0-0.8); Monocytes % (Auto) 6 % (0-12); Neutrophils # (Auto) 2.1 Thou/mm3 (1.8-7.7); Neutrophils % (Auto) 73 % (37-80); Nucleated Red Blood Cell % 0 /100 WBC (0); Platelet Count 116 Thou/mm3 (140-440); RDW Standard Deviation 56.2 fL (36.4-46.3); Red Blood Count 2.33 Miln/mm3 (4.00-5.20)
[2025-02-09 15:36] LABS: Hemoglobin 7.9 g/dL (12.0-16.0); White Blood Count 2.9 Thou/mm3 (3.6-11.0)
[2025-02-09 16:01] LABS: Alanine Aminotransferase 11 U/L (10-49); Albumin, Serum 4.2 gm/dL (3.4-4.8); Albumin/Globulin Ratio 1.9 (1.2-2.2); Alkaline Phosphatase 80 U/L (46-116); Anion Gap 10 (7-16); Aspartate Amino Transferase 15 U/L (0-34); BUN/Creatinine Ratio 22 Ratio (12-20); Bilirubin,Total 0.6 mg/dL (0.3-1.2); Blood Urea Nitrogen 20 mg/dL (9-23); Calcium 9.5 mg/dL (8.3-10.6); Calcium (Corrected) 9.5 mg/dL (8.5-10.1); Chloride 107 mMol/L (98-107); Creatinine (Component) 0.9 mg/dL (0.6-1.3); Globulin 2.2 gm/dL (2.3-3.5); Glucose 102 mg/dL (74-106); Osmolality,Calculated 282 (275-295); Potassium 3.6 mMol/L (3.4-5.1); Sodium 140 mMol/L (136-145); Total Protein 6.4 gm/dL (5.7-8.2); eGFR > 60 See Note
[2025-02-13 10:48] LABS: Basophils % (Auto) 1 % (0-2.5); Eosinophils # (Auto) 0.1 Thou/mm3 (0.0-0.5); Eosinophils % (Auto) 3 % (0-10); Hematocrit 24.2 % (36.0-46.0); Immature Granulocytes % (Auto) 1 % (0-0); Immature Granulocytes Auto 0.02 Thou/mm3 (0.00-0.00); Lymphocytes # (Auto) 0.4 Thou/mm3 (1.0-4.8); Lymphocytes % (Auto) 14 % (10-50); Mean Corpuscular HGB Conc 32.6 g/dl (31.0-37.0); Mean Corpuscular Hemoglobin 33.6 pg (25.0-35.0); Mean Corpuscular Volume 103 fL (80-100); Monocytes # (Auto) 0.2 Thou/mm3 (0.0-0.8); Monocytes % (Auto) 5 % (0-12); Neutrophils # (Auto) 2.3 Thou/mm3 (1.8-7.7); Neutrophils % (Auto) 76 % (37-80); Nucleated Red Blood Cell % 0 /100 WBC (0); Platelet Count 119 Thou/mm3 (140-440); RDW Standard Deviation 56.5 fL (36.4-46.3); Red Blood Count 2.35 Miln/mm3 (4.00-5.20)
[2025-02-13 10:58] LABS: Hemoglobin 7.9 g/dL (12.0-16.0)
[2025-02-13 11:06] LABS: Alanine Aminotransferase 16 U/L (10-49); Albumin/Globulin Ratio 1.7 (1.2-2.2); Alkaline Phosphatase 95 U/L (46-116); Anion Gap 10 (7-16); Aspartate Amino Transferase 12 U/L (0-34); BUN/Creatinine Ratio 19 Ratio (12-20); Bilirubin,Total 0.5 mg/dL (0.3-1.2); Blood Urea Nitrogen 15 mg/dL (9-23); Calcium 9.5 mg/dL (8.3-10.6); Calcium (Corrected) 9.5 mg/dL (8.5-10.1); Carbon Dioxide 21.9 mMol/L (20.0-31.0); Chloride 108 mMol/L (98-107); Creatinine (Component) 0.8 mg/dL (0.6-1.3); Globulin 2.3 gm/dL (2.3-3.5); Glucose 99 mg/dL (74-106); Osmolality,Calculated 280 (275-295); Potassium 3.1 mMol/L (3.4-5.1); Sodium 140 mMol/L (136-145); Total Protein 6.3 gm/dL (5.7-8.2); eGFR > 60 See Note
[2025-02-16 14:23] LABS: Basophils % (Auto) 2 % (0-2.5); Eosinophils # (Auto) 0.1 Thou/mm3 (0.0-0.5); Eosinophils % (Auto) 4 % (0-10); Hematocrit 25.8 % (36.0-46.0); Immature Granulocytes % (Auto) 1 % (0-0); Immature Granulocytes Auto 0.02 Thou/mm3 (0.00-0.00); Lymphocytes # (Auto) 0.4 Thou/mm3 (1.0-4.8); Lymphocytes % (Auto) 18 % (10-50); Mean Corpuscular HGB Conc 33.7 g/dl (31.0-37.0); Mean Corpuscular Hemoglobin 31.4 pg (25.0-35.0); Mean Corpuscular Volume 93 fL (80-100); Monocytes # (Auto) 0.1 Thou/mm3 (0.0-0.8); Monocytes % (Auto) 5 % (0-12); Neutrophils # (Auto) 1.6 Thou/mm3 (1.8-7.7); Neutrophils % (Auto) 69 % (37-80); Nucleated Red Blood Cell % 0 /100 WBC (0); Platelet Count 102 Thou/mm3 (140-440); RDW Standard Deviation 73.3 fL (36.4-46.3); Red Blood Count 2.77 Miln/mm3 (4.00-5.20)
[2025-02-16 14:25] LABS: White Blood Count 2.3 Thou/mm3 (3.6-11.0)
[2025-02-16 14:28] LABS: Hemoglobin 8.7 g/dL (12.0-16.0)
[2025-02-16 14:39] LABS: Alanine Aminotransferase 12 U/L (10-49); Albumin, Serum 3.9 gm/dL (3.4-4.8); Albumin/Globulin Ratio 1.8 (1.2-2.2); Alkaline Phosphatase 94 U/L (46-116); Anion Gap 9 (7-16); Aspartate Amino Transferase 13 U/L (0-34); BUN/Creatinine Ratio 14 Ratio (12-20); Bilirubin,Total 0.6 mg/dL (0.3-1.2); Blood Urea Nitrogen 14 mg/dL (9-23); Calcium 9.4 mg/dL (8.3-10.6); Calcium (Corrected) 9.5 mg/dL (8.5-10.1); Carbon Dioxide 23.2 mMol/L (20.0-31.0); Chloride 107 mMol/L (98-107); Globulin 2.2 gm/dL (2.3-3.5); Glucose 104 mg/dL (74-106); Osmolality,Calculated 278 (275-295); Sodium 139 mMol/L (136-145); Total Protein 6.1 gm/dL (5.7-8.2); eGFR > 60 See Note
[2025-02-20 15:00] LABS: Basophils # (Auto) 0.1 Thou/mm3 (0.0-0.2); Basophils % (Auto) 2 % (0-2.5); Eosinophils # (Auto) 0.1 Thou/mm3 (0.0-0.5); Eosinophils % (Auto) 5 % (0-10); Hematocrit 26.6 % (36.0-46.0); Hemoglobin 8.9 g/dL (12.0-16.0); Immature Granulocytes % (Auto) 0 % (0-0); Immature Granulocytes Auto 0.01 Thou/mm3 (0.00-0.00); Lymphocytes # (Auto) 0.6 Thou/mm3 (1.0-4.8); Lymphocytes % (Auto) 22 % (10-50); Mean Corpuscular HGB Conc 33.5 g/dl (31.0-37.0); Mean Corpuscular Hemoglobin 31.4 pg (25.0-35.0); Mean Corpuscular Volume 94 fL (80-100); Monocytes # (Auto) 0.2 Thou/mm3 (0.0-0.8); Monocytes % (Auto) 6 % (0-12); Neutrophils # (Auto) 1.8 Thou/mm3 (1.8-7.7); Neutrophils % (Auto) 65 % (37-80); Nucleated Red Blood Cell % 0 /100 WBC (0); Platelet Count 101 Thou/mm3 (140-440); RDW Standard Deviation 71.7 fL (36.4-46.3); Red Blood Count 2.83 Miln/mm3 (4.00-5.20)
[2025-02-20 15:18] LABS: Alanine Aminotransferase 11 U/L (10-49); Albumin, Serum 3.9 gm/dL (3.4-4.8); Albumin/Globulin Ratio 1.8 (1.2-2.2); Alkaline Phosphatase 106 U/L (46-116); Anion Gap 8 (7-16); Aspartate Amino Transferase 16 U/L (0-34); BUN/Creatinine Ratio 16 Ratio (12-20); Bilirubin,Total 0.6 mg/dL (0.3-1.2); Blood Urea Nitrogen 13 mg/dL (9-23); Calcium 10.1 mg/dL (8.3-10.6); Calcium (Corrected) 10.2 mg/dL (8.5-10.1); Carbon Dioxide 26.1 mMol/L (20.0-31.0); Chloride 106 mMol/L (98-107); Creatinine (Component) 0.8 mg/dL (0.6-1.3); Globulin 2.2 gm/dL (2.3-3.5); Glucose 90 mg/dL (74-106); Osmolality,Calculated 279 (275-295); Potassium 4.1 mMol/L (3.4-5.1); Sodium 140 mMol/L (136-145); Total Protein 6.1 gm/dL (5.7-8.2); eGFR > 60 See Note
[2025-02-20 15:34] LABS: White Blood Count 2.7 Thou/mm3 (3.6-11.0)
[2025-02-23 15:18] LABS: Basophils % (Auto) 1 % (0-2.5); Eosinophils # (Auto) 0.2 Thou/mm3 (0.0-0.5); Eosinophils % (Auto) 6 % (0-10); Hematocrit 24.9 % (36.0-46.0); Immature Granulocytes % (Auto) 0 % (0-0); Immature Granulocytes Auto 0.01 Thou/mm3 (0.00-0.00); Lymphocytes # (Auto) 0.6 Thou/mm3 (1.0-4.8); Lymphocytes % (Auto) 20 % (10-50); Mean Corpuscular HGB Conc 34.1 g/dl (31.0-37.0); Mean Corpuscular Hemoglobin 31.7 pg (25.0-35.0); Mean Corpuscular Volume 93 fL (80-100); Monocytes # (Auto) 0.2 Thou/mm3 (0.0-0.8); Monocytes % (Auto) 8 % (0-12); Neutrophils # (Auto) 1.8 Thou/mm3 (1.8-7.7); Neutrophils % (Auto) 65 % (37-80); Nucleated Red Blood Cell % 0 /100 WBC (0); Platelet Count 117 Thou/mm3 (140-440); RDW Standard Deviation 68.7 fL (36.4-46.3); Red Blood Count 2.68 Miln/mm3 (4.00-5.20)
[2025-02-23 15:26] LABS: Hemoglobin 8.5 g/dL (12.0-16.0); White Blood Count 2.8 Thou/mm3 (3.6-11.0)
[2025-02-23 16:17] LABS: Alanine Aminotransferase 12 U/L (10-49); Albumin, Serum 3.7 gm/dL (3.4-4.8); Albumin/Globulin Ratio 1.6 (1.2-2.2); Alkaline Phosphatase 112 U/L (46-116); Anion Gap 9 (7-16); Aspartate Amino Transferase 15 U/L (0-34); BUN/Creatinine Ratio 16 Ratio (12-20); Bilirubin,Total 0.6 mg/dL (0.3-1.2); Blood Urea Nitrogen 14 mg/dL (9-23); Calcium 9.1 mg/dL (8.3-10.6); Calcium (Corrected) 9.3 mg/dL (8.5-10.1); Carbon Dioxide 24.9 mMol/L (20.0-31.0); Chloride 107 mMol/L (98-107); Creatinine (Component) 0.9 mg/dL (0.6-1.3); Globulin 2.3 gm/dL (2.3-3.5); Glucose 84 mg/dL (74-106); Osmolality,Calculated 280 (275-295); Potassium 3.3 mMol/L (3.4-5.1); Sodium 141 mMol/L (136-145); eGFR > 60 See Note
[2025-02-27 15:29] LABS: Basophils % (Auto) 1 % (0-2.5); Eosinophils # (Auto) 0.1 Thou/mm3 (0.0-0.5); Eosinophils % (Auto) 7 % (0-10); Hematocrit 24.3 % (36.0-46.0); Immature Granulocytes % (Auto) 1 % (0-0); Immature Granulocytes Auto 0.01 Thou/mm3 (0.00-0.00); Lymphocytes # (Auto) 0.4 Thou/mm3 (1.0-4.8); Lymphocytes % (Auto) 19 % (10-50); Mean Corpuscular HGB Conc 33.7 g/dl (31.0-37.0); Mean Corpuscular Hemoglobin 31.4 pg (25.0-35.0); Mean Corpuscular Volume 93 fL (80-100); Monocytes # (Auto) 0.2 Thou/mm3 (0.0-0.8); Monocytes % (Auto) 8 % (0-12); Neutrophils # (Auto) 1.4 Thou/mm3 (1.8-7.7); Neutrophils % (Auto) 64 % (37-80); Nucleated Red Blood Cell % 0 /100 WBC (0); Platelet Count 130 Thou/mm3 (140-440); RDW Standard Deviation 67.5 fL (36.4-46.3); Red Blood Count 2.61 Miln/mm3 (4.00-5.20)
[2025-02-27 15:47] LABS: Hemoglobin 8.2 g/dL (12.0-16.0); White Blood Count 2.2 Thou/mm3 (3.6-11.0)
[2025-02-27 15:58] LABS: Alanine Aminotransferase 9 U/L (10-49); Albumin, Serum 3.6 gm/dL (3.4-4.8); Albumin/Globulin Ratio 1.6 (1.2-2.2); Alkaline Phosphatase 112 U/L (46-116); Anion Gap 9 (7-16); Aspartate Amino Transferase 14 U/L (0-34); BUN/Creatinine Ratio 15 Ratio (12-20); Bilirubin,Total 0.5 mg/dL (0.3-1.2); Blood Urea Nitrogen 12 mg/dL (9-23); Calcium 9.2 mg/dL (8.3-10.6); Calcium (Corrected) 9.5 mg/dL (8.5-10.1); Carbon Dioxide 28.5 mMol/L (20.0-31.0); Chloride 105 mMol/L (98-107); Creatinine (Component) 0.8 mg/dL (0.6-1.3); Globulin 2.2 gm/dL (2.3-3.5); Glucose 108 mg/dL (74-106); Osmolality,Calculated 283 (275-295); Sodium 142 mMol/L (136-145); Total Protein 5.8 gm/dL (5.7-8.2); eGFR > 60 See Note
[2025-02-27 15:59] LABS: Potassium 2.6 mMol/L (3.4-5.1)
--- NOTE | 2025-03-19 21:06 | CTCFLWUP_ITS ---
Patient: IRMA BRYAN : 1960 Page 8 of 10 FOLLOW UP NOTE DATE OF SERVICE: 02/21/2025 NAME: IRMA BRYAN ACCOUNT: [id number] : 1960 AGE: 65 INTERVAL HISTORY:Multiple interval hypermetabolic cervical, supraclavicular , retroclavicular, bilateral axillary and mediastinal lymph nodes as above No new complaints ONCOLOGY HISTORY:?[facility] Hx? DIAGNOSIS: Stage IIIa (pT2, snN2A), ER positive, SC negative, HER2/sarai negative, poorly differentiated invasive ductal carcinoma of the left breast. A total of 5 lymph nodes positive for metastatic disease. Left breast modified radical mastectomy (10/27/2023) Left breast lumpectomy and sentinel lymph node biopsy (09/03/2023) Left breast ultrasound-guided biopsy as well as left axillary lymph node biopsy (07/13/2023) SUE heterozygous mutation positive, high risk for breast and pancreatic cancers. PET/CT scan (05/31/2024) negative study. S/p 4 cycle of dose dense AC chemotherapy and 4 cycles of dose dense Taxol chemotherapy in the adjuvant setting (01/11/2024 - 04/19/2024). First dose of adjuvant Zometa received on 05/17/2020 Adjuvant anastrozole started on 05/30/2024. Abemaciclib started around July 21, 2024. Currently on adjuvant abemaciclib 150 mg p.o. twice daily. Unable to tolerate full dose of abemaciclib which was causing significant diarrhea S/p adjuvant radiation therapy to the left chest (05/10/2024?07/08/2024). DATE OF DIAGNOSIS: 10/19/2023 STAGE/TNM: T2 N2 ER positive/SC negative HER2 negative SUE mutation positive TREATMENT HISTORY: Care?Plan Start?Date Cycle Day Intent AC-Taxol?Dose?Dense?q?2wks 12/21/2023 1 14 Curative?(adjuvant) Zoledronic?Acid?4?mg?adjuvant 05/17/2024 1 180 Curative?(adjuvant) HISTORY OF PRESENT ILLNESS: Irma Bryan is a 65-year-old ENG speaking female with history of anxiety had the following oncology history. Cannot have extensive history of cancer in her family as about 4 in her family including her maternal aunts and sisters. She was diagnosed with high risk stage III breast cancer and and here for follow-up. At the time of diagnosis, she does not remember as to when she exactly had the previous mammograms. Ms. Bryan has strong family history of breast cancer. Her mother as well as 4 of her maternal aunts had breast cancers. Sister had multiple lumps in the breast. Patient with a strong history of breast cancer Ms. Bryan had bilateral diagnostic digital mammograms and bilateral breast ultrasounds done to evaluate palpable breast lumps. 07/13/2023: Ms. Bryan had ultrasound-guided biopsy of the left breast 9:00 nodule and a left axillary lymph node. 09/03/2023: Ms. Bryan had left breast lumpectomy and sentinel lymph node biopsy 10/27/2023: Ms. Bryan had modified radical left mastectomy 11/12/2023: [facility] hereditary cancer test? 11/12/2023: BRCA1 and BRCA2 analysis 01/11/2024 - 04/19/2020: Ms. Bryan had 4 cycles of dose dense AC and 4 cycles of Taxol in the adjuvant setting 05/10/2024: Ms. Bryan started adjuvant radiation therapy to the left chest. 05/17/2024. Ms. Bryan received first dose of adjuvant Zometa. 05/30/2024: Ms. Bryan started adjuvant anastrozole. 07/21/2024: Ms. Bryan also started abemaciclib. OTHER MEDICAL HISTORY/CONDITIONS: ANXIETY/?DEPRESSION LEFT?BREAST?CANCER LEFT BREAST BIOPSY 08/2023 LEFT BREAST AND LYMPH NODES REMOVED 10/27/23 HYSTERECTOMY AT AGE 41 APPENDECTOMY AT AGE 18 RIGHT BREAST LUMP REMOVED 1982 BENIGN FAMILY HISTORY: Father:?DENIES Mother: MOTHER AND MATERNAL AUNTS BREAST CANCER Sibling:?SISTER?HX?BREAST?CANCER Children:?DENIES Cancer History:?LEFT BREAST CANCER DX 08/2023 SOCIAL HISTORY: Occupational?History:?DISABLED Education?Level:?6-Attended?Vocational?School,?did?not?graduate Marital?Status:? Tobacco Use:?STOPPED SMOKING 30 YEARS AGO , SMOKED .5 PACK PER DAY ETOH?Use:?OCCASIONAL?TEQUILA Drug?Note:?MARIJUANA?IN?THE?PAST LEDGE MAN HISTORY: Menarche?-?Age:?13 Menopause:?HYSTERECTOMY?AGE?41 Hormone?Use:?ADMITS TO CONTROL PILLS IN PAST :?3 Live?Births:?2 Age?1st?:?21 Date?Last?Mammogram:?08/30/2023 Gynecological?Note:?MAMMOGRAM COMPLETED IN AUGUST 2023 Gynecological?Note?2:?1?MISCARRIAGE MEDICATIONS: 1. anastrozole - 1 mg 1 tab Daily 2. docusate sodium - 100 mg 1 Capsule As needed 3. gabapentin - 100 mg 2 tab Twice a Day 4. potassium chloride - 20 mEq 1 tab Daily 5. traZODone - 50 mg 1 tab As needed 6. Verzenio - 100 mg 1 tab twice a day 7. Xarelto - 20 mg 1 tab Daily?Palabra Meds? Medications Last Reconciled by Deidre Henrandez MA on 02/21/2025 ALLERGIES: Penicillin V REVIEW OF SYSTEMS: A complete 14-point review of systems was performed and is negative except as noted in interval history. PHYSICAL EXAMINATION: VITAL SIGNS: Temperature?99.9, B/P?108/69, Oxygen?Saturation?100% Weight?130?lbs (Change?since?02/20/25:?0.6?lbs) PAIN: 0 - No pain GENERAL APPEARANCE: Appears well, in no apparent distress, appropriately interactive. HEENT: Normocephalic, no temporal wasting, normal conjunctiva, no scleral icterus, normal hearing, lips without lesions, neck normal range of motion. CARDIOVASCULAR: Not assessed. PULMONARY: Normal respiratory effort, no respiratory distress or use of accessory muscles, speaking in full sentences, no tachypnea. EXTREMITIES: No pedal edema or cyanosis. SKIN: Normal skin appearance. NEUROLOGIC: Alert and oriented x4. PSHYCHIATRIC: Appropriate affect, mood normal, behavior normal, intact thought and speech. LABORATORY DATA: I have personally reviewed and interpreted each of the patient?s relevant lab tests, abnormal findings are below: Date 02/23/25 02/27/25 ??WHITE?BLOOD?COUNT?(Thou/mm3) 2.8?L 2.2?L ??RED?BLOOD?COUNT?(Miln/mm3) 2.68?L 2.61?L ??HEMOGLOBIN?(gm/dl) 8.5?L 8.2?L ??HEMATOCRIT?(%) 24.9?L 24.3?L ??PLATELET?COUNT?(Thou/mm3) 117?L 130?L ??NEUTROPHILS?%,?AUTO?(%) 65 64 ??LYMPH?%,?AUTO?(%) 20 19 ??NEUTROPHILS,?AUTO?(Thou/mm3) 1.8 1.4?L ??GLUCOSE,RANDOM?(mg/dL) 84 108?H ??BLOOD?UREA?NITROGEN?(mg/dL) 14 12 ??CREATININE?(mg/dL) 0.90 0.80 ??SODIUM?(mmol/L) 141 142 ??POTASSIUM?(mmol/L) 3.3?L 2.6?LL ??CHLORIDE?(mmol/L) 107 105 ??CrCl?(CandG)?(ml/min) 59.56 67.72 ??AST/SGOT?(Unit/L) 15 14 ??ALT/SGPT?(Unit/L) 12 9?L ??ALKALINE?PHOSPHATASE?(Unit/L) 112 112 ??BILIRUBIN,?TOTAL?(mg/dL) 0.6 0.5 ??PROTEIN?TOTAL?(gm/dl) 6.0 5.8 ??ALBUMIN,?SERUM?(gm/dl) 3.7 3.6 ??GLOBULIN?(gm/dl) 2.3 2.2?L ??ALBUMIN/GLOBULIN?RATIO 1.6 1.6 ??CALCIUM,?SERUM?(mg/dL) 9.1 9.2 ??CALCIUM?SERUM?(CORRECTED)?(mg/dL) 9.3 9.5 ASSESSMENT/PLAN:?Anselmo Nichole Assessment/Plan? #1 stage Illa (pTZ, snNZA), ER positive, SC negative, KARIN/sarai negative, Ki-67 20-30%, poorly differentiated invasive ductal carcinoma of the left breast. Left breast leticia?ed radical mastectomy (10/27/2023) Left breast lumpectomy and sentinel lymph node biopsy (09/03/2023) Left breast ultrasound-guided biopsy as well as left axillary lymph node biopsy (07/13/2023) Status quo 4 cycles of AC and 4 cycles of Taxol chemotherapy in the adjuvant setting Status post adjuvant radiation therapy to the left chest wall completed on 07/08/2024. Patient is on anastrozole and abemaciclib Plan is to continue for 2 years Patient tolerating it well Advised to repeat labs every month Continue abemaciclib 150 mg p.o. twice daily Last PET scan in May 2024 was negative for any metastatic disease 02/14/2025 Multiple interval hypermetabolic cervical, supraclavicular , retroclavicular, bilateral axillary and mediastinal lymph nodes as above will order biopsy EKG Normal saline and 1-2 times in a week as needed for hydration CBC CMP #2 osteopenia bone density test showed osteopenia. Currently Ms. Bryan is taking Citracal 2 tablets in the morning 2 in the evening. Started on adjuvant Zometa on 05/17/2024 #3 SUE mutation Strong family history of breast cancers. Mother as well as for maternal aunts had breast cancers. Ms. Bryan is positive for SUE heterozygous mutation, high risk for breast and pancreatic cancers. BRCA 1and2 negative. 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 Continue Neurontin 100 mg p.o. twice daily CBC CMP CA 15-3 ORDERS: Order # Description [id number] Type and Crossmatch + 1 Unit PRB [id number] CT Guided Biopsy [id number] MRI + Brain + With W/O Contrast [id number] Comprehensive Metabolic Panel - 12 + CBC with Auto Diff + CEA + CA 15-3 [id number] MD Follow Up 2 Months [id number] ? [id number] MRI + Brain + With W/O Contrast [id number] CA 15-3 [id number] Follow Up 2 Months RETURN TO CLINIC: 2 month BILLING AND COMPLIANCE: I reviewed external records from providers outside my specialty as summarized above. I spent a total of 50 minutes on this patient?s care on the day of their visit excluding time spent related to any billed procedures. This time includes time spent with the patient as well as time spent documenting in the medical record, reviewing patients records and tests, obtaining history, placing orders, communicating with other healthcare professionals, counseling the patient, family or caregiver, and/or care coordination for the diagnoses above. Electronically Signed by: Sascha Nichole MD T: 9:03 PM CC: PCP: Sascha Nichole Referring: Sascha Nichole This document was completed utilizing speech recognition software. Grammatical errors, random word insertions, pronoun errors, and incomplete sentences are an occasional consequence of this system due to software limitations, ambient noise, and hardware issues. Any formal questions or concerns about the content, text or information contained within the body of this dictation should be directly addressed to the provider for clarification.
== END 2025-02-27 23:59 | disposition home or self-care (01) ==
LOC: SCTC 13:59
PROVIDERS: PCP Student in an Organized Health Care Education/Training Program; Referring Provider Internal Medicine Hematology & Oncology; Visit Provider Internal Medicine Hematology & Oncology
DX: C50.812 Malignant neoplasm of overlapping sites of left female breast (principal); C77.3 Secondary and unspecified malignant neoplasm of axilla and upper limb lymph nodes; Z17.0 Estrogen receptor positive status [ER+]; Z17.22 Progesterone receptor negative status; Z17.32 Human epidermal growth factor receptor 2 negative status; Z90.12 Acquired absence of left breast and nipple; Z92.3 Personal history of irradiation; M85.80 Other specified disorders of bone density and structure, unspecified site; Z79.811 Long term (current) use of aromatase inhibitors; Z80.3 Family history of malignant neoplasm of breast; G62.9 Polyneuropathy, unspecified; Z15.09 Genetic susceptibility to other malignant neoplasm
CPT/HCPCS: 36430; 36591; 80053; 85025; 86850; 86900; 86901; 86923; 96360; 96361; 99212; A4216; J1642; J7030; J7040; P9016; G0463

== ENCOUNTER → 2025-03-15 | Outpatient (CLI) | payer BC, SELFPAY ==
--- NOTE | 2025-03-15 | XR_ITS ---
Examination: Duplex scan of the upper extremity, unilateral left Date and time of exam: March 15, 2025 1155 hours Comparison December 04, 2024 INDICATIONS: Left arm venogram December 04, 2024 positive for acute occlusive thrombus left axillary vein, arm pain and swelling for months Technique: Duplex scan of the extremity veins using B-mode/grayscale imaging and Doppler spectral analysis and color flow Attention is directed to internal echogenicity, compression and augmentation involving these veins, color flow assessment, spectral analysis Findings: Major deep venous structures in the extremity demonstrate normal course and caliber. There is no evidence of deep vein thrombosis. Normal color flow and spectral analysis Impression: Negative for DVT..
== END | disposition home or self-care (01) ==
LOC: CDIM 11:19
PROVIDERS: Referring Provider Internal Medicine Hematology & Oncology; Visit Provider Internal Medicine Hematology & Oncology
DX: C50.912 Malignant neoplasm of unspecified site of left female breast (principal)
CPT/HCPCS: 93971

== ENCOUNTER 2025-03-20 08:51 | Outpatient (AMB) | payer BC, SELFPAY ==
[2025-03-20 09:04] VITALS: BP 102/66; PULSE 75; RESP 18; TEMP 36.3; O2SAT 100; BMI 21.7
--- NOTE | 2025-03-20 09:04 | ACNOTE_ITS ---
Vital Signs 03/20/25 09:04 Height 1.65 m Height Method Stated Weight 59.137 kg Weight Measurement Method Standing Scale BMI 21.7 BP 102/66 Blood Pressure Source Automatic Cuff Blood Pressure Location Left Upper Arm Position Sitting Respiration 18 Pulse 75 Pulse Source Monitor Temp 97.3 F Temp Source Temporal Artery Scan Pulse Oximetry (%) 100 Oxygen Delivery Method Room Air Allergies/Meds Allergies & Medications Allergies Penicillins Allergy (Verified 03/20/25 09:05) Hives Medication Reconciliation abemaciclib 150 mg tablet (Verzenio) 150 mg PO BID 11/08/24 [History Confirmed 03/20/25] compression socks, medium #1 ea 12/06/24 [Rx Confirmed 03/20/25] atorvastatin 40 mg tablet 40 mg PO HS #30 tabs 12/12/24 [Rx Confirmed 03/20/25] anastrozole 1 mg tablet 1 mg PO QDAY #30 tabs 01/02/25 [Rx Confirmed 03/20/25] gabapentin 100 mg capsule 200 mg PO BID nerve pain 01/11/25 [History Confirmed 03/20/25] docusate calcium 240 mg capsule 240 mg PO QDAY PRN constipation #30 caps 03/20/25 [Rx] MA Intake Visit Data Collection New Patient or Established: Established Patient (seen at [facility] within 3 years) Seen by Clinical Staff ONLY (RN/MA): No Reason for Visit:: 1 month follow-up Pain Present Currently: No Pain scale:: 0 Pain Scale Used: Avina-Epps/Numerical Annual Giving Officer Required: No PCP or OBGYN visit in last 3 months: No Hx Now: No Do You Feel Safe at Home: Yes Authorities Contacted: N/A Smoking Status Smoking Status: Former smoker Immunization / Flu Flu Vaccine in the Last 12 Months: No Flu Vaccine Exclusion Criteria: No Exclusion Criteria Past Medical History Past Medical History NEUROLOGIC: Negative Neurological Disorders or Seizures CARDIAC: Negative Cardiac Disorders or Congestive Heart Failure RESPIRATORY: Negative Chronic Obstructive Pulmonary Disease (COPD) or Asthma GASTROINTESTINAL: Positive Gastrointestinal Disorders and Hemorrhoids; Negative Hepatitis GENITOURINARY: Negative Genitourinary Disorders or Renal Disease REPRODUCTIVE: Positive Breast Cancer and Previous Pregnancies MUSCULOSKELETAL: Positive Degenerative Disk Disease ENDOCRINE: Negative Endocrine Disorders, Diabetes Mellitus Type 1 or Diabetes Mellitus Type 2 HEMATOLOGIC: Negative Blood Disorders, Anemia or Sickle Cell Disease PSYCHO/SOCIAL: Negative Depression or Anxiety OTHER HISTORY: Positive Hospitalization, Chemotherapy, Radiation Therapy, Chicken Pox, Measles, Cancer and Breast Cancer; Negative Shingles, Blood Transfusions, Blood Transfusion Reaction or Anesthesia Reactions Family History FAMILY HISTORY: Positive Family Cardiac Disorders and Family Surgery; Negative Family Psychiatric Problems, Family Respiratory Disorders, Family Gastrointestinal Problems, Family Cancer or Family Anesthesia Reaction Surgical History SURGICAL: Positive Abdominal Surgery, Mastectomy, Lumpectomy and Hysterectomy Social History SMOKING STATUS: Smoking status: Former smoker ALCOHOL: Alcohol Intake: Current ALCOHOL FREQUENCY: Alcohol Intake Frequency: holidays/special occasions only HOUSING: Housing: House LIVES WITH: Lives With: Family Patient Portal Questionaires PHQ-9 PHQ-2 Over the last 2 weeks, how often have you been bothered by any of the following problems? 1. Little interest or pleasure in doing things: not at all Social History Living Situation History Housing: House Housing Other:: Pt from home Tobacco History Smoking Status: Former smoker Alcohol History Alcohol Intake: Current Alcohol Intake Frequency: holidays/special occasions only Domestic Abuse History Do You Feel Safe at Home: Yes Review of Systems Report any current symptoms Only answer those that you have currently: Past Medical History Past Medical History Have you ever been diagnosed with any of the following: Neurological Problems Seizures: No Cardiology Problems Congestive Heart Failure: No Respiratory Problems Chronic Obstructive Pulmonary Disease (COPD): No Asthma: No Stomache/Intestinal Problems Hepatitis: No Hemorrhoids: Yes Genital/Urinary Problems Renal Disease: No Reproductive Problems Breast Cancer: Yes Previous Pregnancies: Yes Musculoskeletal Problems Degenerative Disk Disease: Yes Endocrine Problems Diabetes Mellitus Type 1: No Diabetes Mellitus Type 2: No Blood Problems Anemia: No Sickle Cell Disease: No Psychologic Problems Depression: No Anxiety: No Other Problems Hospitalization: Yes Shingles: No Blood Transfusions: No Blood Transfusion Reaction: No Anesthesia Reactions: No Chemotherapy: Yes Radiation Therapy: Yes Chicken Pox: Yes Measles: Yes Cancer: Yes Surgical History Hysterectomy: Yes History of Present Illness HPI Narrative Ms. 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 Labs taken with [facility] cancer center show potassium 2.6 on 02/27/2025. She continues to take 20 mEq daily of potassium. She recalls receiving IV fluid hydration on her visits to the Cancer Center but unsure of whether she received IV potassium. Patient had been having frequent diarrhea with abemaciclib. She was previously on 150 mg BID and was reduced to [address] Nichole. Since then, diarrhea has significantly improved. PET scan 02/17/2025 showed multiple interval hypermetabolic cervical, supraclavicular, retroclavicular, bilateral axillary and mediastinal lymph nodes. Patient informed by Dr. Nichole findings were not worrisome, regardless, US-guided biopsy has been scheduled of the right breast on May 02, 2025. In addition, head MRI with and without contrast has been scheduled on March 30, 2025. Patient otherwise reports feeling well, denies any other complaints today. She denies any cramping of the extremities, palpitations, numbness or tingling. She does report some mild dizziness when she is outside doing yardwork. She denies any symptoms of neuropathy at this point so will stop the gabapentin and see if dizziness symptoms improve. Updated medication list: -abemaciclib 100 mg BID -anastrozole 1 mg qday -potassium 20 mEq qday -xarelto 20 mg qday -atorvastatin 40 mg HS -gabapentin 200 mg BID -loperamide 2 mg prn diarrhea -docusate 100 mg prn constipation Objective/Exam Narrative Physical exam: Physical Exam General: Awake and in no acute distress. Conversational and non-toxic appearing. HEENT: Normocephalic, atraumatic, mucous membranes moist. Heart: Regular rate and rhythm, normal S1 and S2, no murmurs. Central chest with 4x3 cm soft area of fluctuance beneath skin, nontender, nonerythematous, normal pigment, irregular border. Left breast scarring s/p L mastectomy. Lungs: Clear to auscultation with no wheezing or crackles. Abdomen: Soft, nondistended, mild tenderness to palpation right upper quadrant, hypoactive bowel sounds. ?No guarding or rebound tenderness. Neurologic: Alert and oriented x3, no gross neurological deficit, and patient able to move all 4 extremities. Extremities: No edema. No left arm edema. Skin: No rash or ecchymoses. Left arm forearm tough skin. Assessment & Plan Diagnosis / Problem List (1) Hypokalemia: Status: Acute Assessment & Plan: Likely side effect of abemaciclib, which is common effect. Denies any chest pain or palpitations. Denies numbness, tingling, or muscle cramps. Patient was having profound diarrhea but currently improved after reducing dose of abemaciclib from 150 to 100 mg BID. 02/27/2025 potassium 2.6 Plan: -BMP to be drawn today, will follow up and adjust potassium supplementation dose as needed -Continue 20 mEq oral potassium daily -Use loperamide 2 mg as needed for diarrhea -Increase intake of potassium rich foods (2) Breast cancer: Status: Chronic Qualifiers: Breast location: unspecified site of breast Estrogen receptor status: positive Laterality: left Patient sex: female Qualified Code(s): C50.912 - Malignant neoplasm of unspecified site of left female breast; Z17.0 - Estrogen receptor positive status [ER+] Assessment & Plan: Patient history of Stage IIIa (pT2, snN2A) 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 Patient currently is following up with Dr. Nichole. Currently, patient takes: abemaciclib 100 mg BID (started 06/2024), anastrozole 1 mg qday (started 05/2024) Last PET scan 02/14/2025 showed multiple interval hypermetabolic cervical, supraclavicular, retroclavicular, bilateral axillary and mediastinal lymph nodes. Patient was subsequently scheduled for biopsy. Plan: -Pending US-guided biopsy of the right breast May 02, 2025 -Pending head MRI with and without contrast March 30, 2025 (3) DVT of left axillary vein, acute: Status: Resolved Assessment & Plan: Patient diagnosed with acute occlusive thrombus left axillary vein on 12/04/2024. However patient continued to have left arm swelling. Patient has high coagulation risk due to cancer history. 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 Likely secondary to previous Taxol and radiation therapy. Patient states currently she is not experiencing any neuropathy, so will try reducing and discontinuing medication. Plan: -Taper and discontinue gabapentin 200 mg BID due to side effect of dizziness (5) Pancytopenia: Status: Chronic Assessment & Plan: Patient has pancytopenia since 10/2024. Likely anemia of chronic disease related to cancer treatment. Plan: -Monitor CBC with Cancer Center Additional Assessment Internal Medicine Attending Note: Case discussed with and agree with note and management plan of Resident Physician as per Resident's Note above. Issues of concern for present visit are as follows: 1 month follow-up visit. Labs from end of January reviewed. Patient was hypokalemic with potassium of 2.6. She has been on 20 meq of potassium daily. She does get IV fluids when she is seen at the cancer treatment center but unsure if any potassium supplementation is happening. Having daily diarrhea due to Abemaciclib (expected side effect). Suspect this is the reason for hypokalemia. We will recheck a BMP today and adjust her potassium supplementation. May use loperamide as needed for diarrhea, and needs to increase intake of potassium rich foods. Continue treatment as per [facility] for breast cancer. She is pending an ultrasound-guided biopsy of the right breast, and an MRI of the brain. She is anticoagulated for DVT of the left axillary vein diagnosed December 04, 2024. Symptoms of peripheral neuropathy have subsided, we will try to wean her gabapentin off. Trevon Wilkes MD Addendum: Potassium on BMP drawn 03/20/2025 is 4.4, in good range. No change to current supplementation. Remainder of BMP okay, BUN to creatinine ratio of 22 is slightly high, patient needs to continue hydration. Physician Billing Established Patient Established Patient: E/M Level 3-CPT 41377 Office Procedures [facility] Level of Care Nursing/Assessment Patient Status: Established Patient Nursing Assessment/Reassessment: Medication Reconciliation, Update PMH in EMR and Vital Signs Coordination of Care: Complex Care and Chronic Disease 1-5, Consent,records obtained, informed consent, Education Simp Pt/Fam and Staff clarify orders Established Patient Charge Established Patient Point Assignment: 85 Established Patient Point Charge: Level 3 (80-115)
== END 2025-03-20 09:47 | disposition home or self-care (01) ==
LOC: HODAHC 08:51
PROVIDERS: Supervising Provider Internal Medicine
DX: E87.6 Hypokalemia (principal); C50.912 Malignant neoplasm of unspecified site of left female breast; Z17.0 Estrogen receptor positive status [ER+]; Z17.22 Progesterone receptor negative status; Z17.32 Human epidermal growth factor receptor 2 negative status; Z90.12 Acquired absence of left breast and nipple; Z92.21 Personal history of antineoplastic chemotherapy; Z92.3 Personal history of irradiation; Z79.811 Long term (current) use of aromatase inhibitors; Z86.718 Personal history of other venous thrombosis and embolism; Z79.01 Long term (current) use of anticoagulants; G62.0 Drug-induced polyneuropathy; T45.1X5D Adverse effect of antineoplastic and immunosuppressive drugs, subsequent encounter; D61.818 Other pancytopenia
CPT/HCPCS: 99213; G0463

== ENCOUNTER → 2025-03-20 | Outpatient (CLI) | payer BC, SELFPAY ==
[2025-03-20 12:07] LABS: Anion Gap 7 (7-16); BUN/Creatinine Ratio 22 Ratio (12-20); Blood Urea Nitrogen 22 mg/dL (9-23); Calcium 9.6 mg/dL (8.3-10.6); Carbon Dioxide 27.4 mMol/L (20.0-31.0); Chloride 104 mMol/L (98-107); Glucose 89 mg/dL (74-106); Osmolality,Calculated 277 (275-295); Potassium 4.4 mMol/L (3.4-5.1); Sodium 138 mMol/L (136-145); eGFR > 60 See Note
== END | disposition home or self-care (01) ==
PROVIDERS: PCP Student in an Organized Health Care Education/Training Program; Referring Provider Student in an Organized Health Care Education/Training Program; Visit Provider Student in an Organized Health Care Education/Training Program
DX: E87.6 Hypokalemia (principal)
CPT/HCPCS: 36415; 80048

== ENCOUNTER 2025-03-28 08:58 | Outpatient (RCR) | payer BC, SELFPAY | END 2025-03-29 23:59 | disposition home or self-care (01) | LOC: SCTC 08:58 | PROVIDERS: PCP Student in an Organized Health Care Education/Training Program; Referring Provider Student in an Organized Health Care Education/Training Program; Visit Provider Radiology Therapeutic Radiology | DX: C50.812 Malignant neoplasm of overlapping sites of left female breast (principal); Z17.0 Estrogen receptor positive status [ER+]; Z17.22 Progesterone receptor negative status; Z17.32 Human epidermal growth factor receptor 2 negative status; Z90.12 Acquired absence of left breast and nipple; Z92.21 Personal history of antineoplastic chemotherapy; Z92.3 Personal history of irradiation; Z80.3 Family history of malignant neoplasm of breast; Z79.811 Long term (current) use of aromatase inhibitors | CPT/HCPCS: 36591; 99212; A4216; J1642; G0463 ==

== ENCOUNTER → 2025-03-30 | Outpatient (CLI) | payer BC, SELFPAY ==
--- NOTE | 2025-03-30 15:45 | XR_ITS ---
Examination: MRI of brain without intravenous contrast. MRI brain with intravenous contrast. Date and time of exam:March 30, 2025 1516 hours INDICATIONS: Diagnosis breast cancer, patient states tingling in the hands and feet beginning 2022 Technique: Multiple axial and sagittal images of the brain to been obtained. Siemens high-resolution 1.52 Maryan short bore scanner utilized. Sagittal sections, T1 weighted images, TR 500, TE 14, are performed. Axial sections proton-density and T2-weighted images have been obtained. Inversion recovery axial images, TR 9260, TE 111, TR 2500. Diffusion weighted images, axial sections, TR 4800, TE 128, B value 1000. Axial sections, ADC map, TR 4800, TE 128. Axial and coronal images were also obtained post 11 cc gadolinium administered intravenously. Findings:: Enlargement of the sella turcica is not present. The optic chiasm and infundibular stalk are not remarkable. There is no localized enlargement of the medulla or klarissa. Fourth ventricle and cerebellar tonsils appear normal in position. No subacute area of hemorrhage density is seen. Fourth ventricle is midline. Mass in the cerebellopontine angle region is not evident. 7th and 8th nerve complexes exhibit symmetry Globes are symmetrical Orbital musculature including medial lateral rectus muscles do not exhibit abnormality Increased white matter signal is minimal Effacement of the cortical sulcal markings is not identified. Mass effect upon the ventricular system is not identified. Diffusion-weighted images demonstrate no focus of restricted diffusion Contrast images demonstrate no abnormal cerebellar or cerebral enhancement Impression: Negative for acute hemorrhage mass effect or midline shift No acute infarct No abnormal enhancing cerebellar or cerebral lesions Bilateral mild mastoiditis
== END | disposition home or self-care (01) ==
LOC: SMRI 13:30
PROVIDERS: PCP Student in an Organized Health Care Education/Training Program; Referring Provider Internal Medicine Hematology & Oncology; Visit Provider Internal Medicine Hematology & Oncology
DX: H70.93 Unspecified mastoiditis, bilateral (principal); C50.912 Malignant neoplasm of unspecified site of left female breast
CPT/HCPCS: 70553; A9579

== ENCOUNTER → 2025-04-11 | Outpatient (CLI) | payer BC, SELFPAY ==
--- NOTE | 2025-04-11 14:30 | ECHO_ITS ---
Transthoracic Echo Report Ht (in): 66 Wt (lb): 127 Exam Location: Echo Lab Status: Pread[employer] Operator: CELESTINO Cardona^^^^ Indications: Procedure Performed: ASE/ACC Appropriateness Score: 0 BP: / HR: MEASUREMENTS (Male / Female) Normal Values 2D ECHO LV Diastolic Diameter PLAX 4.2 cm 4.2 - 5.9 / 3.9 - 5.3 cm LV Systolic Diameter PLAX 2.8 cm IVS Diastolic Thickness 0.7 cm 0.6 - 1.0 / 0.6 - 0.9 cm LVPW Diastolic Thickness 0.9 cm 0.6 - 1.0 / 0.6 - 0.9 cm LV Relative Wall Thickness 0.4 LVOT Diameter 1.4 cm Aortic Root Diameter 3.1 cm LA Systolic Diameter LX 3.6 cm 3.0 - 4.0 / 2.7 - 3.8 cm LV Ejection Fraction MOD 4C 62.0 % LV Ejection Fraction 4C AL 63.0 % LA Volume Index 38.6 cm?/m? 16 - 28 cm?/m? DOPPLER AV Peak Velocity 159.0 cm/s AV Peak Gradient 10.1 mmHg AV Mean Gradient 7.0 mmHg AV Velocity Time Integral 33.4 cm LVOT Peak Velocity 143.0 cm/s LVOT Peak Gradient 8.2 mmHg LVOT Velocity Time Integral 31.7 cm AV Area Cont Eq vti 1.5 cm? AV Area Cont Eq pk 1.4 cm? MV Area PHT 4.0 cm? MR Peak Velocity 484.0 cm/s MR Peak Gradient 93.7 mmHg Mitral E Point Velocity 87.7 cm/s Mitral A Point Velocity 83.2 cm/s Mitral E to A Ratio 1.1 LV E' Lateral Velocity 16.9 cm/s Mitral E to LV E' Lateral Ratio 5.2 LV E' Septal Velocity 10.8 cm/s Mitral E to LV E' Septal Ratio 8.1 TR Peak Velocity 295.7 cm/s TR Peak Gradient 35.0 mmHg FINDINGS Left Ventricle Normal left ventricular size, wall thickness, systolic function with no obvious regional wall motion abnormalities. There is grade II diastolic dysfunction of the left ventricle (pseudonormal filling pattern). The left ventricular ejection fraction is normal, estimated at 60-65%. Right Ventricle The right ventricle is normal in size and systolic function. The estimated right ventricular systolic pressure, 35 mmHg. Left Atrium Mildly increased left atrial volume 38.6 mL/m?. Right Atrium The right atrium is normal by two-dimensional imaging, color flow and Doppler imaging with no structural abnormalities, no thrombus formation present. Atrial Septum The interatrial septum appears normal with no evidence of a shunt. Aorta The aorta is normal by two-dimensional, color flow and Doppler interrogation. Mitral Valve Mild mitral regurgitation. Mild mitral annular calcification. Aortic Valve Aortic valve sclerosis. Diffuse calcification of the aortic valve. Tricuspid Valve There is mild tricuspid valve regurgitation. Pulmonic Valve Trivial pulmonic valve regurgitation. Vessels The pulmonary artery appears normal. The inferior vena cava pulmonary and hepatic veins appear normal. Pericardium The pericardium is normal by two-dimensional imaging. There is no significant pericardial effusion. CONCLUSIONS Indication: Malignant neoplasm of unspecified site of left female breast Normal LV size and function with estimated EF of 55 to 60%. Normal diastolic function. Normal RV size and function with mildly elevated RVSP at 35 mmHg. Mild MAC with mild MR and mild TR. Mildly dilated LA Diallo Krause (Electronically Signed) Final Date: 11 Apr 2025 21:03
== END | disposition home or self-care (01) ==
LOC: SDIM 14:04
PROVIDERS: PCP Student in an Organized Health Care Education/Training Program; Referring Provider Internal Medicine Hematology & Oncology; Visit Provider Internal Medicine Hematology & Oncology
DX: I08.1 Rheumatic disorders of both mitral and tricuspid valves (principal); C50.912 Malignant neoplasm of unspecified site of left female breast
CPT/HCPCS: 93306

== ENCOUNTER 2025-04-17 08:55 | Outpatient (AMB) | payer BC, SELFPAY ==
[2025-04-17 09:09] VITALS: BP 108/72; PULSE 69; RESP 18; TEMP 36.8; O2SAT 99; BMI 21.4
--- NOTE | 2025-04-17 09:09 | ACNOTE_ITS ---
Vital Signs 04/17/25 09:09 Height 1.65 m Height Method Stated Weight 58.23 kg Weight Measurement Method Standing Scale BMI 21.4 BP 108/72 Blood Pressure Source Automatic Cuff Blood Pressure Location Right Upper Arm Position Sitting Respiration 18 Pulse 69 Pulse Source Monitor Temp 98.2 F Temp Source Temporal Artery Scan Pulse Oximetry (%) 99 Oxygen Delivery Method Room Air Allergies/Meds Allergies & Medications Allergies Penicillins Allergy (Verified 04/17/25 09:10) Hives Medication Reconciliation abemaciclib 150 mg tablet (Verzenio) 150 mg PO BID 11/08/24 [History Confirmed 04/17/25] compression socks, medium #1 ea 12/06/24 [Rx Confirmed 04/17/25] atorvastatin 40 mg tablet 40 mg PO HS #30 tabs 12/12/24 [Rx Confirmed 04/17/25] anastrozole 1 mg tablet 1 mg PO QDAY #30 tabs 01/02/25 [Rx Confirmed 04/17/25] gabapentin 100 mg capsule 200 mg PO BID nerve pain 01/11/25 [History Confirmed 04/17/25] docusate calcium 240 mg capsule 240 mg PO QDAY PRN constipation #30 caps 03/20/25 [Rx Confirmed 04/17/25] MA Intake Visit Data Collection New Patient or Established: Established Patient (seen at [facility] within 3 years) Seen by Clinical Staff ONLY (RN/MA): No Pain Present Currently: No Pain scale:: 0 Pain Scale Used: [employer]ina-Epps/Numerical Liquid Loader Required: No PCP or OBGYN visit in last 3 months: No Hx Now: No Do You Feel Safe at Home: Yes Authorities Contacted: N/A Smoking Status Smoking Status: Former smoker Immunization / Flu Flu Vaccine in the Last 12 Months: No Flu Vaccine Exclusion Criteria: No Exclusion Criteria Past Medical History Past Medical History NEUROLOGIC: Negative Neurological Disorders or Seizures CARDIAC: Negative Cardiac Disorders or Congestive Heart Failure RESPIRATORY: Negative Chronic Obstructive Pulmonary Disease (COPD) or Asthma GASTROINTESTINAL: Positive Gastrointestinal Disorders and Hemorrhoids; Negative Hepatitis GENITOURINARY: Negative Genitourinary Disorders or Renal Disease REPRODUCTIVE: Positive Breast Cancer and Previous Pregnancies MUSCULOSKELETAL: Positive Degenerative Disk Disease ENDOCRINE: Negative Endocrine Disorders, Diabetes Mellitus Type 1 or Diabetes Mellitus Type 2 HEMATOLOGIC: Negative Blood Disorders, Anemia or Sickle Cell Disease PSYCHO/SOCIAL: Negative Depression or Anxiety OTHER HISTORY: Positive Hospitalization, Chemotherapy, Radiation Therapy, Chicken Pox, Measles, Cancer and Breast Cancer; Negative Shingles, Blood Transfusions, Blood Transfusion Reaction or Anesthesia Reactions Family History FAMILY HISTORY: Positive Family Cardiac Disorders and Family Surgery; Negative Family Psychiatric Problems, Family Respiratory Disorders, Family Gastrointestinal Problems, Family Cancer or Family Anesthesia Reaction Surgical History SURGICAL: Positive Abdominal Surgery, Mastectomy, Lumpectomy and Hysterectomy Social History SMOKING STATUS: Smoking status: Former smoker ALCOHOL: Alcohol Intake: Current ALCOHOL FREQUENCY: Alcohol Intake Frequency: holidays/special occasions only HOUSING: Housing: House LIVES WITH: Lives With: Family Patient Portal Questionaires PHQ-9 PHQ-2 Over the last 2 weeks, how often have you been bothered by any of the following problems? 1. Little interest or pleasure in doing things: not at all Social History Living Situation History Housing: House Housing Other:: Pt from home Tobacco History Smoking Status: Former smoker Alcohol History Alcohol Intake: Current Alcohol Intake Frequency: holidays/special occasions only Domestic Abuse History Do You Feel Safe at Home: Yes Review of Systems Report any current symptoms Only answer those that you have currently: Past Medical History Past Medical History Have you ever been diagnosed with any of the following: Neurological Problems Seizures: No Cardiology Problems Congestive Heart Failure: No Respiratory Problems Chronic Obstructive Pulmonary Disease (COPD): No Asthma: No Stomache/Intestinal Problems Hepatitis: No Hemorrhoids: Yes Genital/Urinary Problems Renal Disease: No Reproductive Problems Breast Cancer: Yes Previous Pregnancies: Yes Musculoskeletal Problems Degenerative Disk Disease: Yes Endocrine Problems Diabetes Mellitus Type 1: No Diabetes Mellitus Type 2: No Blood Problems Anemia: No Sickle Cell Disease: No Psychologic Problems Depression: No Anxiety: No Other Problems Hospitalization: Yes Shingles: No Blood Transfusions: No Blood Transfusion Reaction: No Anesthesia Reactions: No Chemotherapy: Yes Radiation Therapy: Yes Chicken Pox: Yes Measles: Yes Cancer: Yes Surgical History Hysterectomy: Yes History of Present Illness HPI Narrative Ms. 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 Labs taken with [facility] cancer center show potassium 2.6 on 02/27/2025. She continues to take 20 mEq daily of potassium. She recalls receiving IV fluid hydration on her visits to the Cancer Center but unsure of whether she received IV potassium. Patient had been having frequent diarrhea with abemaciclib. She was previously on 150 mg BID and was reduced to [address] Nichole. Since then, diarrhea has significantly improved. PET scan 02/17/2025 showed multiple interval hypermetabolic cervical, supraclavicular, retroclavicular, bilateral axillary and mediastinal lymph nodes. Patient informed by Dr. Nichole findings were not worrisome, regardless, US-guided biopsy has been scheduled of the right breast on May 02, 2025. In addition, head MRI with and without contrast has been scheduled on March 30, 2025. Patient otherwise reports feeling well, denies any other complaints today. She denies any cramping of the extremities, palpitations, numbness or tingling. She does report some mild dizziness when she is outside doing yardwork. She denies any symptoms of neuropathy at this point so will stop the gabapentin and see if dizziness symptoms improve. Updated medication list: -abemaciclib 100 mg BID -anastrozole 1 mg qday -potassium 20 mEq qday -xarelto 20 mg qday -atorvastatin 40 mg HS -gabapentin 200 mg BID -loperamide 2 mg prn diarrhea -docusate 100 mg prn constipation 04/17/2025: 65-year-old woman with past medical history of stage III (pT2, snN2A) left breast poorly differentiated invasive ductal carcinoma (diagnosed 08/2023, ER positive, NH negative, HER2/sarai negative), s/p left-sided modified mastectomy, chemotherapy, and radiation therapy followed by the [facility], who presents to the [facility] for follow-up with brain MRI results. Patient stated that she has been feeling well and at her last appointment with Dr. Nichole Xarelto was discontinued as well as recommendations for taking potassium 20 meq p.o. every other day for 1 month. Brain MRI on 03/30/2025 was Negative for acute hemorrhage mass effect or midline shift, No acute infarct, No abnormal enhancing cerebellar or cerebral lesions, Bilateral mild mastoiditis. Patient denied any headache, fevers ear pain or any symptoms suggestion of possible mastoiditis. Echocardiogram 04/11/2025 Normal LV size and function with estimated EF of 55 to 60%. Normal diastolic function, Normal RV size and function with mildly elevated RVSP at 35 mmHg, Mild MAC with mild MR and mild TR. Mildly dilated LA. last BMP on 03/20/2025 potassium 4.4. Next follow-up appointment with PCP in 3 months, and BMP to monitor potassium was ordered. Review of Systems Review of Systems Systems Reviewed: All systems reviewed, normal except as documented Objective/Exam Narrative Physical exam: General: No acute distress, well appearing, alert, interactive in company of her son HEENT: NC/AT, PERRL, EOMI, Good conjugate gaze, moist mucous membranes, oropharynx clear. Neck: Supple, No masses, No adenopathy, carotid pulse 2+ bilaterally without bruits, No JVD, normal range of motion. Chest: Symmetrical, atraumatic, and with equal expansion , Nontender on palpation no deformity and no crepitus. CVS: S1 and S2 present, Regular rate and rhythm, No murmurs, rubs or gallops perceived during auscultation. Lungs: Normal respiratory effort, CTAB, no wheezing, rhonchi or rales perceived during auscultation, No intercostal or subcostal retraction. Abdomen : Soft, no tenderness to palpation, no guarding ,no rebound, +BS Extremities: Left arm with compression sleeve, warm well perfused, normal tone and ROM, strength and sensation intact, cap refill less than 2, +2 dp equal bilaterally, able to move all 4 extremities spontaneously. Skin: no erythema or jaundice noted Neuro: AOx3, no focal neurologic deficits noted, GCS 15 Psych: Appropriate mood and affect. Assessment & Plan Diagnosis / Problem List (1) Hypokalemia: Status: Acute Assessment & Plan: Likely side effect of abemaciclib, which is common effect. Denies any chest pain or palpitations. Denies numbness, tingling, or muscle cramps. Patient was having profound diarrhea but currently improved after reducing dose of abemaciclib from 150 to 100 mg BID. 02/27/2025 potassium 2.6 03/20/2025 potassium 4.4 patient stated that per Dr. Manning recommendations to take the potassium 20 mEq every other day for 1 month, BMP for follow-up was ordered Plan: -BMP for follow-up before Dr. Manning appointment -Continue 20 mEq oral potassium every other day per Dr. Nichole's recommendation -Use loperamide 2 mg as needed for diarrhea -Increase intake of potassium rich foods (2) Breast cancer: Status: Chronic Qualifiers: Breast location: unspecified site of breast Estrogen receptor status: positive Patient sex: female Laterality: left Qualified Code(s): C50.912 - Malignant neoplasm of unspecified site of left female breast; Z17.0 - Estrogen receptor positive status [ER+] Assessment & Plan: Patient history of Stage IIIa (pT2, snN2A) left breast poorly differentiated invasive ductal carcinoma (diagnosed 08/2023, ER positive, NH negative, HER2/sarai negative), s/p left-sided modified mastectomy, chemotherapy, and radiation therapy followed by the [facility]. Patient currently is following up with Dr. Nichole. Currently, patient takes: abemaciclib 100 mg BID (started 06/2024), anastrozole 1 mg qday (started 05/2024) Last PET scan 02/14/2025 showed multiple interval hypermetabolic cervical, supraclavicular, retroclavicular, bilateral axillary and mediastinal lymph nodes. Patient was subsequently scheduled for biopsy. Brain MRI with and without contrast 03/30/2025; was Negative for acute hemorrhage mass effect or midline shift, No acute infarct, No abnormal enhancing cerebellar or cerebral lesions, Bilateral mild mastoiditis. Plan: - Pending US-guided biopsy of the right breast May 02, 2025 - Continue to follow-up with Dr. Manning at the cancer center (3) DVT of left axillary vein, acute: Status: Resolved Assessment & Plan: Patient diagnosed with acute occlusive thrombus left axillary vein on 12/04/2024. However patient continued to have left arm swelling. Patient has high coagulation risk due to cancer history. 03/15/2025 Follow up US venous doppler study of left upper extremity showed negative for DVT Patient is stated that Dr. Manning ordered to stop the Xarelto. Plan: - Discontinue Xarelto per Dr. 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 Likely secondary to previous Taxol and radiation therapy. Patient states currently she is not experiencing any neuropathy, so will try reducing and discontinuing medication. Plan: -Taper and discontinue gabapentin 200 mg BID due to side effect of dizziness (5) Pancytopenia: Status: Chronic Assessment & Plan: Patient has pancytopenia since 10/2024. Likely anemia of chronic disease related to cancer treatment. Plan: -Monitor CBC with Cancer Center Plan Patient discussed with my attending Dr sabas Hogan MD PGY-3 Disclaimer: Despite multiple revisions, due to the dictation software being used, the document bellow may not be free of grammatical errors including phonetic/typographic errors. However, this does not deter from our commitment to providing health care in the patient's best interest in mind. Orders: Orders Basic Metabolic Panel Today E87.6 - Hypokalemia Office Procedures [facility] Level of Care Nursing/Assessment Patient Status: Established Patient Nursing Assessment/Reassessment: Medication Reconciliation, Update PMH in EMR and Vital Signs Coordination of Care: Complex Care and Chronic Disease 1-5, Consent,records obtained, informed consent, Education Simp Pt/Fam and Staff clarify orders Established Patient Charge Established Patient Point Assignment: 85 Established Patient Point Charge: EP Level 3 (80-115)
== END 2025-04-17 09:48 | disposition home or self-care (01) ==
LOC: HODAHC 08:55
PROVIDERS: PCP Student in an Organized Health Care Education/Training Program; Referring Provider Student in an Organized Health Care Education/Training Program; Supervising Provider Internal Medicine; Visit Provider Student in an Organized Health Care Education/Training Program
DX: Z71.2 Person consulting for explanation of examination or test findings (principal); E87.6 Hypokalemia; C50.912 Malignant neoplasm of unspecified site of left female breast; Z17.0 Estrogen receptor positive status [ER+]; Z17.22 Progesterone receptor negative status; Z17.32 Human epidermal growth factor receptor 2 negative status; Z90.12 Acquired absence of left breast and nipple; Z92.21 Personal history of antineoplastic chemotherapy; Z92.3 Personal history of irradiation; Z86.718 Personal history of other venous thrombosis and embolism; D61.818 Other pancytopenia
CPT/HCPCS: 99213; G0463

== ENCOUNTER 2025-04-21 08:47 | Outpatient (RCR) | payer BC, SELFPAY ==
[2025-04-21 11:53] LABS: Basophils # (Auto) 0.1 Thou/mm3 (0.0-0.2); Basophils % (Auto) 2 % (0-2.5); Eosinophils % (Auto) 1 % (0-10); Hematocrit 28.8 % (36.0-46.0); Hemoglobin 9.8 g/dL (12.0-16.0); Immature Granulocytes % (Auto) 0 % (0-0); Immature Granulocytes Auto 0.01 Thou/mm3 (0.00-0.00); Lymphocytes # (Auto) 0.6 Thou/mm3 (1.0-4.8); Lymphocytes % (Auto) 21 % (10-50); Mean Corpuscular Hemoglobin 32.3 pg (25.0-35.0); Mean Corpuscular Volume 95 fL (80-100); Monocytes # (Auto) 0.2 Thou/mm3 (0.0-0.8); Monocytes % (Auto) 8 % (0-12); Neutrophils # (Auto) 1.9 Thou/mm3 (1.8-7.7); Neutrophils % (Auto) 68 % (37-80); Nucleated Red Blood Cell % 0 /100 WBC (0); Platelet Count 153 Thou/mm3 (140-440); RDW Standard Deviation 42.1 fL (36.4-46.3); Red Blood Count 3.03 Miln/mm3 (4.00-5.20)
[2025-04-21 12:05] LABS: Alanine Aminotransferase 21 U/L (10-49); Albumin, Serum 4.2 gm/dL (3.4-4.8); Albumin/Globulin Ratio 1.8 (1.2-2.2); Alkaline Phosphatase 124 U/L (46-116); Anion Gap 10 (7-16); Aspartate Amino Transferase 23 U/L (0-34); BUN/Creatinine Ratio 18 Ratio (12-20); Bilirubin,Total 0.6 mg/dL (0.3-1.2); Blood Urea Nitrogen 18 mg/dL (9-23); Chloride 107 mMol/L (98-107); Globulin 2.3 gm/dL (2.3-3.5); Glucose 100 mg/dL (74-106); Osmolality,Calculated 285 (275-295); Potassium 3.4 mMol/L (3.4-5.1); Sodium 142 mMol/L (136-145); Total Protein 6.5 gm/dL (5.7-8.2); eGFR > 60 See Note
[2025-04-21 12:23] LABS: CA 15-3 23.3 U/mL (<32.4); White Blood Count 2.8 Thou/mm3 (3.6-11.0)
== END 2025-04-29 23:59 | disposition home or self-care (01) ==
LOC: SCTC 08:47
PROVIDERS: PCP Student in an Organized Health Care Education/Training Program; Referring Provider Student in an Organized Health Care Education/Training Program; Visit Provider Internal Medicine Hematology & Oncology
DX: C50.912 Malignant neoplasm of unspecified site of left female breast (principal); Z17.0 Estrogen receptor positive status [ER+]; Z17.22 Progesterone receptor negative status; Z17.32 Human epidermal growth factor receptor 2 negative status; Z90.12 Acquired absence of left breast and nipple; Z92.21 Personal history of antineoplastic chemotherapy; Z92.3 Personal history of irradiation
CPT/HCPCS: 36591; 80053; 85025; 86300; A4216; J1642

== ENCOUNTER → 2025-05-02 | Outpatient (CLI) | payer BC, SELFPAY ==
[2025-05-01 09:42] LABS: Basophils % (Auto) 1 % (0-2.5); Eosinophils # (Auto) 0.1 Thou/mm3 (0.0-0.5); Eosinophils % (Auto) 1 % (0-10); Hematocrit 31.2 % (36.0-46.0); Hemoglobin 10.2 g/dL (12.0-16.0); Immature Granulocytes % (Auto) 1 % (0-0); Immature Granulocytes Auto 0.02 Thou/mm3 (0.00-0.00); Lymphocytes # (Auto) 0.7 Thou/mm3 (1.0-4.8); Lymphocytes % (Auto) 20 % (10-50); Mean Corpuscular HGB Conc 32.7 g/dl (31.0-37.0); Mean Corpuscular Hemoglobin 31.9 pg (25.0-35.0); Mean Corpuscular Volume 98 fL (80-100); Monocytes # (Auto) 0.3 Thou/mm3 (0.0-0.8); Monocytes % (Auto) 7 % (0-12); Neutrophils # (Auto) 2.5 Thou/mm3 (1.8-7.7); Neutrophils % (Auto) 70 % (37-80); Nucleated Red Blood Cell % 0 /100 WBC (0); Platelet Count 134 Thou/mm3 (140-440); RDW Standard Deviation 42.9 fL (36.4-46.3); White Blood Count 3.5 Thou/mm3 (3.6-11.0)
[2025-05-01 09:49] LABS: Partial Thromboplastin Time 20.3 Seconds (22.0-36.0); Prothrombin Time 11.4 Seconds (9.0-12.2)
--- NOTE | 2025-05-02 09:30 | XR_ITS ---
Examination: Breast ultrasound, unilateral, right complete Date and time of exam: May 02, 2025 0934 hours INDICATIONS: Right breast sonogram May 03, 2024 history suspicious right axillary lymph nodes Technique: Real-time santana scale ultrasonographic imaging performed right breast including all 4 quadrants as well as nipple retroareolar and axillary region. Findings: 9:00 cyst 5 x 5 mm 10:00 cyst 9 x 11 mm 10:00 cyst 7 x 9 mm 10:00 nodule circumscribed 6 x 6 mm No suspicious axillary masses IMPRESSION: BI-RADS Category 2: Benign findings
== END | disposition home or self-care (01) ==
LOC: SDIM 09:14 → SIRX 09:23
PROVIDERS: Radiology Diagnostic Radiology; PCP Student in an Organized Health Care Education/Training Program; Referring Provider Internal Medicine Hematology & Oncology; Visit Provider Internal Medicine Hematology & Oncology
DX: C50.912 Malignant neoplasm of unspecified site of left female breast (principal); Z53.8 Procedure and treatment not carried out for other reasons; Z01.812 Encounter for preprocedural laboratory examination
CPT/HCPCS: 36415; 76641; 85025; 85610; 85730

== ENCOUNTER 2025-05-15 08:42 | Outpatient (AMB) | payer BC, SELFPAY ==
[2025-05-15 08:53] VITALS: BP 114/67; PULSE 66; RESP 18; TEMP 36.8; O2SAT 100; BMI 22.0
--- NOTE | 2025-05-15 08:53 | PD.RESCLINIC ---
Vital Signs 05/15/25 08:53 Height 1.65 m Height Method Stated Weight 59.931 kg Weight Measurement Method Standing Scale BMI 22.0 BP 114/67 Blood Pressure Source Automatic Cuff Blood Pressure Location Right Upper Arm Position Sitting Respiration 18 Pulse 66 Pulse Source Monitor Temp 98.2 F Temp Source Temporal Artery Scan Pulse Oximetry (%) 100 Oxygen Delivery Method Room Air Allergies/Meds Allergies & Medications Allergies Penicillins Allergy (Verified 06/30/25 09:56) Hives Medication Reconciliation compression socks, medium #1 ea 12/06/24 [Rx Confirmed 06/30/25] anastrozole 1 mg tablet 1 mg PO QDAY #30 tabs 01/02/25 [Rx Confirmed 06/30/25] docusate calcium 240 mg capsule 240 mg PO QDAY PRN constipation #30 caps 03/20/25 [Rx Confirmed 06/30/25] atorvastatin 40 mg tablet 40 mg PO HS #30 tabs 04/17/25 [Rx Confirmed 06/30/25] abemaciclib 150 mg tablet (Verzenio) 100 mg PO BID 05/15/25 [History Confirmed 06/30/25] prednisone 10 mg tablet See Taper PO DIRECTED #42 tabs 06/30/25 [Rx] naproxen 500 mg tablet 500 mg PO BID PRN pain #60 tabs 07/14/25 [Rx] gabapentin 100 mg capsule 200 mg (2 x 100 mg) PO BID nerve pain #60 caps 08/02/25 [Rx] MA Intake Visit Data Collection New Patient or Established: Established Patient (seen at [facility] within 3 years) Seen by Clinical Staff ONLY (RN/MA): No Pain Present Currently: No Pain scale:: 0 Pain Scale Used: Avina-Epps/Numerical [employer] Java Developer Required: No PCP or OBGYN visit in last 3 months: No Hx Now: No Do You Feel Safe at Home: Yes Authorities Contacted: N/A Smoking Status Smoking Status: Former smoker Immunization / Flu Flu Vaccine in the Last 12 Months: No Flu Vaccine Exclusion Criteria: No Exclusion Criteria Past Medical History Past Medical History NEUROLOGIC: Negative Neurological Disorders or Seizures CARDIAC: Negative Cardiac Disorders or Congestive Heart Failure RESPIRATORY: Negative Chronic Obstructive Pulmonary Disease (COPD) or Asthma GASTROINTESTINAL: Positive Gastrointestinal Disorders and Hemorrhoids; Negative Hepatitis GENITOURINARY: Negative Genitourinary Disorders or Renal Disease REPRODUCTIVE: Positive Breast Cancer and Previous Pregnancies MUSCULOSKELETAL: Positive Degenerative Disk Disease ENDOCRINE: Negative Endocrine Disorders, Diabetes Mellitus Type 1 or Diabetes Mellitus Type 2 HEMATOLOGIC: Negative Blood Disorders, Anemia or Sickle Cell Disease PSYCHO/SOCIAL: Negative Depression or Anxiety OTHER HISTORY: Positive Hospitalization, Chemotherapy, Radiation Therapy, Chicken Pox, Measles, Cancer and Breast Cancer; Negative Shingles, Blood Transfusions, Blood Transfusion Reaction or Anesthesia Reactions Family History FAMILY HISTORY: Positive Family Cardiac Disorders and Family Surgery; Negative Family Psychiatric Problems, Family Respiratory Disorders, Family Gastrointestinal Problems, Family Cancer or Family Anesthesia Reaction Surgical History SURGICAL: Positive Abdominal Surgery, Mastectomy, Lumpectomy and Hysterectomy Social History SMOKING STATUS: Smoking status: Former smoker ALCOHOL: Alcohol Intake: Current ALCOHOL FREQUENCY: Alcohol Intake Frequency: holidays/special occasions only HOUSING: Housing: House LIVES WITH: Lives With: Family Patient Portal Questionaires PHQ-9 PHQ-2 Over the last 2 weeks, how often have you been bothered by any of the following problems? 1. Little interest or pleasure in doing things: not at all Social History Living Situation History Housing: House Housing Other:: Pt from home Tobacco History Smoking Status: Former smoker Alcohol History Alcohol Intake: Current Alcohol Intake Frequency: holidays/special occasions only Domestic Abuse History Do You Feel Safe at Home: Yes Review of Systems Report any current symptoms Only answer those that you have currently: Past Medical History Past Medical History Have you ever been diagnosed with any of the following: Neurological Problems Seizures: No Cardiology Problems Congestive Heart Failure: No Respiratory Problems Chronic Obstructive Pulmonary Disease (COPD): No Asthma: No Stomache/Intestinal Problems Hepatitis: No Hemorrhoids: Yes Genital/Urinary Problems Renal Disease: No Reproductive Problems Breast Cancer: Yes Previous Pregnancies: Yes Musculoskeletal Problems Degenerative Disk Disease: Yes Endocrine Problems Diabetes Mellitus Type 1: No Diabetes Mellitus Type 2: No Blood Problems Anemia: No Sickle Cell Disease: No Psychologic Problems Depression: No Anxiety: No Other Problems Hospitalization: Yes Shingles: No Blood Transfusions: No Blood Transfusion Reaction: No Anesthesia Reactions: No Chemotherapy: Yes Radiation Therapy: Yes Chicken Pox: Yes Measles: Yes Cancer: Yes Surgical History Hysterectomy: Yes History of Present Illness HPI Narrative Ms. Fine is a 65-year-old female with past medical history of Stage IIIa (pT2, snN2A) left breast poorly differentiated invasive ductal carcinoma (diagnosed 08/2023, ER positive, MT negative, HER2/sarai negative), s/p left-sided modified mastectomy, chemotherapy, and radiation therapy followed by the [facility], who presents to the [facility] for 1 month follow up. Recent labs showed WBC 3.5, Hgb 10.2, Plt 134k, chemistry potassium 3.3, all else within normal limits. Patient reports feeling well, no longer has diarrhea symptoms. Signatera assay for tumor DNA 04/26/2025 was negative. Patient has a follow up CT soft tissue neck pending that was ordered to follow up on PET scan 02/14/2025 which showed multiple interval hypermetabolic cervical, supraclavicular, retroclavicular, bilateral axillary and mediastinal lymph nodes as above. Objective/Exam Narrative Physical exam: Physical Exam General: Awake and in no acute distress. Conversational and non-toxic appearing. HEENT: Normocephalic, atraumatic, mucous membranes moist. Heart: Regular rate and rhythm, normal S1 and S2, no murmurs. Lungs: Clear to auscultation with no wheezing or crackles. Abdomen: Soft, nondistended, nontender, positive bowel sounds. ?No guarding or rebound tenderness. Neurologic: Alert and oriented x3, no gross neurological deficit, and patient able to move all 4 extremities. Extremities: No edema. Skin: No rash or ecchymoses. Assessment & Plan Diagnosis / Problem List (1) Hypokalemia: Status: Acute Assessment & Plan: Likely side effect of abemaciclib, which is common effect. Denies any chest pain or palpitations. Denies numbness, tingling, or muscle cramps. Patient was having profound diarrhea but currently improved after reducing dose of abemaciclib from 150 to 100 mg BID. 02/27/2025 potassium 2.6 03/20/2025 potassium 4.4 patient stated that per Dr. Manning recommendations to take the potassium 20 mEq every other day for 1 month Diarrhea now resolved, potassium mildly low, expect K to increase. Plan: -As of now discontinue potassium supplement -Increase intake of potassium rich foods (2) Breast cancer: Status: Chronic Qualifiers: Breast location: unspecified site of breast Estrogen receptor status: positive Laterality: left Patient sex: female Qualified Code(s): C50.912 - Malignant neoplasm of unspecified site of left female breast; Z17.0 - Estrogen receptor positive status [ER+] Assessment & Plan: Patient history of Stage IIIa (pT2, snN2A) left breast poorly differentiated invasive ductal carcinoma (diagnosed 08/2023, ER positive, MT negative, HER2/sarai negative), s/p left-sided modified mastectomy, chemotherapy, and radiation therapy followed by the [facility]. Patient currently is following up with Dr. Nichole. Currently, patient takes: abemaciclib 100 mg BID (started 06/2024), anastrozole 1 mg qday (started 05/2024) Last PET scan 02/14/2025 showed multiple interval hypermetabolic cervical, supraclavicular, retroclavicular, bilateral axillary and mediastinal lymph nodes. Patient was subsequently scheduled for biopsy, completed and negative. Brain MRI with and without contrast 03/30/2025; was Negative for acute hemorrhage mass effect or midline shift, No acute infarct, No abnormal enhancing cerebellar or cerebral lesions, Bilateral mild mastoiditis. Plan: -Continue to follow-up with Dr. Manning at the cancer center (3) Peripheral neuropathy due to chemotherapy: Status: Resolved Assessment & Plan: Patient previously reporting symptoms of peripheral neuropathy. Likely secondary to previous Taxol and radiation therapy. Patient states currently she is not experiencing any neuropathy, so medication was reduced. Plan: -Continue gabapentin 200 mg BID (4) Pancytopenia: Status: Chronic Assessment & Plan: Patient has pancytopenia since 10/2024. Likely anemia of chronic disease related to cancer treatment. Plan: -Monitor CBC with Cancer Center Plan Patient plan of care was discussed with the attending physician, Dr. Wilkes. Ashley Shane, PGY-3 Additional Assessment Attending note: I, Trevon Wilkes MD, attest that I was physically present for the lewis portions of the service and evaluated the patient with the resident and I reviewed and discussed the case with the resident and agree with the resident's findings and plans of care as documented above. Trevon Wilkes MD Physician Billing Established Patient Established Patient: E/M Level 3-CPT 55478 Office Procedures [facility] Level of Care Nursing/Assessment Patient Status: Established Patient Nursing Assessment/Reassessment: Medication Reconciliation, Update PMH in EMR and Vital Signs Coordination of Care: Complex Care and Chronic Disease 1-5, Consent,records obtained, informed consent, Education Simp Pt/Fam, Ref for ancillary service and Staff clarify orders Established Patient Charge Established Patient Point Assignment: 105 Established Patient Point Charge: EP Level 3 (80-115)
== END 2025-05-15 09:53 | disposition home or self-care (01) ==
LOC: HODAHC 08:42
PROVIDERS: PCP Student in an Organized Health Care Education/Training Program; Referring Provider Student in an Organized Health Care Education/Training Program; Supervising Provider Internal Medicine; Visit Provider Student in an Organized Health Care Education/Training Program
DX: E87.6 Hypokalemia (principal); C50.912 Malignant neoplasm of unspecified site of left female breast; Z17.0 Estrogen receptor positive status [ER+]; Z17.22 Progesterone receptor negative status; Z17.32 Human epidermal growth factor receptor 2 negative status; Z90.12 Acquired absence of left breast and nipple; Z92.21 Personal history of antineoplastic chemotherapy; Z92.3 Personal history of irradiation; Z79.811 Long term (current) use of aromatase inhibitors; G62.0 Drug-induced polyneuropathy; T45.1X5D Adverse effect of antineoplastic and immunosuppressive drugs, subsequent encounter; D61.818 Other pancytopenia
CPT/HCPCS: 99213; G0463

== ENCOUNTER 2025-05-15 13:09 | Outpatient (RCR) | payer BC, SELFPAY ==
[2025-05-12 11:09] LABS: Basophils # (Auto) 0.1 Thou/mm3 (0.0-0.2); Basophils % (Auto) 2 % (0-2.5); Eosinophils # (Auto) 0.1 Thou/mm3 (0.0-0.5); Eosinophils % (Auto) 2 % (0-10); Hematocrit 28.5 % (36.0-46.0); Hemoglobin 9.7 g/dL (12.0-16.0); Immature Granulocytes % (Auto) 0 % (0-0); Lymphocytes # (Auto) 0.6 Thou/mm3 (1.0-4.8); Lymphocytes % (Auto) 19 % (10-50); Mean Corpuscular Hemoglobin 31.7 pg (25.0-35.0); Mean Corpuscular Volume 93 fL (80-100); Monocytes # (Auto) 0.2 Thou/mm3 (0.0-0.8); Monocytes % (Auto) 7 % (0-12); Neutrophils % (Auto) 70 % (37-80); Nucleated Red Blood Cell % 0 /100 WBC (0); Platelet Count 135 Thou/mm3 (140-440); RDW Standard Deviation 41.2 fL (36.4-46.3); Red Blood Count 3.06 Miln/mm3 (4.00-5.20)
[2025-05-12 11:14] LABS: White Blood Count 2.9 Thou/mm3 (3.6-11.0)
[2025-05-12 11:31] LABS: Alanine Aminotransferase 22 U/L (10-49); Albumin, Serum 3.9 gm/dL (3.4-4.8); Alkaline Phosphatase 108 U/L (46-116); Anion Gap 11 (7-16); Aspartate Amino Transferase 27 U/L (0-34); BUN/Creatinine Ratio 16 Ratio (12-20); Bilirubin,Total 0.6 mg/dL (0.3-1.2); Blood Urea Nitrogen 13 mg/dL (9-23); Calcium 9.1 mg/dL (8.3-10.6); Calcium (Corrected) 9.2 mg/dL (8.5-10.1); Carbon Dioxide 26.9 mMol/L (20.0-31.0); Chloride 106 mMol/L (98-107); Creatinine (Component) 0.8 mg/dL (0.6-1.3); Glucose 82 mg/dL (74-106); Osmolality,Calculated 285 (275-295); Potassium 3.3 mMol/L (3.4-5.1); Sodium 144 mMol/L (136-145); Total Protein 5.9 gm/dL (5.7-8.2); eGFR > 60 See Note
--- NOTE | 2025-05-21 21:37 | CTCFLWUP_ITS ---
Patient: IRMA BRYAN : 1960 Page 9 of 12 FOLLOW UP NOTE DATE OF SERVICE: 05/11/2025 NAME: IRMA BRYAN ACCOUNT: [id number] : 1960 AGE: 65 INTERVAL HISTORY: Subjective: Chief Complaint Sharp pain, pockets of fluid on my skin, on my breast , swollen arm, back pain worse in the last week History of Present Illness Marychuy Bryan, a 65-year-old female with a history of breast cancer, presents with multiple concerns including sharp pain, lymphedema, and back pain. The patient reports experiencing sharp pain, in her arm and surgery site . She also notes significant lymphedema issues, particularly in her arm, which has become swollen and painful. The patient describes little pockets of fluid on her skin and breast, with the affected area becoming like leather. The lymphedema is causing discomfort and limiting her activities. She mentions trying to work in the yard but being unable to do so due to her condition. Additionally, Ms. Bryan complains of back pain that has worsened over the past week. The exact location and character of the back pain are not specified, but it is severe enough that she inquired about getting an x-ray. The patient reports adherence to her medication regimen, taking 100 mg twice daily (verzenio) and Anastrozole. She mentions missing one dose the previous night due to falling asleep. Regarding her overall health status, Ms. Bryan expresses relief upon learning that she is in remission from her breast cancer. Recent tests, including Fahad testing in March, came back negative for breast cancer. Ms. Bryan's lymphedema appears to be significantly impacting her daily functioning, limiting her ability to perform tasks such as yard work. She relies on her daughter for assistance with daily activities. The patient expresses reluctance to accept in-home support services when suggested. Medications and Supplements - Potassium - Discontinued - Anastrozole - verzenio 100 mg by mouth twice daily - Missed one dose due to falling asleep Review of Systems General: Positive for feeling cold. Skin: Positive for pockets of fluid on skin and breast. Musculoskeletal: Positive for sharp pain and back pain. Hematological/Lymphatic: Positive for arm swelling and lymphedema. Objective: Physical Examination Musculoskeletal: Right arm noted to be swollen. Skin on breast described as becoming like leather. Skin: Pockets of fluid observed on skin, particularly on breast. Arm swelling noted. After compression bandage application, hand softness improved. Laboratory, Imaging, and Diagnostic Test Results - Date: March 2025 - Fahad testing: Negative for breast cancer - Date: Not specified - CBC: WBC 3.5 (improved), Hemoglobin 10.2 g/dL (improved) - Echocardiogram: Normal heart, minor changes noted - MRI brain: Negative - Ultrasound of right breast: Nodules present, likely cysts - Previous results: - CBC: WBC and Hemoglobin were lower (exact values not provided) ONCOLOGY HISTORY:?[facility] Oncology Hx? DIAGNOSIS: Stage IIIa (pT2, snN2A), ER positive, KY negative, HER2/sarai negative, poorly differentiated invasive ductal carcinoma of the left breast. A total of 5 lymph nodes positive for metastatic disease. Left breast modified radical mastectomy (10/27/2023) Left breast lumpectomy and sentinel lymph node biopsy (09/03/2023) Left breast ultrasound-guided biopsy as well as left axillary lymph node biopsy (07/13/2023) SUE heterozygous mutation positive, high risk for breast and pancreatic cancers. PET/CT scan (05/31/2024) negative study. S/p 4 cycle of dose dense AC chemotherapy and 4 cycles of dose dense Taxol chemotherapy in the adjuvant setting (01/11/2024 - 04/19/2024). First dose of adjuvant Zometa received on 05/17/2020 Adjuvant anastrozole started on 05/30/2024. Abemaciclib started around July 21, 2024. Currently on adjuvant abemaciclib 150 mg p.o. twice daily. Unable to tolerate full dose of abemaciclib which was causing significant diarrhea S/p adjuvant radiation therapy to the left chest (05/10/2024?07/08/2024). DATE OF DIAGNOSIS: 10/19/2023 STAGE/TNM: T2 N2 ER positive/KY negative HER2 negative SUE mutation positive TREATMENT HISTORY: Care?Plan Start?Date Cycle Day Intent AC-Taxol?Dose?Dense?q?2wks 12/21/2023 1 14 Curative?(adjuvant) Zoledronic?Acid?4?mg?adjuvant 05/17/2024 1 180 Curative?(adjuvant) HISTORY OF PRESENT ILLNESS: Irma Bryan is a 65-year-old ENG speaking female with history of anxiety had the following oncology history. Cannot have extensive history of cancer in her family as about 4 in her family including her maternal aunts and sisters. She was diagnosed with high risk stage III breast cancer and and here for follow-up. At the time of diagnosis, she does not remember as to when she exactly had the previous mammograms. Ms. Bryan has strong family history of breast cancer. Her mother as well as 4 of her maternal aunts had breast cancers. Sister had multiple lumps in the breast. Patient with a strong history of breast cancer Ms. Bryan had bilateral diagnostic digital mammograms and bilateral breast ultrasounds done to evaluate palpable breast lumps. 07/13/2023: Ms. Bryan had ultrasound-guided biopsy of the left breast 9:00 nodule and a left axillary lymph node. 09/03/2023: Ms. Bryan had left breast lumpectomy and sentinel lymph node biopsy 10/27/2023: Ms. Bryan had modified radical left mastectomy 11/12/2023: [facility] hereditary cancer test? 11/12/2023: BRCA1 and BRCA2 analysis 01/11/2024 - 04/19/2020: Ms. Bryan had 4 cycles of dose dense AC and 4 cycles of Taxol in the adjuvant setting 05/10/2024: Ms. Bryan started adjuvant radiation therapy to the left chest. 05/17/2024. Ms. Bryan received first dose of adjuvant Zometa. 05/30/2024: Ms. Bryan started adjuvant anastrozole. 07/21/2024: Ms. Bryan also started abemaciclib. OTHER MEDICAL HISTORY/CONDITIONS: ANXIETY/?DEPRESSION LEFT?BREAST?CANCER LEFT BREAST BIOPSY 08/2023 LEFT BREAST AND LYMPH NODES REMOVED 10/27/23 HYSTERECTOMY AT AGE 41 APPENDECTOMY AT AGE 18 RIGHT BREAST LUMP REMOVED 1982 BENIGN FAMILY HISTORY: Father:?DENIES Mother: MOTHER AND MATERNAL AUNTS BREAST CANCER Sibling:?SISTER?HX?BREAST?CANCER Children:?DENIES Cancer History:?LEFT BREAST CANCER DX 08/2023 SOCIAL HISTORY: Occupational?History:?DISABLED Education?Level:?6-Attended?Vocational?School,?did?not?graduate Marital?Status:? 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 anastrozole - 1 mg 1 tab Daily 2. docusate sodium - 100 mg 1 Capsule As needed 3. TylenoL - 500 mg 1 tab As needed 4. Verzenio - 100 mg 1 tab twice a day?Palabra Meds? Medications Last Reconciled by Deidre Hernandez MA on 05/11/2025 ALLERGIES: Penicillin V REVIEW OF SYSTEMS: A complete 14-point review of systems was performed and is negative except as noted in interval history. PHYSICAL EXAMINATION:?CloneBlock PE? VITAL SIGNS: Temperature?98.5, B/P?129/72, Oxygen?Saturation?100% Weight?131?lbs (Change?since?04/21/25:?3.6?lbs) PAIN: 0 - No pain ECOG Performance Status: 1 - Symptomatic; ambulatory; restricted in strenuous activity GENERAL APPEARANCE: Appears well, in no apparent distress, appropriately interactive. HEENT: Normocephalic, no temporal wasting, normal conjunctiva, no scleral icterus, normal hearing, lips without lesions, neck normal range of motion. CARDIOVASCULAR: Not assessed. PULMONARY: Normal respiratory effort, no respiratory distress or use of accessory muscles, speaking in full sentences, no tachypnea. EXTREMITIESrt arm swollen and edematous SKIN: Normal skin appearance. NEUROLOGIC: Alert and oriented x4. PSHYCHIATRIC: Appropriate affect, mood normal, behavior normal, intact thought and speech. LABORATORY DATA: I have personally reviewed and interpreted each of the patient?s relevant lab tests, abnormal findings are below: Date 04/21/25 05/01/25 05/12/25 ??WHITE?BLOOD?COUNT?(Thou/mm3) ? 3.5?L 2.9?L ??RED?BLOOD?COUNT?(Miln/mm3) ? 3.20?L 3.06?L ??HEMOGLOBIN?(gm/dl) ? 10.2?L 9.7?L ??HEMATOCRIT?(%) ? 31.2?L 28.5?L ??PLATELET?COUNT?(Thou/mm3) ? 134?L 135?L ??NEUTROPHILS?%,?AUTO?(%) ? 70 70 ??LYMPH?%,?AUTO?(%) ? 20 19 ??NEUTROPHILS,?AUTO?(Thou/mm3) ? 2.5 2.0 ??GLUCOSE,RANDOM?(mg/dL) 100 ? 82 ??BLOOD?UREA?NITROGEN?(mg/dL) 18 ? 13 ??CREATININE?(mg/dL) 1.00 ? 0.80 ??SODIUM?(mmol/L) 142 ? 144 ??POTASSIUM?(mmol/L) 3.4 ? 3.3?L ??CHLORIDE?(mmol/L) 107 ? 106 ??CrCl?(CandG)?(ml/min) 51.85 ? 66.64 ??AST/SGOT?(Unit/L) 23 ? 27 ??ALT/SGPT?(Unit/L) 21 ? 22 ??ALKALINE?PHOSPHATASE?(Unit/L) 124?H ? 108 ??BILIRUBIN,?TOTAL?(mg/dL) 0.6 ? 0.6 ??PROTEIN?TOTAL?(gm/dl) 6.5 ? 5.9 ??ALBUMIN,?SERUM?(gm/dl) 4.2 ? 3.9 ??GLOBULIN?(gm/dl) 2.3 ? 2.0?L ??ALBUMIN/GLOBULIN?RATIO 1.8 ? 2.0 ??CALCIUM,?SERUM?(mg/dL) 9.0 ? 9.1 ??CALCIUM?SERUM?(CORRECTED)?(mg/dL) 9.0 ? 9.2 ASSESSMENT/PLAN: Assessment and Plan: Marychuy Bryan, a 65-year-old female with a history of breast cancer and mastectomy, presents with lymphedema, sharp pain, and back pain. ?Anselmo Nichole Assessment/Plan? #1 stage Illa (pTZ, snNZA), ER positive, KY negative, KARIN/sarai negative, Ki-67 20-30%, poorly differentiated invasive ductal carcinoma of the left breast. Left breast leticia?ed radical mastectomy (10/27/2023) Left breast lumpectomy and sentinel lymph node biopsy (09/03/2023) Left breast ultrasound-guided biopsy as well as left axillary lymph node biopsy (07/13/2023) Status quo 4 cycles of AC and 4 cycles of Taxol chemotherapy in the adjuvant setting Status post adjuvant radiation therapy to the left chest wall completed on 07/08/2024. Patient is on anastrozole and abemaciclib Plan is to continue for 2 years Patient tolerating it well Advised to repeat labs every month Continue abemaciclib 150 mg p.o. twice daily Last PET scan in May 2024 was negative for any metastatic disease 02/14/2025 Multiple interval hypermetabolic cervical, supraclavicular , retroclavicular, bilateral axillary and mediastinal lymph nodes as above biopsy is still pending Patient's breast cancer is likely in remission. Recent Fahad testing in March was negative. An ultrasound of the right breast revealed some nodules, which appear to be cysts. However, further evaluation is warranted. Plan: - Refer patient to Dr. Gonzalez for evaluation of right breast nodules - Continue current medication regimen: - Anastrozole (dosage not specified) - Unspecified medication 100 mg twice daily - Educate patient on importance of medication adherence - follow up on biopsy of LN #2 osteopenia bone density test showed osteopenia. Currently Ms. Bryan is taking Citracal 2 tablets in the morning 2 in the evening. Started on adjuvant Zometa on 05/17/2024 #3 SUE mutation Strong family history of breast cancers. Mother as well as for maternal aunts had breast cancers. Ms. Bryan is positive for SUE heterozygous mutation, high risk for breast and pancreatic cancers. BRCA 1and2 negative. 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 Continue Neurontin 100 mg p.o. twice daily Lymphedema Assessment: Patient presents with significant lymphedema in the arm following mastectomy. The affected area is described as swollen, with pockets of fluid on the skin and breast. The condition has progressed to the point where the skin is becoming leather-like in texture. This is likely a result of inadequate post- mastectomy care, as the patient reports never being sent to a lymphedema clinic after her surgery. Plan: - Apply compression bandage to affected arm - Instruct patient to keep arm elevated as much as possible - Refer to Lymphedema Clinic for ongoing management - Educate patient on importance of wearing tight compression sleeve - Recommend gentle massage to promote fluid movement - Advise patient to avoid strenuous activities, particularly yard work - Schedule follow-up in 3 months : Back Pain Assessment: Patient reports worsening back pain over the past week. The exact location and characteristics of the pain are not specified. Given the patient's history of breast cancer, there is a concern for potential metastasis, although this has not been confirmed. Plan: - Order ultrasound of the back to evaluate pain - Advise patient to avoid strenuous activities, particularly yard work - CT scan of neck scheduled for May 23 (likely related to radiating pain) Cardiovascular and Hematologic Status Assessment: Recent echocardiogram shows normal heart function with minor changes, not of significant concern. Patient's white blood cell count has improved to 3.5, and hemoglobin has increased to 10.2. These improvements indicate better overall hematologic status. Plan: - Continue monitoring cardiac and hematologic parameters at follow-up visits Functional Status and Home Care Assessment: Patient is struggling with daily activities due to lymphedema and pain. She currently receives assistance from her daughter but may benefit from additional support. Plan: - Discuss possibility of in-home support services - Educate patient on the importance of setting boundaries and avoiding overexertion - Encourage family members to assist with household tasks, particularly gardening CBC CMP CA 15-3 ORDERS: Order # Description [id number] Infusion 1 Hour [id number] Infusion 1 Hour [id number] Infusion 1 Hour RETURN TO CLINIC: BILLING AND COMPLIANCE: I reviewed external records from providers outside my specialty as summarized above. I spent a total of 50 minutes on this patient?s care on the day of their visit excluding time spent related to any billed procedures. This time includes time spent with the patient as well as time spent documenting in the medical record, reviewing patients records and tests, obtaining history, placing orders, communicating with other healthcare professionals, counseling the patient, family or caregiver, and/or care coordination for the diagnoses above. Electronically Signed by: Sascha Nichole MD T: 9:35 PM CC: PCP: Jennifer Alarcon Referring: Ashley Shane This document was completed utilizing speech recognition software. Grammatical errors, random word insertions, pronoun errors, and incomplete sentences are an occasional consequence of this system due to software limitations, ambient noise, and hardware issues. Any formal questions or concerns about the content, text or information contained within the body of this dictation should be directly addressed to the provider for clarification.
== END 2025-05-29 23:59 | disposition home or self-care (01) ==
LOC: SCTC 13:09
PROVIDERS: PCP Family Medicine; Referring Provider Family Medicine; Visit Provider Internal Medicine Hematology & Oncology
DX: C50.812 Malignant neoplasm of overlapping sites of left female breast (principal); Z17.0 Estrogen receptor positive status [ER+]; Z17.22 Progesterone receptor negative status; Z17.32 Human epidermal growth factor receptor 2 negative status; Z90.12 Acquired absence of left breast and nipple; Z15.01 Genetic susceptibility to malignant neoplasm of breast; Z15.09 Genetic susceptibility to other malignant neoplasm; Z79.811 Long term (current) use of aromatase inhibitors; I89.0 Lymphedema, not elsewhere classified; M54.9 Dorsalgia, unspecified; N60.01 Solitary cyst of right breast; M85.80 Other specified disorders of bone density and structure, unspecified site; G62.9 Polyneuropathy, unspecified
CPT/HCPCS: 36591; 80053; 84443; 84450; 85025; 96365; 99212; A4216; J1642; J3489; J7040; G0463

== ENCOUNTER → 2025-05-16 | Outpatient (CLI) | payer BC, SELFPAY ==
--- NOTE | 2025-05-16 10:34 | XR_ITS ---
Examination: Duplex scan of the upper extremity, unilateral left Date and time of exam: May 16, 2025 1050 hours INDICATIONS: Left axillary pain years, history left axillary DVT December 04, 2024 Technique: Duplex scan of the extremity veins using B-mode/grayscale imaging and Doppler spectral analysis and color flow Attention is directed to internal echogenicity, compression and augmentation involving these veins, color flow assessment, spectral analysis Findings: Major deep venous structures in the extremity demonstrate normal course and caliber. There is no evidence of deep vein thrombosis. Normal color flow and spectral analysis Impression: Negative for DVT..
== END | disposition home or self-care (01) ==
PROVIDERS: PCP Student in an Organized Health Care Education/Training Program; Referring Provider Internal Medicine Hematology & Oncology; Visit Provider Internal Medicine Hematology & Oncology
DX: C50.912 Malignant neoplasm of unspecified site of left female breast (principal)
CPT/HCPCS: 93971

== ENCOUNTER → 2025-05-23 | Outpatient (CLI) | payer BC, SELFPAY ==
--- NOTE | 2025-05-23 13:30 | XR_ITS ---
Examination: CT soft tissue neck, with intravenous contrast. 2-D coronal reconstructions. 2-D sagittal reconstructions. Date and time of exam :May 23, 2025 1341 hours INDICATIONS: Left-sided neck pain 2 years, diagnosis left breast cancer 2 years ago mastectomy. CTDI: vol (mGy):10 DLP: (mGycm):297 Technique: 1.25 mm axial sections of the neck of the obtained. Coronal and sagittal reconstructions have been obtained. Intravenous contrast administered 50 cc Isovue-370. Low dose protocols were performed. One or more of the following dose reduction techniques were used; automated exposure control, adjustment of the mA and/or KV according to patient size, use of iterative reconstruction technique. Findings: Symmetrical nasopharynx oropharynx Symmetrical submandibular glands No pathologic carotid triangle submental or posterior cervical lymphadenopathy 9 mm left, 10 mm right supraclavicular lymph nodes The larynx appears normal 3 mm right thyroid nodule Normal epiglottis Moderate degenerative disc disease C5-C6 IMPRESSION: Small bilateral supraclavicular lymph nodes, suggest 3 month follow-up CT soft tissue neck post contrast
== END | disposition home or self-care (01) ==
PROVIDERS: Referring Provider Internal Medicine Hematology & Oncology; Visit Provider Internal Medicine Hematology & Oncology
DX: C50.912 Malignant neoplasm of unspecified site of left female breast (principal)
CPT/HCPCS: 70491; A4649; Q9967

== ENCOUNTER → 2025-06-21 | Outpatient (CLI) | payer BC, SELFPAY ==
--- NOTE | 2025-06-21 09:45 | XR_ITS ---
Examination: Screening digital mammography, unilateral right Computer aided detection 3-D breast Tomosynthesis, unilateral Date and time of exam: June 21, 2025 0929 hours Compared to mammograms dating to May 23, 2008 Indication: Screening, personal history left breast cancer status post mastectomy, family history, mother breast cancer Technique: Nonmagnified MLO, CC views of the right breast to been obtained, reconstructed from 3-D Tomosynthesis images. R2 computer aided detection program utilized for evaluation of suspicious masses and/or abnormal calcifications. 3-D Tomosynthesis images obtained. Findings: The breast is heterogeneously dense, which may obscure small masses 4 mm nodule partially indistinct margins retroareolar region right breast Impression: BI-RADS Category 0: Incomplete: Need additional imaging evaluation Recommend follow-up spot tomographic views of 4 mm nodule retroareolar region right breast as well as right breast sonography to complete the workup
== END | disposition home or self-care (01) ==
LOC: CDIM 09:12
PROVIDERS: Referring Provider Internal Medicine Hematology & Oncology; Visit Provider Internal Medicine Hematology & Oncology
DX: Z12.31 Encounter for screening mammogram for malignant neoplasm of breast (principal); N63.41 Unspecified lump in right breast, subareolar; C50.912 Malignant neoplasm of unspecified site of left female breast
CPT/HCPCS: 77063; 77067

== ENCOUNTER 2025-06-30 09:45 | Outpatient (AMB) | payer BC, SELFPAY ==
[2025-06-30 09:56] VITALS: BP 117/65; PULSE 65; RESP 17; TEMP 36.4; O2SAT 99; BMI 21.4
--- NOTE | 2025-06-30 09:56 | PD.RESCLINIC ---
Vital Signs 06/30/25 09:56 Height 1.65 m Height Method Stated Weight 58.57 kg Weight Measurement Method Standing Scale BMI 21.4 BP 117/65 Blood Pressure Source Automatic Cuff Blood Pressure Location Right Upper Arm Position Sitting Respiration 17 Pulse 65 Pulse Source Monitor Temp 97.5 F Temp Source Temporal Artery Scan Pulse Oximetry (%) 99 Oxygen Delivery Method Room Air Allergies/Meds Allergies & Medications Allergies Penicillins Allergy (Verified 06/30/25 09:56) Hives Medication Reconciliation compression socks, medium #1 ea 12/06/24 [Rx Confirmed 06/30/25] anastrozole 1 mg tablet 1 mg PO QDAY #30 tabs 01/02/25 [Rx Confirmed 06/30/25] gabapentin 100 mg capsule 200 mg PO BID nerve pain 01/11/25 [History Confirmed 06/30/25] docusate calcium 240 mg capsule 240 mg PO QDAY PRN constipation #30 caps 03/20/25 [Rx Confirmed 06/30/25] atorvastatin 40 mg tablet 40 mg PO HS #30 tabs 04/17/25 [Rx Confirmed 06/30/25] abemaciclib 150 mg tablet (Verzenio) 100 mg PO BID 05/15/25 [History Confirmed 06/30/25] prednisone 10 mg tablet See Taper PO DIRECTED #42 tabs 06/30/25 [Rx] Confirmation of home meds: Pt. unable to confirm MA Intake Visit Data Collection New Patient or Established: Established Patient (seen at [facility] within 3 years) Seen by Clinical Staff ONLY (RN/MA): No Reason for Visit:: NECK PAIN Pain Present Currently: Yes Pain Location: Neck Pain scale:: 8 Pain Scale Used: Avina-Epps/Numerical PCP or OBGYN visit in last 3 months: Yes Date of Last PCP or OBGYN visit: 05/15/25 Hx Now: No Do You Feel Safe at Home: Yes Authorities Contacted: N/A Smoking Status Smoking Status: Former smoker Immunization / Flu Flu Vaccine in the Last 12 Months: Yes Flu Vaccine Exclusion Criteria: Already Received Past Medical History Past Medical History NEUROLOGIC: Negative Neurological Disorders or Seizures CARDIAC: Negative Cardiac Disorders or Congestive Heart Failure RESPIRATORY: Negative Chronic Obstructive Pulmonary Disease (COPD) or Asthma GASTROINTESTINAL: Positive Gastrointestinal Disorders and Hemorrhoids; Negative Hepatitis GENITOURINARY: Negative Genitourinary Disorders or Renal Disease REPRODUCTIVE: Positive Breast Cancer and Previous Pregnancies MUSCULOSKELETAL: Positive Degenerative Disk Disease ENDOCRINE: Negative Endocrine Disorders, Diabetes Mellitus Type 1 or Diabetes Mellitus Type 2 HEMATOLOGIC: Negative Blood Disorders, Anemia or Sickle Cell Disease PSYCHO/SOCIAL: Negative Depression or Anxiety OTHER HISTORY: Positive Hospitalization, Chemotherapy, Radiation Therapy, Chicken Pox, Measles, Cancer and Breast Cancer; Negative Shingles, Blood Transfusions, Blood Transfusion Reaction or Anesthesia Reactions Family History FAMILY HISTORY: Positive Family Cardiac Disorders and Family Surgery; Negative Family Psychiatric Problems, Family Respiratory Disorders, Family Gastrointestinal Problems, Family Cancer or Family Anesthesia Reaction Surgical History SURGICAL: Positive Abdominal Surgery, Mastectomy, Lumpectomy and Hysterectomy Social History SMOKING STATUS: Smoking status: Former smoker SECOND HAND EXPOSURE: second hand exposure: Yes ALCOHOL: Alcohol Intake: Current ALCOHOL FREQUENCY: Alcohol Intake Frequency: holidays/special occasions only HOUSING: Housing: House LIVES WITH: Lives With: Family Patient Portal Questionaires PHQ-9 PHQ-2 Over the last 2 weeks, how often have you been bothered by any of the following problems? 1. Little interest or pleasure in doing things: not at all 2. Feeling down, depressed, or hopeless: not at all Total score: 0 PHQ-9 3. Trouble falling or staying asleep, or sleeping too much: Not at all 4. Feeling tired or having little energy: Not at all 5. Poor appetite or overeating: Not at all 6. Feeling bad about yourself - or that you are a failure or have let yourself or your family down: Not at all 7. Trouble concentrating on things, such as reading the newspaper or watching television: Not at all 8. Moving or speaking so slowly that other people could have noticed? - Or the opposite - being so fidgety or restless that you have been moving around a lot more than usual: not at all 9. Thoughts that you would be better off or of hurting yourself in some way: Not at all Total score: 0 If you checked off any problems, how difficult have these problems made it for you to do your work, take care of things at home, or get along with other people?: not difficult at all Source: Developed by Drs. Ruy Mullins, Nallely Stubbs, Dhruv Jolly and colleagues, with an educational art from [employer]. Depression screen completed yes Social History Living Situation History Marital Status: Unknown Lives With: Family Housing: House Housing Other:: Pt from home Tobacco History Smoking Status: Former smoker Second Hand Smoke Exposure: Yes Alcohol History Alcohol Intake: Current Alcohol Intake Frequency: holidays/special occasions only Domestic Abuse History Do You Feel Safe at Home: Yes Review of Systems Report any current symptoms Only answer those that you have currently: Past Medical History Past Medical History Have you ever been diagnosed with any of the following: Neurological Problems Seizures: No Cardiology Problems Congestive Heart Failure: No Respiratory Problems Chronic Obstructive Pulmonary Disease (COPD): No Asthma: No Stomache/Intestinal Problems Hepatitis: No Hemorrhoids: Yes Genital/Urinary Problems Renal Disease: No Reproductive Problems Breast Cancer: Yes Previous Pregnancies: Yes Musculoskeletal Problems Degenerative Disk Disease: Yes Endocrine Problems Diabetes Mellitus Type 1: No Diabetes Mellitus Type 2: No Blood Problems Anemia: No Sickle Cell Disease: No Psychologic Problems Depression: No Anxiety: No Other Problems Hospitalization: Yes Shingles: No Blood Transfusions: No Blood Transfusion Reaction: No Anesthesia Reactions: No Chemotherapy: Yes Radiation Therapy: Yes Chicken Pox: Yes Measles: Yes Cancer: Yes Surgical History Hysterectomy: Yes History of Present Illness HPI Narrative Irma Fine is a 65-year-old female with a PMHx of stage IIIa (pT2, 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 She cannot recall any patterns to her pain or remember any events that may have caused the pain. Left upper extremity movement limited, patient attributes to previous surgeries she's had secondary to her breast cancer in the past but does endorse some pain in shoulder area with movement. Soft tissue neck CT ordered by heme/onc specialist Dr. Nichole on 05/23/2025 that showed moderate degenerative disc disease at C5-C6. Will order an XR of the cervical spine and if needed will order an MRI for further evaluation but at this time will also order prednisone taper and follow-up after taper is done. Review of Systems Review of Systems Systems Reviewed: All systems reviewed, normal except as documented Objective/Exam Narrative Physical exam: General: AOx3, no acute distress, able to speak full sentences HEENT: NC/AT, mucous membranes moist, bilateral sclera anicteric Cardiovascular: regular rate and rhythm, S1/S2 present, no murmurs appreciated Pulmonary: clear to auscultation bilaterally, no rales/rhonchi/wheezes Abdominal: soft, non-tender, non-distended, no rebound/guarding, normal bowel sounds present Musculoskeletal: left upper extremity with limited ROM in abduction and forward flexion, no peripheral edema Skin: warm and dry, intact, no rashes Neuro: CN II-XII intact, no focal deficits Assessment & Plan Diagnosis / Problem List (1) Left shoulder pain: Status: Acute Qualifiers: Chronicity: unspecified Qualified Code(s): M25.512 - Pain in left shoulder Assessment & Plan: Presents for discomfort in left shoulder/trapezius area. Cannot recall any patterns to her pain or remember any events that may have caused the pain. Left upper extremity movement limited, patient attributes to previous surgeries she's had secondary to her breast cancer in the past but does endorse some pain in shoulder area with movement. Soft tissue neck CT ordered by heme/onc specialist Dr. Nichole on 05/23/2025 that showed moderate degenerative disc disease at C5-C6. Will order an XR of the cervical spine and if needed will order an MRI for further evaluation but at this time will also order prednisone taper and follow-up after taper is done. Plan: ? X-ray cervical spine ? Prednisone taper as follows: ? 60 mg (6 tablets) for 2 days ? 50 mg (5 tablets) for 2 days ? 40 mg (4 tablets) for 2 days ? 30 mg (3 tablets) for 2 days ? 20 mg (2 tablets) for 2 days ? 10 mg (1 tablet) for 2 days ? RTC in 2 weeks after prednisone taper Orders: Orders XR cervical spine 2-3V 06/30/25 Office Procedures [facility] Level of Care Nursing/Assessment Patient Status: Established Patient Nursing Assessment/Reassessment: Medication Reconciliation, Update PMH in EMR and Vital Signs Coordination of Care: Complex Care and Chronic Disease 1-5, Consent,records obtained, informed consent, Education Simp Pt/Fam and Staff clarify orders Established Patient Charge Established Patient Point Assignment: 85 Established Patient Point Charge: EP Level 3 (80-115) TB Screening LTBI Screening: Has patient traveled, was born, or resided for at least 1 month, or frequent border crossing into a country with an elevated TB rate: No Immunosuppression, current or planned (HIV, organ transplant, treated with biologic agents, steroids, or other immunosuppression medication): No Close contact to someone with infectious TB disease during lifetime: No Homelessness or incarceration, current or past: No TB testing indicated at this time (at least 1 yes above): No
== END 2025-06-30 12:18 | disposition home or self-care (01) ==
LOC: HODAHC 09:45
PROVIDERS: Supervising Provider Internal Medicine
DX: M25.512 Pain in left shoulder (principal)
CPT/HCPCS: 99213; G0463

== ENCOUNTER → 2025-06-30 | Outpatient (CLI) | payer BC, SELFPAY ==
--- NOTE | 2025-06-30 | XR_ITS ---
EXAMINATION: Cervical spine, 5 views Technique: Cervical spine AP, AP odontoid, lateral, bilateral obliques, 5 views Exam date and time: June 30, 2025 1609 hours INDICATIONS: Left-sided neck pain beginning one week ago. FINDINGS: Adequate alignment cervical vertebral bodies No cervical fracture Moderate disc narrowing C5-C6 Moderate bilateral neural foraminal stenosis at the C5-C6 level The odontoid is intact IMPRESSION: Moderate degenerative disc disease C5-C6 with moderate bilateral neural foraminal stenosis at this level
== END | disposition home or self-care (01) ==
DX: M50.322 Other cervical disc degeneration at C5-C6 level (principal); M48.02 Spinal stenosis, cervical region
CPT/HCPCS: 72050

== ENCOUNTER 2025-07-14 10:08 | Outpatient (AMB) | payer BC, SELFPAY ==
--- NOTE | 2025-07-14 10:17 | ACNOTE_ITS ---
Vital Signs 07/14/25 10:18 Height 1.65 m Height Method Stated Weight 57.266 kg Weight Measurement Method Standing Scale BMI 21.0 BP 118/69 Blood Pressure Source Automatic Cuff Blood Pressure Location Right Upper Arm Position Sitting Respiration 19 Pulse 69 Pulse Source Monitor Temp 97.8 F Temp Source Temporal Artery Scan Pulse Oximetry (%) 98 Oxygen Delivery Method Room Air Allergies/Meds Allergies & Medications Allergies Penicillins Allergy (Verified 06/30/25 09:56) Bhumi SCHROEDER Intake Visit Data Collection New Patient or Established: Established Patient (seen at [facility] within 3 years) Seen by Clinical Staff ONLY (RN/MA): No Reason for Visit:: follow up Pain Present Currently: No Suction Plate Carrier 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 Required: No PCP or OBGYN visit in last 3 months: Yes Date of Last PCP or OBGYN visit: 06/30/25 Hx Now: No Do You Feel Safe at Home: Yes Authorities Contacted: N/A Smoking Status Smoking Status: Former smoker Immunization / Flu Flu Vaccine in the Last 12 Months: Yes Flu Vaccine Exclusion Criteria: Already Received Past Medical History Past Medical History NEUROLOGIC: Negative Neurological Disorders or Seizures CARDIAC: Negative Cardiac Disorders or Congestive Heart Failure RESPIRATORY: Negative Chronic Obstructive Pulmonary Disease (COPD) or Asthma GASTROINTESTINAL: Positive Gastrointestinal Disorders and Hemorrhoids; Negative Hepatitis GENITOURINARY: Negative Genitourinary Disorders or Renal Disease REPRODUCTIVE: Positive Breast Cancer and Previous Pregnancies MUSCULOSKELETAL: Positive Degenerative Disk Disease ENDOCRINE: Negative Endocrine Disorders, Diabetes Mellitus Type 1 or Diabetes Mellitus Type 2 HEMATOLOGIC: Negative Blood Disorders, Anemia or Sickle Cell Disease PSYCHO/SOCIAL: Negative Depression or Anxiety OTHER HISTORY: Positive Hospitalization, Chemotherapy, Radiation Therapy, Chicken Pox, Measles, Cancer and Breast Cancer; Negative Shingles, Blood Transfusions, Blood Transfusion Reaction or Anesthesia Reactions Family History FAMILY HISTORY: Positive Family Cardiac Disorders and Family Surgery; Negative Family Psychiatric Problems, Family Respiratory Disorders, Family Gastrointestinal Problems, Family Cancer or Family Anesthesia Reaction Surgical History SURGICAL: Positive Abdominal Surgery, Mastectomy, Lumpectomy and Hysterectomy Social History SMOKING STATUS: Smoking status: Former smoker SECOND HAND EXPOSURE: second hand exposure: Yes ALCOHOL: Alcohol Intake: Current ALCOHOL FREQUENCY: Alcohol Intake Frequency: holidays/special occasions only HOUSING: Housing: House LIVES WITH: Lives With: Family Patient Portal Questionaires PHQ-9 PHQ-2 Over the last 2 weeks, how often have you been bothered by any of the following problems? 1. Little interest or pleasure in doing things: not at all PHQ-9 8. Moving or speaking so slowly that other people could have noticed? - Or the opposite - being so fidgety or restless that you have been moving around a lot more than usual: not at all Source: Developed by Drs. Ruy Mullins, Nallely Stubbs, Dhruv Jolly and colleagues, with an educational art from [employer]. Social History Living Situation History Lives With: Family Housing: House Housing Other:: Pt from home Tobacco History Smoking Status: Former smoker Second Hand Smoke Exposure: Yes Alcohol History Alcohol Intake: Current Alcohol Intake Frequency: holidays/special occasions only Domestic Abuse History Do You Feel Safe at Home: Yes Review of Systems Report any current symptoms Only answer those that you have currently: Past Medical History Past Medical History Have you ever been diagnosed with any of the following: Neurological Problems Seizures: No Cardiology Problems Congestive Heart Failure: No Respiratory Problems Chronic Obstructive Pulmonary Disease (COPD): No Asthma: No Stomache/Intestinal Problems Hepatitis: No Hemorrhoids: Yes Genital/Urinary Problems Renal Disease: No Reproductive Problems Breast Cancer: Yes Previous Pregnancies: Yes Musculoskeletal Problems Degenerative Disk Disease: Yes Endocrine Problems Diabetes Mellitus Type 1: No Diabetes Mellitus Type 2: No Blood Problems Anemia: No Sickle Cell Disease: No Psychologic Problems Depression: No Anxiety: No Other Problems Hospitalization: Yes Shingles: No Blood Transfusions: No Blood Transfusion Reaction: No Anesthesia Reactions: No Chemotherapy: Yes Radiation Therapy: Yes Chicken Pox: Yes Measles: Yes Cancer: Yes Surgical History Hysterectomy: Yes History of Present Illness HPI Narrative Irma Fine is a 65-year-old female with a PMHx of stage IIIa (pT2, snN2A) 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 Nichole at [facility] who presents to the [facility] for follow-up regarding discomfort in left shoulder/trapezius area. Pain in left shoulder has improved with steroid treatment and ROM in neck has also improved but continues to have limited ROM in LUE, for which she attributes to previous surgeries. Otherwise, mammogram from 06/21/2025 showed findings that required additional evaluation and recommended spot tomographic views as well as right breast sonography for 4 mm nodule in the retroareolar region. Notified that Cancer Center has ordered appropriate imaging. She is also requesting to check K given history of hypokalemia as well as refills for her gabapentin. Review of Systems Review of Systems Systems Reviewed: All systems reviewed, normal except as documented Objective/Exam Narrative Physical exam: General: AOx3, no acute distress, able to speak full sentences HEENT: NC/AT, mucous membranes moist, bilateral sclera anicteric Cardiovascular: regular rate and rhythm, S1/S2 present, no murmurs appreciated Pulmonary: clear to auscultation bilaterally, no rales/rhonchi/wheezes Musculoskeletal: left upper extremity with limited ROM in abduction and forward flexion, no peripheral edema Skin: warm and dry, intact, no rashes Assessment & Plan Diagnosis / Problem List (1) Left shoulder pain: Status: Acute Qualifiers: Chronicity: unspecified Qualified Code(s): M25.512 - Pain in left shoulder Assessment & Plan: X-ray cervical spine showed moderate degenerative disc disease at C5-C6 with moderate bilateral neural foraminal stenosis. Pain in left shoulder has significantly improved with steroid treatment, supporting imaging findings. Will start trial of NSAIDs and physical therapy and if no improvement will retry steroids and consider MRI. Plan: ? Naproxen 500 mg twice daily ? Physical therapy referral for shoulder and neck, 2 times per week for 10 weeks (2) Abnormal mammogram: Status: Acute Assessment & Plan: Mammogram on 06/21/2025 showed BI-RADS Category 0: Incomplete: Need additional imaging evaluation. Recommend follow-up spot tomographic views of 4 mm nodule retroareolar region of right breast as well as right breast sonography to complete work-up. Plan: ? Appropriate imaging ordered by cancer center ? Continue follow-up with Dr. Patel (next appoitment 07/2025) (3) Hypokalemia: Status: Acute Assessment & Plan: History of hypokalemia and previously on K supplements. Plan: ? BMP ordered ? Follow-up results and supplement as needed Orders: Orders Basic Metabolic Panel Today E87.6 - Hypokalemia Referrals Physical Therapy - Referral Office Procedures [facility] Level of Care Nursing/Assessment Patient Status: Established Patient Nursing Assessment/Reassessment: Medication Reconciliation, Update PMH in EMR and Vital Signs Coordination of Care: Complex Care and Chronic Disease 1-5, Consent,records obtained, informed consent, Lab and Imaging orders and Results/Orders obtained Established Patient Charge Established Patient Point Assignment: 80 Established Patient Point Charge: EP Level 3 (80-115)
[2025-07-14 10:18] VITALS: BP 118/69; PULSE 69; RESP 19; TEMP 36.6; O2SAT 98; BMI 21.0
== END 2025-07-14 10:50 | disposition home or self-care (01) ==
LOC: HODAHC 10:08
PROVIDERS: Supervising Provider Internal Medicine
DX: M25.512 Pain in left shoulder (principal); E87.6 Hypokalemia; N63.41 Unspecified lump in right breast, subareolar; Z76.0 Encounter for issue of repeat prescription; M50.322 Other cervical disc degeneration at C5-C6 level; M48.02 Spinal stenosis, cervical region
CPT/HCPCS: 99213; G0463

== ENCOUNTER → 2025-07-14 | Outpatient (CLI) | payer BC, SELFPAY ==
[2025-07-14 12:22] LABS: Anion Gap 10 (7-16); BUN/Creatinine Ratio 17 Ratio (12-20); Blood Urea Nitrogen 17 mg/dL (9-23); Calcium 10.2 mg/dL (8.3-10.6); Carbon Dioxide 27.7 mMol/L (20.0-31.0); Chloride 102 mMol/L (98-107); Creatinine (Component) 1.0 mg/dL (0.6-1.3); Glucose 85 mg/dL (74-106); Osmolality,Calculated 279 (275-295); Potassium 4.0 mMol/L (3.4-5.1); Sodium 140 mMol/L (136-145); eGFR > 60 See Note
== END | disposition home or self-care (01) ==
LOC: COPL 11:07
PROVIDERS: PCP Student in an Organized Health Care Education/Training Program; Referring Provider Internal Medicine Hematology & Oncology
DX: E87.6 Hypokalemia (principal)
CPT/HCPCS: 36415; 80048

== ENCOUNTER → 2025-07-25 | Outpatient (CLI) | payer BC, SELFPAY ==
--- NOTE | 2025-07-25 09:30 | ECHO_ITS ---
Transthoracic Echo Report Ht (in): 65 Wt (lb): 132 Exam Location: Echo Lab Status: Preadmit Environmental Services Manager: Patrizia Salinas Indications: Procedure Performed: BP: 104 / 40 HR: 74 MEASUREMENTS (Male / Female) Normal Values 2D ECHO LV Diastolic Diameter PLAX 4.8 cm 4.2 - 5.9 / 3.9 - 5.3 cm LV Systolic Diameter PLAX 3.0 cm IVS Diastolic Thickness 0.7 cm 0.6 - 1.0 / 0.6 - 0.9 cm LVPW Diastolic Thickness 0.9 cm 0.6 - 1.0 / 0.6 - 0.9 cm LV Relative Wall Thickness 0.3 LVOT Diameter 1.8 cm LA Volume Index 33.3 cm?/m? 16 - 28 cm?/m? Ascending Aorta Diameter 2.8 cm M-MODE AV Cusp Separation MM 1.1 cm DOPPLER AV Peak Velocity 129.0 cm/s AV Peak Gradient 6.7 mmHg AV Mean Gradient 4.0 mmHg AV Velocity Time Integral 28.2 cm LVOT Peak Velocity 108.0 cm/s LVOT Peak Gradient 4.7 mmHg LVOT Velocity Time Integral 23.5 cm LVOT Cardiac Index 2667.2 cm?/min?m? AV Area Cont Eq vti 2.1 cm? AV Area Cont Eq pk 2.1 cm? MV Area PHT 3.8 cm? Mitral E Point Velocity 83.4 cm/s Mitral A Point Velocity 68.9 cm/s Mitral E to A Ratio 1.2 LV E' Lateral Velocity 16.6 cm/s Mitral E to LV E' Lateral Ratio 5.0 LV E' Septal Velocity 9.9 cm/s Mitral E to LV E' Septal Ratio 8.4 TR Peak Velocity 276.7 cm/s TR Peak Gradient 30.6 mmHg PV Peak Velocity 102.0 cm/s PV Peak Gradient 4.2 mmHg FINDINGS Left Ventricle Normal left ventricular size, wall thickness, systolic function with no obvious regional wall motion abnormalities. There is grade II diastolic dysfunction of the left ventricle (pseudonormal filling pattern). The ejection fraction is visually estimated at 60-65 %. Right Ventricle The right ventricle is normal in size and systolic function. The estimated right ventricular systolic pressure, 37 mmHg. Mild PHTN Left Atrium The left atrial cavity size is mildly increased. Right Atrium The right atrium is normal by two-dimensional imaging, color flow and Doppler imaging with no structural abnormalities, no thrombus formation present. Atrial Septum The interatrial septum appears normal with no evidence of a shunt. Aorta The aorta is normal by two-dimensional, color flow and Doppler interrogation. Mitral Valve Mild mitral regurgitation.Mild mitral annular calcification. Aortic Valve The aortic valve is trileaflet and normal by two-dimensional, color flow and Doppler interrogation. There is no significant aortic valve regurgitation. Tricuspid Valve The tricuspid valve is normal by two-dimensional, color flow and Doppler interrogation. There is mild tricuspid valve regurgitation. Pulmonic Valve Trivial pulmonic valve regurgitation. Vessels The pulmonary artery appears normal. The inferior vena cava pulmonary and hepatic veins appear normal. Pericardium The pericardium is normal by two-dimensional imaging. There is no significant pericardial effusion. CONCLUSIONS Indication:Malignant neoplasm of upper-outer quadrant of left female breast Normal left ventricular size and function. Visualy estimated ejection fraction is 60-65%. Grade II diastolic dysfunction Normal right ventricular size and function. Estimated RVSP 37 mmHg. Mild PHTN Mild MAC with mild MR and mild TR. Mildly dilated LA. No pericardial effusion. Diallo Krause (Electronically Signed) Final Date: 25 July 2025 11:08
== END | disposition home or self-care (01) ==
LOC: SDIM 09:11
PROVIDERS: Referring Provider Internal Medicine Hematology & Oncology; Visit Provider Internal Medicine Hematology & Oncology
DX: I27.20 Pulmonary hypertension, unspecified (principal); I50.30 Unspecified diastolic (congestive) heart failure; I08.1 Rheumatic disorders of both mitral and tricuspid valves
CPT/HCPCS: 93306

== ENCOUNTER → 2025-08-07 | Outpatient (CLI) | payer BC, SELFPAY ==
--- NOTE | 2025-08-07 11:00 | XR_ITS ---
Examination: Breast ultrasound, unilateral, right complete Date and time of exam: August 07, 2025 1132 hours INDICATIONS: Mammogram June 21, 2025 4 mm nodule retroareolar region right breast Technique: Real-time santana scale ultrasonographic imaging performed right breast including all 4 quadrants as well as nipple retroareolar and axillary region. Findings: 8:00 cyst 7 x 6 mm 10:00 nodule circumscribed 10 x 10 mm 10:00 cyst 6 x 6 mm 11:00 nodule circumscribed 6 x 6 mm Smaller cysts IMPRESSION: BI-RADS Category 3: Probably benign findings One additional 6 month right breast sonogram follow-up is needed to document stability of solid nodules described above
--- NOTE | 2025-08-07 11:30 | XR_ITS ---
Examination: Diagnostic digital mammography, unilateral, right Computer aided detection 3-D breast Tomosynthesis, unilateral Date and time of exam: August 07, 2025 12 0 1:00 PM INDICATIONS: 4 mm retroareolar nodule right breast on mammogram June 21, 2025 Technique: Nonmagnified MLO, CC views of the right breast have been obtained, reconstructed from 3-D Tomosynthesis images. R2 computer aided detection program utilized for evaluation of suspicious masses and/or abnormal calcifications. 3-D Tomosynthesis images obtained. Findings: The breast is heterogeneously dense, which may obscure small masses Focal asymmetry retroareolar region right breast is stable in appearance Impression: BI-RADS category 3: Probably benign findings Recommend 6 month bilateral mammography follow-up
== END | disposition home or self-care (01) ==
PROVIDERS: PCP Student in an Organized Health Care Education/Training Program; Referring Provider Internal Medicine Hematology & Oncology; Visit Provider Internal Medicine Hematology & Oncology
DX: R92.331 Mammographic heterogeneous density, right breast (principal); N63.11 Unspecified lump in the right breast, upper outer quadrant
CPT/HCPCS: 76641; 77061; 77065; G0279

== ENCOUNTER 2025-08-14 10:13 | Outpatient (RCR) | payer BC, SELFPAY ==
[2025-08-14 11:41] LABS: Basophils # (Auto) 0.0 Thou/mm3 (0.0-0.2); Basophils % (Auto) 1 % (0-2.5); Eosinophils # (Auto) 0.0 Thou/mm3 (0.0-0.5); Eosinophils % (Auto) 1 % (0-10); Hematocrit 30.9 % (36.0-46.0); Hemoglobin 10.2 g/dL (12.0-16.0); Immature Granulocytes Auto 0.02 Thou/mm3 (0.00-0.00); Lymphocytes # (Auto) 0.7 Thou/mm3 (1.0-4.8); Lymphocytes % (Auto) 15 % (10-50); Mean Corpuscular HGB Conc 33.0 g/dl (31.0-37.0); Mean Corpuscular Hemoglobin 30.7 pg (25.0-35.0); Mean Corpuscular Volume 93 fL (80-100); Monocytes # (Auto) 0.3 Thou/mm3 (0.0-0.8); Monocytes % (Auto) 6 % (0-12); Neutrophils # (Auto) 3.4 Thou/mm3 (1.8-7.7); Neutrophils % (Auto) 77 % (37-80); Nucleated Red Blood Cell # 0.00 Thou/mm3 (0.00-0.00); Nucleated Red Blood Cell % 0 /100 WBC (0); Platelet Count 144 Thou/mm3 (140-440); RDW Standard Deviation 49.1 fL (36.4-46.3); Red Blood Count 3.32 Miln/mm3 (4.00-5.20); White Blood Count 4.5 Thou/mm3 (3.6-11.0)
[2025-08-14 12:00] LABS: Alanine Aminotransferase 26 U/L (10-49); Albumin, Serum 4.1 gm/dL (3.4-4.8); Albumin/Globulin Ratio 2.3 (1.2-2.2); Alkaline Phosphatase 107 U/L (46-116); Anion Gap 10 (7-16); Aspartate Amino Transferase 28 U/L (0-34); BUN/Creatinine Ratio 20 Ratio (12-20); Bilirubin,Total 0.3 mg/dL (0.3-1.2); Blood Urea Nitrogen 18 mg/dL (9-23); Calcium 9.7 mg/dL (8.3-10.6); Calcium (Corrected) 9.7 mg/dL (8.5-10.1); Carbon Dioxide 24.4 mMol/L (20.0-31.0); Chloride 108 mMol/L (98-107); Creatinine (Component) 0.9 mg/dL (0.6-1.3); Globulin 1.8 gm/dL (2.3-3.5); Glucose 84 mg/dL (74-106); Osmolality,Calculated 284 (275-295); Potassium 4.2 mMol/L (3.4-5.1); Sodium 142 mMol/L (136-145); Total Protein 5.9 gm/dL (5.7-8.2); eGFR > 60 See Note
[2025-08-14 12:18] LABS: CA 15-3 17.8 U/mL (<32.4)
== END 2025-08-29 23:59 | disposition home or self-care (01) ==
LOC: SCTC 10:13
PROVIDERS: PCP Family Medicine; Referring Provider Family Medicine; Visit Provider Internal Medicine Hematology & Oncology
DX: C50.812 Malignant neoplasm of overlapping sites of left female breast (principal); Z17.0 Estrogen receptor positive status [ER+]; Z17.22 Progesterone receptor negative status; Z17.32 Human epidermal growth factor receptor 2 negative status; Z90.12 Acquired absence of left breast and nipple; Z92.21 Personal history of antineoplastic chemotherapy; Z92.3 Personal history of irradiation; Z79.811 Long term (current) use of aromatase inhibitors; M85.80 Other specified disorders of bone density and structure, unspecified site; Z80.3 Family history of malignant neoplasm of breast; Z15.01 Genetic susceptibility to malignant neoplasm of breast; Z15.09 Genetic susceptibility to other malignant neoplasm; G62.9 Polyneuropathy, unspecified; I89.0 Lymphedema, not elsewhere classified; M54.9 Dorsalgia, unspecified
CPT/HCPCS: 36591; 80053; 85025; 86300; A4216; J1642

== ENCOUNTER 2025-08-16 13:11 | Outpatient (AMB) | payer BC, SELFPAY ==
[2025-08-16 13:21] VITALS: BP 113/66; PULSE 73; RESP 18; TEMP 36.3; O2SAT 98; BMI 22.0
--- NOTE | 2025-08-16 13:21 | PD.RESCLINIC ---
Vital Signs 08/16/25 13:21 Height 1.65 m Height Method Stated Weight 60.101 kg Weight Measurement Method Standing Scale BMI 22.0 BP 113/66 Blood Pressure Source Automatic Cuff Blood Pressure Location Right Upper Arm Position Sitting Respiration 18 Pulse 73 Pulse Source Monitor Temp 97.4 F Temp Source Temporal Artery Scan Pulse Oximetry (%) 98 Oxygen Delivery Method Room Air Allergies/Meds Allergies & Medications Allergies Penicillins Allergy (Verified 06/30/25 09:56) Bhumi SCHROEDER Intake Visit Data Collection New Patient or Established: Established Patient (seen at [facility] [place] [facility] [place]) Seen by Clinical Staff ONLY (RN/MA): No Reason for Visit:: Follow up labs/Discuss mammo Pain Present Currently: No Corporate Travel Agent Required: No PCP or OBGYN visit in last 3 months: Yes Date of Last PCP or OBGYN visit: 07/14/25 Do You Feel Safe at Home: Yes Authorities Contacted: N/A Smoking Status Smoking Status: Former smoker Immunization / Flu Flu Vaccine in the Last 12 Months: No Past Medical History Past Medical History NEUROLOGIC: Negative Neurological Disorders or Seizures CARDIAC: Negative Cardiac Disorders or Congestive Heart Failure RESPIRATORY: Negative Chronic Obstructive Pulmonary Disease (COPD) or Asthma GASTROINTESTINAL: Positive Gastrointestinal Disorders and Hemorrhoids; Negative Hepatitis GENITOURINARY: Negative Genitourinary Disorders or Renal Disease REPRODUCTIVE: Positive Breast Cancer and Previous Pregnancies MUSCULOSKELETAL: Positive Degenerative Disk Disease ENDOCRINE: Negative Endocrine Disorders, Diabetes Mellitus Type 1 or Diabetes Mellitus Type 2 HEMATOLOGIC: Negative Blood Disorders, Anemia or Sickle Cell Disease PSYCHO/SOCIAL: Negative Depression or Anxiety OTHER HISTORY: Positive Hospitalization, Chemotherapy, Radiation Therapy, Chicken Pox, Measles, Cancer and Breast Cancer; Negative Shingles, Blood Transfusions, Blood Transfusion Reaction or Anesthesia Reactions Family History FAMILY HISTORY: Positive Family Cardiac Disorders and Family Surgery; Negative Family Psychiatric Problems, Family Respiratory Disorders, Family Gastrointestinal Problems, Family Cancer or Family Anesthesia Reaction Surgical History SURGICAL: Positive Abdominal Surgery, Mastectomy, Lumpectomy and Hysterectomy Social History SMOKING STATUS: Smoking status: Former smoker SECOND HAND EXPOSURE: second hand exposure: Yes ALCOHOL: Alcohol Intake: Current ALCOHOL FREQUENCY: Alcohol Intake Frequency: holidays/special occasions only HOUSING: Housing: House LIVES WITH: Lives With: Family Patient Portal Questionaires PHQ-9 PHQ-2 Over the last 2 weeks, how often have you been bothered by any of the following problems? 1. Little interest or pleasure in doing things: not at all PHQ-9 8. Moving or speaking so slowly that other people could have noticed? - Or the opposite - being so fidgety or restless that you have been moving around a lot more than usual: not at all Source: Developed by Drs. Ruy Mullins, Nallely Stubbs, Dhruv Jolly and colleagues, with an educational art from [employer]. Social History Living Situation History Lives With: Family Housing: House Housing Other:: Pt from home Tobacco History Smoking Status: Former smoker Second Hand Smoke Exposure: Yes Alcohol History Alcohol Intake: Current Alcohol Intake Frequency: holidays/special occasions only Domestic Abuse History Do You Feel Safe at Home: Yes Review of Systems Report any current symptoms Only answer those that you have currently: Past Medical History Past Medical History Have you ever been diagnosed with any of the following: Neurological Problems Seizures: No Cardiology Problems Congestive Heart Failure: No Respiratory Problems Chronic Obstructive Pulmonary Disease (COPD): No Asthma: No Stomache/Intestinal Problems Hepatitis: No Hemorrhoids: Yes Genital/Urinary Problems Renal Disease: No Reproductive Problems Breast Cancer: Yes Previous Pregnancies: Yes Musculoskeletal Problems Degenerative Disk Disease: Yes Endocrine Problems Diabetes Mellitus Type 1: No Diabetes Mellitus Type 2: No Blood Problems Anemia: No Sickle Cell Disease: No Psychologic Problems Depression: No Anxiety: No Other Problems Hospitalization: Yes Shingles: No Blood Transfusions: No Blood Transfusion Reaction: No Anesthesia Reactions: No Chemotherapy: Yes Radiation Therapy: Yes Chicken Pox: Yes Measles: Yes Cancer: Yes Surgical History Hysterectomy: Yes History of Present Illness HPI Narrative Irma Fine is a 65-year-old female with a PMHx of stage IIIa (pT2, snN2A) 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 Nichole at [facility] who presents to the [facility] for follow-up. Patient is feeling well today. She denies any complaints at this time. Patient had her right mammogram and right US done 08/07 which showed BIRADS 3, probably benign findings, small cysts noted. Recommended 6-month follow up. CA 15-3 antigen at 17.8 on 08/14. Patient missed her appointment with Dr. Nichole this month as she was in [place] and was unable to make it back in time. She has a follow up rescheduled now in September with Dr. Nichole. Patient otherwise is happy with how she is doing, denies any further diarrhea. She has been continuing to take potassium supplements 20 mEq daily, potassium is normal at 4.2 on labs 08/14. Instructed patient to reduce potassium supplement to every other day. CBC shows improved counts with WBC in normal range at 4.5, Hgb 10.2, and platelets 144k. CMP normal. Patient requests refill for gabapentin, sent 30-day supply of 200 mg BID. Patient denies any further dizziness side effects. Objective/Exam Narrative Physical exam: Physical Exam General: Awake and in no acute distress. Conversational and non-toxic appearing. HEENT: Normocephalic, atraumatic, mucous membranes moist. Heart: Regular rate and rhythm, normal S1 and S2, no murmurs. Lungs: Clear to auscultation with no wheezing or crackles. Abdomen: Soft, nondistended, nontender, positive bowel sounds. ?No guarding or rebound tenderness. Neurologic: Alert and oriented x3, no gross neurological deficit, and patient able to move all 4 extremities. Extremities: No edema. Skin: No rash or ecchymoses. Assessment & Plan Diagnosis / Problem List (1) Peripheral neuropathy due to chemotherapy: Status: Resolved Assessment & Plan: Patient previously reporting symptoms of peripheral neuropathy. Likely secondary to previous Taxol and radiation therapy. Patient states currently she is not experiencing any neuropathy, so medication was reduced. Plan: -Continue gabapentin 200 mg BID (2) Hypokalemia: Status: Acute Assessment & Plan: Likely side effect of abemaciclib, which is common effect. Denies any chest pain or palpitations. Denies numbness, tingling, or muscle cramps. Patient was having profound diarrhea but currently improved after reducing dose of abemaciclib from 150 to 100 mg BID. 02/27/2025 potassium 2.6 03/20/2025 potassium 4.4 patient stated that per Dr. Manning recommendations to take the potassium 20 mEq every other day for 1 month Diarrhea now resolved, potassium mildly low, expect K to increase. Plan: -As of now discontinue potassium supplement -Increase intake of potassium rich foods (3) Breast cancer: Status: Chronic Qualifiers: Breast location: unspecified site of breast Estrogen receptor status: positive Laterality: left Patient sex: female Qualified Code(s): C50.912 - Malignant neoplasm of unspecified site of left female breast; Z17.0 - Estrogen receptor positive status [ER+] Assessment & Plan: Patient history of Stage IIIa (pT2, snN2A) left breast poorly differentiated invasive ductal carcinoma (diagnosed 08/2023, ER positive, MD negative, HER2/sarai negative), s/p left-sided modified mastectomy, chemotherapy, and radiation therapy followed by the [facility]. Patient currently is following up with Dr. Nichole. Currently, patient takes: abemaciclib 100 mg BID (started 06/2024), anastrozole 1 mg qday (started 05/2024) Last PET scan 02/14/2025 showed multiple interval hypermetabolic cervical, supraclavicular, retroclavicular, bilateral axillary and mediastinal lymph nodes. Patient was subsequently scheduled for biopsy, completed and negative. Brain MRI with and without contrast 03/30/2025; was Negative for acute hemorrhage mass effect or midline shift, No acute infarct, No abnormal enhancing cerebellar or cerebral lesions, Bilateral mild mastoiditis. Plan: -Continue to follow-up with Dr. Manning at the cancer center (4) Pancytopenia: Status: Chronic Assessment & Plan: Patient has pancytopenia since 10/2024. Likely anemia of chronic disease related to cancer treatment. Plan: -Monitor CBC with Cancer Center Plan Patient plan of care was discussed with the attending physician, Dr. Denton. Ashley Shane, PGY-3 Office Procedures [facility] Level of Care Nursing/Assessment Patient Status: Established Patient Nursing Assessment/Reassessment: Medication Reconciliation, Update PMH in EMR and Vital Signs Coordination of Care: Complex Care and Chronic Disease 1-5, Consent,records obtained, informed consent, 1 Ins Authorization, Lab and Imaging orders, Results/Orders obtained and Staff clarify orders Established Patient Charge Established Patient Point Assignment: 105 Established Patient Point Charge: Level 3 (80-115)
== END 2025-08-16 13:43 | disposition home or self-care (01) ==
LOC: HODAHC 13:11
PROVIDERS: Supervising Provider Internal Medicine; Visit Provider Student in an Organized Health Care Education/Training Program
DX: G62.0 Drug-induced polyneuropathy (principal); T45.1X5D Adverse effect of antineoplastic and immunosuppressive drugs, subsequent encounter; C50.912 Malignant neoplasm of unspecified site of left female breast; Z17.0 Estrogen receptor positive status [ER+]; Z17.22 Progesterone receptor negative status; Z17.32 Human epidermal growth factor receptor 2 negative status; D61.818 Other pancytopenia; Z79.811 Long term (current) use of aromatase inhibitors; E87.6 Hypokalemia
CPT/HCPCS: 99213; G0463

== ENCOUNTER 2025-10-03 14:06 | Outpatient (RCR) | payer BC, SELFPAY ==
[2025-10-03 16:29] LABS: Basophils # (Auto) 0.0 Thou/mm3 (0.0-0.2); Basophils % (Auto) 1 % (0-2.5); Eosinophils # (Auto) 0.0 Thou/mm3 (0.0-0.5); Eosinophils % (Auto) 1 % (0-10); Hematocrit 30.9 % (36.0-46.0); Hemoglobin 10.1 g/dL (12.0-16.0); Immature Granulocytes Auto 0.02 Thou/mm3 (0.00-0.00); Lymphocytes # (Auto) 0.8 Thou/mm3 (1.0-4.8); Lymphocytes % (Auto) 21 % (10-50); Mean Corpuscular HGB Conc 32.7 g/dl (31.0-37.0); Mean Corpuscular Hemoglobin 30.1 pg (25.0-35.0); Mean Corpuscular Volume 92 fL (80-100); Monocytes # (Auto) 0.3 Thou/mm3 (0.0-0.8); Monocytes % (Auto) 8 % (0-12); Neutrophils # (Auto) 2.6 Thou/mm3 (1.8-7.7); Neutrophils % (Auto) 68 % (37-80); Nucleated Red Blood Cell # 0.00 Thou/mm3 (0.00-0.00); Nucleated Red Blood Cell % 0 /100 WBC (0); Platelet Count 145 Thou/mm3 (140-440); RDW Standard Deviation 45.4 fL (36.4-46.3); Red Blood Count 3.35 Miln/mm3 (4.00-5.20); White Blood Count 3.8 Thou/mm3 (3.6-11.0)
[2025-10-03 17:03] LABS: Alanine Aminotransferase 25 U/L (10-49); Albumin, Serum 4.4 gm/dL (3.4-4.8); Albumin/Globulin Ratio 2.4 (1.2-2.2); Alkaline Phosphatase 104 U/L (46-116); Anion Gap 9 (7-16); Aspartate Amino Transferase 32 U/L (0-34); BUN/Creatinine Ratio 23 Ratio (12-20); Bilirubin,Total 0.4 mg/dL (0.3-1.2); Blood Urea Nitrogen 21 mg/dL (9-23); Calcium 9.8 mg/dL (8.3-10.6); Calcium (Corrected) 9.8 mg/dL (8.5-10.1); Carbon Dioxide 25.9 mMol/L (20.0-31.0); Chloride 105 mMol/L (98-107); Creatinine (Component) 0.9 mg/dL (0.6-1.3); Globulin 1.8 gm/dL (2.3-3.5); Glucose 87 mg/dL (74-106); Osmolality,Calculated 281 (275-295); Potassium 4.2 mMol/L (3.4-5.1); Sodium 140 mMol/L (136-145); Total Protein 6.2 gm/dL (5.7-8.2); eGFR > 60 See Note
[2025-10-03 17:05] LABS: Ferritin 162 ng/mL (7.3-270.7); Folate 11.95 ng/mL (>5.38)
--- NOTE | 2025-10-29 21:55 | CTCFLWUP_ITS ---
Patient: IRMA BRYAN : 1960 Page 9 of 12 FOLLOW UP NOTE DATE OF SERVICE: 10/03/2025 NAME: IRMA BRYAN ACCOUNT: [id number] : 1960 AGE: 65 INTERVAL HISTORY: Subjective: Since last visit , patient was seen at Lymphedema clinic and is now all complaints are better . yet to see Dr SHAW FOR biopsy Medications and Supplements - Anastrozole - verzenio 100 mg by mouth twice daily Laboratory, Imaging, and Diagnostic Test Results - Date: March 2025 - Fahad testing: Negative for breast cancer - Date: Not specified - CBC: WBC 3.5 (improved), Hemoglobin 10.2 g/dL (improved) - Echocardiogram: Normal heart, minor changes noted - MRI brain: Negative - Ultrasound of right breast: Nodules present, likely cysts - Previous results: - CBC: WBC and Hemoglobin were lower (exact values not provided) ONCOLOGY HISTORY:?[facility] Hx? DIAGNOSIS: Stage IIIa (pT2, snN2A), ER positive, UT negative, HER2/sarai negative, poorly differentiated invasive ductal carcinoma of the left breast. A total of 5 lymph nodes positive for metastatic disease. Left breast modified radical mastectomy (10/27/2023) Left breast lumpectomy and sentinel lymph node biopsy (09/03/2023) Left breast ultrasound-guided biopsy as well as left axillary lymph node biopsy (07/13/2023) SUE heterozygous mutation positive, high risk for breast and pancreatic cancers. PET/CT scan (05/31/2024) negative study. S/p 4 cycle of dose dense AC chemotherapy and 4 cycles of dose dense Taxol chemotherapy in the adjuvant setting (01/11/2024 - 04/19/2024). First dose of adjuvant Zometa received on 05/17/2020 Adjuvant anastrozole started on 05/30/2024. Abemaciclib started around July 21, 2024. Currently on adjuvant abemaciclib 150 mg p.o. twice daily. Unable to tolerate full dose of abemaciclib which was causing significant diarrhea S/p adjuvant radiation therapy to the left chest (05/10/2024?07/08/2024). DATE OF DIAGNOSIS: 10/19/2023 STAGE/TNM: T2 N2 ER positive/UT negative HER2 negative SUE mutation positive TREATMENT HISTORY: Care?Plan Start?Date Cycle Day Intent AC-Taxol?Dose?Dense?q?2wks 12/21/2023 1 14 Curative?(adjuvant) Zoledronic?Acid?4?mg?adjuvant 05/17/2024 1 180 Curative?(adjuvant) HISTORY OF PRESENT ILLNESS: Irma Bryan is a 65-year-old ENG speaking female with history of anxiety had the following oncology history. Cannot have extensive history of cancer in her family as about 4 in her family including her maternal aunts and sisters. She was diagnosed with high risk stage III breast cancer and and here for follow-up. At the time of diagnosis, she does not remember as to when she exactly had the previous mammograms. Ms. Bryan has strong family history of breast cancer. Her mother as well as 4 of her maternal aunts had breast cancers. Sister had multiple lumps in the breast. Patient with a strong history of breast cancer Ms. Bryan had bilateral diagnostic digital mammograms and bilateral breast ultrasounds done to evaluate palpable breast lumps. 07/13/2023: Ms. Bryan had ultrasound-guided biopsy of the left breast 9:00 nodule and a left axillary lymph node. 09/03/2023: Ms. Bryan had left breast lumpectomy and sentinel lymph node biopsy 10/27/2023: Ms. Bryan had modified radical left mastectomy 11/12/2023: [facility] hereditary cancer test? 11/12/2023: BRCA1 and BRCA2 analysis 01/11/2024 - 04/19/2020: Ms. Bryan had 4 cycles of dose dense AC and 4 cycles of Taxol in the adjuvant setting 05/10/2024: Ms. Bryan started adjuvant radiation therapy to the left chest. 05/17/2024. Ms. Bryan received first dose of adjuvant Zometa. 05/30/2024: Ms. Bryan started adjuvant anastrozole. 07/21/2024: Ms. Bryan also started abemaciclib. OTHER MEDICAL HISTORY/CONDITIONS: ANXIETY/?DEPRESSION LEFT?BREAST?CANCER LEFT BREAST BIOPSY 08/2023 LEFT BREAST AND LYMPH NODES REMOVED 10/27/23 HYSTERECTOMY AT AGE 41 APPENDECTOMY AT AGE 18 RIGHT BREAST LUMP REMOVED 1982 BENIGN FAMILY HISTORY: Father:?DENIES Mother: MOTHER AND MATERNAL AUNTS BREAST CANCER Sibling:?SISTER?HX?BREAST?CANCER Children:?DENIES Cancer History:?LEFT BREAST CANCER DX 08/2023 SOCIAL HISTORY: Occupational?History:?DISABLED Education?Level:?6-Attended?Vocational?School,?did?not?graduate Marital?Status:? Tobacco Use:?STOPPED SMOKING 30 YEARS AGO , SMOKED .5 PACK PER DAY ETOH?Use:?OCCASIONAL?TEQUILA Drug?Note:?MARIJUANA?IN?THE?PAST BAND MANAGER HISTORY: Menarche?-?Age:?13 Menopause:?HYSTERECTOMY?AGE?41 Hormone?Use:?ADMITS TO CONTROL PILLS IN PAST :?3 Live?Births:?2 Age?1st?:?21 Date?Last?Mammogram:?08/30/2023 Gynecological?Note:?MAMMOGRAM COMPLETED IN AUGUST 2023 Gynecological?Note?2:?1?MISCARRIAGE MEDICATIONS: 1. abemaciclib - 100 mg 1 tab Twice a Day 2. anastrozole - 1 mg 1 tab Daily 3. docusate sodium - 100 mg 1 Capsule As needed 4. potassium chloride - 20 mEq 1 tab Daily 5. TylenoL - 500 mg 1 tab As needed?Palabra Meds? Medications Last Reconciled by Deidre Alarcon MD on 10/03/2025 ALLERGIES: Penicillin V REVIEW OF SYSTEMS: A complete 14-point review of systems was performed and is negative except as noted in interval history. PHYSICAL EXAMINATION:?CloneBlock PE? VITAL SIGNS: Temperature?97.8, B/P?119/57, Oxygen?Saturation?100% Weight?133?lbs PAIN: 0 - No pain ECOG Performance Status: 1 - Symptomatic; ambulatory; restricted in strenuous activity GENERAL APPEARANCE: Appears well, in no apparent distress, appropriately interactive. HEENT: Normocephalic, no temporal wasting, normal conjunctiva, no scleral icterus, normal hearing, lips without lesions, neck normal range of motion. CARDIOVASCULAR: Not assessed. PULMONARY: Normal respiratory effort, no respiratory distress or use of accessory muscles, speaking in full sentences, no tachypnea. EXTREMITIESrt arm swollen and edematous SKIN: Normal skin appearance. NEUROLOGIC: Alert and oriented x4. PSHYCHIATRIC: Appropriate affect, mood normal, behavior normal, intact thought and speech. LABORATORY DATA: I have personally reviewed and interpreted each of the patient?s relevant lab tests, abnormal findings are below: Date 08/14/25 10/03/25 ??WHITE?BLOOD?COUNT?(Thou/mm3) 4.5 3.8 ??RED?BLOOD?COUNT?(Miln/mm3) 3.32?L 3.35?L ??HEMOGLOBIN?(gm/dl) 10.2?L 10.1?L ??HEMATOCRIT?(%) 30.9?L 30.9?L ??PLATELET?COUNT?(Thou/mm3) 144 145 ??NEUTROPHILS?%,?AUTO?(%) 77 68 ??LYMPH?%,?AUTO?(%) 15 21 ??NEUTROPHILS,?AUTO?(Thou/mm3) 3.4 2.6 ??GLUCOSE,RANDOM?(mg/dL) 84 87 ??BLOOD?UREA?NITROGEN?(mg/dL) 18 21 ??CREATININE?(mg/dL) 0.90 0.90 ??SODIUM?(mmol/L) 142 140 ??POTASSIUM?(mmol/L) 4.2 4.2 ??CHLORIDE?(mmol/L) 108?H 105 ??CrCl?(CandG)?(ml/min) 59.96 60.14 ??AST/SGOT?(Unit/L) 28 32 ??ALT/SGPT?(Unit/L) 26 25 ??ALKALINE?PHOSPHATASE?(Unit/L) 107 104 ??BILIRUBIN,?TOTAL?(mg/dL) 0.3 0.4 ??PROTEIN?TOTAL?(gm/dl) 5.9 6.2 ??ALBUMIN,?SERUM?(gm/dl) 4.1 4.4 ??GLOBULIN?(gm/dl) 1.8?L 1.8?L ??ALBUMIN/GLOBULIN?RATIO 2.3?H 2.4?H ??CALCIUM,?SERUM?(mg/dL) 9.7 9.8 ??CALCIUM?SERUM?(CORRECTED)?(mg/dL) 9.7 9.8 ASSESSMENT/PLAN:?Anselmo Nichole Assessment/Plan? Assessment and Plan: Marychuy Bryan, a 65-year-old female with a history of breast cancer and mastectomy, presents with lymphedema, sharp pain, and back pain. ?Anselmo Nichole Assessment/Plan? #1 stage Illa (pTZ, snNZA), ER positive, UT negative, KARIN/sarai negative, Ki-67 20-30%, poorly differentiated invasive ductal carcinoma of the left breast. Left breast leticia?ed radical mastectomy (10/27/2023) Left breast lumpectomy and sentinel lymph node biopsy (09/03/2023) Left breast ultrasound-guided biopsy as well as left axillary lymph node biopsy (07/13/2023) Status quo 4 cycles of AC and 4 cycles of Taxol chemotherapy in the adjuvant setting Status post adjuvant radiation therapy to the left chest wall completed on 07/08/2024. Patient is on anastrozole and abemaciclib Plan is to continue for 2 years Patient tolerating it well Advised to repeat labs every month Continue abemaciclib 150 mg p.o. twice daily Last PET scan in May 2024 was negative for any metastatic disease 02/14/2025 Multiple interval hypermetabolic cervical, supraclavicular , retroclavicular, bilateral axillary and mediastinal lymph nodes as above biopsy is still pending Patient's breast cancer is likely in remission. Recent Fahad testing in March was negative. An ultrasound of the right breast revealed some nodules, which appear to be cysts. However, further evaluation is warranted. Plan: - Refer patient to Dr. Shaw for evaluation of right breast nodules - Continue current medication regimen: - Anastrozole (dosage not specified) - Unspecified medication 100 mg twice daily - Educate patient on importance of medication adherence - follow up on biopsy of LN - patient s gentic shows high risk for breast cancer Will benefit from prophylactic bilateral mastectomy #2 osteopenia bone density test showed osteopenia. Currently Ms. Bryan is taking Citracal 2 tablets in the morning 2 in the evening. Started on adjuvant Zometa on 05/17/2024 #3 SUE mutation Strong family history of breast cancers. Mother as well as for maternal aunts had breast cancers. Ms. Bryan is positive for SUE heterozygous mutation, high risk for breast and pancreatic cancers. BRCA 1and2 negative. 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 Continue Neurontin 100 mg p.o. twice daily Lymphedema Assessment: Patient presents with significant lymphedema in the arm following mastectomy. The affected area is described as swollen, with pockets of fluid on the skin and breast. The condition has progressed to the point where the skin was becoming leather-like in texture. Patient better with therapy Cont therapy : ORDERS: Order # Description [id number] Ferritin + Folic Acid; Serum [id number] Comprehensive Metabolic Panel - 12 + CBC with Auto Diff [id number] RETURN TO CLINIC: I reviewed the diagnosis, prognosis, and recommended treatment/procedure options with the patient (and/or their legal medical detail representative), including the potential benefits, risks, side effects and alternative therapies. We also discussed the option of no treatment and the possibility of clinical trial participation, if applicable. All questions were addressed, and they demonstrated understanding. They provided informed consent to proceed with the proposed plan of care. BILLING AND COMPLIANCE: I reviewed external records from providers outside my specialty as summarized above. I spent a total of 50 minutes on this patient?s care on the day of their visit excluding time spent related to any billed procedures. This time includes time spent with the patient as well as time spent documenting in the medical record, reviewing patients records and tests, obtaining history, placing orders, communicating with other healthcare professionals, counseling the patient, family or caregiver, and/or care coordination for the diagnoses above. Electronically Signed by: Sascha Nichole MD T: 9:53 PM CC: PCP: Matheus Nunez Referring: Matheus Nunez This document was completed utilizing speech recognition software. Grammatical errors, random word insertions, pronoun errors, and incomplete sentences are an occasional consequence of this system due to software limitations, ambient noise, and hardware issues. Any formal questions or concerns about the content, text or information contained within the body of this dictation should be directly addressed to the provider for clarification.
== END 2025-10-29 23:59 | disposition home or self-care (01) ==
LOC: SCTC 14:06
PROVIDERS: Visit Provider Internal Medicine Hematology & Oncology
DX: C50.812 Malignant neoplasm of overlapping sites of left female breast (principal); C77.3 Secondary and unspecified malignant neoplasm of axilla and upper limb lymph nodes; Z17.0 Estrogen receptor positive status [ER+]; Z17.22 Progesterone receptor negative status; Z17.32 Human epidermal growth factor receptor 2 negative status; Z90.12 Acquired absence of left breast and nipple; Z92.21 Personal history of antineoplastic chemotherapy; Z92.3 Personal history of irradiation; Z79.811 Long term (current) use of aromatase inhibitors; M85.80 Other specified disorders of bone density and structure, unspecified site; G62.0 Drug-induced polyneuropathy; T45.1X5D Adverse effect of antineoplastic and immunosuppressive drugs, subsequent encounter; Z80.3 Family history of malignant neoplasm of breast; Z15.01 Genetic susceptibility to malignant neoplasm of breast; Z15.068 Genetic susceptibility to other malignant neoplasm of digestive system; I89.0 Lymphedema, not elsewhere classified
CPT/HCPCS: 80053; 82728; 82746; 85025; 99212; A4216; J1642; G0463

== ENCOUNTER 2025-11-01 13:05 | Outpatient (AMB) | payer BC, SELFPAY ==
[2025-11-01 13:14] VITALS: BP 119/73; PULSE 70; RESP 18; TEMP 36.2; O2SAT 99; BMI 22.4
--- NOTE | 2025-11-01 13:14 | PD.RESCLINIC ---
Vital Signs 11/01/25 13:14 Height 1.65 m Height Method Stated Weight 60.951 kg Weight Measurement Method Standing Scale BMI 22.4 BP 119/73 Blood Pressure Source Automatic Cuff Blood Pressure Location Right Upper Arm Position Sitting Respiration 18 Pulse 70 Pulse Source Monitor Temp 97.1 F Temp Source Temporal Artery Scan Pulse Oximetry (%) 99 Oxygen Delivery Method Room Air Allergies/Meds Allergies & Medications Allergies Penicillins Allergy (Verified 11/01/25 13:15) Hives Medication Reconciliation compression socks, medium #1 ea 12/06/24 [Rx Confirmed 11/01/25] anastrozole 1 mg tablet 1 mg PO QDAY #30 tabs 01/02/25 [Rx Confirmed 11/01/25] docusate calcium 240 mg capsule 240 mg PO QDAY PRN constipation #30 caps 03/20/25 [Rx Confirmed 11/01/25] abemaciclib 150 mg tablet (Verzenio) 100 mg PO BID 05/15/25 [History Confirmed 11/01/25] prednisone 10 mg tablet See Taper PO DIRECTED #42 tabs 06/30/25 [Rx Confirmed 11/01/25] naproxen 500 mg tablet 500 mg PO BID PRN pain #60 tabs 08/14/25 [Rx Confirmed 11/01/25] gabapentin 100 mg capsule 200 mg (2 x 100 mg) PO BID peripheral neuropathy 30 days #120 caps 08/16/25 [Rx Confirmed 11/01/25] atorvastatin 40 mg tablet 40 mg PO HS #30 tabs 10/02/25 [Rx Confirmed 11/01/25] potassium chloride 20 mEq tablet,extended release(part/cryst) (Klor-Con M) 20 meq PO .QOD Chronic hypokalemia #30 tabs 11/01/25 [Rx] MA Intake Visit Data Collection New Patient or Established: Established Patient (seen at [facility] within 3 years) Seen by Clinical Staff ONLY (RN/MA): No Pain Present Currently: Yes Pain Location: Abdomen Pain scale:: 4 Pain Scale Used: AvinaDeeEpps/Numerical Molybdenum Steamer Operator Required: No PCP or OBGYN visit in last 3 months: Yes Hx Now: No Do You Feel Safe at Home: Yes Authorities Contacted: N/A Smoking Status Smoking Status: Former smoker Immunization / Flu Flu Vaccine in the Last 12 Months: No Flu Vaccine Exclusion Criteria: No Exclusion Criteria Past Medical History Past Medical History NEUROLOGIC: Negative Neurological Disorders or Seizures CARDIAC: Negative Cardiac Disorders or Congestive Heart Failure RESPIRATORY: Negative Chronic Obstructive Pulmonary Disease (COPD) or Asthma GASTROINTESTINAL: Positive Gastrointestinal Disorders and Hemorrhoids; Negative Hepatitis GENITOURINARY: Negative Genitourinary Disorders or Renal Disease REPRODUCTIVE: Positive Breast Cancer and Previous Pregnancies MUSCULOSKELETAL: Positive Degenerative Disk Disease ENDOCRINE: Negative Endocrine Disorders, Diabetes Mellitus Type 1 or Diabetes Mellitus Type 2 HEMATOLOGIC: Negative Blood Disorders, Anemia or Sickle Cell Disease PSYCHO/SOCIAL: Negative Depression or Anxiety OTHER HISTORY: Positive Hospitalization, Chemotherapy, Radiation Therapy, Chicken Pox, Measles, Cancer and Breast Cancer; Negative Shingles, Blood Transfusions, Blood Transfusion Reaction or Anesthesia Reactions Family History FAMILY HISTORY: Positive Family Cardiac Disorders and Family Surgery; Negative Family Psychiatric Problems, Family Respiratory Disorders, Family Gastrointestinal Problems, Family Cancer or Family Anesthesia Reaction Surgical History SURGICAL: Positive Abdominal Surgery, Mastectomy, Lumpectomy and Hysterectomy Social History SMOKING STATUS: Smoking status: Former smoker SECOND HAND EXPOSURE: second hand exposure: Yes ALCOHOL: Alcohol Intake: Current ALCOHOL FREQUENCY: Alcohol Intake Frequency: holidays/special occasions only HOUSING: Housing: House LIVES WITH: Lives With: Family Patient Portal Questionaires PHQ-9 PHQ-2 Over the last 2 weeks, how often have you been bothered by any of the following problems? 1. Little interest or pleasure in doing things: not at all PHQ-9 8. Moving or speaking so slowly that other people could have noticed? - Or the opposite - being so fidgety or restless that you have been moving around a lot more than usual: not at all Source: Developed by Drs. Ruy Mullins, Nallely Stubbs, Dhruv Jolly and colleagues, with an educational art from [employer]. Social History Living Situation History Lives With: Family Housing: House Housing Other:: Pt from home Tobacco History Smoking Status: Former smoker Second Hand Smoke Exposure: Yes Alcohol History Alcohol Intake: Current Alcohol Intake Frequency: holidays/special occasions only Domestic Abuse History Do You Feel Safe at Home: Yes Review of Systems Report any current symptoms Only answer those that you have currently: Past Medical History Past Medical History Have you ever been diagnosed with any of the following: Neurological Problems Seizures: No Cardiology Problems Congestive Heart Failure: No Respiratory Problems Chronic Obstructive Pulmonary Disease (COPD): No Asthma: No Stomache/Intestinal Problems Hepatitis: No Hemorrhoids: Yes Genital/Urinary Problems Renal Disease: No Reproductive Problems Breast Cancer: Yes Previous Pregnancies: Yes Musculoskeletal Problems Degenerative Disk Disease: Yes Endocrine Problems Diabetes Mellitus Type 1: No Diabetes Mellitus Type 2: No Blood Problems Anemia: No Sickle Cell Disease: No Psychologic Problems Depression: No Anxiety: No Other Problems Hospitalization: Yes Shingles: No Blood Transfusions: No Blood Transfusion Reaction: No Anesthesia Reactions: No Chemotherapy: Yes Radiation Therapy: Yes Chicken Pox: Yes Measles: Yes Cancer: Yes Surgical History Hysterectomy: Yes History of Present Illness HPI Narrative Irma Fine is a 65-year-old female with a PMHx of stage IIIa (pT2, 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 Nichole at [facility] who presents to the [facility] for follow-up. Patient is feeling well today. She denies any complaints at this time. 08/16/25: Patient had her right mammogram and right US done 08/07 which showed BIRADS 3, probably benign findings, small cysts noted. Recommended 6-month follow up. CA 15-3 antigen at 17.8 on 08/14. Patient missed her appointment with Dr. Nichole this month as she was in [place] and was unable to make it back in time. She has a follow up rescheduled now in September with Dr. Nichole. Patient otherwise is happy with how she is doing, denies any further diarrhea. She has been continuing to take potassium supplements 20 mEq daily, potassium is normal at 4.2 on labs 08/14. Instructed patient to reduce potassium supplement to every other day. CBC shows improved counts with WBC in normal range at 4.5, Hgb 10.2, and platelets 144k. CMP normal. Patient requests refill for gabapentin, sent 30-day supply of 200 mg BID. Patient denies any further dizziness side effects. 11/01/25: Patient is here to have her prescriptions refilled: potassium chloride 20 mEq QOD. Patient also complains that she believes she has a kidney infection . She complains of a right-sided pain below the ribs that began a week ago. Pain waxes and wanes and she is unable to describe its characterization. She says she has to urinate frequently, especially at night, but denies any dysuria or any worsening of the pain during urination. She says she had a similar episode 15 years ago and was told at that time that it was due to a kidney infection. Endorses constipation but believes that symptom is due to her antineoplastic medication. Potassium chloride was refilled and a repeat potassium level was ordered (patient may not need to continue potassium supplement but uncertain at this time). UA was ordered to screen for UTI. A referral for a colonoscopy has been ordered (patient reports her last one was in her 40s) and a referral for a DEXA scan has also been ordered. Patient has also been counseled on using OTC medications such as Metamucil and Miralax for symptomatic treatment for her constipation. Review of Systems Review of Systems Systems Reviewed: All systems reviewed, normal except as documented Assessment & Plan Diagnosis / Problem List (1) Abdominal pain in female: Status: Acute Assessment & Plan: Patient complains of lower right quadrant pain beginning a week ago that comes and goes and is associated with urinary frequency but not dysuria On exam, guarding noted but patient notes that sometimes it is due to pain and sometimes it is due to ticklishness Endorses symptoms of constipation despite use of docusate which she attributes to her antineoplastic medications Plan: -UA with reflex UCx ordered -Patient counseled on using OTC medications such as Metamucil and Miralax for symptomatic treatment for her constipation -GI referral for colonoscopy ordered (2) Hypokalemia: Status: Chronic Assessment & Plan: Previously prescribed potassium chloride 20 mEq PO QD which was later reduced to QOD Unclear etiology, but potassium 2.6 noted on 02/27/25, recent potassium levels have been around 4.2 Plan: -Potassium chloride 20 mEq PO QOD (refilled) -Potassium levels ordered (3) Due for colonoscopy: Status: Acute Assessment & Plan: Last colonoscopy performed in her 40s (around 20 years ago), no previous history or family history of colorectal cancer Plan: -GI referral for colonoscopy ordered (4) Dual energy x-ray photon absorptiometry (DEXA) scan requested: Status: Acute Assessment & Plan: Reports having had a previous DEXA scan around the time she was diagnosed with cancer but does not remember when that was Plan: -Radiology referral for DEXA scan ordered (5) Breast cancer: Status: Chronic Qualifiers: Breast location: unspecified site of breast Estrogen receptor status: positive Patient sex: female Laterality: left Qualified Code(s): C50.912 - Malignant neoplasm of unspecified site of left female breast; Z17.0 - Estrogen receptor positive status [ER+] Assessment & Plan: Currently in remission, on anastrazole and Verzenio, follows Dr. Nichole in the outpatient setting Plan: -Follow up with Oncology (Dr. Nichole) in the outpatient setting Orders: Orders Urinalysis, C/S if Indicated Today R10.9 - Unspecified abdominal pain Potassium Today E87.6 - Hypokalemia Referrals Gastroenterology Z78.9 - Other specified health status Radiology Office Procedures [facility] Level of Care Nursing/Assessment Patient Status: Established Patient Nursing Assessment/Reassessment: Medication Reconciliation, Update PMH in EMR and Vital Signs Coordination of Care: Complex Care and Chronic Disease 1-5, Complex Care/Chronic Disease 5 or more, Education Complex Pt/Fam, Consent,records obtained, informed consent, Lab and Imaging orders, Results/Orders obtained and Staff clarify orders Established Patient Charge Established Patient Point Assignment: 145 Established Patient Point Charge: Level 4 (120-155)
== END 2025-11-01 14:17 | disposition home or self-care (01) ==
LOC: HODAHC 13:05
PROVIDERS: Supervising Provider Internal Medicine
DX: R10.31 Right lower quadrant pain (principal); E87.6 Hypokalemia; Z80.0 Family history of malignant neoplasm of digestive organs; C50.912 Malignant neoplasm of unspecified site of left female breast; Z17.0 Estrogen receptor positive status [ER+]; Z79.811 Long term (current) use of aromatase inhibitors
CPT/HCPCS: 99214; G0463

== ENCOUNTER → 2025-11-02 | Outpatient (CLI) | payer BC, SELFPAY ==
[2025-11-02 09:04] LABS: Collection Type, Urine Clean Catch
[2025-11-02 10:03] LABS: Bilirubin,Urine Negative (Negative); Blood,Urine 1+ (Negative); Clarity,Urine Clear (Clear/Hazy); Color,Urine Lt-Yellow (Lt Yel-Yel); Culture Indicated,Urine Not Indicated; Glucose, Urine Negative (Negative); Hyaline Casts,Urine < 1 /hpf (0-1); Ketones,Urine Negative (Negative); Leukocyte Esterase,Urine Positive (Negative); Nitrite,Urine Negative (Negative); PH,Urine 5.5 (5.0-7.0); Protein,Urine Trace (Neg - Trace); RBC,Urine 4 /hpf (0-3); Specific Gravity,Urine 1.028 (1.001-1.035); Squamous Epithelial Cell,Urine 1 /hpf (0-5); Urobilinogen,Urine Negative mg/dL (0.0-1.0); WBC,Urine 5 /hpf (0-5)
[2025-11-02 10:07] LABS: Potassium 3.8 mMol/L (3.4-5.1)
== END | disposition home or self-care (01) ==
PROVIDERS: PCP Student in an Organized Health Care Education/Training Program
DX: E87.6 Hypokalemia (principal); R10.9 Unspecified abdominal pain
CPT/HCPCS: 36415; 81001; 84132

== ENCOUNTER 2025-11-03 13:30 | Outpatient (AMB) | payer BC, SELFPAY ==
[2025-11-03 13:49] VITALS: BP 112/73; PULSE 68; RESP 16; TEMP 36; O2SAT 99; BMI 23.0
--- NOTE | 2025-11-03 13:49 | PD.RESCLINIC ---
Vital Signs 11/03/25 13:49 Height 1.65 m Height Method Stated Weight 62.652 kg Weight Measurement Method Standing Scale BMI 23.0 BP 112/73 Blood Pressure Source Automatic Cuff Blood Pressure Location Right Upper Arm Position Sitting Respiration 16 Pulse 68 Pulse Source Monitor Temp 96.8 F Temp Source Temporal Artery Scan Pulse Oximetry (%) 99 Oxygen Delivery Method Room Air Allergies/Meds Allergies & Medications Allergies Penicillins Allergy (Verified 11/03/25 13:50) Hives Medication Reconciliation compression socks, medium #1 ea 12/06/24 [Rx Confirmed 11/03/25] anastrozole 1 mg tablet 1 mg PO QDAY #30 tabs 01/02/25 [Rx Confirmed 11/03/25] docusate calcium 240 mg capsule 240 mg PO QDAY PRN constipation #30 caps 03/20/25 [Rx Confirmed 11/03/25] abemaciclib 150 mg tablet (Verzenio) 100 mg PO BID 05/15/25 [History Confirmed 11/03/25] naproxen 500 mg tablet 500 mg PO BID PRN pain #60 tabs 08/14/25 [Rx Confirmed 11/03/25] gabapentin 100 mg capsule 200 mg (2 x 100 mg) PO BID peripheral neuropathy 30 days #120 caps 08/16/25 [Rx Confirmed 11/03/25] atorvastatin 40 mg tablet 40 mg PO HS #30 tabs 10/02/25 [Rx Confirmed 11/03/25] acetaminophen 500 mg capsule 500 mg PO Q6H PRN pain, mild #30 caps 11/03/25 [Rx] cyclobenzaprine 5 mg tablet 5 mg PO BID PRN muscle spasm 2 weeks #14 tabs 11/03/25 [Rx] nitrofurantoin monohydrate/macrocrystals 100 mg capsule (Macrobid) 100 mg PO Q12H 5 days #10 caps 11/03/25 [Rx] potassium chloride 20 mEq tablet,extended release(part/cryst) (Klor-Con M) 20 meq PO .QOD Chronic hypokalemia #30 tabs 11/03/25 [Rx] MA Intake Visit Data Collection New Patient or Established: Established Patient (seen at [facility] within 3 years) Seen by Clinical Staff ONLY (RN/MA): No Pain Present Currently: No Pain scale:: 0 Pain Scale Used: Avina-Epps/Numerical Tile And Marble Setter Required: No PCP or OBGYN visit in last 3 months: Yes Do You Feel Safe at Home: Yes Authorities Contacted: N/A Smoking Status Smoking Status: Former smoker Immunization / Flu Flu Vaccine in the Last 12 Months: No Flu Vaccine Exclusion Criteria: Refused by Patient Past Medical History Past Medical History NEUROLOGIC: Negative Neurological Disorders or Seizures CARDIAC: Negative Cardiac Disorders or Congestive Heart Failure RESPIRATORY: Negative Chronic Obstructive Pulmonary Disease (COPD) or Asthma GASTROINTESTINAL: Positive Gastrointestinal Disorders and Hemorrhoids; Negative Hepatitis GENITOURINARY: Negative Genitourinary Disorders or Renal Disease REPRODUCTIVE: Positive Breast Cancer and Previous Pregnancies MUSCULOSKELETAL: Positive Degenerative Disk Disease ENDOCRINE: Negative Endocrine Disorders, Diabetes Mellitus Type 1 or Diabetes Mellitus Type 2 HEMATOLOGIC: Negative Blood Disorders, Anemia or Sickle Cell Disease PSYCHO/SOCIAL: Negative Depression or Anxiety OTHER HISTORY: Positive Hospitalization, Chemotherapy, Radiation Therapy, Chicken Pox, Measles, Cancer and Breast Cancer; Negative Shingles, Blood Transfusions, Blood Transfusion Reaction or Anesthesia Reactions Family History FAMILY HISTORY: Positive Family Cardiac Disorders and Family Surgery; Negative Family Psychiatric Problems, Family Respiratory Disorders, Family Gastrointestinal Problems, Family Cancer or Family Anesthesia Reaction Surgical History SURGICAL: Positive Abdominal Surgery, Mastectomy, Lumpectomy and Hysterectomy Social History SMOKING STATUS: Smoking status: Former smoker SECOND HAND EXPOSURE: second hand exposure: Yes ALCOHOL: Alcohol Intake: Current ALCOHOL FREQUENCY: Alcohol Intake Frequency: holidays/special occasions only HOUSING: Housing: House LIVES WITH: Lives With: Family Patient Portal Questionaires PHQ-9 PHQ-2 Over the last 2 weeks, how often have you been bothered by any of the following problems? 1. Little interest or pleasure in doing things: not at all PHQ-9 8. Moving or speaking so slowly that other people could have noticed? - Or the opposite - being so fidgety or restless that you have been moving around a lot more than usual: not at all Source: Developed by Drs. Ruy Mullins, Nallely Stubbs, Dhruv Jolly and colleagues, with an educational art from [employer]. Social History Living Situation History Lives With: Family Housing: House Housing Other:: Pt from home Tobacco History Smoking Status: Former smoker Second Hand Smoke Exposure: Yes Alcohol History Alcohol Intake: Current Alcohol Intake Frequency: holidays/special occasions only Domestic Abuse History Do You Feel Safe at Home: Yes Review of Systems Report any current symptoms Only answer those that you have currently: Past Medical History Past Medical History Have you ever been diagnosed with any of the following: Neurological Problems Seizures: No Cardiology Problems Congestive Heart Failure: No Respiratory Problems Chronic Obstructive Pulmonary Disease (COPD): No Asthma: No Stomache/Intestinal Problems Hepatitis: No Hemorrhoids: Yes Genital/Urinary Problems Renal Disease: No Reproductive Problems Breast Cancer: Yes Previous Pregnancies: Yes Musculoskeletal Problems Degenerative Disk Disease: Yes Endocrine Problems Diabetes Mellitus Type 1: No Diabetes Mellitus Type 2: No Blood Problems Anemia: No Sickle Cell Disease: No Psychologic Problems Depression: No Anxiety: No Other Problems Hospitalization: Yes Shingles: No Blood Transfusions: No Blood Transfusion Reaction: No Anesthesia Reactions: No Chemotherapy: Yes Radiation Therapy: Yes Chicken Pox: Yes Measles: Yes Cancer: Yes Surgical History Hysterectomy: Yes History of Present Illness HPI Narrative Ms. Fine is a 65-year-old female with past medical history of stage IIIa (pT2, SN N2a) ER positive CA negative HER 2/sarai negative poorly differentiated invasive ductal carcinoma of left breast status post left breast mastectomy, radiation therapy and chemotherapy PET scan 01/2025 with lymph nodes positive currently on anastrozole and abemaciclib follows CTC Dr. 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 clinic for follow-up. Patient was recently seen on 11/01/2025 for the chief complaint of concerns of UTI underwent urinary testing and serum potassium testing and is here for follow-up today. 11/03/2025: Patient seen in clinic today, labs reviewed patient's potassium is 3.8, patient is on 20 mEq of potassium every other day, patient's hypokalemia likely secondary to abemaciclib/anastrozole versus poor p.o. intake however patient denies any diarrhea. Patient complains of symptoms of urinary discomfort dysuria burning while micturition, urine analysis weakly positive for leukocyte esterase, urine WBC 5, trace protein noted no bacteria noted. Considering patient's symptoms we will proceed with treatment with Macrobid, patient allergic to penicillin. Patient complains of some lower back pain, has chronic issues. Will try muscle relaxants. Patient is requesting repeat DEXA scan, last DEXA 04/2024 shows hip osteopenia. Patient did receive IV zoledronic acid per oncology note, repeat DEXA ordered patient to follow-up with oncologist. Labs ordered by hematology for chronic anemia workup, continue to follow-up. Patient otherwise denies any chest pain, shortness of breath, syncope, diarrhea, nausea, vomiting, falls, fevers, chills, shortness of breath. Review of Systems Review of Systems Systems Reviewed: All systems reviewed, normal except as documented Objective/Exam Narrative Physical exam: Physical Exam General: Awake and in no acute distress. Conversational and non-toxic appearing. HEENT: Normocephalic, atraumatic, mucous membranes moist. Heart: Regular rate and rhythm, no murmurs. Lungs: Clear to auscultation with no wheezing or crackles. Abdomen: Soft, nondistended, nontender, positive bowel sounds. ?No guarding or rebound tenderness. Mild paraspinal tenderness lumbar region. Neurologic: Alert and oriented x3, no gross neurological deficit, and patient able to move all 4 extremities. Extremities: No edema. Skin: No rash or ecchymoses. Assessment & Plan Diagnosis / Problem List (1) UTI (urinary tract infection): Status: Acute Qualifiers: Urinary tract infection type: site unspecified Hematuria presence: without hematuria Qualified Code(s): N39.0 - Urinary tract infection, site not specified Assessment & Plan: Patient complains of symptoms of urinary discomfort dysuria burning while micturition, urine analysis weakly positive for leukocyte esterase, urine WBC 5, trace protein noted no bacteria noted. Considering patient's symptoms we will proceed with treatment with Macrobid, patient allergic to penicillin. Plan: - Prescribed Macrobid 100 mg twice daily for 5 days. - No fevers, rigors, chills, warning signs noted. Some paraspinal back tenderness, no costovertebral angle tenderness (2) Back pain: Status: Acute Qualifiers: Back pain location: low back pain Chronicity: acute Back pain laterality: right Sciatica presence: without sciatica Qualified Code(s): M54.50 - Low back pain, unspecified Assessment & Plan: Some paraspinal lower back right sided tenderness noted around lumbar region Does have history of osteopenia, able to ambulate well. Plan: - Continue Tylenol for mild pain, naproxen for moderate pain. Encouraged Tylenol use relative to NSAIDs. - Prescribed cyclobenzaprine 5 mg p.o. twice daily as needed - Educated on conservative measures, topical gels, heat pad. Educated on lower back strengthening exercises. (3) Osteoporosis: Status: Acute Qualifiers: Osteoporosis type: localized Presence of current pathological fracture: without current pathological fracture Qualified Code(s): M81.6 - Localized osteoporosis [[place]] Assessment & Plan: Patient's DEXA scan 04/2024 shows hip osteopenia, T-score -1.4 Per oncologist note patient did receive IV zoledronic acid earlier this year Patient was prescribed prednisone in the past by oncologist currently not on prednisone. Fracture index: 4 points, 0.9% risk of 5-year hip fracture Plan: - Ordered repeat DEXA scan as patient is requesting, will repeat within the 2-year window due to evidence of significant bone density decline from the previous bone scan. 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 Nichole. Per oncologist note patient's breast cancer associated with mutation in SUE gene Patient has very strong family history of breast cancer Plan: - Established with Dr. Gonzalez in [facility] - Follow-up with Dr. Gonzalez and Dr. Nichole (7) Constipation: Status: Chronic Qualifiers: Constipation type: unspecified constipation type Qualified Code(s): K59.00 - Constipation, unspecified Assessment & Plan: Patient has complaints of constipation on and off Plan: - Use Colace as needed Plan Case discussed with Attending Physician Dr. Jed Hernandez MD Internal Medicine PGY-2 Disclaimer: This note was dictated by speech recognition. Minor errors in income auditor may be present due to voice recognition software. Orders: Orders BD bone densitometry 3 Months M81.0 - Age-related osteoporosis without current pathological fracture Physician Billing Established Patient Established Patient: E/M Level 3-CPT 12597 Office Procedures [facility] Level of Care Nursing/Assessment Patient Status: Established Patient Nursing Assessment/Reassessment: Medication Reconciliation, Update PMH in EMR and Vital Signs Coordination of Care: Complex Care and Chronic Disease 1-5, Complex Care/Chronic Disease 5 or more, Consent,records obtained, informed consent, Lab and Imaging orders, Results/Orders obtained and Staff clarify orders Established Patient Charge Established Patient Point Assignment: 125 Established Patient Point Charge: Level 4 (120-155)
== END 2025-11-03 14:20 | disposition home or self-care (01) ==
LOC: HODAHC 13:30
PROVIDERS: PCP Student in an Organized Health Care Education/Training Program; Referring Provider Student in an Organized Health Care Education/Training Program; Supervising Provider Internal Medicine
DX: N39.0 Urinary tract infection, site not specified (principal); M54.50 Low back pain, unspecified; M81.0 Age-related osteoporosis without current pathological fracture; G62.0 Drug-induced polyneuropathy; T45.1X5D Adverse effect of antineoplastic and immunosuppressive drugs, subsequent encounter; K59.00 Constipation, unspecified; D64.9 Anemia, unspecified; E87.6 Hypokalemia
CPT/HCPCS: 99214; G0463

== ENCOUNTER 2025-11-13 12:50 | Outpatient (RCR) | payer BC, SELFPAY ==
[2025-11-10 10:28] LABS: Basophils # (Auto) 0.0 Thou/mm3 (0.0-0.2); Basophils % (Auto) 1 % (0-2.5); Eosinophils # (Auto) 0.0 Thou/mm3 (0.0-0.5); Eosinophils % (Auto) 1 % (0-10); Hematocrit 30.8 % (36.0-46.0); Hemoglobin 10.0 g/dL (12.0-16.0); Immature Granulocytes Auto 0.01 Thou/mm3 (0.00-0.00); Lymphocytes # (Auto) 0.6 Thou/mm3 (1.0-4.8); Lymphocytes % (Auto) 18 % (10-50); Mean Corpuscular HGB Conc 32.5 g/dl (31.0-37.0); Mean Corpuscular Hemoglobin 30.0 pg (25.0-35.0); Mean Corpuscular Volume 93 fL (80-100); Monocytes # (Auto) 0.2 Thou/mm3 (0.0-0.8); Monocytes % (Auto) 7 % (0-12); Neutrophils # (Auto) 2.4 Thou/mm3 (1.8-7.7); Neutrophils % (Auto) 72 % (37-80); Nucleated Red Blood Cell # 0.00 Thou/mm3 (0.00-0.00); Nucleated Red Blood Cell % 0 /100 WBC (0); Platelet Count 126 Thou/mm3 (140-440); RDW Standard Deviation 44.2 fL (36.4-46.3); Red Blood Count 3.33 Miln/mm3 (4.00-5.20); White Blood Count 3.3 Thou/mm3 (3.6-11.0)
[2025-11-10 10:57] LABS: Alanine Aminotransferase 16 U/L (10-49); Albumin, Serum 4.2 gm/dL (3.4-4.8); Albumin/Globulin Ratio 2.1 (1.2-2.2); Alkaline Phosphatase 109 U/L (46-116); Anion Gap 9 (7-16); Aspartate Amino Transferase 22 U/L (0-34); BUN/Creatinine Ratio 20 Ratio (12-20); Bilirubin,Total 0.4 mg/dL (0.3-1.2); Blood Urea Nitrogen 18 mg/dL (9-23); Calcium 9.9 mg/dL (8.3-10.6); Calcium (Corrected) 9.9 mg/dL (8.5-10.1); Carbon Dioxide 27.5 mMol/L (20.0-31.0); Chloride 107 mMol/L (98-107); Creatinine (Component) 0.9 mg/dL (0.6-1.3); Globulin 2.0 gm/dL (2.3-3.5); Glucose 96 mg/dL (74-106); Osmolality,Calculated 286 (275-295); Potassium 4.4 mMol/L (3.4-5.1); Sodium 143 mMol/L (136-145); Total Protein 6.2 gm/dL (5.7-8.2); eGFR > 60 See Note
== END 2025-11-29 23:59 | disposition home or self-care (01) ==
LOC: SCTC 12:50
PROVIDERS: PCP Family Medicine; Referring Provider Family Medicine; Visit Provider Internal Medicine Hematology & Oncology
DX: C50.812 Malignant neoplasm of overlapping sites of left female breast (principal); C77.3 Secondary and unspecified malignant neoplasm of axilla and upper limb lymph nodes; Z17.0 Estrogen receptor positive status [ER+]; Z17.22 Progesterone receptor negative status; Z17.32 Human epidermal growth factor receptor 2 negative status; Z90.12 Acquired absence of left breast and nipple; Z79.811 Long term (current) use of aromatase inhibitors; M85.80 Other specified disorders of bone density and structure, unspecified site; G62.9 Polyneuropathy, unspecified; I89.0 Lymphedema, not elsewhere classified; Z80.3 Family history of malignant neoplasm of breast; N63.10 Unspecified lump in the right breast, unspecified quadrant
CPT/HCPCS: 36591; 80053; 85025; 96365; A4216; J1642; J2997; J3489; J7030

== ENCOUNTER → 2025-11-21 | Outpatient (CLI) | payer BC, SELFPAY ==
--- NOTE | 2025-11-21 10:30 | ECHO_ITS ---
Patient Info Name: Irma Fine Age: 65 years : 1960 Gender: Female Ht: 165 cm Wt: 59 kg BSA: 1.65 m2 BP: 128 / 75 mmHg HR: 78 bpm Exam Date: 11/21/2025 10:25 AM Admit Date: 11/21/2025 Site: Room Number: OP Patient Status: O Exam Type: CA echo doppler complete Patron Attendant: Patrizia Navarro Ordering Physician: Sascha Nichole Referring Physician: Sascha Nichole Study Info Indications Other specified types of non-Hodgkin lymphoma, unspecified s - Primary Location: [facility] Left Ventricular Outflow Tract Name Value Normal LVOT 2D LVOT Diameter 1.7 cm LVOT Doppler LVOT Peak Velocity 117 cm/s LVOT Mean Gradient 3 mmHg LVOT VTI 26 cm LVOT VTI/AV VTI Ratio 1.0 LVOT Stroke Volume 58 ml Pulmonic Valve Name Value Normal PV Doppler PV Peak Velocity 114 cm/s Mitral Valve Name Value Normal MV Doppler MV Mean Gradient 1 mmHg MV Decel Wilson 464 cm/s2 MV PHT 53 ms MV Area (PHT) 4.1 cm2 4.0-5.0 MV Area (Cont Eq VTI) 1.7 cm2 MV Diastolic Function MV E Peak Velocity 85 cm/s MV A Peak Velocity 59 cm/s MV E/A 1.4 MV Annular TDI MV Septal e' Velocity 12.9 cm/s MV E/e' (Septal) 6.6 MV Lateral e' Velocity 16.4 cm/s MV E/e' (Lateral) 5.2 MV e' Average 14.65 cm/s MV E/e' (Average) 5.9 Tricuspid Valve Name Value Normal TV Regurgitation Doppler TR Peak Velocity 179 cm/s Estimated PAP/RSVP RA Pressure 3 mmHg <=5 PA Systolic Pressure 16 mmHg <36 RV Systolic Pressure 16 mmHg <36 TV Annular TDI TV Lateral Nannette s' Velocity 16.0 cm/s >=9.5 Aortic Valve Name Value Normal AV 2D/MM AV Cusp Sep (MM) 1.9 cm AV Doppler AV Peak Velocity 121 cm/s AV Mean Gradient 3 mmHg AV VTI 26 cm AV Area (Cont Eq VTI) 2.3 cm2 >=3.0 AV Area (Cont Eq Andrey) 2.2 cm2 AV DI (Andrey) 0.97 AV Regurgitation 2D LVOT Area 2.3 cm2 Ventricles Name Value Normal LV Dimensions 2D/MM IVS Diastolic Thickness (2D) 0.6 cm 0.6-0.9 LVID Diastole (2D) 4.5 cm 3.8-5.2 LVIW Diastolic Thickness (2D) 0.9 cm 0.6-0.9 LVID Systole (2D) 2.9 cm 2.2-3.5 LVOT Diameter 1.7 cm LV Mass (2D Cubed) 104.50 g 67.00-162.00 LV Mass Index (2D Cubed) 63 g/m2 43-95 Relative Wall Thickness (2D) 0.40 <=0.42 IVS/LVIW Diastolic Thickness (2D) 0.67 0.00-1.50 LV Fractional Shortening/Ejection Fraction 2D/MM LV Fractional Shortening (2D) 36 % 27-45 LV EF (2D Teichholz) 65 % RV Dimensions 2D/MM TV Lateral Nannette s' Velocity 16.0 cm/s >=9.5 Atria Name Value Normal LA Dimensions LA Volume (4C A-L) 36 ml LA Volume (BP A-L) 44 ml Left Ventricle Left ventricular chamber dimension is normal. Left ventricular systolic function is normal with visually estimated ejection fraction of 60-65%. There is normal geometry noted in the left ventricle. Left ventricular segmental wall motion is normal. There is grade II diastolic dysfunction in the left ventricle. Right Ventricle Right ventricular chamber dimension is normal. Right ventricular systolic function is normal. Left Atrium Left atrial chamber dimension is mildly enlarged. Right Atrium Right atrial chamber dimension is normal. Aortic Valve The aortic valve is trileaflet. There is no aortic valve sclerosis. There is no aortic valve stenosis with a peak velocity of 121 cm/s, mean gradient of 3 mmHg, and aortic valve area of 2.3 cm2. There is no aortic valve regurgitation. Pulmonic Valve The pulmonic valve is normal. There is no pulmonic valve stenosis. There is trace pulmonic regurgitation. Mitral Valve The mitral valve has a calcified annulus. There is no mitral valve stenosis. There is mild mitral valve regurgitation. Tricuspid Valve The tricuspid valve leaflets are normal. There is no tricuspid valve stenosis. There is mild tricuspid valve regurgitation. Estimated pulmonary arterial systolic pressure is 16 mmHg and systemic blood pressure of 128 mmHg in systole. Pericardium/Pleural The pericardium appears normal. There is no pericardial effusion. No pleural effusion visualized. Inferior Vena Cava Normal inferior vena cava with >50% collapse upon inspiration consistent with normal right atrial pressure, 3 mmHg. Aorta The aortic measurements are indexed to age and body surface area. The aortic root at the sinus of Valsalva is not well visualized. The prox ascending aorta is not well visualized. Summary 1. Left ventricle size is normal and systolic function is normal. Estimated ejection fraction is 60-65%. There is indeterminate diastolic dysfunction. 2. Right ventricle chamber size is normal and systolic function is normal. Estimated RVSP is 16 mmHg. 3. There is mild mitral valve regurgitation, Mild MAC. 4. There is mild tricuspid valve regurgitation. Trace PI. 5. The left atrium is mildly enlarged. The right atrium is normal. Report Signatures Finalized by Diallo Krause on 11/21/2025 05:57 PM
== END | disposition home or self-care (01) ==
LOC: SDIM 10:02
PROVIDERS: PCP Student in an Organized Health Care Education/Training Program; Referring Provider Internal Medicine Hematology & Oncology; Visit Provider Internal Medicine Hematology & Oncology
DX: I08.1 Rheumatic disorders of both mitral and tricuspid valves (principal); I51.7 Cardiomegaly; C50.912 Malignant neoplasm of unspecified site of left female breast
CPT/HCPCS: 93306